=== PATIENT | female | born 1990 | race Caucasian/White ===

== ENCOUNTER 2019-11-15 19:44 | Emergency (ER) | payer MEDICAID, SELFPAY ==
[2019-11-15 19:45] VITALS: BP 137/92; PULSE 111; RESP 16; TEMP 36.7; O2SAT 99; BMI 30.9
--- NOTE | 2019-11-15 20:29 | ED.VISSUMM ---
- ER Visit Summary Date of Service: 11/15/19 Chief Complaint: Rectal pain History of Present Illness: The patient is a 29 F presents with rectal pain that is been getting progressively worse over the past 4 days. Patient states she has history of hemorrhoids and states they have gotten worse over the past 4 days. Patient describes her pain as sharp. Patient states her pain is worse with sitting. Patient states the pain improves with some warm compresses. Patient admits to some mild bleeding. Patient denies any nausea or vomiting. Patient states the pain will occasionally radiate into her abdomen. Patient denies any fevers or chills. Patient admits to some mild lower back pain. Patient denies any flank pain. Physical Examination: Vital signs are stable except for mild tachycardia of 111. Patient is afebrile. Patient is in no acute distress. Oral mucosa is pink and moist. Neck is supple. Trachea is midline. There is no JVD. Heart was regular and mildly tachycardic. Lungs are clear and equal bilaterally. Abdomen is soft. Bowel sounds are normal. There is no tenderness. Cranial nerves II through XII are intact. There are no focal motor or sensory deficits noted. Rectal exam showed a tender hemorrhoid on the left lateral aspect of the anus. There is no evidence of thrombosis. There is no discoloration noted. There is no active bleeding. There are other small nontender hemorrhoids on the right. Emergency Department Course and Treatment: Patient was advised that this does not need to be opened and drained at this time. Patient was given a prescription for Anusol HC. Patient was instructed to follow-up with her primary care physician in 5 to 7 days. Patient was instructed to continue using warm sitz baths. Patient understood and was agreeable with the plan. All questions were answered. Disposition: Discharge home Impression: Hemorrhoids This note was generated with [employer] dictation software. It may contain incorrect words, spelling, and punctuation that were not noted in review of the chart prior to signing ED Disposition - Plan for ED Patient: Disposition: Home or Assisted Living Diagnosis: Hemorrhoids Instructions: Hemorrhoids Prescriptions: Hydrocortisone Acetate Cream [Anusol Hc] 1 applic RECTAL BID PRN PRN #1 tube PRN Reason: Hemorrhoids Prescription Printed Referrals: Dewayne Delgado III, MD [Primary Care Provider] - 3-5 Days
[2019-11-15 21:01] VITALS: PULSE 80; RESP 18; O2SAT 100
--- NOTE | 2019-11-15 21:01 | ED.RN ---
Educated pt, answered all questions, no further concerns.
== END 2019-11-15 21:01 | disposition home or self-care (01) ==
PROVIDERS: Emergency Provider Emergency Medicine; Family Provider Family Medicine; PCP Family Medicine
DX: K64.9 Unspecified hemorrhoids (principal); I10 Essential (primary) hypertension
CPT/HCPCS: 99282

== ENCOUNTER 2019-12-19 00:46 | Outpatient (CLI) | payer MEDICAID, SELFPAY ==
[2019-12-19 00:48] VITALS: BP 137/108; PULSE 96; RESP 15; TEMP 36.4; O2SAT 99; BMI 29.5
--- NOTE | 2019-12-19 01:28 | ED.VISSUMM ---
- ER Visit Summary Date of Service: 12/19/19 Chief Complaint: Right flank pain History of Present Illness: The patient is a 29 F who presents with right flank pain that has gradually been getting worse over the past week. Patient states the pain is a constant ache but gets sharp at times. Patient states the pain is over the right upper right lower abdomen. Patient states the pain improves with certain positions. Patient denies any nausea or vomiting. Patient denies any hematemesis or coffee-ground emesis. Patient denies any diarrhea, melena, or hematochezia. Patient denies any dysuria or hematuria. Physical Examination: Vital signs are stable. Patient is afebrile. Patient is in no acute distress. Oral mucosa is pink and moist. Neck is supple. Trachea is midline. There is no JVD. Heart was regular rate and rhythm. Lungs are clear and equal bilaterally. Abdomen is soft. There is some mild right CVA tenderness. There is no rebound or guarding noted. There is no right lower quadrant or left-sided abdominal tenderness. Cranial nerves II through XII are intact. There are no focal motor or sensory deficits noted. Test Results: CBC shows a thrombocytopenia of 34. Comprehensive metabolic profile shows a total bilirubin of 2.0, alk phos of 241, ALT of 115, and AST of 195. Quantitative hCG was 26,298. Emergency Department Course and Treatment: Patient was given IV fluids, Zofran, and morphine here. Patient was feeling better on reevaluation. Case was discussed with Dr. Trujillo from [facility]. She recommended obtaining an ultrasound of the pelvis as well as the abdomen to assess for , kidney, and liver. This was obtained. ultrasound shows a single intrauterine at approximately 33 weeks gestation. Case was discussed with Dr. Trujillo again. Patient will be admitted to the labor and delivery unit and she will be in to evaluate the patient there. Patient understands and is agreeable with the plan. All questions were answered. Disposition: Admit for observation Impression: HELLP syndrome This note was generated with [employer] dictation software. It may contain incorrect words, spelling, and punctuation that were not noted in review of the chart prior to signing ED Disposition - Plan for ED Patient: Disposition: Acute Care [facility] Diagnosis: HELLP syndrome Referrals: Dewayne Delgado III, MD [Primary Care Provider] -
[2019-12-19] MEDS: 0.9% Normal Saline 1,000 ML 1000 ML IV (01:33)
[2019-12-19] MEDS: Ondansetron 4 MG/2 ML Vial IV (01:33)
[2019-12-19] MEDS: Morphine 2 MG/ML Syringe IV (01:33)
[2019-12-19 01:34] LABS: Internal QC Validated? YES +Cl - CLEAR BKGD; Pregnancy, Serum, hCG Quali. POSITIVE Negative
[2019-12-19 01:41] LABS: Absolute Lymphocyte Count 2.59 X10^3/uL (0.83-4.51); Absolute Neutrophil Count 8.3 X10^3/uL (2.0-7.7); Basophil# 0.03 X10^3/uL; Basophil% 0.3 % (0-1); Eosinophil# 0.08 X10^3/uL; Eosinophils% 0.7 % (0-5); Hematocrit 38.2 % (37-47); Hemoglobin 13.6 g/dL (12.0-15.0); Lymphocyte # 2.59 X10^3/ul (4.0); Lymphocyte % 21.7 % (19-41); Mean Corp Hgb Conc 35.6 g/dL (32-36); Mean Platelet Vol. 10.2 fl (6.2-12.0); Monocyte# 0.77 X10^3/uL; Monocyte% 6.5 % (0-10); NRBC Flagged by Analyzer 0 % (0-5); Neutrophil # 8.34 X10^3/uL (2.7-7.7); POSITIVE COUNT YES; RBC Distribution Width CV 14.1 % (11.6-14.6); Red Blood Count 4.39 M/mm3 (4.2-5.4); White Blood Count 11.9 K/mm3 (4.4-11.0)
[2019-12-19 01:54] LABS: ALB/GLOB Ratio 0.5 RATIO (0.9-2.4); AST(SGOT) 195 U/L (15-37); Alanine Aminotransfer ALT/SGPT 115 U/L (13-56); Albumin, Serum 2.4 g/dL (3.2-5.0); Alkaline Phosphatase 241 U/L (45-117); Anion Gap 9 (5-15); BUN 7 mg/dL (7-18); BUN/Creat Ratio 9.6 RATIO (10-20); Calcium,Total 8.6 mg/dL (8.5-10.1); Chloride 100 mmol/L (98-107); Creatinine, Serum 0.73 mg/dL (0.55-1.02); EST Glomerular Filtration Rate 99 mL/min (>60); Est Glom Filt Rate - Afr Amer 120 mL/min (>60); Estimated Creatinine Clearance 97.31 ml/min; Globulin 4.4 g/dL (2.2-4.2); Glucose 79 mg/dL (74-106); Lipase 32 U/L (73-393); Potassium 3.6 mmol/L (3.5-5.1); Protein, Total 6.8 g/dL (6.4-8.2); Sodium Level 132 mmol/L (136-145)
[2019-12-19 02:04] LABS: Differential Comment SCANNED; Differential Indicated SCAN CRITERIA MET; Platelet Count 34 K/mm3 (150-450); Platelet Estimate MKD DEC (ADEQ)
[2019-12-19 02:51] VITALS: BP 131/95; PULSE 79; RESP 18; O2SAT 98
[2019-12-19 02:55] LABS: Bacteria 0 SEEN /hpf (None Seen); Mucous, Urine 0 SEEN /hpf (<or=2+); Red Blood Cells-Urine 0 SEEN /hpf (0-5); White Blood Cells 0 SEEN /hpf (0-5)
[2019-12-19 02:56] LABS: Color, Urine Yellow (Yellow); Glucose, Dipstick Normal (Normal); Ketone-Dipstick 50 mg/dl (Negative); Leukocyte Esterase-Dipstick 25 /ul (Negative); Nitrite-Dipstick Negative (Negative); Occult Blood-Urine Negative /ul (Negative); Protein-Dipstick Negative (Negative); Urine Bilirubin Dipstick Negative (Negative); Urine Clarity Sl. Cloudy (Clear); Urine Urobilinogen 1 mg/dl (Normal)
[2019-12-19 03:02] LABS: Squamous Epithelial Cells - UA > 100 SEEN /hpf (5-10)
[2019-12-19 03:10] LABS: hCG Titer Quant., Serum 26298 mIU/mL (1-3)
--- NOTE | 2019-12-19 03:36 | US_ITS ---
STUDY: SECOND AND THIRD TRIMESTER OBSTETRICAL ULTRASOUND REASON FOR EXAM: Female, 29 years old with abdominal pain. Patient . LMP: 11/16/2019. TECHNIQUE: Transabdominal. TECHNICAL QUALITY: Adequate. PRIOR ULTRASOUND: None. FINDINGS: There is a single intrauterine fetus. The fetus is in a cephalic presentation. There is demonstrated cardiac activity with a heart rate of 136 bpm. There is a normal amniotic fluid volume. The largest amniotic fluid pocket measures 3.3 cm. The amniotic fluid index (EDU) is 10.9 cm. The placenta is anterior and not low-lying. There are Grade 3 placental changes. Cervix not visualized. Adnexa not visualized. BIOMETRY: BPD: 9.1 cm: 37 weeks, 1 days HC: 32.6 cm: 37 weeks, 1 days AC: 29.9 cm: 33 weeks, 6 days FL: 7.0 cm: 35 weeks, 5 days FL/BPD: 76% FL/AC: 23% HC/AC: 1.1 age by current US: 36 weeks, 0 days. GUILHERME by current US: 01/16/2020. Estimated weight: 2567 grams, +/- 375 grams, Age by LMP: 4 weeks, 5 days. GUILHERME by LMP: 08/22/2020. Limited anatomic survey due to advanced gestational age. US/OB Limited With Biometrics IMPRESSION: Single living intrauterine gestation with an estimated gestational age by ultrasound of 36 weeks 0 days. Estimated date of delivery January 16, 2020. Discordant estimated gestational age by LMP. Electronically Signed: Jerson Hollingsworth MD at 5:45 EST , Service support ,
--- NOTE | 2019-12-19 03:37 | US_ITS ---
STUDY: ABDOMINAL ULTRASOUND - RIGHT UPPER QUADRANT REASON FOR VISIT: Female, 29 years old with right flank pain. Patient . TECHNIQUE: Ultrasound evaluation of the right upper quadrant was performed with real-time and static burger-scale imaging. TECHNICAL QUALITY: Adequate. COMPARISON: None. FINDINGS: Liver: The liver measures 15.3 cm. There is normal echogenicity of the liver from the images provided. The bile ducts are within normal limits. There is hepatic color flow. The direction of portal flow is hepatopetal. There is no demonstrated mass lesion. Gallbladder: Normal distended gallbladder. The gallbladder wall measures 4 mm. There is a negative sonographic Hayes''s sign. There is no pericholecystic fluid. There are multiple echogenic structures within the gallbladder, consistent with 2 mobile gallstones. Common Bile Duct (C.B.D.): The common bile duct measures 4 mm. Pancreas not visualized due to overlying bowel gas. Right Kidney: Normal size of the right kidney. The right kidney measures 10.5 cm. Normal renal cortex. The right cortex measures 2.1 cm. There is no demonstrated renal mass or cyst. There is no right hydronephrosis. US/Abdomen Limited IMPRESSION: Cholelithiasis with mild gallbladder wall thickening. These findings alone do not suggest cholecystitis. Pancreas not visualized. Electronically Signed: Jerson Hollingsworth MD at 5:37 EST , Service support ,
[2019-12-19] MEDS: 0.9% Normal Saline 1,000 ML 999 ML IV (03:57)
--- NOTE | 2019-12-19 05:40 | ED.RN ---
DR. EARLY WAS CONSULTED BY DR. CID FOR THE PATIENT IN APPARENT HELP'' SYNDROME AND 36 WEEKS GESTATION. THE PATIENT WAS UNAWARE THAT SHE WAS THIS FAR ALONG. SHE WAS VERY SCARED AND NERVOUS. HER MOM IS AT THE BEDSIDE FOR SUPPORT, BUT DID NOT BELIEVE THEY WOULD HAVE GOOD PARENTAL SUPPORT. DR. EARLY WANTED HER TO BE TRANSPORTED TO OB IMMEDIATELY. HER VITALS ARE STABLE AT BP 129/83, PULSE 70, RESPS 20 AND PULSE OX 98%. SHE WENT OVER TO OB ON THE [facility] OPERATOR HELPER AT NORMAL SINUS RHYTHM. BEDSIDE REPORT WAS GIVEN TO THE OB NURSE TEAM. PATIENT WAS ATTACHED TO TO MONITOR AND THEIR WAS A GOOD STRONG HARD BEAT.
[2019-12-19 05:42] VITALS: BP 129/83; PULSE 70; RESP 20; O2SAT 98
[2019-12-19] MEDS: Betamethasone/Betamethasone 30 MG/5 ML Vial 12 MG IM (05:54)
[2019-12-19] MEDS: Magnesium Sulfate 4gm/100mL 4 GM/100 ML IV.SOLN. IV (05:59)
[2019-12-19 06:20] VITALS: BP 135/90; PULSE 90; RESP 18; O2SAT 97
[2019-12-19] MEDS: Magnesium Sulfate 20 GM/500 ML BAG IV (06:20)
--- NOTE | 2019-12-19 06:20 | PCM.HP.OB ---
History Date of Admission: 12/19/19 Final GUILHERME: 01/16/20 Gestational age: 36 Weeks and 0 Days History of this : Patient presented with ED with RUQ and right flank pain. Pain had been going on for 1 week. Denies other symptoms. Surgical History: Surgical History (Last Updated 12/19/19 @ 06:22 by David Trujillo) H/O adenoidectomy Z90.89 Allergies aspirin Allergy (Verified 12/19/19 00:47) Swelling sulfamethoxazole [From Bactrim] Allergy (Verified 12/19/19 00:47) Swelling trimethoprim [From Bactrim] Allergy (Verified 12/19/19 00:47) Swelling Home Medications: Home Medications Atenolol 50 mg PO DAILY 11/15/19 Hydrochlorothiazide 12.5 mg PO DAILY 11/15/19 Levocetirizine Dihydrochloride [24Hr Allergy Relief] 5 mg PO DAILY 11/15/19 Smoking Status: Never smoker Number of Fetus(es): 1 NST - FHR Rate Baby A Baseline: 135 Variability:: Moderate Accelerations:: 15 x 15 Decelerations:: None NST Reactive:: Yes Uterine Activity:: Irregular History Past Pregnancies: Past Pregnancies Delivery Date Name GA/ Weeks Outcome Route Wt Infant Sex Labor Length Anesthesia Delivery Location Provider FOB Labs: No care Physical Exam Vitals: Vital Signs Temp Pulse Resp BP Pulse Ox 97.6 F L 79 18 131/95 H 98 12/19/19 00:48 12/19/19 02:51 12/19/19 02:51 12/19/19 02:51 12/19/19 02:51 General: Alert, Oriented x3 Abdomen: Soft, Non-Distended, Tender - mildy in RUQ Neurological: Cranial nerves II-XII grossly intact LUBRICATING MACHINE TENDER: Normal external genitalia Presentation: Cephalic Assessment/Plan All Active Problems HELLP syndrome (Acute) This is a 29 year-old, G 1, P 0, at 36 weeks with HELLP. HELLP - ED evaluation shows elevated LFT's and low platelets. No LDH done but findings c/w with HELLP syndrome. Patient started on magnesium sulfate. These findings and plan of care discussed with patient. FWB - BMZ given and reassuring EFM. No PNC - US in ED provided EDC. Will need PNB upon arrival to [place]. Will transfer patient to [facility]. Discussed patient with Dr. Son.
--- NOTE | 2019-12-19 06:36 | NURSING ---
wp obs rosie hellp syndrome
--- NOTE | 2019-12-19 06:45 | PCM.HP.OB ---
History Date of Admission: 12/19/19 Final GUILHERME: 01/16/20 Gestational age: 36 Weeks and 0 Days History of this : This is a 29 year-old, G [], P [], at weeks gestational age. Medical History: Medical History (Last Updated 12/19/19 @ 06:22 by David Trujillo) Chronic hypertension I10 Surgical History: Surgical History (Last Updated 12/19/19 @ 06:22 by David Trujillo) H/O adenoidectomy Z90.89 Allergies aspirin Allergy (Verified 12/19/19 00:47) Swelling sulfamethoxazole [From Bactrim] Allergy (Verified 12/19/19 00:47) Swelling trimethoprim [From Bactrim] Allergy (Verified 12/19/19 00:47) Swelling Home Medications: Home Medications Atenolol 50 mg PO DAILY 11/15/19 Hydrochlorothiazide 12.5 mg PO DAILY 11/15/19 Levocetirizine Dihydrochloride [24Hr Allergy Relief] 5 mg PO DAILY 11/15/19 Smoking Status: Never smoker History Past Pregnancies: Past Pregnancies Delivery Date Name GA/ Weeks Outcome Route Wt Infant Sex Labor Length Anesthesia Delivery Location Provider FOB Physical Exam Vitals: Vital Signs Temp Pulse Resp BP Pulse Ox 97.6 F L 70 20 H 129/83 H 98 12/19/19 00:48 12/19/19 05:42 12/19/19 05:42 12/19/19 05:42 12/19/19 05:42 Assessment/Plan All Active Problems (Last Updated 12/19/19 @ 06:22 by David Trujillo) HELLP syndrome (Acute)
[2019-12-19 07:00] VITALS: BP 117/76; PULSE 68; RESP 18; O2SAT 97
[2019-12-19 14:38] LABS: Pathologist Review Reviewed
== END 2019-12-19 07:15 | disposition short-term general hospital (02) ==
LOC: ED 02:22 → WPOUT 05:45 → WP 05:45
PROVIDERS: Emergency Provider Emergency Medicine; PCP Family Medicine; Visit Provider Obstetrics & Gynecology
DX: O14.23 HELLP syndrome (HELLP), third trimester (principal); O10.913 Unspecified pre-existing hypertension complicating pregnancy, third trimester; O99.113 Other diseases of the blood and blood-forming organs and certain disorders involving the immune mechanism complicating pregnancy, third trimester; D69.6 Thrombocytopenia, unspecified; Z88.2 Allergy status to sulfonamides; Z88.1 Allergy status to other antibiotic agents; Z88.6 Allergy status to analgesic agent; Z3A.36 36 weeks gestation of pregnancy
CPT/HCPCS: 96361 ×3; 96365; 96375 ×2; 59025; 59050; 76705; 76816; 80053; 81001; 83690; 84702; 84703; 85025; 96372; 99218; 99283; J7030; A4216; G0378; J2405

== ENCOUNTER → 2019-12-30 12:59 | Outpatient (CLI) | payer MEDICAID, SELFPAY ==
[2019-12-19 00:48] VITALS: BMI 29.5
--- NOTE | 2019-12-30 13:18 | VDUE_ITS ---
Reason For Study: Right arm pain Right Proximal Right jugular vein is spontaneous, widely patent, phasic, with no intraluminal echogenicity noted. Right subclavian vein is spontaneous, widely patent, phasic, with no intraluminal echogenicity noted. Right Lower Arm Right radial vein is compressible. Right ulnar vein is compressible. Right Arm Right axillary vein is spontaneous, patent, phasic, competent, compressible and demonstrates augmentation. Right brachial vein is compressible. Acute superficial vein thrombosis is noted in the right cephalic vein from the wrist to above antecube, and the median cubital vein not extending in the basilic vein. Right basilic vein is compressible. Patient Safety Prelim to [facility]. Interpretation Summary Deep veins of the right upper extremity are patent and compressible segmentally. There is no evidence of deep vein thrombosis. Acute superficial thrombophlebitis is noted in the right median cubital vein, and in the right cephalic vein from the wrist to the bicep, but not extending into the deep venous system. The right basilic vein appears patent and compressible. Ordering Physician: Norma Gates Referring Physician: ARIS Delgado M.D. Performed By: Marie Saldana RVT ?
== END ==
PROVIDERS: PCP Family Medicine; Referring Provider Advanced Practice Midwife; Visit Provider Advanced Practice Midwife
DX: M79.601 Pain in right arm (principal); M79.89 Other specified soft tissue disorders
CPT/HCPCS: 93971

== ENCOUNTER 2021-12-03 19:51 | Emergency (ER) | payer MEDICAID, SELFPAY ==
[2021-12-03 19:52] VITALS: BP 167/112; PULSE 106; RESP 18; TEMP 36.2; O2SAT 100; BMI 29.8
== END 2021-12-03 23:59 | disposition left against medical advice (07) ==
LOC: ED 20:26
DX: R10.9 Unspecified abdominal pain (principal)

== ENCOUNTER 2021-12-04 15:06 | Inpatient (IN) | payer MEDICAID, SELFPAY ==
[2021-12-04] VITALS (14 sets, daily range): BP systolic 96–128; BP diastolic 46–81; PULSE 87–114; RESP 16–18; TEMP 36.6–39.3; O2SAT 94–100; BMI 25.7; BMI 28.5
--- NOTE | 2021-12-04 15:25 | EDS_ITS ---
HPI HPI - Female History of Present Illness Chief Complaint: Flank Pain Narrative Narrative: Patient presents with her mother because of left flank pain that she has had since yesterday. It is associated with nausea and subjective fever and chills. She was seen and evaluated at an outside facility, at [facility], and diagnosed with a UTI and a 4 mm stone at the left UVJ. She was supposed to go to same-day surgery at [facility] to see Dr. Saenz with urology for probable stenting, but her mother states that they prefer to be seen at [facility] if she needs surgery. Hence, they brought her here to the emergency department. [facility] Medical History (Updated 12/04/21 @ 16:38 by Gary Olea MD) Chronic hypertension Home Medications atenolol 50 mg PO DAILY 11/15/19 [History Last Taken Unknown] hydrochlorothiazide 12.5 mg PO DAILY 11/15/19 [History Last Taken Unknown] levocetirizine 5 mg PO DAILY 11/15/19 [History Last Taken Unknown] Allergy/AdvReac Type Severity Reaction Status Date / Time aspirin Allergy Swelling Verified 12/04/21 15:07 sulfamethoxazole Allergy Swelling Verified 12/04/21 15:07 [From Bactrim] trimethoprim [From Bactrim] Allergy Swelling Verified 12/04/21 15:07 Surgical History (Updated 12/19/19 @ 06:[address] David Trujillo MD) H/O adenoidectomy Social History Smoking Status: Never smoker ROS ROS ED ROS Narrative Constitutional: No fever, positive chills. HEENT: No sore throat. No neck pain. No loss of vision. No rhinorrhea. Cardiovascular: No chest pain. No palpitations. No pedal edema. Respiratory: No cough, no shortness of breath. Abdominal: No abdominal pain. No nausea. No vomiting. Genitourinary: No dysuria. No hematuria. Left flank pain. Musculoskeletal: No myalgias. No arthralgias. Neurologic: No headaches. No dizziness. No lightheadedness. Skin: No rash. No change in color. Psychiatric: No depression. No anxiety. EXAM Physical Exam Narrative Exam Narrative: Afebrile. Vital signs noted. HEENT: Normocephalic. Atraumatic. PERRL, EOMI. Neck soft and supple. No point tenderness or step off. Cardiovascular: Positive tachycardia. No murmurs, rubs, or gallops appreciated. Respiratory: No tachypnea. Lungs clear to auscultation bilaterally. Gastrointestinal: Abdomen soft, nontender, with normoactive bowel sounds. No rebound or guarding. Mild CVA tenderness to percussion left. Neurological: Awake. Alert. Nonfocal, nonlateralizing. Skin: No rash. Normal color. No pallor. Musculoskeletal: No pedal edema. Full range of motion extremities. Const Vital Signs: 12/04/21 15:07 Temperature 98.0 F Temperature Source Temporal Pulse Rate 114 H Respiratory Rate 16 Blood Pressure 128/81 H Blood Pressure Mean 96 Pulse Ox 100 Oxygen Delivery Method Room Air MDM MDM MDM Narrative Medical decision making narrative: Patient did receive antibiotics intravenously. She states she has an allergy to aspirin but tolerates oral ibuprofen. IV was placed and she was administered morphine and oral ibuprofen. I reviewed her records from the outside facility. She did have signs of a UTI. She has a white count of 10.7. Here she is afebrile. However, she is mildly tachycardic. She will also be bolused normal saline. I discussed patient with Dr. Rocha. Given her tachycardia, and chills, and ureteral stone with UTI, she will be observed. She will be started on Rocephin intravenously. I will also have a Covid test with her planned for surgery tomorrow. Serum hCG was also added. She will be placed on observation. She is in stable condition. Discharge Plan Dx/Rx/DC Orders Clinical Impression: UTI (urinary tract infection), Left ureteral calculus Disposition Disposition: Acute Care Hospital [facility]
[2021-12-04] MEDS: Morphine 4 MG/ML Syringe IV (15:39)
[2021-12-04] MEDS: 0.9% Normal Saline 1,000 ML 999 ML IV (15:45)
[2021-12-04] MEDS: Ibuprofen 600 MG Tablet PO (15:45)
[2021-12-04] MEDS: Ceftriaxone 1 GM/50 ML BAG IV (16:36)
[2021-12-04 17:09] LABS: Internal QC Validated? YES +Cl - CLEAR BKGD; Pregnancy, Serum, hCG Quali. NEGATIVE Negative
[2021-12-04 17:55] LABS: Absolute Lymphocyte Count 1.54 X10^3/uL (0.83-4.51); Absolute Neutrophil Count 11.5 X10^3/uL (2.0-7.7); Basophil# 0.03 X10^3/uL; Basophil% 0.2 % (0-1); Eosinophil# 0.02 X10^3/uL; Eosinophils% 0.1 % (0-5); Hemoglobin 11.4 g/dL (12.0-15.0); Lymphocyte # 1.54 X10^3/ul (0.83-4.51); Lymphocyte % 10.9 % (19-41); Mean Corp Hgb Conc 34.5 g/dL (32-36); Mean Corpuscular Hgb 30.4 pg (27.0-32.0); Mean Platelet Vol. 8.5 fl (6.2-12.0); Monocyte# 0.91 X10^3/uL; Monocyte% 6.5 % (0-10); NRBC Flagged by Analyzer 0 % (0-5); Neutrophil # 11.51 X10^3/uL (2.7-7.7); Neutrophil % 81.9 % (47-70); Platelet Count 206 K/mm3 (150-450); RBC Distribution Width CV 12.3 % (11.6-14.6); RBC Distribution Width SD 39.7 fl (35.1-43.9); Red Blood Count 3.75 M/mm3 (4.2-5.4); White Blood Count 14.1 K/mm3 (4.4-11.0)
[2021-12-04 18:10] LABS: Anion Gap 9 (5-15); BUN 6 mg/dL (7-18); BUN/Creat Ratio 7.7 RATIO (10-20); Calcium,Total 7.7 mg/dL (8.5-10.1); Chloride 100 mmol/L (98-107); Creatinine, Serum 0.78 mg/dL (0.55-1.02); EST Glomerular Filtration Rate 90 mL/min (>60); Est Glom Filt Rate - Afr Amer 109 mL/min (>60); Estimated Creatinine Clearance 89.41 ml/min; Glucose 102 mg/dL (74-106); Potassium 3.2 mmol/L (3.5-5.1); Sodium Level 132 mmol/L (136-145)
[2021-12-04] MEDS: Cefazolin 1 GM/50 ML BAG IV (18:32)
[2021-12-04] MEDS: Acetaminophen 325 MG Tablet 650 MG PO (18:37)
--- NOTE | 2021-12-04 19:34 | HP.PCM_ITS ---
HPI - General General Date of Admission: 12/04/21 HPI Narrative SERGIO CUMMINS, is a 31 F who presents with known left 4mm ureteral stone diagnosed at another facility. Her pain is uncontrolled and she desired treatment here. At the time I examined her, it was 4:25pm. She was eating crackers and asking for a regular tray of food. I went to surgery, and by 5:15 she was mildly tachycardic and temp to 100.6 Labs were ordered. I called again at 6:15, she had just arrived on MS-3 with temperature of 102.8. The decision was made to take her for cystoscopy and ureteral stent insertion. Informed consent was obtained. [facility] Medical History (Updated 12/04/21 @ 19:[address] Jovita Rocha MD) Anxiety Asthma Chronic hypertension Kidney stones Pyelonephritis Home Medications NK 12/04/21 [History Last Taken Unknown] Allergy/AdvReac Type Severity Reaction Status Date / Time aspirin Allergy Swelling Verified 12/04/21 15:07 sulfamethoxazole Allergy Swelling Verified 12/04/21 15:07 [From Bactrim] trimethoprim [From Bactrim] Allergy Swelling Verified 12/04/21 15:07 Surgical History H/O adenoidectomy Social History Smoking Status: Never smoker ROS Constitutional Constitutional: Reports fatigue; Denies fever(s) or poor appetite Eyes Eyes: Reports systems reviewed and no addt'l complaints, except as documented ENT HEENT: Reports systems reviewed and no addt'l complaints, except as documented Cardiovascular Cardiovascular: Denies chest pain, dyspnea or vomiting Respiratory/Chest Respiratory/Chest: Denies change in mental status, chest congestion, cough, dyspnea or inability to speak Gastrointestinal Gastrointestinal: Reports abdominal pain; Denies nausea or vomiting Genitourinary Genitourinary: Reports flank pain Musculoskeletal Musculoskeletal: Reports back pain Integumentary Integumentary: Reports systems reviewed and no addt'l complaints, except as documented Neurologic Neurologic: Reports systems reviewed and no addt'l complaints, except as documented Psychiatric Psychiatric: Reports systems reviewed and no addt'l complaints, except as documented Endocrine Endocrinology: Reports systems reviewed and no addt'l complaints, except as documented Hematologic/Lymphatic Hematologic/Lymphatic: Reports systems reviewed and no addt'l complaints, except as documented Allergic/Immunologic Allergic/Immunologic: Reports systems reviewed and no addt'l complaints, except as documented Vital Signs Vital Signs Vital Signs: 12/04/21 15:07 12/04/21 16:57 12/04/21 18:24 Temperature 98.0 F 100.6 F H 102.8 F H Temperature Source Temporal Oral Oral Pulse Rate 114 H 103 H 104 H Respiratory Rate 16 16 18 Blood Pressure 128/81 H 123/78 H 110/70 Blood Pressure Mean 96 93 83 Blood Pressure Source Monitor Blood Pressure Position Semi-Fowlers Blood Pressure Location Left Arm Pulse Ox 100 99 Oxygen Delivery Method Room Air Room Air Room Air 12/04/21 19:15 Temperature 101.8 F H Temperature Source Oral Pulse Rate 114 H Respiratory Rate 18 Blood Pressure 104/59 L Blood Pressure Mean 74 Blood Pressure Source Monitor Blood Pressure Position Semi-Fowlers Blood Pressure Location Right Arm Pulse Ox 99 Oxygen Delivery Method Room Air Weight Weight: 75.296 kg Body Mass Index (BMI) 28.5 Physical Exam Const alert, oriented x3 and no apparent distress General Appearance: cooperative, comfortable and well kempt HEENT normocephalic, head/scalp atraumatic, hearing grossly normal bilaterally and external ears normal Face and Sinus: normal facial exam Nose: external nose normal External Ear: external ears normal Mouth: lips normal and tongue normal Eyes no scleral icterus General Eye: normal appearance of both eyes Neck supple General: trachea midline Chest Chest: symmetrical chest wall rise Resp normal respiratory effort, normal air movement, no retractions and no use of accessory muscles Cardio regular rhythm Rate: tachycardic GI soft to palpation Bladder / Kidney Exam: CVA tenderness left Back/Spine General Back: CVA tenderness left Extremity normal to inspection Skin no rashes or lesions noted, no jaundice and no petechiae Neuro oriented x3, CN's II-XII intact bilaterally and moves all extremities Psych mental status grossly normal and thought process normal Results Lab / Micro Data Result Diagrams: 12/04/21 17:45 12/04/21 17:45 Labs: Laboratory Results - last 24 hr 12/04/21 16:50: Serum , Qual NEGATIVE 12/04/21 17:45: WBC 14.1 H, RBC 3.75 L, Hgb 11.4 L, Hct 33.0 L, MCV 88.0, MCH 30.4, MCHC 34.5, RDW Std Deviation 39.7, RDW Coeff of Emir 12.3, Plt Count 206, MPV 8.5, Immature Gran % (Auto) 0.400, Neut % (Auto) 81.9 H, Lymph % (Auto) 10.9 L, [place] % (Auto) 6.5, Eos % (Auto) 0.1, Baso % (Auto) 0.2, Absolute Neuts (auto) 11.5 H, Absolute Lymphs (auto) 1.54, Nucleated RBC % 0 12/04/21 17:45: Sodium 132 L, Potassium 3.2 L, Chloride 100, Carbon Dioxide 23.0, Anion Gap 9, BUN 6 L, Creatinine 0.78, Estim Creat Clear Calc 89.41, Est GFR (MDRD) Af Amer 109, Est GFR (MDRD) Non-Af 90, BUN/Creatinine Ratio 7.7 L, Glucose 102, Calcium 7.7 L Micro: Microbiology 12/04/21 16:45 Nasal Secretion SARS-CoV-2 Antigen (Rapid) - Final Assessment & Plan Assessment/Plan (1) Left ureteral calculus: (2) UTI (urinary tract infection): (3) Pyelonephritis: PLAN: cystoscopy with left ureteral stent insertion antibiotics, supportive care
--- NOTE | 2021-12-04 19:43 | PCM.OPRPT ---
Problems Associated Problem List Diagnoses (1) Left ureteral calculus: (2) Pyelonephritis: (3) UTI (urinary tract infection): Report of Operation Date of Procedure: 12/04/21 Pre-Operative Diagnosis: left ureteral calculus with pyelonephritis, urinary tract infection Post-Operative Diagnosis: same Surgery/Procedure Performed:: cystoscopy with left ureteral stent insertion Surgeon: Jovita Rocha Type of Anesthesia: MAC Description of Procedure: The patient is a 31-year-old female with a left ureteral calculus who developed a fever on the floor. She now presents for cystoscopy and insertion of left ureteral stent. The patient was taken to the operating room and placed on the operating room table. Anesthesia monitored the head, neck, airway, IV access and vital signs throughout the case. Once anesthesia was apparently administered the patient was placed in dorsal lithotomy position was prepped and draped in usual sterile fashion. The cystoscope was inserted through the urethra under direct visualization into the urinary bladder. The bladder was emptied. The left ureteral orifice was identified and intubated with a 0.035 Glidewire at which point purulent fluid drained from the left ureteral orifice. A 6 Spanish 24 cm JJ stent was inserted over the wire with good curling in the renal pelvis as well as the urinary bladder. The patient's bladder was left full and a Santiago catheter was inserted following removal of the cystoscope. 10 cc of saline was used to inflate the balloon. The patient was awakened and taken to the recovery room in good condition. There were no complications during the procedure. Grafts/Implants Used: 6x24 JJ stent Complications None Admit VTE Documentation VTE Present on Admission: Yes VTE Mechan Device Prophylaxis: SCD's VTE Pharm Prophylaxis ordered?: Yes
[2021-12-04] MEDS: Lidocaine Jelly 2% 20 ML Syringe (URO-JET) 1 APPLIC (19:53)
--- NOTE | 2021-12-04 20:53 | SUR.PHASEI ---
UA and C+S sent to lab
[2021-12-04] MEDS: Dextrose 5%-Lactated Ringers 1,000 ML 150 ML IV (21:53)
[2021-12-04] MEDS: Docusate Sodium 100 MG Capsule PO (23:42)
[2021-12-05] VITALS (10 sets, daily range): BP systolic 90–131; BP diastolic 47–83; PULSE 73–110; RESP 16–18; TEMP 36.7–39.2; O2SAT 94–100
[2021-12-05 01:49] LABS: Mucous, Urine 0 SEEN /hpf (<or=2+); Squamous Epithelial Cells - UA 0 SEEN /hpf (5-10)
[2021-12-05 01:51] LABS: Color, Urine Yellow (Yellow); Glucose, Dipstick Normal (Normal); Ketone-Dipstick Negative (Negative); Leukocyte Esterase-Dipstick 500 /ul (Negative); Nitrite-Dipstick Negative (Negative); Occult Blood-Urine 250 /ul (Negative); Protein-Dipstick 15 mg/dl (Negative); Urine Bilirubin Dipstick Negative (Negative); Urine Clarity Clear (Clear); Urine Urobilinogen Normal (Normal)
[2021-12-05 02:10] LABS: Red Blood Cells-Urine 0-5 SEEN /hpf (0-5); White Blood Cells 25-50 SEEN /hpf (0-5)
[2021-12-05 02:11] LABS: Bacteria 1+ /hpf (None Seen)
[2021-12-05] MEDS: 0.9% Normal Saline 1,000 ML 999 ML IV (02:21)
--- NOTE | 2021-12-05 04:32 | PCM.PN.HOSP ---
Subjective Subjective Patient is a 32-year-old female who has been admitted for infected ureteral stone She was a diagnosed with infected stone at the left UVJ at [facility]. She was supposed to go to outside hospital for possible ureteral stent placement but chose to come to [facility] for convenience. Patient had Ureteral stents placed on 12/04/[address] Rocha. Internal medicine service has been consulted to help manage chronic medical conditions of hypertension and also to help manage her pyelonephritis. Post surgery nurse reported that patient had low blood pressure. At the time of examination patient reported uncomfortable feeling with her Santiago catheter. Objective Data Objective Data Vital Signs: Vital Signs Temp Pulse Resp BP Pulse Ox 98.1 F 91 16 98/69 98 12/05/21 03:29 12/05/21 03:29 12/05/21 03:29 12/05/21 03:29 12/05/21 03:29 Oxygen Delivery Method Room Air Weight: 75.296 kg Body Mass Index (BMI) 28.5 Intake & Output: Intake and Output for Last 24 Hours 12/03/21 12/04/21 12/05/21 23:59 23:59 23:59 Intake Total 1100 / 1100 1680 / 1680 Output Total 30 / 430 400 / 400 Balance 1070 / 670 1280 / 1280 Lab / Micro Data Result Diagrams: 12/04/21 17:45 12/04/21 17:45 Labs: Laboratory Results - last 24 hr 12/04/21 16:50: Serum , Qual NEGATIVE 12/04/21 17:45: WBC 14.1 H, RBC 3.75 L, Hgb 11.4 L, Hct 33.0 L, MCV 88.0, MCH 30.4, MCHC 34.5, RDW Std Deviation 39.7, RDW Coeff of Emir 12.3, Plt Count 206, MPV 8.5, Immature Gran % (Auto) 0.400, Neut % (Auto) 81.9 H, Lymph % (Auto) 10.9 L, [place] % (Auto) 6.5, Eos % (Auto) 0.1, Baso % (Auto) 0.2, Absolute Neuts (auto) 11.5 H, Absolute Lymphs (auto) 1.54, Nucleated RBC % 0 12/04/21 17:45: Sodium 132 L, Potassium 3.2 L, Chloride 100, Carbon Dioxide 23.0, Anion Gap 9, BUN 6 L, Creatinine 0.78, Estim Creat Clear Calc 89.41, Est GFR (MDRD) Af Amer 109, Est GFR (MDRD) Non-Af 90, BUN/Creatinine Ratio 7.7 L, Glucose 102, Calcium 7.7 L 12/05/21 01:25: Urine Color Yellow, Urine Clarity Clear, Urine pH 6.0, Ur Specific [place] 1.010, Urine Protein 15 H, Urine Glucose (UA) Normal, Urine Ketones Negative, Urine Occult Blood 250 H, Urine Nitrite Negative, Urine Bilirubin Negative, Urine Urobilinogen Normal, Ur Leukocyte Esterase 500 H, Urine RBC 0-5 SEEN, Urine WBC 25-50 SEEN, Ur Squamous Epith Cells 0 SEEN, Urine Bacteria 1+, Urine Mucus 0 SEEN Micro: Microbiology 12/04/21 16:45 Nasal Secretion SARS-CoV-2 Antigen (Rapid) - Final Physical Exam Narrative Physical exam: General: Well-nourished, well-developed. Head: Normocephalic, atraumatic, no tenderness Eyes: PERRLA, EOMI ENT, no trauma, moist mucous membranes, no rhinorrhea Neck: Nontender, full range of motion, no spinal tenderness, deformities, step-off CVS: Regular rate and rhythm. S1-S2 present. No murmur, gallop or rub. Respiratory : clear to auscultation bilaterally, chest wall nontender, no wheezing Abdomen: Soft, nontender, nondistended, normal bowel sounds, no masses : Santiago catheter in place. Back: Nontender, no CVA tenderness, no midline spinal tenderness, deformities, step-offs Extremities: Nontender full range of motion, no trauma Skin: Normal color, no trauma, abrasions Neuro: Alert, oriented, cranial nerves II through XII grossly intact. Psychiatry: Normal mood. Normal affect. Not depressed. Not anxious. Assessment & Plan Assessment/Plan (1) Pyelonephritis: (2) UTI (urinary tract infection): QUALIFIERS: Urinary tract infection type: acute pyelonephritis Qualified Code(s): N10 - Acute pyelonephritis (3) Left ureteral calculus: PLAN: Acute pyelonephritis with infected left UVJ stone. Review of record showed white count of 14.1; trend. Status post stent by the urologist. On cefazolin, I agree. Will patient complaining of uncomfortable feeling from Santiago catheter, order given to remove Santiago catheter. Normal saline bolus 1 L at wide open ordered for marginal blood pressures. Continue maintenance infusion. Hypokalemia Review of record showed potassium of 3.2. Replace. Chronic hypertension Reportedly with history of HELLP syndrome. Not on home blood pressure medication. At this time blood pressure is actually low to low normal. Trend blood pressures. IV hydration as above. Thank you for your consult. Internal medicine service will continue to follow. Charges/Coding Visit Charges Inpatient E&M: 81506 Subs Hosp L2
[2021-12-05] MEDS: Cefazolin 1 GM/50 ML BAG IV ×3 (05:14→22:18)
[2021-12-05] MEDS: Potassium Chloride Oral Tablet 20 MEQ 40 MEQ PO (05:14)
[2021-12-05] MEDS: Dextrose 5%-Lactated Ringers 1,000 ML 150 ML IV ×3 (06:06→20:12)
[2021-12-05 06:44] LABS: Absolute Lymphocyte Count 0.54 X10^3/uL (0.83-4.51); Absolute Neutrophil Count 10.6 X10^3/uL (2.0-7.7); Basophil# 0.02 X10^3/uL; Basophil% 0.2 % (0-1); Eosinophil# 0.03 X10^3/uL; Eosinophils% 0.2 % (0-5); Hematocrit 30.9 % (37-47); Hemoglobin 10.9 g/dL (12.0-15.0); Lymphocyte # 0.54 X10^3/ul (0.83-4.51); Lymphocyte % 4.4 % (19-41); Mean Corp Hgb Conc 35.3 g/dL (32-36); Mean Corpuscular Hgb 30.7 pg (27.0-32.0); Mean Platelet Vol. 8.6 fl (6.2-12.0); Monocyte# 0.91 X10^3/uL; Monocyte% 7.4 % (0-10); NRBC Flagged by Analyzer 0 % (0-5); Neutrophil # 10.59 X10^3/uL (2.7-7.7); Neutrophil % 86.7 % (47-70); POSITIVE DIFFERENTIAL YES; Platelet Count 174 K/mm3 (150-450); RBC Distribution Width CV 12.5 % (11.6-14.6); RBC Distribution Width SD 40.1 fl (35.1-43.9); Red Blood Count 3.55 M/mm3 (4.2-5.4); White Blood Count 12.2 K/mm3 (4.4-11.0)
[2021-12-05 06:52] LABS: Differential Indicated SCAN CRITERIA MET
[2021-12-05] MEDS: HYDROcodone Bitartrate/Apap 5/325 Tablet PO (08:22)
[2021-12-05] MEDS: Docusate Sodium 100 MG Capsule PO ×2 (08:23→22:18)
--- NOTE | 2021-12-05 11:14 | PCM.PN.HOSP ---
Documented by User: Derrick GARCÍA 12/05/21 11:27 Subjective Subjective Patient is a 31-year-old female comfortably resting in bed, alert and orient x3. Patient reports that her pain is currently controlled denies development of any new symptoms overnight. Does not appear in acute distress. Objective Data Objective Data Vital Signs: Vital Signs Temp Pulse Resp BP Pulse Ox 98.8 F 90 18 109/75 100 12/05/21 08:16 12/05/21 08:16 12/05/21 08:16 12/05/21 08:16 12/05/21 08:16 Oxygen Delivery Method Room Air Weight: 166 lb Body Mass Index (BMI) 28.5 Intake & Output: Intake and Output for Last 24 Hours 12/03/21 12/04/21 12/05/21 23:59 23:59 23:59 Intake Total 1100 / 1100 1994 Output Total 30 / 430 420 / 420 Balance 1070 / 670 1575 / 1575 Lab / Micro Data Result Diagrams: 12/05/21 06:25 12/04/21 17:45 Labs: Laboratory Results - last 24 hr 12/04/21 16:50: Serum , Qual NEGATIVE 12/04/21 17:45: WBC 14.1 H, RBC 3.75 L, Hgb 11.4 L, Hct 33.0 L, MCV 88.0, MCH 30.4, MCHC 34.5, RDW Std Deviation 39.7, RDW Coeff of Emir 12.3, Plt Count 206, MPV 8.5, Immature Gran % (Auto) 0.400, Neut % (Auto) 81.9 H, Lymph % (Auto) 10.9 L, [place] % (Auto) 6.5, Eos % (Auto) 0.1, Baso % (Auto) 0.2, Absolute Neuts (auto) 11.5 H, Absolute Lymphs (auto) 1.54, Nucleated RBC % 0 12/04/21 17:45: Sodium 132 L, Potassium 3.2 L, Chloride 100, Carbon Dioxide 23.0, Anion Gap 9, BUN 6 L, Creatinine 0.78, Estim Creat Clear Calc 89.41, Est GFR (MDRD) Af Amer 109, Est GFR (MDRD) Non-Af 90, BUN/Creatinine Ratio 7.7 L, Glucose 102, Calcium 7.7 L 12/05/21 01:25: Urine Color Yellow, Urine Clarity Clear, Urine pH 6.0, Ur Specific [place] 1.010, Urine Protein 15 H, Urine Glucose (UA) Normal, Urine Ketones Negative, Urine Occult Blood 250 H, Urine Nitrite Negative, Urine Bilirubin Negative, Urine Urobilinogen Normal, Ur Leukocyte Esterase 500 H, Urine RBC 0-5 SEEN, Urine WBC 25-50 SEEN, Ur Squamous Epith Cells 0 SEEN, Urine Bacteria 1+, Urine Mucus 0 SEEN 12/05/21 06:25: WBC 12.2 H, RBC 3.55 L, Hgb 10.9 L, Hct 30.9 L, MCV 87.0, MCH 30.7, MCHC 35.3, RDW Std Deviation 40.1, RDW Coeff of Emir 12.5, Plt Count 174, MPV 8.6, Immature Gran % (Auto) 1.100 H, Neut % (Auto) 86.7 H, Lymph % (Auto) 4.4 L, [place] % (Auto) 7.4, Eos % (Auto) 0.2, Baso % (Auto) 0.2, Absolute Neuts (auto) 10.6 H, Absolute Lymphs (auto) 0.54 L, Nucleated RBC % 0 Micro: Microbiology 12/04/21 16:45 Nasal Secretion SARS-CoV-2 Antigen (Rapid) - Final Physical Exam Const alert, oriented x3 and no apparent distress HEENT head/scalp atraumatic and moist oral mucous membranes Head and Scalp: normocephalic Eyes PERRL, EOMs intact bilaterally and conjunctivae normal Neck no lymphadenopathy, supple and no JVD Resp normal respiratory effort, no retractions, no use of accessory muscles and clear to auscultation bilaterally Cardio regular rate, regular rhythm, no murmurs and no JVD GI normal to inspection, nondistended, normoactive bowel sounds, soft to palpation and non-tender Extremity normal to inspection, full ROM and no clubbing, cyanosis or edema Skin no rashes or lesions noted, no wounds and skin turgor normal Neuro CN's II-XII intact bilaterally Psych affect normal Assessment & Plan Assessment/Plan (1) Pyelonephritis: (2) UTI (urinary tract infection): QUALIFIERS: Urinary tract infection type: acute pyelonephritis Qualified Code(s): N10 - Acute pyelonephritis (3) Left ureteral calculus: PLAN: Patient is a 31-year-old female who presents the hospital medicine service on consult from urology who is seeing patient for acute pyelonephritis secondary to infected left UVJ stone. Patient is medically stable and requires no further medical management, ongoing care per primary service. 1) hypokalemia Potassium on 12/04 was 3.2, replaced. 2)history of chronic hypertension Noted in medical history, although blood pressures have been on the lower end of normal throughout admission. Patient was given IV fluids and blood pressure appears stable. 3) acute pyelonephritis with infective left UVJ stone. POD 1, s/p cystoscopy with left ureteral stent insertion. Currently on cefazolin, management per primary service Patient seen by Derrick Castrejon PA-C, under the supervision of Dr. Saha. Time spent on patient care: 7 minutes. Documented by User: Dr. Alec Saha, 12/05/21 11:52 Subjective Subjective Feels much better today still with some flank pain but overall improved. Denies any dysuria. Objective Data Lab / Micro Data Result Diagrams: 12/05/21 06:25 12/04/21 17:45 Physical Exam Const alert and no apparent distress Cardio regular rate, regular rhythm, S1 normal heart sound and S2 normal heart sound GI normal to inspection, nondistended, normoactive bowel sounds, soft to palpation, non-tender and non-distended Extremity normal to inspection Neuro Sensorium / Orientation: awake and alert Assessment & Plan Assessment/Plan (1) Pyelonephritis: (2) Left ureteral calculus: PLAN: Patient seen and examined independently. Data and vitals reviewed. I agree with the above note by the physician certified medical technician assistant. 1. Acute pyelonephritis secondary to infected left UVJ stone Status post cystoscopy with left ureteral stent On cefazolin Can change to levofloxacin 750 mg total of 7 days of antibiotics. 2. Hypokalemia Replaced 3. Hypertension Controlled Medically stable for discharge. Hospital service will continue to follow along during the course of this patient's hospitalization. Charges/Coding Visit Charges Inpatient E&M: 44629 Subs Hosp L2
[2021-12-05] MEDS: Acetaminophen 325 MG Tablet 650 MG PO (15:39)
--- NOTE | 2021-12-05 18:44 | PCM.PROGNOTE ---
Subjective Subjective Feeling better today except when the fever comes. Is able to tolerate oral intake. No nausea or vomiting. Is ambulatory. Pain is much better controlled today. There is only minimal stent pain. She is tearful as she has a 2-year-old child at home that she wants to get to a soon as possible. Objective Data Objective Data Vital Signs: Vital Signs Temp Pulse Resp BP Pulse Ox 99.7 F H 110 H 16 131/83 H 95 12/05/21 16:51 12/05/21 14:40 12/05/21 14:40 12/05/21 14:40 12/05/21 14:40 Oxygen Delivery Method Room Air Weight: 75.3 kg Body Mass Index (BMI) 28.5 Intake & Output: Intake and Output for Last 24 Hours 12/03/21 12/04/21 12/05/21 23:59 23:59 23:59 Intake Total 1100 / 1100 3540.0 / 3540.0 Output Total 30 / 430 1420 / 1420 Balance 1070 / 670 2120.0 / 2120.0 Lab / Micro Data Result Diagrams: 12/05/21 06:25 12/04/21 17:45 Labs: Laboratory Results - last 24 hr 12/05/21 01:25: Urine Color Yellow, Urine Clarity Clear, Urine pH 6.0, Ur Specific [place] 1.010, Urine Protein 15 H, Urine Glucose (UA) Normal, Urine Ketones Negative, Urine Occult Blood 250 H, Urine Nitrite Negative, Urine Bilirubin Negative, Urine Urobilinogen Normal, Ur Leukocyte Esterase 500 H, Urine RBC 0-5 SEEN, Urine WBC 25-50 SEEN, Ur Squamous Epith Cells 0 SEEN, Urine Bacteria 1+, Urine Mucus 0 SEEN 12/05/21 06:25: WBC 12.2 H, RBC 3.55 L, Hgb 10.9 L, Hct 30.9 L, MCV 87.0, MCH 30.7, MCHC 35.3, RDW Std Deviation 40.1, RDW Coeff of Emir 12.5, Plt Count 174, MPV 8.6, Immature Gran % (Auto) 1.100 H, Neut % (Auto) 86.7 H, Lymph % (Auto) 4.4 L, [place] % (Auto) 7.4, Eos % (Auto) 0.2, Baso % (Auto) 0.2, Absolute Neuts (auto) 10.6 H, Absolute Lymphs (auto) 0.54 L, Nucleated RBC % 0 Micro: Microbiology 12/04/21 16:45 Nasal Secretion SARS-CoV-2 Antigen (Rapid) - Final Physical Exam Const alert, oriented x3 and no apparent distress Constitutional Narrative: Appears flushed, sweat in her hair and face. General Appearance: cooperative and well developed Orientation / Consciousness: awake, oriented to person, oriented to place and oriented to time HEENT normocephalic, head/scalp atraumatic, hearing grossly normal bilaterally and external ears normal Nose: external nose normal Eyes General Eye: normal appearance of both eyes Neck supple General: trachea midline Lymph Lymphatic: no lymphedema noted Chest inspection of chest normal Chest: symmetrical chest wall rise Cardio regular rhythm Rate: tachycardic GI soft to palpation and non-tender Narrative: Santiago catheter is out and she is voiding on her own Bladder / Kidney Exam: CVA tenderness left Back/Spine General Back: CVA tenderness left Extremity normal to inspection and no calf tenderness Skin no wounds, skin turgor normal, no jaundice, no petechiae and no mottling Skin Narrative: Flushed Neuro oriented x3, CN's II-XII intact bilaterally and moves all extremities Psych mental status grossly normal, thought process normal and cooperative Assessment & Plan Assessment/Plan (1) Left ureteral calculus: (2) Pyelonephritis: PLAN: Continue supportive care and antibiotics Continue ambulation and incentive spirometry Await final culture results Plan for discharge tomorrow pending status with fever etc.
--- NOTE | 2021-12-05 23:22 | NURSING ---
LATE ENTRY - 2030 - PT VOIDED 225ML, POST VOID BLADDER SCAN 62ML.
[2021-12-06] VITALS: BP 121/78; PULSE 102; RESP 18; TEMP 38.6; O2SAT 94
[2021-12-06] MEDS: Acetaminophen 325 MG Tablet 650 MG PO (00:10)
[2021-12-06 01:20] VITALS: TEMP 37.1
[2021-12-06 03:39] VITALS: BP 103/66; PULSE 75; RESP 16; TEMP 36.7; O2SAT 96
[2021-12-06] MEDS: Dextrose 5%-Lactated Ringers 1,000 ML 150 ML IV (03:39)
[2021-12-06 05:06] LABS: Absolute Lymphocyte Count 1.32 X10^3/uL (0.83-4.51); Absolute Neutrophil Count 7.7 X10^3/uL (2.0-7.7); Basophil# 0.02 X10^3/uL; Basophil% 0.2 % (0-1); Hematocrit 30.1 % (37-47); Hemoglobin 10.4 g/dL (12.0-15.0); Lymphocyte # 1.32 X10^3/ul (0.83-4.51); Lymphocyte % 13.1 % (19-41); Mean Corp Hgb Conc 34.6 g/dL (32-36); Mean Corpuscular Hgb 30.5 pg (27.0-32.0); Mean Corpuscular Volume 88.3 fL (81-99); Mean Platelet Vol. 8.7 fl (6.2-12.0); Monocyte# 0.85 X10^3/uL; Monocyte% 8.5 % (0-10); NRBC Flagged by Analyzer 0 % (0-5); Neutrophil # 7.69 X10^3/uL (2.7-7.7); Neutrophil % 76.5 % (47-70); Platelet Count 173 K/mm3 (150-450); RBC Distribution Width CV 12.6 % (11.6-14.6); RBC Distribution Width SD 40.4 fl (35.1-43.9); Red Blood Count 3.41 M/mm3 (4.2-5.4); White Blood Count 10.1 K/mm3 (4.4-11.0)
--- NOTE | 2021-12-06 05:16 | NURSING ---
DR OLIVAS MADE AWARE OF PT'S BUE EDEMA - NEW ORDER TO DC IVFS
[2021-12-06 05:39] LABS: Anion Gap 6 (5-15); BUN 4 mg/dL (7-18); BUN/Creat Ratio 6.2 RATIO (10-20); Calcium,Total 7.9 mg/dL (8.5-10.1); Chloride 108 mmol/L (98-107); Creatinine, Serum 0.64 mg/dL (0.55-1.02); EST Glomerular Filtration Rate 113 mL/min (>60); Est Glom Filt Rate - Afr Amer 137 mL/min (>60); Estimated Creatinine Clearance 108.97 ml/min; Glucose 129 mg/dL (74-106); Sodium Level 137 mmol/L (136-145)
[2021-12-06] MEDS: Cefazolin 1 GM/50 ML BAG IV (06:46)
[2021-12-06 08:00] VITALS: BP 117/73; PULSE 88; RESP 18; TEMP 36.7; O2SAT 100
[2021-12-06] MEDS: Potassium Chloride 10mEq/100mL 10 MEQ/100 ML IV.SOLN. 100 MEQ IV BOLUS (10:52)
[2021-12-06] MEDS: Docusate Sodium 100 MG Capsule PO (10:53)
--- NOTE | 2021-12-06 12:15 | CASEMGMT ---
BROOKE RAZO Assessment: Face to Face with pt for initial transition planning/care coordination assessment. BROOKE RAZO introduced self and role at [facility], pt voices understanding and consents to assessment. Pt is A/O x4 and answers all questions appropriately at this time. Pt sitting up in bed in no distress. Care providers, pharmacy, and demographics verified/updated. Admitting Dx: ureterolithiasis with UTI PCP:Pt states her PCP was Juan Manuel, she plans to stay with [facility] but has not been assigned a new PCP yet. Specialists:Pt denies prior to this hospitalization. Preferred Pharmacy: [facility] Insurance: [employer] Prescription Benefit: yes LW/HPOA: Pt denies having a LW/DPOA and denies need for info regarding AD. LNOK: Marylin Tsai, mother; Faith Barnhart, grandmother Living Arrangements: Pt lives with 2 year old in a mobile home with 3 steps to enter. Pt reports she is I in ADL's and denies concerns at home. Pt mother is taking care of her dtr while she is hospitalized. Transportation: Pt drives self and denies concerns with transportation. DME/HHC/SNF: Pt denies having any DME, previous HHC or SNF stays. Pt states no concerns with going home at time of dc. Pt states no further concerns/needs. CM to follow. Advised pt to ask CM if any further question/concerns/needs arise, voices understanding. Pt Goal: Home Plan: Home
[2021-12-06] MEDS: Potassium Chloride 10mEq/100mL 10 MEQ/100 ML IV.SOLN. 50 MEQ IV BOLUS (12:46)
--- NOTE | 2021-12-06 13:01 | PN.HOSP_ITS ---
Documented by User: Derrick GARCÍA 12/06/21 13:06 Subjective Subjective Patient is a 31-year-old female comfortably resting in bed, alert and orient x3. Patient denies development of any new symptoms overnight. Does not appear in acute distress. Objective Data Objective Data Vital Signs: Vital Signs Temp Pulse Resp BP Pulse Ox 98.0 F 88 18 117/73 100 12/06/21 08:00 12/06/21 08:00 12/06/21 08:00 12/06/21 08:00 12/06/21 08:00 Oxygen Delivery Method Room Air Weight: 166 lb 0.129 oz Body Mass Index (BMI) 28.5 Intake & Output: Intake and Output for Last 24 Hours 12/04/21 12/05/21 12/06/21 23:59 23:59 23:59 Intake Total 1100 / 1100 4514.25 / 4514.25 2377.5 / 2377.5 Output Total 30 / 430 2545 / 2770 1625 / 1625 Balance 1070 / 670 1969.25 / 1744.25 752.5 / 752.5 Lab / Micro Data Result Diagrams: 12/06/21 04:54 12/06/21 04:54 Labs: Laboratory Results - last 24 hr 12/06/21 04:54: WBC 10.1, RBC 3.41 L, Hgb 10.4 L, Hct 30.1 L, MCV 88.3, MCH 3 0.5, MCHC 34.6, RDW Std Deviation 40.4, RDW Coeff of Emir 12.6, Plt Count 173, MPV 8.7, Immature Gran % (Auto) 0.700, Neut % (Auto) 76.5 H, Lymph % (Auto) 13.1 L, [place] % (Auto) 8.5, Eos % (Auto) 1.0, Baso % (Auto) 0.2, Absolute Neuts (auto) 7.7, Absolute Lymphs (auto) 1.32, Nucleated RBC % 0 12/06/21 04:54: Sodium 137, Potassium 3.0 L, Chloride 108 H, Carbon Dioxide 23.0, Anion Gap 6, BUN 4 L, Creatinine 0.64, Estim Creat Clear Calc 108.97, Est GFR (MDRD) Af Amer 137, Est GFR (MDRD) Non-Af 113, BUN/Creatinine Ratio 6.2 L, Glucose 129 H, Calcium 7.9 L Micro: Microbiology 12/05/21 01:25 Urine Catheter - Santiago Urine Culture - Preliminary Culture exhibits no growth. 12/04/21 16:45 Nasal Secretion SARS-CoV-2 Antigen (Rapid) - Final Physical Exam Const alert, oriented x3 and no apparent distress HEENT head/scalp atraumatic and moist oral mucous membranes Head and Scalp: normocephalic Eyes PERRL, EOMs intact bilaterally and conjunctivae normal Neck no lymphadenopathy, supple and no JVD Resp normal respiratory effort, no retractions, no use of accessory muscles and clear to auscultation bilaterally Cardio regular rate, regular rhythm, no murmurs and no JVD GI normal to inspection, nondistended, normoactive bowel sounds and soft to palpation GI Narrative: Improved flank pain. Extremity normal to inspection, full ROM and no clubbing, cyanosis or edema Skin no rashes or lesions noted, no wounds and skin turgor normal Neuro CN's II-XII intact bilaterally Psych affect normal Assessment & Plan Assessment/Plan (1) Pyelonephritis: (2) UTI (urinary tract infection): QUALIFIERS: Urinary tract infection type: acute pyelonephritis Qualified Code(s): N10 - Acute pyelonephritis (3) Left ureteral calculus: PLAN: Patient is a 31-year-old female who presents the hospital medicine service on consult from urology who is seeing patient for acute pyelonephritis secondary to infected left UVJ stone. Patient is medically stable, ongoing care per primary service. 1) hypokalemia Potassium on 12/06 was 3.0, replaced will continue to monitor. 2)history of chronic hypertension Noted in medical history, although blood pressures have been on the lower end of normal throughout admission. Patient was given IV fluids and blood pressure appears stable. 3) acute pyelonephritis with infective left UVJ stone. POD 2, s/p cystoscopy with left ureteral stent insertion. Currently on cefazolin, management per primary service Patient seen by Derrick Castrejon PA-C, under the supervision of Dr. Saha. Time spent on patient care: 7 minutes. Documented by User: Dr. Alec Saha DO 12/06/21 13:18 Subjective Subjective Complains of swelling in upper extremities more pronounced on the right. Objective Data Lab / Micro Data Result Diagrams: 12/06/21 04:54 12/06/21 04:54 Physical Exam Const alert and oriented x3 Extremity Extremity Narrative: Increased swelling in his right upper extremity compared to her left. Slight tenderness in the proximal right antecubital fossa. Skin no rashes or lesions noted Neuro Sensorium / Orientation: awake Assessment & Plan Assessment/Plan (1) Pyelonephritis: (2) Left ureteral calculus: PLAN: Patient seen and examined independently. Data and vitals reviewed. I agree with the above note by the physician assistant auto center manager. 1. Acute pyelonephritis secondary to infected left UVJ stone Status post cystoscopy with left ureteral stent On cefazolin Can change to levofloxacin 750 mg total of 7 days of antibiotics. 2. Hypokalemia Replaced 3. Hypertension Controlled 4. Right hand swelling Concern for superficial venous thrombosis as patient does have an IV in that arm. Check duplex. Patient really not that tender but does have more prominent edema in that arm. Patient does have an SVT, the just can be conservative measures. 20 minutes spent reviewing data, discussing with patient. Charges/Coding Visit Charges Inpatient E&M: 80647 Subs Hosp L2
--- NOTE | 2021-12-06 13:09 | VDUE_ITS ---
Reason For Study: Swelling Right Proximal Right jugular vein is spontaneous, widely patent, phasic, with no intraluminal echogenicity noted. Right subclavian vein is spontaneous, widely patent, phasic, with no intraluminal echogenicity noted. Right Lower Arm Right radial vein is compressible. Right ulnar vein is compressible. Right Arm Right axillary vein is spontaneous, patent, phasic, competent, compressible and demonstrates augmentation. Right brachial vein is compressible. Right cephalic vein is compressible. Right basilic vein is compressible. Patient Safety Preliminary to [facility]. VL/Venous Duplex US, Unilateral Interpretation Summary No evidence for acute deep venous thrombosis[right] upper extremity with patent and compressible cephalic and basilic veins. Ordering Physician: Alec Saha Performed By: Marie Saldana RVT ?
--- NOTE | 2021-12-06 13:44 | PCM.DC ---
Discharge Instructions Diet Discharge Diet: No restrictions Activity Discharge Activity: Return to Normal Activity, May Drive (when not taking narcotics) and May Shower May resume sexual activity in: No Restrictions Dressing / Incision Call your doctor if you observe: Inability to urinate, Inability to have a bowel movement and Uncontrolled pain Follow Up Care Please Follow Up With: Jovita Rocha MD When: the office will call you to set up the procedure Test Results: Test results from this visit will be discussed in further detail at your follow-up appointment, if applicable. Discharge Plan Admission Admit Date/Time: 12/05/21 14:40 Attending Provider: Alec Saha Primary Care Provider: Zaina Physician,No Primary Consulting Providers: Garth Kendrick Discharge Orders/Prescriptions Prescriptions: New hydrocodone-acetaminophen 5-325 mg Tablet 2 tab PO Q8H PRN (Reason: Pain Score 1-5) 3 Days Qty: 18 RF: 0 ciprofloxacin HCl [ciprofloxacin HCl] 500 MG tablet 500 mg PO BID 10 Days Qty: 20 RF: 0 ondansetron HCl [ondansetron HCl] 8 MG tablet 8 mg PO Q8H PRN PRN (Reason: Nausea) 7 Days Qty: 20 RF: 0 phenazopyridine [Pyridium] 200 MG tablet 200 mg PO TID PRN PRN (Reason: Bladder Spasms) 7 Days Qty: 30 RF: 0 oxycodone-acetaminophen [oxycodone-acetaminophen] 1 TABLET tablet 2 tab PO Q8H PRN PRN (Reason: Pain) 7 Days Qty: 20 RF: 0 Referrals / Follow Up: Care Physician,No Primary [Primary Care Provider] - Disposition Disposition (needs filled in before D/C Order can be placed): Home, Self Care
--- NOTE | 2021-12-06 13:52 | PCM.PROGNOTE ---
Subjective Subjective The patient is frustrated. She wants to go home, she has a 2-year-old at home and a father with dementia and a mother who is trying to take care of everybody. We discussed that she will be sent home today with a very short leash and returning if she cannot tolerate oral intake of food and fluids, uncontrolled pain, dizzy, issues with her blood pressure, mental status or foggy behavior. If she has any concerns or issues she will return to the hospital [facility]. We discussed her taking Cipro for the next 10 days despite the risks as it will have better coverage for her renal tissue. Her culture from [facility] grew E. coli pansensitive. Objective Data Objective Data Vital Signs: Vital Signs Temp Pulse Resp BP Pulse Ox 98.0 F 88 18 117/73 100 12/06/21 08:00 12/06/21 08:00 12/06/21 08:00 12/06/21 08:00 12/06/21 08:00 Oxygen Delivery Method Room Air Weight: 75.3 kg Body Mass Index (BMI) 28.5 Intake & Output: Intake and Output for Last 24 Hours 12/04/21 12/05/21 12/06/21 23:59 23:59 23:59 Intake Total 1100 / 1100 4514.25 / 4514.25 2377.5 / 2377.5 Output Total 30 / 430 2545 / 2770 1625 / 1625 Balance 1070 / 670 1969.25 / 1744.25 752.5 / 752.5 Lab / Micro Data Result Diagrams: 12/06/21 04:54 12/06/21 04:54 Labs: Laboratory Results - last 24 hr 12/06/21 04:54: WBC 10.1, RBC 3.41 L, Hgb 10.4 L, Hct 30.1 L, MCV 88.3, MCH 30.5, MCHC 34.6, RDW Std Deviation 40.4, RDW Coeff of Emir 12.6, Plt Count 173, MPV 8.7, Immature Gran % (Auto) 0.700, Neut % (Auto) 76.5 H, Lymph % (Auto) 13.1 L, [place] % (Auto) 8.5, Eos % (Auto) 1.0, Baso % (Auto) 0.2, Absolute Neuts (auto) 7.7, Absolute Lymphs (auto) 1.32, Nucleated RBC % 0 12/06/21 04:54: Sodium 137, Potassium 3.0 L, Chloride 108 H, Carbon Dioxide 23.0, Anion Gap 6, BUN 4 L, Creatinine 0.64, Estim Creat Clear Calc 108.97, Est GFR (MDRD) Af Amer 137, Est GFR (MDRD) Non-Af 113, BUN/Creatinine Ratio 6.2 L, Glucose 129 H, Calcium 7.9 L Micro: Microbiology 12/05/21 01:25 Urine Catheter - [place] Urine Culture - Preliminary Culture exhibits no growth. 12/04/21 16:45 Nasal Secretion SARS-CoV-2 Antigen (Rapid) - Final Physical Exam Const alert and oriented x3 General Appearance: comfortable and well developed Resp normal respiratory effort, normal air movement, no retractions and no use of accessory muscles Cardio regular rate and regular rhythm GI soft to palpation, non-tender and non-distended Bladder / Kidney Exam: CVA tenderness left Back/Spine General Back: CVA tenderness left Extremity General Extremity: normal exam except as noted Skin no rashes or lesions noted, no wounds, skin turgor normal, no jaundice, no petechiae and no mottling Neuro oriented x3, CN's II-XII intact bilaterally and moves all extremities Psych mental status grossly normal and thought process normal Assessment & Plan Assessment/Plan (1) Left ureteral calculus: (2) Pyelonephritis: PLAN: discharge with medications, short leash for returning, patient reports she will leave AMA if needed. she will follow up with me for surgical intervention in about 3 weeks
== END 2021-12-06 14:15 | disposition home or self-care (01) | DRG 465 ==
LOC: ED 16:38 → MS3 19:02
PROVIDERS: Hospitalist; Admitting Provider Urology; Emergency Provider Emergency Medicine
PROC: 0T778DZ Dilation of Left Ureter with Intraluminal Device, Via Natural or Artificial Opening Endoscopic (ICD-10-PCS; principal; 2021-12-04 18:15)
DX: N20.1 Calculus of ureter (principal); I47.1 Supraventricular tachycardia; I10 Essential (primary) hypertension; E87.6 Hypokalemia; N10 Acute pyelonephritis; J45.909 Unspecified asthma, uncomplicated; Z87.442 Personal history of urinary calculi
CPT/HCPCS: 36415; 76000; 80048; 81001; 84703; 85025; 87086; 87426; 93971; 97802; 99251; 99283; J7030; J7040; A4216; C2617; G0463; J2405

== ENCOUNTER 2022-01-14 17:27 | Emergency (ER) | payer MEDICAID, SELFPAY ==
[2022-01-14 17:28] VITALS: BP 182/124; PULSE 107; RESP 22; TEMP 36.5; O2SAT 100; BMI 27.8
--- NOTE | 2022-01-14 17:35 | RAD_ITS ---
EXAM: XR ABDOMEN, 1 VIEW CLINICAL INDICATION: Assess location of ureteral stent TECHNIQUE: Frontal supine view of the abdomen/pelvis. This report was created using Tasspass report generation technology. COMPARISON: None. FINDINGS: LOWER THORAX: No acute pathology. GASTROINTESTINAL TRACT: Unremarkable. Non-obstructive. No bowel or stomach distention. ORGANS: Unremarkable as visualized. No organomegaly. No abnormal calcifications. BONES/JOINTS: No acute pathology. SOFT TISSUES: No acute pathology. TUBES, LINES AND DEVICES: Double-J left ureteral stent in place. RAD/Abdomen Single View (Portable) IMPRESSION: Double-J left ureteral stent in place. Electronically Signed: Leonel Thompson MD at 19:30 EDT ,
--- NOTE | 2022-01-14 17:38 | EDS_ITS ---
HPI History of Present Illness Chief Complaint: Flank Pain Detail of Chief Complaint: Left lower quadrant/left low back pain Informant: patient Onset/Context/Timing Onset: Days (2 to 3 days ago) Context: Sudden Onset Timing: Continuous and Waxes and wanes Quality: Pain Location: Left lower quadrant radiating to the back/flank area Current Severity: Moderate Maximum Severity: Severe Worsened by: Nothing Relieved by: Nothing Associated Symptoms Associated Symptoms: Nausea Narrative Narrative: Patient is a 31-year-old woman with history of urinary tract infection, left ureteral calculus, pyelonephritis who had a stent placed by Dr. Rocha beginning of December. She presents today because of persistent pain started 2 to 3 days ago has been waxing waning. She does have nausea. He also reports urgency she denies dysuria or hematuria. She denies vaginal bleeding or vaginal discharge. There was no history of trauma Prior similar symptoms: Yes Recent Illness/Hospitalization: Yes (December) [facility] Medical History Anxiety Asthma Chronic hypertension Depression Kidney stones Pyelonephritis Wears contact lenses Wears glasses Home Medications ciprofloxacin HCl 500 mg PO BID #14 tablet 01/14/22 [Rx Last Taken Unknown] Allergy/AdvReac Type Severity Reaction Status Date / Time aspirin Allergy Swelling Verified 01/14/22 17:28 sulfamethoxazole Allergy Swelling Verified 01/14/22 17:28 [From Bactrim] trimethoprim [From Bactrim] Allergy Swelling Verified 01/14/22 17:28 Surgical History H/O adenoidectomy History of tonsillectomy and adenoidectomy Hx of cystoscopy Social History (Updated 01/14/22 @ 17:[address] Baldo Devine MD) household members: significant other Smoking Status: Never smoker substance use type: does not use ROS ROS ED Constitutional Constitutional ED: Denies chills, fever(s), subjective, sweats or weight loss Eyes Eyes: Denies blurry vision, change in vision or diplopia ENT ENT ED: Denies ear pain, rhinorrhea or sore throat Cardiovascular Cardiovascular: Denies chest pain, orthopnea, palpitations or racing heartbeat Respiratory/Chest Respiratory/Chest: Denies dyspnea, dyspnea on exertion, orthopnea or sputum Gastrointestinal Gastrointestinal: Reports abdominal pain and nausea; Denies constipation, diarrhea or vomiting Genitourinary Genitourinary ED: Reports other Details: Urgency ; Denies dysuria, hematuria or urinary frequency Musculoskeletal Musculoskeletal: Reports back pain; Denies arthralgias, myalgias or neck pain Integumentary Denies Abrasions or rash Neurologic Neurologic: Denies headache(s) or weakness Endocrine Endocrinology: Denies cold intolerance, heat intolerance, polydipsia, polyphagia or polyuria EXAM Physical Exam Const Vital Signs: 01/14/22 17:28 Temperature 97.7 F L Temperature Source Temporal Pulse Rate 107 H Respiratory Rate 22 H Blood Pressure 182/124 H Blood Pressure Mean 143 Pulse Ox 100 Oxygen Delivery Method Room Air Positive well nourished and well developed General Appearance ED: well developed; Negative for cyanotic, diaphoretic, NAD or pallor HEENT Reports dry mucous membranes Negative for trauma or tenderness Mouth ED: Yes dry mucous membranes Mouth: dry mucous membranes Eyes PERRL and EOMs intact bilaterally General Eye ED: Negative for pale conjunctiva or scleral icterus Neck no lymphadenopathy, supple and no JVD Chest Wall inspection of chest normal and palpation of chest normal Resp normal respiratory effort and clear to auscultation bilaterally Cardio regular rhythm, S1 normal heart sound, S2 normal heart sound and no murmurs Rate: tachycardic GI normal to inspection, nondistended, normoactive bowel sounds, non-tender and non-distended Palpation: soft Back/Spine no CVA tenderness Thoracic Spine / Upper Back: Negative for thoracic spinal tenderness or paraspinal muscle tenderness Lumbar Spine / Lower Back: Negative for lumbar spinal tenderness Extremity normal to inspection General Extremety ED: Negative for edema or tenderness General Extremity: Negative for edema Neuro oriented x3, CN's II-XII intact bilaterally and no sensory deficits noted Sensorium / Orientation: alert Motor Exam: strength 5/5 throughout Psych mental status grossly normal Skin no rashes or lesions noted and no wounds General Skin Exam: Negative for jaundice or pallor MDM MDM MDM Narrative Medical decision making narrative: Differential diagnosis includes displaced stent, urinary tract infection, obstruction due to malfunctioning stent. Since patient has had ibuprofen and NSAIDs in the past with no reaction she was treated with Toradol, morphine and Zofran. UA was obtained and CBC. KUB was obtained to assess location of left ureteral stent. Lab Data Attestation: I reviewed the patient's lab results. Lab results narrative: Urine reveals leukoesterase, occult blood with 10-25 RBCs and greater than 100 WBCs with bacteria. We will treat with antibiotics. Based on allergies she received ciprofloxacin. Urine culture has been sent. She is to follow-up with her urologist Dr. Rocha. Labs: Laboratory Results - last 24 hr 01/14/22 01/14/22 17:53 19:13 WBC 8.4 RBC 4.59 Hgb 13.8 Hct 40.1 MCV 87.4 MCH 30.1 MCHC 34.4 RDW Std Deviation 41.1 RDW Coeff of Emir 13.0 Plt Count 196 MPV 10.1 Immature Gran % (Auto) 0.400 Neut % (Auto) 57.6 Lymph % (Auto) 32.1 [place] % (Auto) 5.5 Eos % (Auto) 3.8 Baso % (Auto) 0.6 Absolute Neuts (auto) 4.9 Absolute Lymphs (auto) 2.70 Nucleated RBC % 0 Urine Color Yellow Urine Clarity Cloudy Urine pH 7.0 Ur Specific [place] 1.010 Urine Protein 100 H Urine Glucose (UA) Normal Urine Ketones Negative Urine Occult Blood 150 H Urine Nitrite Negative Urine Bilirubin Negative Urine Urobilinogen Normal Ur Leukocyte Esterase 500 H Urine RBC 10-25 SEEN Urine WBC >100 SEEN Ur Squamous Epith Cells 0-5 SEEN Urine Bacteria 1+ Urine Mucus 0 SEEN Radiography Diagnostic Testing: Clinical Impression(s) from Imaging Studies KUB X-Ray 01/14/22 17:35 IMPRESSION: Double-J left ureteral stent in place. Electronically Signed: Leonel Thompson MD at 19:30 EDT Reading Location ID and State: [facility] / [place] , Service support , Discharge Plan Triage Chief Complaint: Flank Pain ED Provider: Baldo Devine Dx/Rx/DC Orders Clinical Impression: Complicated urinary tract infection Instructions: Urinary Tract Infections in Women Prescriptions: New ciprofloxacin HCl [ciprofloxacin HCl] 500 MG tablet 500 mg PO BID Qty: 14 RF: 0 Primary Care Provider: Care Physician,No Primary Referrals: Jovita Rocha MD [STAFF PHYSICIAN] - 3-5 Days Care Physician,No Primary [Primary Care Provider] - Disposition Disposition: Home, Self Care
[2022-01-14] MEDS: Ondansetron 4 MG/2 ML Vial IV (17:55)
[2022-01-14] MEDS: 0.9% Normal Saline 1,000 ML 250 ML IV (17:55)
[2022-01-14] MEDS: Morphine 4 MG/ML Syringe IV (17:56)
[2022-01-14] MEDS: Ketorolac 15 MG/ML Vial IV (17:56)
[2022-01-14 18:07] LABS: Absolute Neutrophil Count 4.9 X10^3/uL (2.0-7.7); Basophil# 0.05 X10^3/uL; Basophil% 0.6 % (0-1); Eosinophil# 0.32 X10^3/uL; Eosinophils% 3.8 % (0-5); Hematocrit 40.1 % (37-47); Hemoglobin 13.8 g/dL (12.0-15.0); Lymphocyte % 32.1 % (19-41); Mean Corp Hgb Conc 34.4 g/dL (32-36); Mean Corpuscular Hgb 30.1 pg (27.0-32.0); Mean Corpuscular Volume 87.4 fL (81-99); Mean Platelet Vol. 10.1 fl (6.2-12.0); Monocyte# 0.46 X10^3/uL; Monocyte% 5.5 % (0-10); NRBC Flagged by Analyzer 0 % (0-5); Neutrophil # 4.85 X10^3/uL (2.7-7.7); Neutrophil % 57.6 % (47-70); Platelet Count 196 K/mm3 (150-450); RBC Distribution Width SD 41.1 fl (35.1-43.9); Red Blood Count 4.59 M/mm3 (4.2-5.4); White Blood Count 8.4 K/mm3 (4.4-11.0)
[2022-01-14 19:20] LABS: Mucous, Urine 0 SEEN /hpf (<or=2+)
[2022-01-14 19:27] LABS: Color, Urine Yellow (Yellow); Glucose, Dipstick Normal (Normal); Ketone-Dipstick Negative (Negative); Leukocyte Esterase-Dipstick 500 /ul (Negative); Nitrite-Dipstick Negative (Negative); Occult Blood-Urine 150 /ul (Negative); Protein-Dipstick 100 mg/dl (Negative); Urine Bilirubin Dipstick Negative (Negative); Urine Clarity Cloudy (Clear); Urine Urobilinogen Normal (Normal)
[2022-01-14 19:36] LABS: Bacteria 1+ /hpf (None Seen); Red Blood Cells-Urine 10-25 SEEN /hpf (0-5); Squamous Epithelial Cells - UA 0-5 SEEN /hpf (5-10); White Blood Cells >100 SEEN /hpf (0-5)
[2022-01-14] MEDS: Ciprofloxacin 500 MG Tablet PO (20:42)
[2022-01-14 20:44] VITALS: BP 148/79; PULSE 88; RESP 20; O2SAT 97
== END 2022-01-14 20:47 | disposition home or self-care (01) ==
PROVIDERS: Emergency Provider Emergency Medicine; Visit Provider Emergency Medicine
DX: N39.0 Urinary tract infection, site not specified (principal); I10 Essential (primary) hypertension; Z87.442 Personal history of urinary calculi; Z87.440 Personal history of urinary (tract) infections
CPT/HCPCS: 74018; 81001; 85025; 87077; 87086; 87088; 87186; 99284; J7030; A4216; J2405

== ENCOUNTER 2022-01-28 10:30 | Day surgery (SDC) | payer MEDICAID, SELFPAY ==
--- NOTE | 2022-01-28 10:58 | HP.PCM_ITS ---
HPI - General HPI Narrative SERGIO CUMMINS, is a 31 F who presents for a left ureteroscopy laser lithotripsy and stent change for a left ureteral calculus. Informed consent has been obtained. She has a negative preoperative culture. [facility] Medical History Anxiety Asthma Chronic hypertension Depression HELLP syndrome Kidney stones Pyelonephritis Wears contact lenses Wears glasses Home Medications NK 01/27/22 [History Last Taken Unknown] Allergy/AdvReac Type Severity Reaction Status Date / Time aspirin Allergy Swelling Verified 01/27/22 08:34 sulfamethoxazole Allergy Swelling Verified 01/27/22 08:34 [From Bactrim] trimethoprim [From Bactrim] Allergy Swelling Verified 01/27/22 08:34 Surgical History H/O adenoidectomy History of tonsillectomy and adenoidectomy Hx of cystoscopy Social History household members: significant other Smoking Status: Never smoker substance use type: does not use ROS Constitutional Constitutional: Denies body ache(s), chills, fever(s) or lethargy Eyes Eyes: Denies change in vision or eye pain ENT HEENT: Denies abnormal hearing, loss taste/smell or rhinorrhea Cardiovascular Cardiovascular: Denies abdominal pain, chest pain, nausea or vomiting Respiratory/Chest Respiratory/Chest: Denies cough or shortness of breath at rest Gastrointestinal Gastrointestinal: Denies abdominal pain, nausea or vomiting Genitourinary Genitourinary: Reports hematuria, urinary frequency and urinary urgency; Denies burning urination Musculoskeletal Musculoskeletal: Reports back pain Integumentary Integumentary: Reports systems reviewed and no addt'l complaints, except as documented Neurologic Neurologic: Reports systems reviewed and no addt'l complaints, except as documented Psychiatric Psychiatric: Reports anxiety Endocrine Endocrinology: Reports systems reviewed and no addt'l complaints, except as documented Hematologic/Lymphatic Hematologic/Lymphatic: Reports systems reviewed and no addt'l complaints, except as documented Allergic/Immunologic Allergic/Immunologic: Reports systems reviewed and no addt'l complaints, except as documented Physical Exam Const alert, oriented x3 and no apparent distress General Appearance: cooperative, comfortable, well kempt and well developed HEENT normocephalic, head/scalp atraumatic, hearing grossly normal bilaterally, external ears normal and external nose normal Mouth: lips normal and tongue normal Eyes no scleral icterus General Eye: normal appearance of both eyes Neck supple General: trachea midline Lymph Lymphatic: no lymphedema noted Chest inspection of chest normal Chest: symmetrical chest wall rise Resp normal respiratory effort, normal air movement, no retractions and no use of accessory muscles Effort and Inspection: able to speak in complete sentences and symmetric chest movement Cardio regular rate and regular rhythm GI soft to palpation, non-tender and non-distended Bladder / Kidney Exam: CVA tenderness left Extremity normal to inspection Skin no rashes or lesions noted, no wounds, skin turgor normal, no jaundice, no petechiae and no mottling Neuro oriented x3, CN's II-XII intact bilaterally and moves all extremities Assessment & Plan Assessment/Plan (1) Left ureteral calculus: PLAN: Proceed with cystoscopy, left ureteroscopy holmium laser lithotripsy and left ureteral stent change under anesthesia
[2022-01-28 11:01] VITALS: BP 131/92; PULSE 88; RESP 16; TEMP 37; O2SAT 100; BMI 25.7
--- NOTE | 2022-01-28 11:03 | PCM.OPRPT ---
Problems Associated Problem List Diagnoses (1) Left ureteral calculus: Report of Operation Date of Procedure: 01/28/22 Pre-Operative Diagnosis: Left ureteral calculus Post-Operative Diagnosis: Same, passed Surgery/Procedure Performed:: Cystoscopy, left ureteroscopy, Left retrograde pyelogram, left ureteral stent removal Surgeon: Jovita Rocha Type of Anesthesia: General Specimen's removed: None Description of Procedure: The patient is a 31-year-old female who underwent a cystoscopy with left ureteral stent insertion for an obstructing left distal ureteral calculus. She now presents for definitive surgical intervention. Informed consent was obtained. The patient was taken to the operating room and placed on the operating room table. Anesthesia monitored the head, neck, airway, IV access and vital signs throughout the case. Once anesthesia was appropriate ministered the patient was placed into dorsal lithotomy position and was prepped and draped in usual sterile fashion. At this time the cystoscope was inserted through the urethra under direct visualization into the urinary bladder. The left ureteral stent was observed and grasped with forceps and brought out to the urethral meatus. It was then intubated with a 0.035 Glidewire which was visualized using fluoroscopy in the renal pelvis. At this time a semirigid ureteroscope was utilized for evaluation of the left ureter. The distal two thirds of the ureter was easily seen without any stone identified. Contrast was then injected in retrograde fashion under fluoroscopic visualization and there was a question of a UPJ calculus with delayed draining of the contrast. A second wire was inserted. The first flexible ureteroscope was unable to be used secondary to damage to visualization. We had to wait approximately 45 minutes for sterilization of another ureteroscope. The family was informed and the patient remained safe during this time. Once the scope was available, it was passed easily over the Glidewire and into the renal pelvis. There were no stones identified within the renal pelvis or the entire length of the ureter. At this time the decision was made to leave the patient without a ureteral stent. The wires were removed and the patient was awakened and taken to the recovery room in good condition. There were no complications during this procedure. Complications None Admit VTE Documentation VTE Present on Admission: Yes VTE Mechan Device Prophylaxis: SCD's VTE Pharm Prophylaxis ordered?: No Reason prophylaxis not ordered:: Treatment Not Indicated
--- NOTE | 2022-01-28 11:04 | PCM.DC ---
Discharge Instructions Diet Discharge Diet: No restrictions Activity Discharge Activity: Return to Normal Activity, May Drive (When not taking pain medication) and May Shower Dressing / Incision Call your doctor if you observe: Fever of 101 or Higher, Inability to urinate and Inability to have a bowel movement Follow Up Care Please Follow Up With: Jovita Rocha MD When: Call office for appointment Test Results: Test results from this visit will be discussed in further detail at your follow-up appointment, if applicable. Discharge Plan Admission Attending Provider: Jovita Rocha Primary Care Provider: Care PhysicianJenni Primary Discharge Orders/Prescriptions Prescriptions: New oxycodone-acetaminophen [oxycodone-acetaminophen] 1 TABLET tablet 2 tab PO Q8H PRN PRN (Reason: Pain) 7 Days Qty: 20 RF: 0 cephalexin [cephalexin] 500 MG capsule 500 mg PO Q12 3 Days Qty: 6 RF: 0 phenazopyridine [Pyridium] 200 MG tablet 200 mg PO TID PRN PRN (Reason: Bladder Spasms) 7 Days Qty: 30 RF: 0 Referrals / Follow Up: Care Physician,Jenni Primary [Primary Care Provider] - Disposition Disposition (needs filled in before D/C Order can be placed): Home, Self Care
[2022-01-28 11:06] LABS: Internal QC Validated? YES +Cl - CLEAR BKGD; Pregnancy, Urine Negative Negative
[2022-01-28] MEDS: Lactated Ringers 1,000 ML 15 ML IV (11:10)
[2022-01-28] MEDS: Cefazolin 2 GM in 0.9% Normal Saline 100 ML IV (11:33)
[2022-01-28 12:58] VITALS: BP 131/92; BP 132/90; PULSE 100; RESP 16; TEMP 36.8; O2SAT 100
[2022-01-28 13:00] VITALS: BP 124/84; BP 131/92; PULSE 80; RESP 16; O2SAT 100
[2022-01-28 13:15] VITALS: BP 131/92; BP 148/94; PULSE 69; RESP 16; O2SAT 100
[2022-01-28 13:29] VITALS: BP 131/92; BP 132/90; PULSE 76; RESP 16; TEMP 37.2; O2SAT 100
[2022-01-28 14:00] VITALS: BP 131/92
== END 2022-01-28 23:59 | disposition home or self-care (01) ==
LOC: SDC 10:32 → AC 10:34
PROVIDERS: Referring Provider Urology; Visit Provider Urology
PROC: 0TJ98ZZ Inspection of Ureter, Via Natural or Artificial Opening Endoscopic (ICD-10-PCS; CPT 52352; principal; 2022-01-28 11:50)
DX: N20.1 Calculus of ureter (principal); I10 Essential (primary) hypertension; Z87.442 Personal history of urinary calculi
CPT/HCPCS: 52310; 00910; 76000; 81025; 87426; J7120; C1769; J2405

== ENCOUNTER 2022-02-10 08:30 | Outpatient (CLI) | payer MEDICAID, SELFPAY | END 2022-02-10 23:59 | disposition home or self-care (01) | LOC: SDC 08:30 | PROVIDERS: Visit Provider Urology | DX: Z01.812 Encounter for preprocedural laboratory examination (principal); Z01.811 Encounter for preprocedural respiratory examination ==

== ENCOUNTER 2022-09-12 20:53 | Emergency (ER) | payer MEDICAID, SELFPAY ==
[2022-09-12 20:54] VITALS: BP 138/100; PULSE 85; RESP 18; TEMP 36.2; O2SAT 100; BMI 28.5
[2022-09-12 20:57] VITALS: BP 138/100; PULSE 85; RESP 18; TEMP 36.2; O2SAT 100
--- NOTE | 2022-09-12 21:17 | EDS_ITS ---
HPI History of Present Illness Chief Complaint: Abd Pain Informant: patient and spouse/S.O. Narrative Narrative: 32-year-old female presenting to the emergency room with lower abdominal pain. Patient states that she developed pain during the night and has persisted throughout the day. She notes a dull ache in the suprapubic right lower quadrant that is occasionally sharp and stabbing. She notes a history of a miscarriage but notes she is not having any bleeding. She is taken 5 or 6 test that have been negative. She denies any urinary or bowel symptoms. No vomiting. No fevers. She notes that she has had prior kidney stones but this does not feel like that. She notes no radiation of the pain. She had had prior ureteral stent placement but otherwise no intra-abdominal surgeries. PFSH PFSH Medical History Anxiety Asthma Chronic hypertension Depression HELLP syndrome Kidney stones Pyelonephritis Wears contact lenses Wears glasses Home Medications hydrocodone-acetaminophen 5-325mg 5mg-325mg 1 tab PO Q6H PRN PRN Pain 3 days #12 TABLETS 09/12/22 [Rx Last Taken Unknown] nitrofurantoin monohydrate/macrocrystals 100 mg capsule 100 mg PO Q12 5 days #10 CAPSULES 09/12/22 [Rx Last Taken Unknown] Allergy/AdvReac Type Severity Reaction Status Date / Time aspirin Allergy Swelling Verified 01/27/22 08:34 sulfamethoxazole Allergy Swelling Verified 01/27/22 08:34 [From Bactrim] trimethoprim [From Bactrim] Allergy Swelling Verified 01/27/22 08:34 Surgical History H/O adenoidectomy History of tonsillectomy and adenoidectomy Hx of cystoscopy Social History household members: significant other Smoking Status: Never smoker substance use type: does not use ROS ROS ED Constitutional Constitutional ED: Denies chills, fever(s) or weight loss Eyes Eyes: Denies change in vision or diplopia ENT ENT ED: Denies ear pain, rhinorrhea or sore throat Cardiovascular Cardiovascular: Denies chest pain, orthopnea, palpitations or racing heartbeat Respiratory/Chest Respiratory/Chest: Denies cough, dyspnea or orthopnea Gastrointestinal Gastrointestinal: Reports abdominal pain; Denies constipation, diarrhea, nausea or vomiting Genitourinary Genitourinary ED: Denies dysuria, hematuria or urinary frequency Musculoskeletal Musculoskeletal: Denies arthralgias or myalgias Integumentary Denies abscess or rash Neurologic Neurologic: Denies headache(s) or weakness Psychiatric Psychiatric: Denies anxiety, depression, suicidal ideation or suicidal thoughts Endocrine Endocrinology: Denies polydipsia, polyphagia or polyuria Allergic/Immunologic Allergic/Immunologic ED: Denies mouth swelling, tongue swelling or urticaria EXAM Physical Exam Const Vital Signs: 09/12/22 20:54 09/12/22 20:57 09/12/22 22:20 Temperature 97.2 F L 97.2 F L Temperature Source Temporal Temporal Pulse Rate 85 85 80 Respiratory Rate 18 18 15 Blood Pressure 138/100 H 138/100 H 117/88 H Blood Pressure Mean 112 112 97 Pulse Ox 100 100 97 Oxygen Delivery Method Room Air Room Air Room Air Positive well nourished and well developed General Appearance ED: well developed HEENT Reports normocephalic, head/scalp atraumatic and moist mucous membranes Eyes PERRL and EOMs intact bilaterally Neck no lymphadenopathy, supple and no JVD Resp normal respiratory effort and clear to auscultation bilaterally Cardio regular rate, regular rhythm and no murmurs GI Inspection: Negative for abdominal distention Auscultation: normoactive bowel sounds Palpation: soft and tender RLQ and suprapubic; Negative for guarding or rebound tenderness present Back/Spine no CVA tenderness and normal ROM Extremity normal to inspection General Extremety ED: Negative for edema General Extremity: Negative for edema Neuro oriented x3 and CN's II-XII intact bilaterally Sensorium / Orientation: alert Motor Exam: strength 5/5 throughout Psych mental status grossly normal Mood & Affect: Negative for depressed or tearful Skin no rashes or lesions noted and no wounds MDM MDM MDM Narrative Medical decision making narrative: Urinalysis is contaminated with 25-50 squamous cells. Nitrate positive 2+ calcium oxalate crystals. The patient is refusing an IV and she is refusing a CT at this time. I can offer her some hydrocodone for pain. Because of the positive nitrates I can write for some Macrobid but I am not convinced that she has definitely UTI. Patient notes that she is at risk for appendicitis ovarian torsion ovarian cyst and a wide differential based on the location of her pain but she is not wanting that testing at this time. Lab Data Attestation: I reviewed the patient's lab results. Labs: Laboratory Results - last 24 hr 09/12/22 21:35 Urine Color Yellow Urine Clarity Clear Urine pH 7.0 Ur Specific [place] 1.015 Urine Protein 30 H Urine Glucose (UA) Normal Urine Ketones 5 H Urine Occult Blood Negative Urine Nitrite Positive H Urine Bilirubin Negative Urine Urobilinogen 1 H Ur Leukocyte Esterase 500 H Urine RBC 0 SEEN Urine WBC 0 SEEN Ur Squamous Epith Cells 25-50 SEEN Calcium Oxalate Crystal 2+ Urine Bacteria 0 SEEN Urine Mucus 2+ Discharge Plan Triage Chief Complaint: Abd Pain ED Provider: Harish Rider Dx/Rx/DC Orders Clinical Impression: Abdominal pain, acute Instructions: Abdominal Pain Prescriptions: New hydrocodone-acetaminophen [hydrocodone-acetaminophen] 5-325 mg tablet 1 tab PO Q6H PRN PRN (Reason: Pain) 3 Days Qty: 12 0RF nitrofurantoin monohyd/m-cryst [nitrofurantoin monohyd/m-cryst] 100 mg capsule 100 mg PO Q12 5 Days Qty: 10 0RF Primary Care Provider: Care Physician,No Primary Referrals: Care Physician,No Primary [Primary Care Provider] - Disposition Disposition: Home, Self Care
--- NOTE | 2022-09-12 21:40 | ED.RN ---
PT REFUSING IV AND LABS. OBTAINED URINE SAMPLE AT THIS TIME. PT AWARE THAT UNABLE TO GIVE PAIN MEDS AND DO CT SCAN. DR. MCDUFFIE MADE AWARE.
[2022-09-12 21:45] LABS: Bacteria 0 SEEN /hpf (None Seen); Red Blood Cells-Urine 0 SEEN /hpf (0-5); White Blood Cells 0 SEEN /hpf (0-5)
[2022-09-12 22:00] LABS: Color, Urine Yellow (Yellow); Glucose, Dipstick Normal (Normal); Ketone-Dipstick 5 mg/dl (Negative); Leukocyte Esterase-Dipstick 500 /ul (Negative); Nitrite-Dipstick Positive (Negative); Occult Blood-Urine Negative /ul (Negative); Protein-Dipstick 30 mg/dl (Negative); Specific Gravity, Urine 1.015 (1.002-1.030); Urine Bilirubin Dipstick Negative (Negative); Urine Clarity Clear (Clear); Urine Urobilinogen 1 mg/dl (Normal)
[2022-09-12 22:06] LABS: Mucous, Urine 2+ /hpf (<or=2+); Squamous Epithelial Cells - UA 25-50 SEEN /hpf (5-10)
[2022-09-12 22:07] LABS: Calcium Oxalate Crystals Ur 2+ /hpf (<or=2+)
[2022-09-12 22:20] VITALS: BP 117/88; PULSE 80; RESP 15; O2SAT 97
[2022-09-12] MEDS: HYDROcodone Bitartrate/Apap 5/325 Tablet PO (22:39)
[2022-09-12] MEDS: Nitrofurantoin Macrocrystals 100 MG Capsule PO (22:39)
[2022-09-12 22:47] VITALS: BP 117/88; PULSE 80; RESP 15; O2SAT 97
== END 2022-09-12 22:54 | disposition home or self-care (01) ==
PROVIDERS: Emergency Provider Emergency Medicine; Visit Provider Emergency Medicine
DX: R10.9 Unspecified abdominal pain (principal); I10 Essential (primary) hypertension; Z87.442 Personal history of urinary calculi
CPT/HCPCS: J2405; 81001; 87086; 87088; 96374; 96375; 99284

== ENCOUNTER 2023-01-16 16:22 | Emergency (ER) | payer MEDICAID, SELFPAY ==
[2023-01-16 16:23] VITALS: BP 155/103; PULSE 89; RESP 16; TEMP 36.6; O2SAT 97; BMI 28.5
--- NOTE | 2023-01-16 17:58 | ED.RN ---
PT LWBS 2095
== END 2023-01-16 17:00 | disposition left against medical advice (07) ==
LOC: ED 17:58
DX: M79.661 Pain in right lower leg (principal)

== ENCOUNTER 2023-01-17 22:17 | Emergency (ER) | payer MEDICAID, SELFPAY ==
[2023-01-17 22:19] VITALS: BP 150/105; PULSE 106; RESP 16; TEMP 36.4; O2SAT 100; BMI 29.0
--- NOTE | 2023-01-17 22:37 | EDS_ITS ---
HPI History of Present Illness Chief Complaint: Lower Extremity Injury Narrative Narrative: 32-year-old female presenting with right calf pain. Its in the lateral aspect of the proximal calf. She states she came yesterday to [place] emergency room to be evaluated but due to the wait she decided to leave. She is concerned for DVT. She has no history of DVT or any risk factors. She has not had any recent trauma or injury. He is not on any control. She does report that her mother has a history of blood clots. Patient states that the area was more swollen and hard yesterday and today it is less swollen and hard. Is actually less painful as well. Does deny any chest pain or shortness of breath. PFSH PFS Medical History Anxiety Asthma Chronic hypertension Depression HELLP syndrome Kidney stones Pyelonephritis Wears contact lenses Wears glasses Allergy/AdvReac Type Severity Reaction Status Date / Time aspirin Allergy Swelling Verified 01/16/23 16:25 sulfamethoxazole Allergy Swelling Verified 01/16/23 16:25 [From Bactrim] trimethoprim [From Bactrim] Allergy Swelling Verified 01/16/23 16:25 Surgical History H/O adenoidectomy History of tonsillectomy and adenoidectomy Hx of cystoscopy Social History household members: significant other Smoking Status: Never smoker substance use type: does not use ROS ROS ED Constitutional Constitutional ED: Denies chills, fever(s) or sweats Eyes Eyes: Denies blurry vision or change in vision ENT ENT ED: Denies ear pain or sore throat Cardiovascular Cardiovascular: Denies chest pain, palpitations or racing heartbeat Respiratory/Chest Respiratory/Chest: Denies cough, dyspnea or sputum Gastrointestinal Gastrointestinal: Denies abdominal pain, constipation, diarrhea, nausea or vomiting Genitourinary Genitourinary ED: Denies dysuria, hematuria or urinary frequency Musculoskeletal Musculoskeletal: Reports other Details: Bruising and swelling in the right lateral calf. ; Denies arthralgias, myalgias or neck pain Integumentary Denies abscess or rash Neurologic Neurologic: Denies headache(s), paresthesias or weakness Psychiatric Psychiatric: Denies anxiety, depression, suicidal ideation or suicidal thoughts Endocrine Endocrinology: Denies polydipsia or polyuria EXAM Physical Exam Const Vital Signs: 01/17/23 22:19 Temperature 97.5 F L Temperature Source Temporal Pulse Rate 106 H Respiratory Rate 16 Blood Pressure 150/105 H Blood Pressure Mean 120 Pulse Ox 100 Oxygen Delivery Method Room Air Positive well nourished General Appearance ED: NAD HEENT Reports moist mucous membranes normocephalic and atraumatic Resp normal respiratory effort Cardio regular rate and regular rhythm Extremity Extremity Narrative: There is a small area of bruising in the proximal calf just below the fibular head. No real tenderness here. No deformity. No fluctuance. No cords palpated throughout the calf. Compartments are soft. Neuro oriented x3 Sensorium / Orientation: alert Psych mental status grossly normal MDM MDM MDM Narrative Medical decision making narrative: Patient presenting with leg pain which is actually improving. She states it was more hard and discolored yesterday. This is in the right proximal calf. This does just simply look like a bruise. I do not feel any cords. Calf is soft. Compartments soft. Wells criteria for DVT -2. I cannot get an ultrasound performed tonight due to the time but I will have her scheduled one for tomorrow and she will come back as an outpatient. I do not believe she needs any anticoagulation overnight. Patient comfortable with this plan. Return precautions discussed. Impression: 1. Right calf bruising Discharge Plan Triage Chief Complaint: Lower Extremity Injury ED Provider: Domingo Canales Dx/Rx/DC Orders Instructions: ED Contusion, Lower Extremity Other Ambulatory Orders: Venous Duplex US, Unilateral (Stat) Facility: [facility] - Location: [facility] Ordered By: Dr. Domingo Canales Primary Care Provider: Care Physician,No Primary Referrals: Keenan Addison MD [Med Staff - Active Staff] - 3-5 Days Care Physician,No Primary [Primary Care Provider] - Disposition Disposition: Home, Self Care
== END 2023-01-17 22:59 | disposition home or self-care (01) ==
PROVIDERS: Emergency Provider Student in an Organized Health Care Education/Training Program; Visit Provider Student in an Organized Health Care Education/Training Program
DX: R23.3 Spontaneous ecchymoses (principal); M79.661 Pain in right lower leg; I10 Essential (primary) hypertension
CPT/HCPCS: 99282

== ENCOUNTER → 2023-01-18 | Outpatient (CLI) | payer MEDICAID, SELFPAY ==
--- NOTE | 2023-01-18 12:01 | VDLE_ITS ---
Reason For Study: pain RIGHT GSV is normal. CFV is compressible, spontaneous, phasic, competent and demonstrates normal augmentation. FV is compressible, spontaneous, phasic, competent and demonstrates normal augmentation. POP V is compressible, spontaneous, phasic, competent and demonstrates normal augmentation. T/P Trunk is compressible. PTV is compressible. RT PerV is compressible. Procedure This is a venous duplex using B-mode, color flow and spectral Doppler. Exam performed in department. The exam was abbreviated due to the COVID 19 protocol. The exam was diagnostic. VL/Venous Duplex US, Unilateral Interpretation Summary There is no evidence of right lower extremity deep vein thrombosis. Right great saphenous vein appears patent and compressible segmentally. Abbreviated COVID-19 protocol util ized Ordering Physician: Domingo Canales Performed By: Victorino Grier RVT
== END | disposition home or self-care (01) ==
LOC: US 12:01
PROVIDERS: Visit Provider Student in an Organized Health Care Education/Training Program
DX: M79.604 Pain in right leg (principal)
CPT/HCPCS: 93971

== ENCOUNTER 2023-01-24 14:47 | Emergency (ER) | payer MEDICAID, SELFPAY ==
[2023-01-24 14:47] VITALS: BP 155/107; PULSE 114; RESP 18; TEMP 36.4; O2SAT 99; BMI 27.9
--- NOTE | 2023-01-24 15:14 | CT_ITS ---
INDICATION: right flank pain. K-stone hx EXAMINATION: CT ABDOMEN AND PELVIS WITHOUT CONTRAST - CT Abdomen And Pelvis W/O Contrast Injection TECHNIQUE: Helically acquired images were obtained of the abdomen and pelvis without oral or IV contrast. A radiation dose optimization technique was used for this scan. IV Contrast dosage and agent: None. Oral contrast: None. COMPARISON: None. FINDINGS: LOWER CHEST: Lung bases are clear. No cardiomegaly or pericardial effusion. LIVER: Homogeneous. No focal mass. GALLBLADDER AND BILIARY TREE: No calcified gallstones. No gallbladder distension or wall edema. No intra- or extrahepatic biliary ductal dilation. PANCREAS: No focal cystic or solid mass. SPLEEN: Normal size without focal cystic or solid mass. ADRENAL GLANDS: No nodules. KIDNEYS AND URETERS: Normal renal size and position. No hydronephrosis. PERITONEUM: No ascites or free air. No other fluid collection. BOWEL: No evidence of acute appendicitis. No stomach or bowel distension. No focal inflammatory change. LYMPH NODES: No enlarged mesenteric or retroperitoneal lymph nodes. VESSELS: Aorta is non-dilated. URINARY BLADDER: Unremarkable. REPRODUCTIVE ORGANS: There is normal. Anterior to the uterus there is a 3.1 x 3.36 cm right ovary simple cyst. The left adnexa is normal in appearance. ABDOMINAL WALL: No discrete abdominal or pelvic wall hernia. BONES: Inferior L5 vertebral body on the right demonstrates a lytic lesion. This could represent hemangioma. Other etiology cannot be excluded. This measures 2.8 cm transverse by 2.[address]/Abdomen/Pelvis without Cont IMPRESSION: Interval cyst of the right ovary anterior and to the right of the uterus measuring 3.1 x 3.36 cm. Probable hemangioma L5. Correlation advised to exclude metabolically active lesion. Electronically Signed: Anton Last MD, GALINA at 16:03 EDT ,
--- NOTE | 2023-01-24 15:17 | EDS_ITS ---
HPI History of Present Illness Chief Complaint: General Illness Detail of Chief Complaint: Right flank pain. Informant: patient Onset/Context/Timing Onset: Today and Yesterday Context: Gradual Onset Timing: Continuous Current Severity: Mild Maximum Severity: Mild Narrative Narrative: 32-year-old female history of prior kidney stones with a prior stent about a year ago. States today she had some right flank pain. Also intermittent left flank. She has had some chills but no dysuria or hematuria. No fever. Also states she has some poor dentition with a lot of cavities and since she is having some pain in her right upper dentition. Currently she has no dentist. Denies any vomiting or diarrhea. Prior similar symptoms: Yes Recent Illness/Hospitalization: No PFSH PFSH Medical History Anxiety Asthma Chronic hypertension Depression HELLP syndrome Kidney stones Pyelonephritis Wears contact lenses Wears glasses no medical history Home Medications penicillin V potassium 500 mg tablet 500 mg PO 4X/DAY #40 tabs 01/24/23 [Rx Last Taken Unknown] Allergy/AdvReac Type Severity Reaction Status Date / Time aspirin Allergy Swelling Verified 01/16/23 16:25 sulfamethoxazole Allergy Swelling Verified 01/16/23 16:25 [From Bactrim] trimethoprim [From Bactrim] Allergy Swelling Verified 01/16/23 16:25 Surgical History H/O adenoidectomy History of tonsillectomy and adenoidectomy Hx of cystoscopy Social History household members: significant other Smoking Status: Never smoker substance use type: does not use ROS ROS ED ROS Narrative Flank pain. Chills. Review of Systems ROS Unobtainable: Denies due to encephalopathy Constitutional Constitutional ED: Reports chills; Denies fever(s) ENT ENT ED: Denies ear pain Cardiovascular Cardiovascular: Denies chest pain Respiratory/Chest Respiratory/Chest: Denies cough or dyspnea Gastrointestinal Gastrointestinal: Denies constipation, diarrhea, melena, nausea or vomiting Genitourinary Genitourinary ED: Denies dysuria or hematuria Musculoskeletal Musculoskeletal: Reports back pain; Denies arthralgias Integumentary Denies abscess or Abrasions Neurologic Neurologic: Denies headache(s) Psychiatric Psychiatric: Denies anxiety or depression Endocrine Endocrinology: Denies cold intolerance or heat intolerance Hematologic/Lymphatic Hematologic/Lymphatic: Reports none Allergic/Immunologic Allergic/Immunologic ED: Denies mouth swelling or tongue swelling EXAM Physical Exam Narrative Exam Narrative: Well-appearing 32-year-old female. Vital signs are stable afebrile. Pulse ox 99% on room air no signs hypoxia. Patient does not look septic or toxic. H EENT exam unremarkable except poor dentition with gingival swelling right upper gum. Multiple cavities. No drainable abscess. No trismus. Posterior pharynx unremarkable. Neck nontender no lymphadenopathy. No meningismus. Lungs clear to auscultation bilaterally. Heart regular rhythm no murmur. Abdomen soft nontender. Normal bowel sounds no peritoneal signs. Back mild right CVA tenderness. Moving all 4 extremities. Nontender no edema. No rashes. Neurologically she is awake and alert with no focal motor deficits. Const Vital Signs: 01/24/23 14:47 01/24/23 14:56 Temperature 97.6 F L Temperature Source Temporal Pulse Rate 114 H Respiratory Rate 18 Respiratory Effort Normal Respiratory Pattern Normal Blood Pressure 155/107 H Blood Pressure Mean 123 Pulse Ox 99 Oxygen Delivery Method Room Air Positive well nourished and well developed; Negative for obese, cachectic, contractures or unkempt General Appearance ED: well developed and NAD; Negative for unkempt, cachectic, contractures, cyanotic or diaphoretic Nutritional Appearance: Negative for cachectic or obese HEENT Reports moist mucous membranes; Denies dry mucous membranes Negative for trauma or tenderness Mouth ED: No dry mucous membranes Mouth: No dry mucous membranes Eyes PERRL and EOMs intact bilaterally General Eye ED: Negative for pale conjunctiva, scleral icterus or other Neck no lymphadenopathy, supple and no JVD General: Negative for tenderness Lymph Lymphatic: Negative for other Chest Wall inspection of chest normal and palpation of chest normal Chest: Negative for other Resp normal respiratory effort and clear to auscultation bilaterally Effort and Inspection: Negative for retractions Auscultation: Negative for rales, rhonchi or wheezes Cardio regular rate, regular rhythm, S1 normal heart sound, S2 normal heart sound and no murmurs Palpation: Negative for palpable S3 Rate: Negative for bradycardia Rhythm: Negative for abnormal rhythm GI normal to inspection, nondistended, normoactive bowel sounds, non-tender, non- distended and no masses Inspection: Negative for abdominal distention Auscultation: normoactive bowel sounds Palpation: soft; Negative for tender or guarding Back/Spine Negative for no CVA tenderness Back/Spine Narrative: Right CVA tenderness. General Back: Negative for CVA tenderness Cervical Spine: Negative for cervical spine tenderness Thoracic Spine / Upper Back: Negative for thoracic spinal tenderness Lumbar Spine / Lower Back: Negative for lumbar spinal tenderness Extremity normal to inspection General Extremety ED: Negative for edema or tenderness General Extremity: Negative for edema Neuro oriented x3 and CN's II-XII intact bilaterally Sensorium / Orientation: alert; Negative for orientation impaired, lethargic or stuporous Motor Exam: strength 5/5 throughout Psych mental status grossly normal Appearance: Negative for unkempt Attitude: No agitated Mood & Affect: Negative for depressed or anxious Skin no rashes or lesions noted, no wounds and skin turgor normal General Skin Exam: Negative for elasticity normal Lesions: No lesion noted Rashes: No rashes noted Trauma: Negative for abrasion Wounds: Negative for wounds noted MDM MDM MDM Narrative Medical decision making narrative: 32-year-old female has dental caries gingiva is noted to Ladarius Turcios for that. She is having right flank pain we will check a urinalysis and a CT flank. She states she is a hard stick and did not want an IV which I think is reasonable at this time. I do not think lab work would make any significant difference on her particular case. I did review her prior records and her most recent lab work was unremarkable. Repeat exam patient is doing well at 4:15 PM. We went over her CAT scan and urinalysis results. There is some slight she is comfortable being discharged home. I instructed her she has a right ovarian cyst. Follow-up with not improving. Return if worse. Old Lab Data Attestation: I reviewed the patient's lab results. Lab results narrative: Urinalysis is negative. Occult blood but no signs of infection. No white or red cells. No bacteria or nitrites. CAT scan abdomen pelvis shows a 3 cm ovarian cyst. No kidney stone. Labs: Laboratory Results - last 24 hr 01/24/23 15:50 Urine Color Yellow Urine Clarity Clear Urine pH 6.5 Ur Specific [place] 1.005 Urine Protein Negative Urine Glucose (UA) Normal Urine Ketones Negative Urine Occult Blood 10 H Urine Nitrite Negative Urine Bilirubin Negative Urine Urobilinogen Normal Ur Leukocyte Esterase Negative Urine RBC 0 SEEN Urine WBC 0 SEEN Ur Squamous Epith Cells 0-5 SEEN Urine Bacteria 0 SEEN Urine Mucus 0 SEEN Radiography Diagnostic Testing: Clinical Impression(s) from Imaging Studies Abdomen/Pelvis CT 01/24/23 15:14 IMPRESSION: Interval cyst of the right ovary anterior and to the right of the uterus measuring 3.1 x 3.36 cm. Probable hemangioma L5. Correlation advised to exclude metabolically active lesion. Electronically Signed: Anton Last MD, GALINA at 16:03 EDT , Discharge Plan Triage Chief Complaint: General Illness ED Provider: Anastacio Farias Dx/Rx/DC Orders Clinical Impression: Pain, dental, Dental cavities, Acute flank pain, Ovarian cyst Instructions: Ovarian Cysts, ED Dental Cavity Prescriptions: New penicillin V potassium 500 mg tablet 500 mg PO 4X/DAY Qty: 40 0RF Primary Care Provider: Care Physician,No Primary Referrals: Destinee Cespedes [Non-Staff] - As soon as possible Care Physician,No Primary [Primary Care Provider] - Activity Restrictions/Additional Instructions: Plenty of fluids and rest. Motrin and Tylenol for pain. Pen-Vee K 500 mg 4 times a day for your dental cavities and gum infection. Follow-up with a dentist as soon as possible. CAT scan shows no kidney stone. There is no prior infection. You do have a 3 cm right ovarian cyst Disposition Disposition: Home, Self Care
[2023-01-24 15:54] LABS: Bacteria 0 SEEN /hpf (None Seen); Mucous, Urine 0 SEEN /hpf (<or=2+); Red Blood Cells-Urine 0 SEEN /hpf (0-5); White Blood Cells 0 SEEN /hpf (0-5)
[2023-01-24 15:56] LABS: Color, Urine Yellow (Yellow); Glucose, Dipstick Normal (Normal); Ketone-Dipstick Negative (Negative); Leukocyte Esterase-Dipstick Negative /ul (Negative); Nitrite-Dipstick Negative (Negative); Occult Blood-Urine 10 /ul (Negative); Protein-Dipstick Negative (Negative); Specific Gravity, Urine 1.005 (1.002-1.030); Urine Bilirubin Dipstick Negative (Negative); Urine Clarity Clear (Clear); Urine Urobilinogen Normal (Normal); Urine pH 6.5 (5.0 - 8.0)
[2023-01-24 16:01] LABS: Squamous Epithelial Cells - UA 0-5 SEEN /hpf (5-10)
== END 2023-01-24 16:35 | disposition home or self-care (01) ==
LOC: ED 15:35
PROVIDERS: Emergency Provider Emergency Medicine; Visit Provider Emergency Medicine
DX: K02.9 Dental caries, unspecified (principal); K08.89 Other specified disorders of teeth and supporting structures; I10 Essential (primary) hypertension; N83.201 Unspecified ovarian cyst, right side; R10.9 Unspecified abdominal pain; Z87.442 Personal history of urinary calculi
CPT/HCPCS: 74176; 81001; 99282

== ENCOUNTER 2023-03-14 14:48 | Emergency (ER) | payer MEDICAID, SELFPAY ==
[2023-03-14 14:49] VITALS: BP 144/115; PULSE 96; RESP 16; TEMP 36.1; O2SAT 100; BMI 27.8
[2023-03-14] MEDS: AMOXICILLIN 500 MG CAPSULE PO (15:16)
[2023-03-14] MEDS: Acetaminophen 500 MG Tablet 1000 MG PO (15:16)
--- NOTE | 2023-03-14 15:34 | EDS_ITS ---
HPI <RICKY Pratt - Last Filed: 03/14/23 15:42> History of Present Illness Chief Complaint: Dental Narrative Narrative: Patient presenting today with right sided dental pain that she has had since this morning. She admits to poor dentition and was supposed to follow-up with a dentist last week but had to miss her appointment because her child was sick. She denies any fever or chills. PFSH <RICKY Pratt - Last Filed: 03/14/23 15:42> PFSH Medical History Anxiety Asthma Chronic hypertension Depression HELLP syndrome Kidney stones Pyelonephritis Wears contact lenses Wears glasses Home Medications penicillin V potassium 500 mg tablet 500 mg PO 4X/DAY #40 tabs 01/24/23 [Rx Last Taken Unknown] penicillin V potassium 500 mg tablet 500 mg PO 4X/DAY #40 tabs 01/24/23 [Rx Last Taken Unknown] acetaminophen 325 mg tablet 650 mg PO Q6H 5 days #20 tabs 03/14/23 [Rx Last Taken Unknown] amoxicillin 500 mg capsule 500 mg PO TID 7 days #21 caps 03/14/23 [Rx Last Taken Unknown] Allergy/AdvReac Type Severity Reaction Status Date / Time aspirin Allergy Swelling Verified 03/14/23 14:49 sulfamethoxazole Allergy Swelling Verified 03/14/23 14:49 [From Bactrim] trimethoprim [From Bactrim] Allergy Swelling Verified 03/14/23 14:49 Surgical History H/O adenoidectomy History of tonsillectomy and adenoidectomy Hx of cystoscopy Social History household members: significant other Smoking Status: Never smoker substance use type: does not use ROS <RICKY Pratt - Last Filed: 03/14/23 15:42> ROS ED Constitutional Constitutional ED: Denies chills or fever(s) Eyes Eyes: Denies blurry vision or diplopia Cardiovascular Cardiovascular: Denies chest pain Respiratory/Chest Respiratory/Chest: Denies cough or dyspnea Gastrointestinal Gastrointestinal: Denies abdominal pain, nausea or vomiting Musculoskeletal Musculoskeletal: Denies arthralgias or myalgias Integumentary Denies abscess, Abrasions or rash Neurologic Neurologic: Denies weakness Psychiatric Psychiatric: Denies anxiety or depression EXAM <RICKY Pratt - Last Filed: 03/14/23 15:42> Physical Exam Const Vital Signs: 03/14/23 14:49 Temperature 97.0 F L Temperature Source Temporal Pulse Rate 96 Respiratory Rate 16 Blood Pressure 144/115 H Blood Pressure Mean 124 Pulse Ox 100 Oxygen Delivery Method Room Air Positive well nourished, well developed and no apparent distress General Appearance ED: well developed HEENT Reports normocephalic and head/scalp atraumatic HEENT Narrative: Multiple dental caries throughout patient's mouth, no dental abscess, no area of fluctuance. No bleeding or edema to the gums. Mouth ED: Yes moist mucous membranes normal Eyes PERRL and EOMs intact bilaterally Neck full ROM and supple Chest Wall inspection of chest normal Resp normal respiratory effort and clear to auscultation bilaterally Cardio regular rate and regular rhythm GI soft to palpation, non-tender, non-distended and no masses Back/Spine normal ROM and normal to inspection Extremity normal to inspection and full ROM Neuro oriented x3, CN's II-XII intact bilaterally, moves all extremities, no focal motor deficits and no sensory deficits noted Sensorium / Orientation: awake and alert Psych mental status grossly normal and thought process normal Skin no rashes or lesions noted and no wounds <Dr. Izaiah Meyer MD - Last Filed: 03/14/23 16:12> Physical Exam Const Vital Signs: 03/14/23 14:49 Temperature 97.0 F L Temperature Source Temporal Pulse Rate 96 Respiratory Rate 16 Blood Pressure 144/115 H Blood Pressure Mean 124 Pulse Ox 100 Oxygen Delivery Method Room Air MDM <RICKY Pratt - Last Filed: 03/14/23 15:42> [facility] Narrative Medical decision making narrative: Patient presenting today with dental pain on the right side is located mainly along the right maxillary first, second, and third molars. She does have multiple dental caries throughout her mouth. She does not have any dental abscess. She is well-appearing and in no acute distress, she is afebrile. She has not followed up with a dentist in several years. I have given her a dental referral sheet. She will be started on amoxicillin with first dose here and has been given Tylenol for pain. She will be discharged home in stable condition and is comfortable with plan. <Dr. Izaiah Meyer MD - Last Filed: 03/14/23 16:12> MDM Treatment and Re-Evaluation Narrative: Seen and evaluated independently and in conjunction with physician office services assistant. Agree with notes above unless documented otherwise. Gradually worsening dental pain right maxillary and mandibular molars, she states it feels swollen but agrees it does not appear swollen. No foul taste, bleeding, fevers or chills. On exam, she has poor dentition but no dental abscess or trismus. No cervical lymphadenopathy. No dysphonia or stridor. Agree with prescribing antibiotics and have her follow-up with dentistry. She is comfortable with that plan. Discharge Plan Triage Chief Complaint: Dental ED Midlevel Provider: Amy Roland ED Provider: Izaiah Meyer Dx/Rx/DC Orders Clinical Impression: Pain, dental, Dental caries Instructions: ED Dental Pain Prescriptions: New amoxicillin 500 mg capsule 500 mg PO TID 7 Days Qty: 21 0RF acetaminophen 325 mg tablet 650 mg PO Q6H 5 Days Qty: 20 0RF No Action penicillin V potassium 500 mg tablet 500 mg PO 4X/DAY Qty: 40 0RF penicillin V potassium 500 mg tablet 500 mg PO 4X/DAY Qty: 40 0RF Primary Care Provider: Care Physician,No Primary Referrals: Care Physician,No Primary [Primary Care Provider] - Activity Restrictions/Additional Instructions: Please follow-up with the dentist and return for any worsening of symptoms. Disposition Disposition: Home, Self Care Discharge Date/Time: 03/14/23 15:32
== END 2023-03-14 15:32 | disposition home or self-care (01) ==
PROVIDERS: Emergency Provider Emergency Medicine; Visit Provider Emergency Medicine
DX: K08.89 Other specified disorders of teeth and supporting structures (principal); K02.9 Dental caries, unspecified; I10 Essential (primary) hypertension
CPT/HCPCS: 99283

== ENCOUNTER 2023-04-04 18:54 | Emergency (ER) | payer MEDICAID, SELFPAY ==
[2023-04-04 18:54] VITALS: BP 134/103; PULSE 99; RESP 20; TEMP 37.1; O2SAT 98; BMI 28.3
--- NOTE | 2023-04-04 19:10 | EDS_ITS ---
HPI <RICKY Villalobos - Last Filed: 04/04/23 20:43> History of Present Illness Chief Complaint: Flank Pain Narrative Narrative: 32-year-old female with PMH of kidney stones, ovarian cyst presents with 2 days of left flank pain radiating around to the left lower abdomen. Pain is worsening today with nausea but no vomiting. No fever or chills. She having normal urination with no burning, frequency, or hematuria. Normal daily bowel movements. She is required a ureteral stent in the past. No other abdominal surgeries. PFSH <RICKY Villalobos - Last Filed: 04/04/23 20:43> PFSH Medical History Anxiety Asthma Chronic hypertension Depression HELLP syndrome Kidney stones Pyelonephritis Wears contact lenses Wears glasses Allergy/AdvReac Type Severity Reaction Status Date / Time aspirin Allergy Swelling Verified 04/04/23 20:53 sulfamethoxazole Allergy Swelling Verified 04/04/23 20:53 [From Bactrim] trimethoprim [From Bactrim] Allergy Swelling Verified 04/04/23 20:53 Surgical History H/O adenoidectomy History of tonsillectomy and adenoidectomy Hx of cystoscopy Social History household members: significant other Smoking Status: Never smoker substance use type: does not use ROS <RICKY Villalobos - Last Filed: 04/04/23 20:43> ROS ED ROS Narrative Constitutional: Negative for fever, chills, malaise. CVS: Negative for chest pain. Respiratory: Negative for shortness of breath. GI: Positive for abdominal pain, nausea. Negative for vomiting, diarrhea, constipation, melena, hematochezia. : Negative for dysuria, hematuria or frequency. EXAM <RICKY Villalobos Last Filed: 04/04/23 20:43> Physical Exam Narrative Exam Narrative: CONST: Patient sitting in no acute distress. EYES: Normal inspection. NECK: Normal inspection. RESP: No respiratory distress, CTAB. CVS: Regular rate and rhythm, no murmur, no gallop. ABD: Soft and nontender, no guarding or rebound, nondistended. Back: Normal inspection, no CVA tenderness. SKIN: Color normal, no rash, warm, dry, intact. EXTREMITIES: Normal appearance, no pedal edema. NEURO: Oriented x4. PSYCH: Normal affect. Const Vital Signs: 04/04/23 18:54 Temperature 98.7 F Temperature Source Temporal Pulse Rate 99 Respiratory Rate 20 H Blood Pressure 134/103 H Blood Pressure Mean 113 Pulse Ox 98 Oxygen Delivery Method Room Air <Dr. Anastacio Farias MD - Last Filed: 04/04/23 20:59> Physical Exam Const Vital Signs: 04/04/23 18:54 Temperature 98.7 F Temperature Source Temporal Pulse Rate 99 Respiratory Rate 20 H Blood Pressure 134/103 H Blood Pressure Mean 113 Pulse Ox 98 Oxygen Delivery Method Room Air MDM <RICKY Villalobos - Last Filed: 04/04/23 20:43> MDM MDM Narrative Medical decision making narrative: Patient here for left flank pain. She appears well nontoxic. Afebrile with unremarkable vital signs. She is in no distress and has no reproducible abdominal or flank tenderness. She does have a significant history of kidney stone so labs and a CT were ordered. I was called in the patient's room at 8:40 PM. She is tearful she states she went to leave. She states she does not have transportation and her parents and young child are sitting in a hot car. Blood work and urine have not resulted yet. She has not yet had her CAT scan. She understands this and the risks of bleeding including possible kidney stone, intra-abdominal process, possibility of endorgan damage sepsis or . She left in stable condition. I have personally performed a face to face assessment of the patient and have reviewed the SAMMY Note. I performed a substantive portion of the visit including all aspects of the following. 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 Left flank pain since last evening. History of prior kidney stone with stent. Last menstrual period about 3 weeks ago. No vaginal bleeding. No dysuria. No fever. Exam is [well-appearing 32-year-old female. Vital signs stable afebrile. H EENT exam unremarkable. Lungs clear. Heart regular rhythm. No murmur. Abdomen soft, nontender, nondistended, normal bowel sounds without peritoneal signs. No hernia or mass. No distention. Back nontender. Moving all 4 extremities. Neurologically awake and alert.] Medical Decision Making [32-year-old left flank pain with history of kidney stone. Treated with Toradol for pain. CAT scan to evaluate left flank pain. Labs and urinalysis. Serum .] Other additions or changes: [None] Lab Data Labs: Laboratory Results - last 24 hr 04/04/23 04/04/23 04/04/23 20:00 20:00 20:00 WBC 9.1 RBC 4.90 Hgb 15.0 Hct 44.4 MCV 90.6 MCH 30.6 MCHC 33.8 RDW Std Deviation 41.0 RDW Coeff of Emir 12.2 Plt Count TNP Immature Gran % (Auto) 0.100 Neut % (Auto) 56.6 Lymph % (Auto) 32.1 [place] % (Auto) 6.7 Eos % (Auto) 3.8 Baso % (Auto) 0.7 Absolute Neuts (auto) 5.2 Absolute Lymphs (auto) 2.93 Nucleated RBC % 0 Differential Comment SCANNED Platelet Estimate ADEQUATE Sodium 138 Potassium 3.5 Chloride 103 Carbon Dioxide 27.0 Anion Gap 8 BUN 10 Creatinine 0.82 Estim Creat Clear Calc 84.26 Est GFR (MDRD) Af Amer 102 Est GFR (MDRD) Non-Af 84 BUN/Creatinine Ratio 12.1 Glucose 90 Calcium 9.2 Serum , Qual NEGATIVE Urine Color Urine Clarity Urine pH Ur Specific [place] Urine Protein Urine Glucose (UA) Urine Ketones Urine Occult Blood Urine Nitrite Urine Bilirubin Urine Urobilinogen Ur Leukocyte Esterase Urine RBC Urine WBC Ur Squamous Epith Cells Urine Bacteria Urine Mucus 04/04/23 20:00 WBC RBC Hgb Hct MCV MCH MCHC RDW Std Deviation RDW Coeff of Emir Plt Count Immature Gran % (Auto) Neut % (Auto) Lymph % (Auto) [place] % (Auto) Eos % (Auto) Baso % (Auto) Absolute Neuts (auto) Absolute Lymphs (auto) Nucleated RBC % Differential Comment Platelet Estimate Sodium Potassium Chloride Carbon Dioxide Anion Gap BUN Creatinine Estim Creat Clear Calc Est GFR (MDRD) Af Amer Est GFR (MDRD) Non-Af BUN/Creatinine Ratio Glucose Calcium Serum , Qual Urine Color Yellow Urine Clarity Clear Urine pH 7.0 Ur Specific [place] 1.010 Urine Protein 15 H Urine Glucose (UA) Normal Urine Ketones Negative Urine Occult Blood Negative Urine Nitrite Negative Urine Bilirubin Negative Urine Urobilinogen Normal Ur Leukocyte Esterase 25 H Urine RBC 0 SEEN Urine WBC 0 SEEN Ur Squamous Epith Cells 0-5 SEEN Urine Bacteria 0 SEEN Urine Mucus 0 SEEN <Dr. Anastacio Farias MD - Last Filed: 04/04/23 20:59> [facility] Narrative Medical decision making narrative: Patient here for left flank pain. She appears well nontoxic. Afebrile with unremarkable vital signs. She is in no distress and has no reproducible abdominal or flank tenderness. She does have a significant history of kidney stone so labs and a CT were ordered. I was called in the patient's room at 8:40 PM. She is tearful she states she went to leave. She states she does not have transportation and her parents and young child are sitting in a hot car. Blood work and urine have not resulted yet. She has not yet had her CAT scan. She understands this and the risks of bleeding including possible kidney stone, intra-abdominal process, possibility of endorgan damage sepsis or . She left in stable condition. I have personally performed a face to face assessment of the patient and have reviewed the SAMMY Note. I performed a substantive portion of the visit including all aspects of the following. 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 Left flank pain since last evening. History of prior kidney stone with stent. Last menstrual period about 3 weeks ago. No vaginal bleeding. No dysuria. No fever. Exam is [well-appearing 32-year-old female. Vital signs stable afebrile. H EENT exam unremarkable. Lungs clear. Heart regular rhythm. No murmur. Abdomen soft, nontender, nondistended, normal bowel sounds without peritoneal signs. No hernia or mass. No distention. Back nontender. Moving all 4 extremities. Neurologically awake and alert.] Medical Decision Making [32-year-old left flank pain with history of kidney stone. Treated with Toradol for pain. CAT scan to evaluate left flank pain. Labs and urinalysis. Serum .] Other additions or changes: [None] Prior to the patient's evaluation being completed she had to leave due to concerns of not having a ride and the family that was here had to go. We did follow-up on the patient's labs that came back after she had left. Her CBC was unremarkable with a white count 9.1. H&H of 15 and 44. Her electrolytes are unremarkable. Normal gap of 8. Normal BUN and creatinine. Serum test was negative. UA was negative. And patient did not stay long enough to receive her CAT scan. History & Record Review Discussion w/independent historian: Patient and Significant other Additional record(s) reviewed:: Prior inpatient record, Prior outpatient record, Prior ED visit and Prior labs Lab Data Attestation: I reviewed the patient's lab results. Lab results narrative: CBC normal. BMP normal. Serum test negative. UA negative. Labs: Laboratory Results - last 24 hr 04/04/23 04/04/23 04/04/23 20:00 20:00 20:00 WBC 9.1 RBC 4.90 Hgb 15.0 Hct 44.4 MCV 90.6 MCH 30.6 MCHC 33.8 RDW Std Deviation 41.0 RDW Coeff of Emir 12.2 Plt Count TNP Immature Gran % (Auto) 0.100 Neut % (Auto) 56.6 Lymph % (Auto) 32.1 [place] % (Auto) 6.7 Eos % (Auto) 3.8 Baso % (Auto) 0.7 Absolute Neuts (auto) 5.2 Absolute Lymphs (auto) 2.93 Nucleated RBC % 0 Differential Comment SCANNED Platelet Estimate ADEQUATE Sodium 138 Potassium 3.5 Chloride 103 Carbon Dioxide 27.0 Anion Gap 8 BUN 10 Creatinine 0.82 Estim Creat Clear Calc 84.26 Est GFR (MDRD) Af Amer 102 Est GFR (MDRD) Non-Af 84 BUN/Creatinine Ratio 12.1 Glucose 90 Calcium 9.2 Serum , Qual NEGATIVE Urine Color Urine Clarity Urine pH Ur Specific [place] Urine Protein Urine Glucose (UA) Urine Ketones Urine Occult Blood Urine Nitrite Urine Bilirubin Urine Urobilinogen Ur Leukocyte Esterase Urine RBC Urine WBC Ur Squamous Epith Cells Urine Bacteria Urine Mucus 04/04/23 20:00 WBC RBC Hgb Hct MCV MCH MCHC RDW Std Deviation RDW Coeff of Emir Plt Count Immature Gran % (Auto) Neut % (Auto) Lymph % (Auto) [place] % (Auto) Eos % (Auto) Baso % (Auto) Absolute Neuts (auto) Absolute Lymphs (auto) Nucleated RBC % Differential Comment Platelet Estimate Sodium Potassium Chloride Carbon Dioxide Anion Gap BUN Creatinine Estim Creat Clear Calc Est GFR (MDRD) Af Amer Est GFR (MDRD) Non-Af BUN/Creatinine Ratio Glucose Calcium Serum , Qual Urine Color Yellow Urine Clarity Clear Urine pH 7.0 Ur Specific [place] 1.010 Urine Protein 15 H Urine Glucose (UA) Normal Urine Ketones Negative Urine Occult Blood Negative Urine Nitrite Negative Urine Bilirubin Negative Urine Urobilinogen Normal Ur Leukocyte Esterase 25 H Urine RBC 0 SEEN Urine WBC 0 SEEN Ur Squamous Epith Cells 0-5 SEEN Urine Bacteria 0 SEEN Urine Mucus 0 SEEN Discharge Plan Triage Chief Complaint: Flank Pain ED Midlevel Provider: Juliane Carter ED Provider: Anastacio Farias Dx/Rx/DC Orders Clinical Impression: Acute left flank pain Primary Care Provider: Care Physician,No Primary Referrals: Care Physician,No Primary [Primary Care Provider] -
[2023-04-04] MEDS: Ketorolac 15 MG/ML Vial IV (19:26)
[2023-04-04] MEDS: Ondansetron 4 MG/2 ML Vial IV (19:27)
[2023-04-04 20:17] LABS: Bacteria 0 SEEN /hpf (None Seen); Mucous, Urine 0 SEEN /hpf (<or=2+); Red Blood Cells-Urine 0 SEEN /hpf (0-5); White Blood Cells 0 SEEN /hpf (0-5)
[2023-04-04 20:25] LABS: Absolute Lymphocyte Count 2.93 X10^3/uL (0.83-4.51); Absolute Neutrophil Count 5.2 X10^3/uL (2.0-7.7); Basophil# 0.06 X10^3/uL; Basophil% 0.7 % (0-1); Color, Urine Yellow (Yellow); Eosinophil# 0.35 X10^3/uL; Eosinophils% 3.8 % (0-5); Glucose, Dipstick Normal (Normal); Hematocrit 44.4 % (37-47); Ketone-Dipstick Negative (Negative); Leukocyte Esterase-Dipstick 25 /ul (Negative); Lymphocyte # 2.93 X10^3/ul (0.83-4.51); Lymphocyte % 32.1 % (19-41); Mean Corp Hgb Conc 33.8 g/dL (32-36); Mean Corpuscular Hgb 30.6 pg (27.0-32.0); Mean Corpuscular Volume 90.6 fL (81-99); Monocyte# 0.61 X10^3/uL; Monocyte% 6.7 % (0-10); NRBC Flagged by Analyzer 0 % (0-5); Neutrophil # 5.16 X10^3/uL (2.7-7.7); Neutrophil % 56.6 % (47-70); Nitrite-Dipstick Negative (Negative); Occult Blood-Urine Negative /ul (Negative); POSITIVE COUNT YES; Protein-Dipstick 15 mg/dl (Negative); RBC Distribution Width CV 12.2 % (11.6-14.6); Urine Bilirubin Dipstick Negative (Negative); Urine Clarity Clear (Clear); Urine Urobilinogen Normal (Normal); White Blood Count 9.1 K/mm3 (4.4-11.0)
[2023-04-04 20:42] LABS: Internal QC Validated? YES +Cl - CLEAR BKGD; Pregnancy, Serum, hCG Quali. NEGATIVE Negative
[2023-04-04 20:44] LABS: Anion Gap 8 (5-15); BUN 10 mg/dL (7-18); BUN/Creat Ratio 12.1 RATIO (10-20); Calcium,Total 9.2 mg/dL (8.5-10.1); Chloride 103 mmol/L (98-107); Creatinine, Serum 0.82 mg/dL (0.55-1.02); EST Glomerular Filtration Rate 84 mL/min (>60); Est Glom Filt Rate - Afr Amer 102 mL/min (>60); Estimated Creatinine Clearance 84.26 ml/min; Glucose 90 mg/dL (74-106); Potassium 3.5 mmol/L (3.5-5.1); Sodium Level 138 mmol/L (136-145)
[2023-04-04 20:46] LABS: Squamous Epithelial Cells - UA 0-5 SEEN /hpf (5-10)
[2023-04-04 20:54] LABS: Differential Indicated SCAN CRITERIA MET
[2023-04-04 20:55] LABS: Differential Comment SCANNED; Platelet Estimate ADEQUATE (ADEQ)
== END 2023-04-04 20:40 | disposition left against medical advice (07) ==
LOC: ED 19:48
PROVIDERS: Physician Assistant; Emergency Provider Emergency Medicine; Visit Provider Emergency Medicine
DX: R10.9 Unspecified abdominal pain (principal); I10 Essential (primary) hypertension
CPT/HCPCS: 80048; 81001; 84703; 85025; 96374; 96375; 99283; A4216; J2405

== ENCOUNTER 2023-04-06 22:03 | Emergency (ER) | payer MEDICAID, SELFPAY | END 2023-04-06 22:10 | disposition left against medical advice (07) | LOC: ED 22:20 | DX: Z00.00 Encounter for general adult medical examination without abnormal findings (principal) ==

== ENCOUNTER 2023-04-07 03:04 | Emergency (ER) | payer MEDICAID, SELFPAY ==
[2023-04-07 03:05] VITALS: BP 127/84; PULSE 96; RESP 18; TEMP 36.6; O2SAT 100; BMI 28.8
[2023-04-07] MEDS: DiphenhydrAMINE 50 MG/ML Syringe IV (03:22)
[2023-04-07] MEDS: MethylPREDNISolone 125 MG/2 ML Vial IV (03:23)
[2023-04-07] MEDS: Famotidine 200 MG/20 ML MDV 20 MG in 0.9% Normal Saline (Pres. free 8 ML 300 MG IV (03:37)
[2023-04-07] MEDS: 0.9% Normal Saline 1,000 ML 999 ML IV (03:37)
--- NOTE | 2023-04-07 04:28 | CT_ITS ---
EXAM: CT abdomen and pelvis without contrast HISTORY: flank pain TECHNIQUE: No intravenous contrast. A radiation dose optimization technique was used for this scan. COMPARISON: CT abdomen and pelvis January 24, 2023. LIMITATIONS: Motion artifact.. LOWER CHEST: Normal. LIVER: Normal. GALLBLADDER: Normal. BILE DUCTS: Normal. PANCREAS: Normal. SPLEEN: Normal. ADRENAL GLANDS: Normal. KIDNEYS/URETERS/BLADDER: Normal. AORTA: Normal caliber. BOWEL/MESENTERY: Normal. APPENDIX: Normal. PERITONEUM: Normal. REPRODUCTIVE ORGANS: Right ovarian cyst present on the prior exam has resolved. Few small foci of gas in the lower uterine segment/cervix BONES/SOFT TISSUES: No acute fracture. Probable hemangioma at L5. OTHER: None. CONCLUSION: No urinary stones or hydronephrosis. Electronically Signed: Cezar Reynoso MD at 5:36 EDT , CT/Abdomen/Pelvis without Cont IMPRESSION: undefined
[2023-04-07 04:45] LABS: Absolute Lymphocyte Count 1.61 X10^3/uL (0.83-4.51); Absolute Neutrophil Count 8.4 X10^3/uL (2.0-7.7); Basophil# 0.03 X10^3/uL; Basophil% 0.3 % (0-1); Eosinophil# 0.19 X10^3/uL; Eosinophils% 1.8 % (0-5); Hematocrit 38.3 % (37-47); Hemoglobin 12.7 g/dL (12.0-15.0); Lymphocyte # 1.61 X10^3/ul (0.83-4.51); Lymphocyte % 14.9 % (19-41); Mean Corp Hgb Conc 33.2 g/dL (32-36); Mean Corpuscular Hgb 30.5 pg (27.0-32.0); Mean Corpuscular Volume 91.8 fL (81-99); Mean Platelet Vol. 8.4 fl (6.2-12.0); Monocyte# 0.51 X10^3/uL; Monocyte% 4.7 % (0-10); NRBC Flagged by Analyzer 0 % (0-5); Neutrophil # 8.39 X10^3/uL (2.7-7.7); Neutrophil % 77.9 % (47-70); Platelet Count 251 K/mm3 (150-450); RBC Distribution Width CV 12.2 % (11.6-14.6); RBC Distribution Width SD 40.8 fl (35.1-43.9); Red Blood Count 4.17 M/mm3 (4.2-5.4); White Blood Count 10.8 K/mm3 (4.4-11.0)
--- NOTE | 2023-04-07 04:59 | EDS_ITS ---
HPI History of Present Illness Chief Complaint: Allergic Reaction Informant: patient Narrative Narrative: Patient is a 32-year-old female presenting for concerns of allergic reaction as well as worsening dysuria and lower abdominal pain. Patient also she is having some associated low back pain. She was seen in our emergency room 3 days ago for left flank pain rating to the left lower abdomen. Patient left the ER before her results were back. She states she did not have any imaging. She states her pain worsened and she took an old prescription of Macrobid and Pyridium around 1230 this morning. She has been having increased pain with urination. She has suprapubic discomfort. She then developed an itchy rash after taking his medicines. She states she is tolerated both medicines in the past. She came to the emergency room for further evaluation an d treatment of this. She denies any nausea or vomiting. Denies any chest pain, difficulty breathing, swelling of her mouth or tightness in her throat. No she did have some upset stomach after taking the medicines but has had that with Protium in the past. PFSH PFSH Medical History Anxiety Asthma Chronic hypertension Depression HELLP syndrome Kidney stones Pyelonephritis Wears contact lenses Wears glasses Home Medications cephalexin 500 mg capsule 500 mg PO BID #10 caps 04/07/23 [Rx Last Taken Unknown] famotidine 20 mg tablet (Pepcid) 20 mg PO DAILY #7 tabs 04/07/23 [Rx Last Taken Unknown] nitrofurantoin monohydrate/macrocrystals 100 mg capsule 1 cap PO BID 04/07/23 [History Last Taken Unknown] phenazopyridine 200 mg tablet (Pyridium) 200 mg PO TID PRN Bladder Spasms 04/07/23 [History Last Taken Unknown] prednisone 20 mg tablet 40 mg PO DAILY #10 tabs 04/07/23 [Rx Last Taken Unknown] Allergy/AdvReac Type Severity Reaction Status Date / Time aspirin Allergy Swelling Verified 04/07/23 03:07 sulfamethoxazole Allergy Swelling Verified 04/07/23 03:07 [From Bactrim] trimethoprim [From Bactrim] Allergy Swelling Verified 04/07/23 03:07 Surgical History H/O adenoidectomy History of tonsillectomy and adenoidectomy Hx of cystoscopy Social History household members: significant other Smoking Status: Never smoker substance use type: does not use ROS ROS ED Constitutional Constitutional ED: Denies chills or fever(s) ENT ENT ED: Reports rhinorrhea; Denies sore throat Cardiovascular Cardiovascular: Denies chest pain or palpitations Respiratory/Chest Respiratory/Chest: Denies cough or dyspnea Gastrointestinal Gastrointestinal: Reports abdominal pain; Denies diarrhea or vomiting Genitourinary Genitourinary ED: Reports dysuria; Denies hematuria Musculoskeletal Musculoskeletal: Reports back pain; Denies arthralgias or myalgias Integumentary Reports rash Neurologic Neurologic: Denies headache(s) Psychiatric Psychiatric: Denies anxiety EXAM Physical Exam Const Vital Signs: 04/07/23 03:05 Temperature 97.9 F Temperature Source Temporal Pulse Rate 96 Respiratory Rate 18 Blood Pressure 127/84 H Blood Pressure Mean 98 Pulse Ox 100 Oxygen Delivery Method Room Air Positive well nourished and well developed General Appearance ED: well developed and NAD HEENT Reports TM's clear and moist mucous membranes HEENT Narrative: Normal oropharynx Tympanic Membrane ED: Yes TM's clear Eyes PERRL and EOMs intact bilaterally Neck supple and no JVD Neck Narrative: No stridor Chest Wall inspection of chest normal and palpation of chest normal Resp normal respiratory effort and clear to auscultation bilaterally Auscultation: Negative for wheezes Cardio regular rate, regular rhythm and no murmurs GI normal to inspection, nondistended, normoactive bowel sounds Palpation: soft and tender suprapubic Back/Spine no CVA tenderness Extremity normal to inspection Neuro oriented x3 and no sensory deficits noted Motor Exam: Negative for general weakness Psych mental status grossly normal Mood & Affect: anxious Skin Skin Narrative: urticaria noted on lower abdomen, flanks and chest by nursing staff. By the time I evaluated the patient (patient already received Benadryl and Solu- Medrol) these had resolved MDM MDM MDM Narrative Medical decision making narrative: Patient is evaluated for increased dysuria, lower abdominal pain as well as hives. I suspect patient is having allergic reaction to either Macrobid or Pyridium. In addition patient has had persistent and worsening abdominal pain. She is a history of kidney stones worried it could be a kidney stone. Patient does not have findings consistent with anaphylaxis and does not require epinephrine. Protocol IV Benadryl, Pepcid and Solu-Medrol ordered for her reported allergic reaction symptoms. She improved with these. Differential includes pyelonephritis, cystitis and obstructive kidney stone/ureterolithiasis. Patient CBC and BMP are normal and stable compared to 3 days ago. Her urinalysis does now have positive nitrites with 25 leuk esterase and 1+ bacteria. Given her symptoms she will be treated. She started on Keflex given first dose in the emergency room. She also be placed on a short course of Pepcid and Benadryl for allergic reaction symptoms. Counseled to add Macrobid to her allergy list. Patient verbalizes agreement understands plan. Discharged home in stable and improved condition. Lab Data Attestation: I reviewed the patient's lab results. Labs: Laboratory Results - last 24 hr 04/07/23 04/07/23 04/07/23 04:40 04:40 05:47 WBC 10.8 RBC 4.17 L Hgb 12.7 Hct 38.3 MCV 91.8 MCH 30.5 MCHC 33.2 RDW Std Deviation 40.8 RDW Coeff of Emir 12.2 Plt Count 251 MPV 8.4 Immature Gran % (Auto) 0.400 Neut % (Auto) 77.9 H Lymph % (Auto) 14.9 L Oliver % (Auto) 4.7 Eos % (Auto) 1.8 Baso % (Auto) 0.3 Absolute Neuts (auto) 8.4 H Absolute Lymphs (auto) 1.61 Nucleated RBC % 0 Sodium 137 Potassium 3.2 L Chloride 106 Carbon Dioxide 24.0 Anion Gap 7 BUN 17 Creatinine 0.75 Estim Creat Clear Calc 92.13 Est GFR (MDRD) Af Amer 114 Est GFR (MDRD) Non-Af 95 BUN/Creatinine Ratio 22.8 H Glucose 96 Calcium 8.1 L Urine Color Yellow Urine Clarity Clear Urine pH 7.0 Ur Specific [place] 1.010 Urine Protein Negative Urine Glucose (UA) Normal Urine Ketones 15 H Urine Occult Blood Negative Urine Nitrite Positive H Urine Bilirubin 3 H Urine Urobilinogen 8 H Ur Leukocyte Esterase 25 H Urine RBC 0 SEEN Urine WBC 0 SEEN Ur Squamous Epith Cells 0-5 SEEN Urine Bacteria 1+ Urine Mucus 0 SEEN Radiography Diagnostic Testing: Clinical Impression(s) from Imaging Studies Abdomen/Pelvis CT 04/07/23 04:28 IMPRESSION: undefined Discharge Plan Triage Chief Complaint: Allergic Reaction ED Provider: Rose Ash Dx/Rx/DC Orders Clinical Impression: UTI (urinary tract infection), Allergic reaction due to antibacterial drug Instructions: ED ADVERSE DRUG REACTION Allergic, ED Cystitis Female Adult Prescriptions: New cephalexin 500 mg capsule 500 mg PO BID Qty: 10 0RF prednisone 20 mg tablet 40 mg PO DAILY Qty: 10 0RF famotidine [Pepcid] 20 mg tablet 20 mg PO DAILY Qty: 7 0RF No Action phenazopyridine [Pyridium] 200 mg Tablet 200 mg PO TID PRN (Reason: Bladder Spasms) nitrofurantoin monohyd/m-cryst 100 mg capsule 1 cap PO BID Primary Care Provider: Care Physician,No Primary Referrals: Destinee Cespedes [Non-Staff] - 3-5 Days if not improving Care Physician,No Primary [Primary Care Provider] - Activity Restrictions/Additional Instructions: Occasion as prescribed. You can use [id number] Benadryl to help with further itching or allergic symptoms. In addition you can use [id number] Afrin nasal spray to help with your runny nose. Do not use it for more than 3 days in a row as it can cause rebound runny nose. Do not take Macrobid as suspect he had an allergic reaction with this. Is possibly the reaction was from Pyridium so I would avoid that as well. Disposition Disposition: Home, Self Care
[2023-04-07 05:01] LABS: Anion Gap 7 (5-15); BUN 17 mg/dL (7-18); BUN/Creat Ratio 22.8 RATIO (10-20); Calcium,Total 8.1 mg/dL (8.5-10.1); Chloride 106 mmol/L (98-107); Creatinine, Serum 0.75 mg/dL (0.55-1.02); EST Glomerular Filtration Rate 95 mL/min (>60); Est Glom Filt Rate - Afr Amer 114 mL/min (>60); Estimated Creatinine Clearance 92.13 ml/min; Glucose 96 mg/dL (74-106); Potassium 3.2 mmol/L (3.5-5.1); Sodium Level 137 mmol/L (136-145)
[2023-04-07 06:00] LABS: Mucous, Urine 0 SEEN /hpf (<or=2+); Red Blood Cells-Urine 0 SEEN /hpf (0-5); White Blood Cells 0 SEEN /hpf (0-5)
[2023-04-07 06:01] LABS: Color, Urine Yellow (Yellow); Glucose, Dipstick Normal (Normal); Ketone-Dipstick 15 mg/dl (Negative); Leukocyte Esterase-Dipstick 25 /ul (Negative); Nitrite-Dipstick Positive (Negative); Occult Blood-Urine Negative /ul (Negative); Protein-Dipstick Negative (Negative); Urine Clarity Clear (Clear); Urine Urobilinogen 8 mg/dl (Normal)
[2023-04-07 06:05] LABS: Urine Bilirubin Dipstick 3 mg/dL (Negative)
[2023-04-07 06:19] LABS: Bacteria 1+ /hpf (None Seen); Squamous Epithelial Cells - UA 0-5 SEEN /hpf (5-10)
[2023-04-07] MEDS: Cephalexin 250 MG Capsule 500 MG PO (07:09)
[2023-04-07 07:13] VITALS: BP 126/86; PULSE 86; RESP 16; O2SAT 98
== END 2023-04-07 07:19 | disposition home or self-care (01) ==
PROVIDERS: Emergency Provider Emergency Medicine; Visit Provider Emergency Medicine
DX: N39.0 Urinary tract infection, site not specified (principal); I10 Essential (primary) hypertension; T37.8X5A Adverse effect of other specified systemic anti-infectives and antiparasitics, initial encounter; T39.8X5A Adverse effect of other nonopioid analgesics and antipyretics, not elsewhere classified, initial encounter
CPT/HCPCS: 74176; 80048; 81001; 85025; 96361; 96374; 96375; 99283; J7030; A4216; J3490

== ENCOUNTER 2023-07-15 06:08 | Emergency (ER) | payer MEDICAID, SELFPAY ==
[2023-07-15 06:10] VITALS: BP 148/89; PULSE 107; RESP 15; TEMP 37.3; O2SAT 100; BMI 28.1
--- NOTE | 2023-07-15 06:18 | RAD_ITS ---
INDICATION: cough, fever EXAMINATION/TECHNIQUE: X-RAY - XR Chest 1 View COMPARISON: None. FINDINGS: LINES/DEVICES: None. LUNGS: No pulmonary edema or focal airspace consolidation. No sizable pleural effusion. No pneumothorax detected. MEDIASTINUM AND CARDIOVASCULAR STRUCTURES: Heart size within normal limits. Mediastinal contours unremarkable. BONES AND SOFT TISSUES: No acute findings. RAD/Chest 1 View (Portable) IMPRESSION: No radiographic evidence of acute cardiopulmonary disease. Electronically Signed: Anton Alves MD at 7:09 EDT ,
--- NOTE | 2023-07-15 06:19 | EX.ED.DYSGE1 ---
HPI History of Present Illness Chief Complaint: General Illness Informant: patient Onset/Context/Timing Onset: Yesterday Narrative Narrative: Patient presents secondary to viral syndrome. Patient states yesterday she developed congestion and sore throat. She had low-grade fever and has cough. She complains of body aches. She did vomit 1 time prior to arrival. She has not yet taken anything for symptoms at home. She has no known exposures to COVID. [facility] Medical History Anxiety Asthma Chronic hypertension Depression HELLP syndrome Kidney stones Pyelonephritis Wears contact lenses Wears glasses Home Medications cephalexin 500 mg capsule 500 mg PO BID #10 caps 04/07/23 [Rx Last Taken Unknown] famotidine 20 mg tablet (Pepcid) 20 mg PO DAILY #7 tabs 04/07/23 [Rx Last Taken Unknown] nitrofurantoin monohydrate/macrocrystals 100 mg capsule 1 cap PO BID 04/07/23 [History Last Taken Unknown] phenazopyridine 200 mg tablet (Pyridium) 200 mg PO TID PRN Bladder Spasms 04/07/23 [History Last Taken Unknown] prednisone 20 mg tablet 40 mg (2 x 20 mg) PO DAILY #10 tabs 04/07/23 [Rx Last Taken Unknown] ibuprofen 600 mg tablet 600 mg PO Q8H PRN pain #14 tabs 07/15/23 [Rx Last Taken Unknown] ondansetron 4 mg disintegrating tablet 4 mg PO Q8H PRN PRN Nausea #10 tabs 07/15/23 [Rx Last Taken Unknown] Allergy/AdvReac Type Severity Reaction Status Date / Time aspirin Allergy Swelling Verified 07/15/23 06:15 sulfamethoxazole Allergy Swelling Verified 07/15/23 06:15 [From Bactrim] trimethoprim [From Bactrim] Allergy Swelling Verified 07/15/23 06:15 Surgical History H/O adenoidectomy History of tonsillectomy and adenoidectomy Hx of cystoscopy Social History household members: significant other Smoking Status: Never smoker substance use type: does not use ROS ROS ED Constitutional Constitutional ED: Reports fever(s); Denies chills Eyes Eyes: Denies change in vision or discharge from eye(s) ENT ENT ED: Reports sore throat and other Details: Congestion ; Denies discharge from eye(s) or rhinorrhea Cardiovascular Cardiovascular: Denies chest pain or palpitations Respiratory/Chest Respiratory/Chest: Reports cough and dyspnea Gastrointestinal Gastrointestinal: Reports nausea and vomiting; Denies abdominal pain or diarrhea Genitourinary Genitourinary ED: Denies dysuria Musculoskeletal Musculoskeletal: Reports myalgias; Denies back pain or extremity pain Integumentary Denies Abrasions or rash Neurologic Neurologic: Reports headache(s); Denies weakness Psychiatric Psychiatric: Denies anxiety or depression Allergic/Immunologic Allergic/Immunologic ED: Denies lip swelling or urticaria EXAM Physical Exam Const Vital Signs: 07/15/23 06:10 07/15/23 06:13 Temperature 99.2 F H Temperature Source Temporal Pulse Rate 107 H Respiratory Rate 15 Respiratory Effort Non-Labored Respiratory Pattern Normal Blood Pressure 148/89 H Blood Pressure Mean 108 Pulse Ox 100 Oxygen Delivery Method Room Air Positive well nourished and well developed General Appearance ED: well developed HEENT Reports moist mucous membranes HEENT Narrative: Uvula midline. Mild posterior pharyngeal drainage. Eyes EOMs intact bilaterally Chest Wall inspection of chest normal and palpation of chest normal Resp normal respiratory effort and clear to auscultation bilaterally Cardio regular rate and regular rhythm GI non-tender Palpation: soft Extremity normal to inspection Neuro oriented x3 and no sensory deficits noted Motor Exam: strength 5/5 throughout Psych mental status grossly normal Skin no rashes or lesions noted MDM MDM MDM Narrative Medical decision making narrative: Patient is given Naprosyn and Zofran for pain and nausea. Swabs for COVID, influenza, and strep obtained. Portable chest x-ray obtained to evaluate for pneumonia. History & Record Review Discussion w/independent historian: Patient and Significant other Lab Data Attestation: I reviewed the patient's lab results. Radiography Diagnostic Testing: Clinical Impression(s) from Imaging Studies Chest X-Ray 07/15/23 06:18 IMPRESSION: No radiographic evidence of acute cardiopulmonary disease. Electronically Signed: Anton Alves MD at 7:09 EDT , Treatment and Re-Evaluation :: Portable chest x-ray per my interpretation reveals no focal infiltrate. Radiology interpretation is reviewed and agrees. Swab for strep is negative. Swab for COVID and influenza are both negative. Test results are discussed with the patient. I advised her that she either has another virus that acts very similar to COVID, or her viral counts are too low at this time to test positive. I encouraged her to retest in 2 days if she still has symptoms. She begin a prescription for Zofran and ibuprofen at home. Discharge Plan Triage Chief Complaint: General Illness ED Provider: Chante Ferraro Dx/Rx/DC Orders Clinical Impression: Viral syndrome Instructions: ED Viral Syndrome (Adult) Prescriptions: New ibuprofen 600 mg tablet 600 mg PO Q8H PRN (Reason: pain) Qty: 14 0RF ondansetron 4 mg tablet,disintegrating 4 mg PO Q8H PRN PRN (Reason: Nausea) Qty: 10 0RF No Action phenazopyridine [Pyridium] 200 mg Tablet 200 mg PO TID PRN (Reason: Bladder Spasms) nitrofurantoin monohyd/m-cryst 100 mg capsule 1 cap PO BID cephalexin 500 mg capsule 500 mg PO BID Qty: 10 0RF prednisone 20 mg tablet 40 mg PO DAILY Qty: 10 0RF famotidine [Pepcid] 20 mg tablet 20 mg PO DAILY Qty: 7 0RF Primary Care Provider: Care Physician,No Primary Referrals: Fast,Venita, DO [Med Staff - Line Maintainer] - As Needed Care Physician,No Primary [Primary Care Provider] - Disposition Disposition: Home, Self Care
[2023-07-15] MEDS: Ondansetron ODT 4 MG Tablet PO (06:27)
[2023-07-15] MEDS: Naproxen 500 MG Tablet PO (06:28)
== END 2023-07-15 07:24 | disposition home or self-care (01) ==
PROVIDERS: Emergency Provider Emergency Medicine; Visit Provider Emergency Medicine
DX: B34.9 Viral infection, unspecified (principal); I10 Essential (primary) hypertension; R11.0 Nausea
CPT/HCPCS: 71045; 87428; 87880; 99283

== ENCOUNTER 2023-10-29 10:40 | Emergency (ER) | payer MEDICAID, SELFPAY ==
[2023-10-29 10:41] VITALS: BP 150/111; PULSE 111; RESP 20; TEMP 37.2; O2SAT 100; BMI 28.9
--- NOTE | 2023-10-29 10:57 | ED.RN ---
PT REFUSES IV, STATES .NO
--- NOTE | 2023-10-29 11:08 | EDS_ITS ---
HPI History of Present Illness Chief Complaint: Flank Pain Informant: patient Narrative Narrative: Patient presents with some left flank pain going on for about 2 days. She states she has had kidney stones before and had a stent placed by Dr. Rocha a year or so ago. She states she has some discomfort inside when she urinates but it does not burn and there is no odor or color change. No vaginal discharge. She just started her menstrual cycle which is normal timing. This is not menstrual cramps. Most of her pain is really the left flank. When she points to it is actually a little lower in the back than typical kidney pain. Motion makes it a little bit worse but not much. There is been no known injury. There is no numbness tingling or weakness. She has never had fevers with this. She is not really nauseated. [facility] Medical History Anxiety Asthma Chronic hypertension Depression HELLP syndrome Kidney stones Pyelonephritis Wears contact lenses Wears glasses Home Medications cephalexin 500 mg capsule 500 mg PO BID #10 caps 04/07/23 [Rx Last Taken Unkno wn] famotidine 20 mg tablet (Pepcid) 20 mg PO DAILY #7 tabs 04/07/23 [Rx Last Taken Unknown] nitrofurantoin monohydrate/macrocrystals 100 mg capsule 1 cap PO BID 04/07/23 [History Last Taken Unknown] phenazopyridine 200 mg tablet (Pyridium) 200 mg PO TID PRN Bladder Spasms 04/07/23 [History Last Taken Unknown] prednisone 20 mg tablet 40 mg (2 x 20 mg) PO DAILY #10 tabs 04/07/23 [Rx Last Taken Unknown] ibuprofen 600 mg tablet 600 mg PO Q8H PRN pain #14 tabs 07/15/23 [Rx Last Taken Unknown] ondansetron 4 mg disintegrating tablet 4 mg PO Q8H PRN PRN Nausea #10 tabs 07/15/23 [Rx Last Taken Unknown] hydrocodone-acetaminophen 5-325mg 5mg-325mg 1 tab PO Q6H PRN PRN Pain 3 days #10 TABLETS 10/29/23 [Rx Last Taken Unknown] Allergy/AdvReac Type Severity Reaction Status Date / Time aspirin Allergy Swelling Verified 10/29/23 10:41 sulfamethoxazole Allergy Swelling Verified 10/29/23 10:41 [From Bactrim] trimethoprim [From Bactrim] Allergy Swelling Verified 10/29/23 10:41 Surgical History H/O adenoidectomy History of tonsillectomy and adenoidectomy Hx of cystoscopy Social History household members: significant other Smoking Status: Never smoker substance use type: does not use ROS ROS ED ROS Narrative A complete review of systems was performed and is negative except as documented in the history of present illness. Some specific details below. Constitutional: No recent fevers or chills. EYE: No visual complaints or pain. ENT: No difficulty swallowing. No swelling. No pain. No GERD. CV: No chest pain or palpitations. Respiratory: No dyspnea. No hemoptysis. No difficulty taking breaths. GI: Pain really does not come around to the front except when she urinates. She is eating and drinking okay. No significant nausea. No vomiting at all. : See history of present illness. Musculoskeletal: No recent trauma. She has pain in her back as in history of present illness. Skin: No rash. Nondiaphoretic. Neuro: No weakness or numbness. Endocrine: No polyuria or polydipsia. EXAM Physical Exam Narrative Exam Narrative: CONSTITUTIONAL: Patient is nontoxic in appearance. The patient looks comfortable. HEENT: No notable trauma. Mucous membranes do still look moist. EYES: No conjunctival injection. No pallor. CARDIOVASCULAR: Regular rate. Regular rhythm. No notable murmur. No JVD. RESPIRATORY: No respiratory distress. Breathing is unlabored. No wheezes. No rhonchi. No rales. No pain with a deep breath. GASTROINTESTINAL: Not distended. Bowel sounds are normal. No tenderness. No guarding. No rebound. No palpable mass. No bruit. No suprapubic or lower pelvic area tenderness. GENITOURINARY: No tenderness over the bladder. No CVA tenderness. MUSCULOSKELETAL: There is a left paraspinal tenderness. This seems to be at the lower range of where the kidney normally would be. It seems to extend down from this. Exam this appears almost to be more musculoskeletal but she states it is the same area of pain when she had her kidney stone in the past. NEUROLOGICAL: Patient is alert and appropriate. No focal deficit noted. SKIN: No noted rashes. No diaphoresis. PSYCHIATRIC: Patient is calm. Mood is appropriate. Const Vital Signs: 10/29/23 10:41 Temperature 99 F Temperature Source Temporal Pulse Rate 111 H Respiratory Rate 20 H Blood Pressure 150/111 H Blood Pressure Mean 124 Pulse Ox 100 Oxygen Delivery Method Room Air MDM MDM MDM Narrative Medical decision making narrative: My independent interpretation of the patient's CT of the abdomen does show some mild hydro. No obstructing stone is noted. This is similar to final read. They also note ovarian cyst which patient is known about for a long time. Patient's urinalysis shows no white cells or red cells. It was not a clean- catch. Blood work was not done and no IV was placed because patient refused these. We rechecked the patient. She is feeling markedly better. I think she likely did have a recently passed stone. I will still give a few meds for pain. Although she has allergies to aspirin she can tolerate ibuprofen or Aleve without problems. I do not think she needs Flomax as there is no sign of a stone causing obstruction. We discussed reasons to return. Lab Data Attestation: I reviewed the patient's lab results. Labs: Laboratory Results - last 24 hr 10/29/23 11:50 Urine Color Yellow Urine Clarity Sl. Cloudy Urine pH 6.0 Ur Specific [place] 1.015 Urine Protein 15 H Urine Glucose (UA) Normal Urine Ketones Negative Urine Occult Blood 50 H Urine Nitrite Negative Urine Bilirubin Negative Urine Urobilinogen Normal Ur Leukocyte Esterase Negative Urine RBC 0-5 SEEN Urine WBC 0 SEEN Ur Squamous Epith Cells 5-10 SEEN Urine Bacteria 1+ Urine Mucus 0 SEEN Urine Test Negative Radiography Diagnostic Testing: Clinical Impression(s) from Imaging Studies Abdomen/Pelvis CT 10/29/23 12:08 IMPRESSION: 1. Minimal prominence of the left collecting system without evidence of ureteral stones. Recently passed stone is possible. 2. Tiny nonobstructing stone in the left kidney. 3. Left adnexal/ovarian cyst. 4. Otherwise no focal acute inflammatory process. Electronically Signed: Javier Kidd MD at 12:48 EST , Discharge Plan Triage Chief Complaint: Flank Pain ED Provider: Bereket Arnett Dx/Rx/DC Orders Clinical Impression: Left flank pain, History of renal calculi Instructions: ED Kidney Stone No Sx Prescriptions: New hydrocodone-acetaminophen [hydrocodone-acetaminophen] 5-325 mg tablet 1 tab PO Q6H PRN PRN (Reason: Pain) 3 Days Qty: 10 0RF No Action phenazopyridine [Pyridium] 200 mg Tablet 200 mg PO TID PRN (Reason: Bladder Spasms) nitrofurantoin monohyd/m-cryst 100 mg capsule 1 cap PO BID cephalexin 500 mg capsule 500 mg PO BID Qty: 10 0RF prednisone 20 mg tablet 40 mg PO DAILY Qty: 10 0RF famotidine [Pepcid] 20 mg tablet 20 mg PO DAILY Qty: 7 0RF ibuprofen 600 mg tablet 600 mg PO Q8H PRN (Reason: pain) Qty: 14 0RF ondansetron 4 mg tablet,disintegrating 4 mg PO Q8H PRN PRN (Reason: Nausea) Qty: 10 0RF Primary Care Provider: Care Physician,No Primary Referrals: Jovita Rocha MD [Med Staff - Active Staff] - 3-5 Days Care Physician,No Primary [Primary Care Provider] - Disposition Disposition: Home, Self Care
[2023-10-29] MEDS: Ondansetron ODT 4 MG Tablet PO (11:15)
[2023-10-29] MEDS: Morphine 4 MG/ML Syringe IM (11:15)
[2023-10-29] MEDS: Ketorolac 60 MG/2 ML Vial IM (11:16)
--- OUTSIDE RECORDS SUMMARY | 2023-10-29 11:49 | XMS RPT_ITS | CCD ---
Author Name Unknown Address [address] [place] [address] Organization [facility] Care Team Providers Care Infrastructure Security Architect Name Role Phone ANG, DR IRAIDA Castillo Admitting Unavaila ble ANG, DR IRAIDA Castillo Attending Unavaila ble ANG, DR IRAIDA Castillo Primary Care Unavaila ble CEBUL, LIMA III Consulting Unavailable CEBUL LIMA III Referring Unavailable PROVIDER, UNKNOWN Consulting Unavailable Unavailable Primary Care Provider Unavailabl e Unavailable Primary Care Provider Unavailabl e Allergies Allergy Classification Reported Allergen(s) Allergy Type Date of Onset Reaction(s) Facility (8 sources) Aspirin; Translations: [ASPIRIN] Drug Allergy 08-29-20 08 Hives [facility] Work Phone: (8 sources) Citalopram; Translations: [CITALOPRAM HYDROBROMIDE] Drug Allergy 01-02-20 15 Other: See Comments [facility] (8 sources) Grass pollen; Translations: [GRASS POLLEN] Propensity to adverse reactions 08-07-20 05 [facility] Work Phone: (8 sources) Pollen; Translations: [POLLEN] Propensity to adverse reactions 08-07-20 05 [facility] Work Phone: (8 sources) rizatriptan; Translations: [RIZATRIPTAN BENZOATE] Drug Allergy 02-16-20 14 Other: See Comments [facility] (8 sources) Sulfamethoxazole / Trimethoprim; Translations: [SULFAMETHOXAZOLE-TR IMETHOPRIM] Drug Allergy 08-05-20 07 [facility] Work Phone: (8 sources) Tree; Translations: [TREES] Propensity to adverse reactions 08-07-20 05 [facility] Work Phone: (3 sources) Sulfamethoxazole; Translations: [SULFAMETHOXAZOLE] Drug Allergy 11-15-19 Swelling [facility] (3 sources) Trimethoprim; Translations: [TRIMETHOPRIM] Drug Allergy 11-15-19 Swelling [facility] (1 source) Phenazopyridine Drug Allergy 08-02-20 Hives [facility] Work Phone: Medications Current Medications Medication Drug Class(es) Dates Sig (Normalized) Sig (Original) cephalexin 500 mg oral capsule (2 sources) Cephalosporin Antibacterial Start: 04-20-2022 End: 04-27-2022 take 1 capsule by mouth twice daily cephALEXin (KEFLEX) 500 mg capsule Take 1 capsule by mouth twice daily for 7 days. 14 capsule 0 04/20/2022 04/27/2022 Active Completed/Discontinued Medications Medication Drug Class(es) Dates Sig (Normalized) Sig (Original) labetalol hydrochloride 200 mg oral tablet (7 sources) beta-Adrenergic Lorenzo Start: 12-22-2019 take 1 tablet by mouth every twelve hours labetalol (TRANDATE) 200 mg tablet TAKE 1 TABLET BY MOUTH EVERY 12 HOURS. 60 tablet 0 12/22/2019 Active Problems Active Problems Problem Classification Problem Date Documented Da te Episodic/Chronic Anxiety disorders (7 sources) Mixed anxiety and depressive disorder; Translations: [Anxiety disorder, unspecified] Onset: 04-01-2016 04-01-2016 Chronic Asthma (7 sources) Asthma; Translations: [Unspecified asthma, uncomplicated] Onset: 06-23-2013 06-23-2013 Chronic Essential hypertension (7 sources) Hypertensive disorder; Translations: [Essential (primary) hypertension] Onset: 12-04-2014 12-22-2019 Chronic Genitourinary symptoms and ill-defined conditions (3 sources) Dysuria; Translations: [Dysuria] Episodic Headache; including migraine (7 sources) Cluster headache; Translations: [Cluster headache syndrome, unspecified, not intractable] Onset: 02-15-2014 02-15-2014 Chronic Other lower respiratory disease (1 source) Cough; Translations: [Acute cough] 07-22-2023 Episodic Other nutritional; endocrine; and metabolic disorders (7 sources) Body mass index 30+ - obesity; Translations: [Body mass index (BMI) 39.0-39.9, adult] Onset: 02-24-2017 02-24-2017 Chronic Other upper respiratory disease (7 sources) Allergic rhinitis; Translations: [Allergic rhinitis, unspecified] 02-18-2006 Chronic Urinary tract infections (2 sources) Acute cystitis; Translations: [Acute cystitis with hematuria] Episodic Past or Other Problems Problem Classification Problem Date Documented Date Episodic/Chronic Contraceptive and procreative management (7 sources) Patient encounter status; Translations: [Encounter for initial prescription of injectable contraceptive] Onset: 12-22-2019 12-22-2019 Episodic Early or threatened labor (7 sources) Premature delivery; Translations: [ labor with delivery, unspecified trimester, not applicable or unspecified] Onset: 12-22-2019 12-22-2019 Episodic Hypertension complicating ; childbirth and the puerperium (7 sources) HELLP syndrome; Translations: [HELLP syndrome (HELLP), unspecified trimester] Onset: 12-19-2019 12-22-2019 Episodic Liveborn (7 sources) Single live ; Translations: [Single liveborn , delivered vaginally] Onset: 12-22-2019 12-22-2019 Episodic Other aftercare (7 sources) Drug therapy finding; Translations: [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] Onset: 06-28-2018 06-28-2018 Episodic Other complications of (7 sources) No care; Translations: [Supervision of with insufficient care, unspecified trimester] Onset: 12-22-2019 12-22-2019 Episodic Other and delivery including normal (7 sources) Vaginal delivery; Translations: [Encounter for full-term uncomplicated delivery] Onset: 12-22-2019 12-22-2019 Episodic Results Test Name Value Interpretation Reference Range Facil ity Vital Signs Date Time Vital Sign Value Performing Clinician Harleen donnelly 08-02-2023 11:52-0400 Body temperature 98.6 [degF] Lyudmila Monsivais APRN.CNP Work Phone: [facility] 08-02-2023 11:52-0400 Body weight 73.66 kg Lyudmila Monsivais APRN.CNP Work Phone: [facility] 08-02-2023 11:52-0400 Diastolic blood pressure 84 mm[Hg] Lyudmila Monsivais APRN.CNP Work Phone: [facility] 08-02-2023 11:52-0400 Heart rate 101 /min Lyudmila Praisler-Wood PHYSICIAN INTERVENTIONAL CARDIOLOGIST.BED CONTROL SPECIALIST Work Phone: [facility] 08-02-2023 11:52-0400 Respiratory rate 16 /min Lyudmila Praisler-Wood PHYSICIAN INTERVENTIONAL CARDIOLOGIST.BED CONTROL SPECIALIST Work Phone: [facility] 08-02-2023 11:52-0400 SaO2% (BldA) [Mass fraction] 100 % Lyudmila Praisler-Wood PHYSICIAN INTERVENTIONAL CARDIOLOGIST.BED CONTROL SPECIALIST Work Phone: [facility] 08-02-2023 11:52-0400 Systolic blood pressure 144 mm[Hg] Lyudmila Praisler-Wood PHYSICIAN INTERVENTIONAL CARDIOLOGIST.BED CONTROL SPECIALIST Work Phone: [facility] 07-22-2023 18:05-0400 Body temperature 98.4 [degF] Briseida Trujillo PHYSICIAN INTERVENTIONAL CARDIOLOGIST.BED CONTROL SPECIALIST Work Phone: [facility] 07-22-2023 18:05-0400 Body weight 72.67 kg Briseida Trujillo APRN.BED CONTROL SPECIALIST Work Phone: [facility] 07-22-2023 18:05-0400 Diastolic blood pressure 84 mm[Hg] Briseida Trujillo PHYSICIAN INTERVENTIONAL CARDIOLOGIST.BED CONTROL SPECIALIST Work Phone: [facility] 07-22-2023 18:05-0400 Heart rate 110 /min Briseida Trujillo PHYSICIAN INTERVENTIONAL CARDIOLOGIST.BED CONTROL SPECIALIST Work Phone: [facility] 07-22-2023 18:05-0400 Respiratory rate 18 /min Briseida Trujillo PHYSICIAN INTERVENTIONAL CARDIOLOGIST.BED CONTROL SPECIALIST Work Phone: [facility] 07-22-2023 18:05-0400 SaO2% (BldA) [Mass fraction] 98 % Briseida Trujillo PHYSICIAN INTERVENTIONAL CARDIOLOGIST.BED CONTROL SPECIALIST Work Phone: [facility] 07-22-2023 18:05-0400 Systolic blood pressure 132 mm[Hg] Briseida Trujillo PHYSICIAN INTERVENTIONAL CARDIOLOGIST.BED CONTROL SPECIALIST Work Phone: [facility] 07-11-2022 15:53-0400 Body temperature 97.7 [degF] Raina Joseph PHYSICIAN INTERVENTIONAL CARDIOLOGIST.BED CONTROL SPECIALIST Work Phone: [facility] 07-11-2022 15:53-0400 Body weight 72.48 kg Raina Opal PHYSICIAN INTERVENTIONAL CARDIOLOGIST.BED CONTROL SPECIALIST Work Phone: [facility] 07-11-2022 15:53-0400 Diastolic blood pressure 100 mm[Hg] Raina Opal PHYSICIAN INTERVENTIONAL CARDIOLOGIST.BED CONTROL SPECIALIST Work Phone: [facility] 07-11-2022 15:53-0400 Heart rate 97 /min Raina Opal PHYSICIAN INTERVENTIONAL CARDIOLOGIST.BED CONTROL SPECIALIST Work Phone: [facility] 07-11-2022 15:53-0400 Respiratory rate 21 /min Raina Opal PHYSICIAN INTERVENTIONAL CARDIOLOGIST.BED CONTROL SPECIALIST Work Phone: [facility] 07-11-2022 15:53-0400 SaO2% (BldA) [Mass fraction] 100 % Raina Opal PHYSICIAN INTERVENTIONAL CARDIOLOGIST.BED CONTROL SPECIALIST Work Phone: [facility] 07-11-2022 15:53-0400 Systolic blood pressure 140 mm[Hg] Raina Opal PHYSICIAN INTERVENTIONAL CARDIOLOGIST.BED CONTROL SPECIALIST Work Phone: [facility] 04-20-2022 13:41-0400 Body temperature 98.01 [degF] Norma Morales PHYSICIAN INTERVENTIONAL CARDIOLOGIST.BED CONTROL SPECIALIST Work Phone: [facility] 04-20-2022 13:41-0400 Diastolic blood pressure 88 mm[Hg] Norma Morales PHYSICIAN INTERVENTIONAL CARDIOLOGIST.BED CONTROL SPECIALIST Work Phone: [facility] 04-20-2022 13:41-0400 Heart rate 92 /min Norma Morales PHYSICIAN INTERVENTIONAL CARDIOLOGIST.BED CONTROL SPECIALIST Work Phone: [facility] 04-20-2022 13:41-0400 Respiratory rate 16 /min Norma Morales PHYSICIAN INTERVENTIONAL CARDIOLOGIST.BED CONTROL SPECIALIST Work Phone: [facility] 04-20-2022 13:41-0400 SaO2% (BldA) [Mass fraction] 98 % Norma Morales PHYSICIAN INTERVENTIONAL CARDIOLOGIST.BED CONTROL SPECIALIST Work Phone: [facility] 04-20-2022 13:41-0400 Systolic blood pressure 128 mm[Hg] Norma Morales PHYSICIAN INTERVENTIONAL CARDIOLOGIST.BED CONTROL SPECIALIST Work Phone: [facility] Encounters Encounter Date Encounter Type Care Provider Facility Start: 08-02-2023 End: 08-02-2023 ambulatory Facility:[facility] Start: 08-02-2023 End: 08-02-2023 Patient encounter procedure Lyudmila Monsivais PHYSICIAN INTERVENTIONAL CARDIOLOGIST.BED CONTROL SPECIALIST Work Phone: [facility] Procedures Date Procedure Procedure Detail Performing Clinician Start: 08-02-2023 Urnls dip stick/tabl et rgnt auto w/o microscopy Lyudmila Monsivais PHYSICIAN INTERVENTIONAL CARDIOLOGIST.BED CONTROL SPECIALIST Work Phone: Start: 07-11-2022 Urnls dip stick/tabl et rgnt auto w/o microscopy Esteban Merritt PHYSICIAN INTERVENTIONAL CARDIOLOGIST.BED CONTROL SPECIALIST Work Phone: Start: 04-20-2022 Urnls dip stick/tabl et rgnt auto w/o microscopy Norma Morales PHYSICIAN INTERVENTIONAL CARDIOLOGIST.BED CONTROL SPECIALIST Work Phone: Start: 12-04-[address] IRAIDA FRY Plan of Treatment Date Care Activity Detail Author Start: 09-08-2029 Urine microalbumin profile [facility] Start: 07-03-2023 Influenza vaccination Influenza Vaccine (#1) [facility] Start: 07-03-2022 Influenza vaccination [facility] Start: 12-15-2021 COVID-19 VACCINE (3 - Booster for Pfizer series) COVID-19 VACCINE (3 - Booster for Pfizer series) [facility] Start: 09-09-2021 Covid-19 Vaccine (3 - Pfizer series) Covid-19 Vaccine (3 - Pfizer series) [facility] Start: 11-13-2019 PAP TESTING PAP TESTING [facility] Start: 08-17-2019 ANNUAL PCP TEAM CHRONIC DISEASE VISIT ANNUAL PCP TEAM CHRONIC DISEASE VISIT [facility] Start: 2019 HPV TESTING HPV TESTING [facility] Start: 2007 BP CONTROLLED (<130/80) BP CONTROLLED (<130/80) [facility] Start: 2007 SPIROMETRY SPIROMETRY [facility] Start: 04-23-2005 PNEUMOCOCCAL (2 - PCV) PNEUMOCOCCAL (2 - PCV) [facility] Start: 06-22-2005 Pneumococcal vaccination Pneumococcal Vaccine (2 - PCV) [facility] Start: 1994 COVID-19 VACCINE (#1) COVID-19 VACCINE (#1) [facility] Bacteria identified in Urine by Culture URINE CULTURE Microbiology Routine Dysuria Ordered: 04/20/2022 [facility] Work Phone: Immunizations Immunization Date Immunization Notes Care Provider Lila ceja 07-15-2021 influenza virus vacc ine, unspecified formulation Briseida Trujillo APRN.[facility] Work Phone: [facility] 09-08-2019 tetanus toxoid, redu jessica diphtheria toxoid, and acellular pertussis vaccine, adsorbed No [facility] 08-17-2018 influenza, injectabl e, quadrivalent, contains preservative No [facility] 11-24-2016 influenza, injectabl e, quadrivalent, contains preservative No [facility] 08-02-2015 influenza, injectabl e, quadrivalent, contains preservative No [facility] 08-02-2015 influenza, seasonal, injectable No [facility] 09-21-2014 influenza, seasonal, injectable No [facility] Work Phone: 08-27-2013 influenza virus vacc ine, unspecified formulation No [facility] 07-31-2012 influenza virus vacc ine, unspecified formulation No [facility] 08-23-2011 influenza virus vacc ine, unspecified formulation No [facility] Work Phone: 10-08-2010 influenza virus vacc ine, unspecified formulation No [facility] Work Phone: 09-11-2009 novel influenza-H1N1 -09, preservative-free, injectable No [facility] 08-02-2009 influenza virus vacc ine, unspecified formulation No [facility] Work Phone: 09-10-2007 human papilloma viru s vaccine, quadrivalent No [facility] Work Phone: 09-06-2007 influenza virus vacc ine, unspecified formulation No [facility] Work Phone: 05-06-2007 human papilloma viru s vaccine, quadrivalent No [facility] Work Phone: 03-24-2007 meningococcal polysaccharide vaccine (MPSV4) No [facility] 02-25-2007 human papilloma viru s vaccine, quadrivalent No [facility] Work Phone: 09-10-2006 influenza virus vacc ine, unspecified formulation No [facility] Work Phone: 09-02-2005 influenza virus vacc ine, unspecified formulation No [facility] Work Phone: 04-23-2004 pneumococcal polysaccharide vaccine, 23 valent No [facility] Work Phone: 09-29-2003 hepatitis B vaccine, pediatric or pediatric/adolescent dosage No [facility] Work Phone: 05-01-2003 hepatitis B vaccine, pediatric or pediatric/adolescent dosage No [facility] Work Phone: 03-29-2003 hepatitis B vaccine, pediatric or pediatric/adolescent dosage No [facility] Work Phone: 12-24-2000 measles, mumps and rubella virus vaccine No [facility] Work Phone: 05-27-2000 diphtheria and tetan us toxoids, adsorbed for pediatric use No [facility] Work Phone: 06-26-1994 DTP-Haemophilus influenzae type b conjugate vaccine No [facility] Work Phone: 06-26-1994 poliovirus vaccine, inactivated No [facility] Work Phone: 11-02-1993 Chicken Pox (disease) No [facility] Work Phone: 11-23-1990 DTP-Haemophilus influenzae type b conjugate vaccine No [facility] Work Phone: 11-23-1990 poliovirus vaccine, inactivated No [facility] Work Phone: 08-19-1990 measles, mumps and rubella virus vaccine No [facility] Work Phone: 1989 DTP-Haemophilus influenzae type b conjugate vaccine No [facility] Work Phone: 1989 DTP-Haemophilus influenzae type b conjugate vaccine No Pcp [facility] Work Phone: 1989 poliovirus vaccine, inactivated No Pcp [facility] Work Phone: 1989 DTP-Haemophilus influenzae type b conjugate vaccine No Pcp [facility] Work Phone: 1989 poliovirus vaccine, inactivated No Pcp [facility] Work Phone: Payers Date Payer Category Payer Medicaid [id number] 2021 Medicaid 2021 Medicaid [employer] [id number] 2021-Present [phone] [address] [place] [address] Medicaid [id number] 1989 Unknown [id number] Unknown [id number] Social History Date Type Detail Facility Start: 07-31-2011 End: 07-11-2022 Tobacco smoking status NHIS Never smoked tobacco [facility] Start: 12-30-2019 End: 08-02-2023 Alcohol intake Current non-drinker of alcohol (finding) [facility] Start: 12-20-2019 History SDOH Financial 2 [facility] Start: 1990 Sex Assigned At Not on file [facility] Start: 04-10-2022 End: 07-11-2022 Exposure to SARS-CoV-2 (event) Not sure [facility] Start: 07-31-2011 End: 07-11-2022 Tobacco use and exposure Smokeless tobacco non-user [facility] Work Phone: Start: 04-14-2023 End: 07-22-2023 History of Social function [facility] Start: 04-14-2023 End: 07-22-2023 Tobacco use panel [facility] How hard is it for y ou to pay for the very basics like food, housing, medical care, and heating Hard [facility] Adult Depression Screening Assessment 2 [facility] (I/We) worried wheth er (my/our) food would run out before (I/we) got money to buy more. Sometimes true [facility] Clinical Notes 01-22-2016 to 08-02-2023 Lyudmila Monsivais APRN.BED CONTROL SPECIALIST - 08/02/2023 12:05 PM EDTPatient Briseida Hendrickson APRN.BED CONTROL SPECIALIST - 07/22/2023 6:15 PM EDTPatient Nolan Joseph APRN.BED CONTROL SPECIALIST - 07/11/2022 4:02 PM EDT Note Date & Type Note Facility 08-02-2023 Note HNO ID: [id number] Author: Lyudmila Monsivais APRN.BED CONTROL SPECIALIST Service: ? Author Type: Nurse Practitioner Type: Progress Notes Filed: 08/02/2023 12:23 PM Note Text: Subjective HPI Jayashree Tsai is a 33 year old female who presents with dysuria since yesterday. She took AZO and later developed hives which are gone now. She denies fever, chills, back pain or abdominal pain. Review of Systems Constitutional: Negative for chills and fever. Respiratory: Negative. Cardiovascular: Negative. Gastrointestinal: Positive for nausea. Negative for abdominal pain. Genitourinary: Positive for dysuria. Negative for flank pain, frequency, hematuria and urgency. Musculoskeletal: Negative for back pain. BP 144/84 Pulse 101 Temp 37 ?C (98.6 ?F) (Tympanic) Resp 16 Wt 73.7 kg (162 lb 6.4 oz) LMP 04/04/2022 SpO2 100% BMI 27.88 kg/m? PAST MEDICAL HISTORY Diagnosis Date Allergic rhinitis, cause unspecified Anxiety 10/31/2014 Asthma 06/23/2013 Cluster headache 02/15/2014 HELLP syndrome Hypertension Unspecified asthma(493.90) PAST SURGICAL HISTORY Procedure Laterality Date ADENOIDECTOMY PRIMARY Adenoidectomy TONSILLECTOMY PRIMARY/SECONDARY Tonsillectomy ALLERGIES Aspirin, Azo [Phenazopyridine], Bactrim [Sulfamethoxazole-Trimethoprim], Celexa [Citalopram Hydrobromide], Grass Pollen, Maxalt [Rizatriptan Benzoate], Pollen, Sulfamethoxazole, Trees, and Trimethoprim MEDICATIONS ondansetron orally disintegrating (ZOFRAN ODT) 4 mg disintegrating tablet Take by mouth. TAKE 1 TABLET BY MOUTH EVERY 8 HOURS NEEDED FOR NAUSEA nitrofurantoin monohydrate and macrocrystal (MACROBID) 100 mg capsule Take 1 capsule by mouth two times a day for 5 days. labetalol (TRANDATE) 200 mg tablet TAKE 1 TABLET BY MOUTH EVERY 12 HOURS. Miscellaneous Medical Supply (BLOOD PRESSURE CUFF) misc 1 Kit twice daily. (Patient not taking: Reported on 04/20/2022 ) vit-iron fumarate-fa 28 mg iron- 800 mcg tab TAKE 1 TABLET BY MOUTH ONCE DAILY. [DISCONTINUED] multivitamin (CLASSIC ) 28 mg iron- 800 mcg tab(s) Take 1 tablet by mouth once daily. FAMILY HISTORY Problem Relation Age of Onset Coronary Artery Disease Father Stroke Father Heart Father Triple by-pass Hypertension Father Stroke Maternal Grandfather Cancer Paternal Grandmother Brain Cancer Paternal Grandfather Social History Tobacco Use Smoking status: Never Smokeless tobacco: Never Substance Use Topics Alcohol use: No Drug use: No Objective Physical Exam Vitals and nursing note reviewed. Constitutional: Appearance: Normal appearance. Cardiovascular: Rate and Rhythm: Normal rate and regular rhythm. Pulmonary: Effort: Pulmonary effort is normal. Breath sounds: Normal breath sounds. Abdominal: General: There is no distension. Palpations: Abdomen is soft. There is no mass. Tenderness: There is no abdominal tenderness. There is no right CVA tenderness, left CVA tenderness or guarding. Skin: General: Skin is warm and dry. Neurological: Mental Status: She is alert. Office Visit on 08/02/2023 Component Date Value Ref Range Status GLUCOSE UA (POCT) 08/02/2023 100 (A) Negative mg/dL Final BILIRUBIN UA (POCT) 08/02/2023 Moderate (A) Negative Final KETONE UA (POCT) 08/02/2023 15 (A) Negative mg/dL Final SPECIFIC GRAVITY UA (POCT) 08/02/2023 1.025 1.005 - 1.030 Final HEMOGLOBIN/BLOOD UA (POCT) 08/02/2023 Trace-intact (A) Negative Final PH UA (POCT) 08/02/2023 5.0 4.5 - 8.0 Final PROTEIN UA (POCT) 08/02/2023 100 (A) Negative mg/dL Final UROBILINOGEN UA (POCT) 08/02/2023 2.0 (A) Normal E.U./dL Final NITRITE UA (POCT) 08/02/2023 Positive (A) Negative Final LEUKOCYTES UA (POCT) 08/02/2023 Negative Negative Final COLOR UA (POCT) 08/02/2023 [place] Final CLARITY UA (POCT) 08/02/2023 Clear Final ASSESSMENT/PLAN: 1. Burning with urination - ICD9: 788.1, ICD10: R30.0 acute - UA positive for shari esterase, hematuria, proteinuria, nitrates- patient took AZO so result may be unreliable. - Send urine for culture - Begin treatment with Macrobid 100 mg BID for 5 days - Patient education for prevention given - UA DIP, URINE (POC) - URINE CULTURE - NITROFURANTOIN MONOHYDRATE AND MACROCRYSTAL 100 MG ORAL CAP - Follow-up with your PCP in 3-5 days if symptoms have not improved or sooner if symptoms worsen - Discussed red flags and need for immediate medical evaluation if any occur. - Discussed supportive care treatment with fluids, rest and analgesia. - Discussed expected course of illness Lyudmila Monsivais APRN.[facility] 08-02-2023 History of Presen t illness Narrative Subjective HPI Jayashree Tsai is a 33 year old female who presents with dysuria since yesterday. She took AZO and later developed hives which are gone now. She denies fever, chills, back pain or abdominal pain. Review of Systems Constitutional: Negative for chills and fever. Respiratory: Negative. Cardiovascular: Negative. Gastrointestinal: Positive for nausea. Negative for abdominal pain. Genitourinary: Positive for dysuria. Negative for flank pain, frequency, hematuria and urgency. Musculoskeletal: Negative for back pain. BP 144/84 Pulse 101 Temp 37 C (98.6 F) (Tympanic) Resp 16 Wt 73.7 kg (162 lb 6.4 oz) LMP 04/04/2022 SpO2 100% BMI 27.88 kg/m PAST MEDICAL HISTORY Diagnosis Date Allergic rhinitis, cause unspecified Anxiety 10/31/2014 Asthma 06/23/2013 Cluster headache 02/15/2014 HELLP syndrome Hypertension Unspecified asthma(493.90) PAST SURGICAL HISTORY Procedure Laterality Date ADENOIDECTOMY PRIMARY <AGE 12 Adenoidectomy TONSILLECTOMY PRIMARY/SECONDARY <AGE 11 Tonsillectomy ALLERGIES Aspirin, Azo [Phenazopyridine], Bactrim [Sulfamethoxazole-Trimethoprim], Celexa [Citalopram Hydrobromide], Grass Pollen, Maxalt [Rizatriptan Benzoate], Pollen, Sulfamethoxazole, Trees, and Trimethoprim MEDICATIONS ondansetron orally disintegrating (ZOFRAN ODT) 4 mg disintegrating tablet Take by mouth. TAKE 1 TABLET BY MOUTH EVERY 8 HOURS NEEDED FOR NAUSEA nitrofurantoin monohydrate and macrocrystal (MACROBID) 100 mg capsule Take 1 capsule by mouth two times a day for 5 days. labetalol (TRANDATE) 200 mg tablet TAKE 1 TABLET BY MOUTH EVERY 12 HOURS. Miscellaneous Medical Supply (BLOOD PRESSURE CUFF) misc 1 Kit twice daily. (Patient not taking: Reported on 04/20/2022 ) vit-iron fumarate-fa 28 mg iron- 800 mcg tab TAKE 1 TABLET BY MOUTH ONCE DAILY. [DISCONTINUED] multivitamin (CLASSIC ) 28 mg iron- 800 mcg tab(s) Take 1 tablet by mouth once daily. FAMILY HISTORY Problem Relation Age of Onset Coronary Artery Disease Father Stroke Father Heart Father Triple by-pass Hypertension Father Stroke Maternal Grandfather Cancer Paternal Grandmother Brain Cancer Paternal Grandfather Social History Tobacco Use Smoking status: Never Smokeless tobacco: Never Substance Use Topics Alcohol use: No Drug use: No Objective Physical Exam Vitals and nursing note reviewed. Constitutional: Appearance: Normal appearance. Cardiovascular: Rate and Rhythm: Normal rate and regular rhythm. Pulmonary: Effort: Pulmonary effort is normal. Breath sounds: Normal breath sounds. Abdominal: General: There is no distension. Palpations: Abdomen is soft. There is no mass. Tenderness: There is no abdominal tenderness. There is no right CVA tenderness, left CVA tenderness or guarding. Skin: General: Skin is warm and dry. Neurological: Mental Status: She is alert. Office Visit on 08/02/2023 Component Date Value Ref Range Status GLUCOSE UA (POCT) 08/02/2023 100 (A) Negative mg/dL Final BILIRUBIN UA (POCT) 08/02/2023 Moderate (A) Negative Final KETONE UA (POCT) 08/02/2023 15 (A) Negative mg/dL Final SPECIFIC GRAVITY UA (POCT) 08/02/2023 1.025 1.005 - 1.030 Final HEMOGLOBIN/BLOOD UA (POCT) 08/02/2023 Trace-intact (A) Negative Final PH UA (POCT) 08/02/2023 5.0 4.5 - 8.0 Final PROTEIN UA (POCT) 08/02/2023 100 (A) Negative mg/dL Final UROBILINOGEN UA (POCT) 08/02/2023 2.0 (A) Normal E.U./dL Final NITRITE UA (POCT) 08/02/2023 Positive (A) Negative Final LEUKOCYTES UA (POCT) 08/02/2023 Negative Negative Final COLOR UA (POCT) 08/02/2023 [place] Final CLARITY UA (POCT) 08/02/2023 Clear Final ASSESSMENT/PLAN: 1. Burning with urination - ICD9: 788.1, ICD10: R30.0 acute - UA positive for shari esterase, hematuria, proteinuria, nitrates- patient took AZO so result may be unreliable. - Send urine for culture - Begin treatment with Macrobid 100 mg BID for 5 days - Patient education for prevention given - UA DIP, URINE (POC) - URINE CULTURE - NITROFURANTOIN MONOHYDRATE & MACROCRYSTAL 100 MG ORAL CAP - Follow-up with your PCP in 3-5 days if symptoms have not improved or sooner if symptoms worsen - Discussed red flags and need for immediate medical evaluation if any occur. - Discussed supportive care treatment with fluids, rest and analgesia. - Discussed expected course of illness Lyudmila Monsivais APRN.BED CONTROL SPECIALIST documented in this encounter [facility] 08-02-2023 Instructions Lyudmila Monsivais APRN.DOMINIQUE - 08/02/2023 12:02 PM EDT ASSESSMENT/PLAN: 1. Burning with urination - ICD9: 788.1, ICD10: R30.0 acute - UA positive for shari esterase, hematuria, proteinuria, nitrates- patient took AZO so result may be unreliable. - Send urine for culture - Begin treatment with Macrobid 100 mg BID for 5 days - Patient education for prevention given - UA DIP, URINE (POC) - URINE CULTURE - NITROFURANTOIN MONOHYDRATE & MACROCRYSTAL 100 MG ORAL CAP - Follow-up with your PCP in 3-5 days if symptoms have not improved or sooner if symptoms worsen - Discussed red flags and need for immediate medical evaluation if any occur. - Discussed supportive care treatment with fluids, rest and analgesia. - Discussed expected course of illness Lyudmila Monsivais APRN.[facility] PATIENT INFO BLADDER INFECTION OVERVIEW Bladder infections are one of the most common infections, causing symptoms of burning with urination and needing to urinate frequently. A bladder infection is a type of urinary tract infection (UTI). Bladder infections are more common is women than men. Most women have an uncomplicated bladder infection that is easily treated with a short course of antibiotics. In men, bladder infections may also affect the prostate gland, and a longer course of treatment may be needed. BLADDER INFECTION CAUSES The urinary tract includes the kidneys (which filter urine), ureters (the tube that carries urine from the kidneys to the bladder), the bladder (which stores urine), and urethra (the tube that carries urine out of the bladder). Bacteria do not normally live in these areas. However, bacteria normally live close to the urethra in women and men who are not circumcised. Bladder infections occur when bacteria travel up the urethra into the bladder. Factors that increase the risk of developing a bladder infection include: Vaginal sex Use of spermicides History of past bladder infections Diabetes In men, not being circumcised or having anal sex increase the risk of bladder infections. BLADDER INFECTION SYMPTOMS The typical symptoms of a bladder infection include: Pain or burning when urinating Frequent need to urinate Urgent need to urinate Blood in the urine Fever, back pain, nausea, or vomiting are not common symptoms of a bladder infection, but can occur in people with a kidney infection (pyelonephritis). If you have these symptoms, you should call your doctor or nurse immediately. Is it a bladder infection or something else? -- Burning with urination can also occur in people with vaginitis (eg, yeast infection) or urethritis (inflammation of the urethra). For this reason, it is important to call your healthcare provider before assuming you have a bladder infection. BLADDER INFECTION DIAGNOSIS Simple bladder infections are usually diagnosed based upon your symptoms alone. However, most patients, especially those who have bladder infection symptoms for the first time, should see a healthcare provider for urine testing. Urine culture -- A urine culture is a test that uses a sample of urine to try and grow bacteria in a laboratory. It usually requires about 48 hours to get results. However, a urine culture is not always required to diagnose a bladder infection. Urine culture is often recommended if: You have never had a bladder infection before You have symptoms that are not typical for bladder infection You have had resistant bladder infections before You have frequent bladder infections You do not begin to feel better within 24 to 48 hours after starting antibiotics You are BLADDER INFECTION TREATMENT Bladder infection -- In young, healthy adolescents and adults with a bladder infection, the usual treatment includes a three to seven day course of antibiotics. The typical drugs chosen are: trimethoprim-sulfamethoxazole (Bactrim ), nitrofurantoin (Macrobid ), ciprofloxacin (Cipro ) or levofloxacin (Levaquin ). In men, the infection may involve your prostate gland and treatment is usually given for at least 7 days. Your symptoms should begin to resolve within one day after starting treatment. It is important to take the full course of antibiotics to completely eliminate the infection. If your symptoms persist for more than two or three days after starting treatment, call your healthcare provider. If needed, you can take a prescription medication that numbs the bladder and urethra (phenazopyridine [Pyridium ]) to reduce the burning pain of some UTIs. A similar medication is available without a prescription (eg, Uristat). Both medications change the color of the urine (usually blue or orange) and can interfere with laboratory testing. You should not take these medications for more than 48 hours due to the risk of side effects. These medications do not treat the infection and must be taken along with an antibiotic. Some providers recommend drinking more fluids while treating bladder infections to help flush bacteria from the bladder. Others believe that drinking more fluids may dilute the antibiotic in the bladder and make the medication less effective. No studies have been performed to address this issue. There are also no good studies on the effectiveness of cranberry juice for treating a bladder infection; we do not recommend using cranberry juice to treat bladder infections. Follow-up care -- Follow-up testing is not needed in healthy, young men or women with a bladder infection if symptoms resolve. women are usually asked to have a repeat urine culture one to two weeks after treatment has ended to make sure the bacteria are no longer in the urine. RECURRENT BLADDER INFECTIONS Bladder infections versus other causes -- Some adults, especially women, develop bladder infections frequently. In this case, it is important to confirm that your symptoms (eg, pain or burning, frequency, and urgency) are caused by a bladder infection. Symptoms are usually similar from one infection to another. The best way to confirm an infection is to have a urine culture. If your urine culture is negative for infection, other causes of pain, burning, and frequency should be investigated. There is no reason to take antibiotics if your urine culture is negative. Need for further testing -- If you continue to develop bladder infections, you may require further testing. If you continue to notice blood in your urine after your bladder infection has cleared, you should have further testing. Preventing recurrent UTIs -- Women with recurrent urinary tract infections may be advised to take steps to prevent bladder infections, including one or more of the following: Changes in control -- Women who develop frequent bladder infections and use spermicides, particularly those who also use a diaphragm, may be encouraged to use an alternate method of control. Cranberry products -- Taking cranberry juice or cranberry tablets has been promoted as one way to help prevent frequent bladder infections. However, this has not been proven. Drinking more fluid and urinating after intercourse -- Although studies have not proven that drinking more fluids or urinating soon after intercourse can prevent infection, some healthcare providers recommend these measures since they are not harmful. Drinking more fluid may help to wash out bacteria that enter the bladder. Postmenopausal women -- Postmenopausal women who develop recurrent bladder infections may benefit from using vaginal estrogen. Vaginal estrogen is available in a flexible ring that is worn in the vagina for three months (eg, Estring ), a small tablet (Vagifem ), or a cream (eg, Premarin or Estrace ). Vaginal estrogen is discussed in more detail in a separate topic review. Antibiotics -- A preventive antibiotic treatment may be recommended if you repeatedly develop bladder infections and have not responded to other preventive measures. Antibiotics are highly effective in preventing recurrent bladder infections and can be taken in several different ways. Preventive antibiotic -- You can take a low dose of an antibiotic once per day or three times per week for six months to several years. Antibiotics following intercourse -- In women who develop urinary tract infections after sex, taking a single low dose antibiotic after intercourse can help to prevent bladder infections. Self-treatment -- A plan to begin antibiotics at the first sign of a bladder infection may be recommended in some situations. Before starting this regimen, it is important that you have had testing (urine cultures) to confirm that your symptoms are caused by a bladder infection; some people have symptoms of a bladder infection but do not actually have an infection. documented in this encounter [facility] 07-22-2023 Note HNO ID: [id number] Author: Briseida Trujillo APRN.BED CONTROL SPECIALIST Service: ? Author Type: Nurse Practitioner Type: Progress Notes Filed: 07/22/2023 7:57 PM Note Text: CC: Patient presents with: Cough: Cough, congestion, SOB x 5 days HPI: Jayashree Tsai is a 33 year old female who presents to the office with complaint of head congestion and cough, nonproductive for a few days. Symptoms are staying the same. Associated symptoms includes dyspnea and pleuritic pain. Denies fever, nausea, vomiting , and diarrhea. Treatments tried include nothing so far. with no relief of symptoms. Sick contacts: unknown. History of asthma, frequent episodes of bronchitis, chronic bronchitis, bronchiectasis or COPD: No Smoker: No Seasonal/environmental allergies: No The ROS is otherwise negative. The patient's pmh, medications, allergies, and past visits are reviewed. PHYSICAL EXAM: BP 132/84 Pulse 110 Temp 36.9 ?C (98.4 ?F) (Tympanic) Resp 18 Wt 72.7 kg (160 lb 3.2 oz) LMP 04/04/2022 SpO2 98% BMI 27.50 kg/m? General appearance: alert, cooperative, pleasant, in no acute distress Head: Normocephalic Eyes: EOM's intact, conjunctiva pink and moist, no icterus, sclera white, non-injected Ears: Right ear: External ear/canal- Normal, TM - clear with good landmarks. Left ear: External ear/canal- Normal, TM - clear with good landmarks Oropharynx:moist without lesions, No erythema, exudates or tonsillar hypertrophy. Heart: Negative. RRR without obvious murmur, gallop, or rubs. No ectopy. Lungs: clear to auscultation, without rales or wheeze, good air exchange PAST MEDICAL HISTORY Diagnosis Date Allergic rhinitis, cause unspecified Anxiety 10/31/2014 Asthma 06/23/2013 Cluster headache 02/15/2014 HELLP syndrome Hypertension Unspecified asthma(493.90) PAST SURGICAL HISTORY Procedure Laterality Date ADENOIDECTOMY PRIMARY Adenoidectomy TONSILLECTOMY PRIMARY/SECONDARY Tonsillectomy ALLERGIES Aspirin, Bactrim [Sulfamethoxazole-Trimethoprim], Celexa [Citalopram Hydrobromide], Grass Pollen, Maxalt [Rizatriptan Benzoate], Pollen, Sulfamethoxazole, Trees, and Trimethoprim MEDICATIONS ondansetron orally disintegrating (ZOFRAN ODT) 4 mg disintegrating tablet Take by mouth. TAKE 1 TABLET BY MOUTH EVERY 8 HOURS NEEDED FOR NAUSEA phenazopyridine (PYRIDIUM) 200 mg tablet Take 1 tablet by mouth three times daily as needed. (Patient not taking: Reported on 07/11/2022) labetalol (TRANDATE) 200 mg tablet TAKE 1 TABLET BY MOUTH EVERY 12 HOURS. Miscellaneous Medical Supply (BLOOD PRESSURE CUFF) misc 1 Kit twice daily. (Patient not taking: Reported on 04/20/2022 ) vit-iron fumarate-fa 28 mg iron- 800 mcg tab TAKE 1 TABLET BY MOUTH ONCE DAILY. [DISCONTINUED] multivitamin (CLASSIC ) 28 mg iron- 800 mcg tab(s) Take 1 tablet by mouth once daily. FAMILY HISTORY Problem Relation Age of Onset Coronary Artery Disease Father Stroke Father Heart Father Triple by-pass Hypertension Father Stroke Maternal Grandfather Cancer Paternal Grandmother Brain Cancer Paternal Grandfather Social History Tobacco Use Smoking status: Never Smokeless tobacco: Never Substance Use Topics Alcohol use: No Drug use: No ASSESSMENT/PLAN: 1. Acute cough - ICD9: 786.2, ICD10: R05.1 - XR CHEST 2V FRONTAL/LAT was instructed to get an x-ray tomorrow. If patient's x-ray comes back positive please treat accordingly. Potential red flag symptoms discussed with the patient. Reviewed appropriate action plan to take if red flag symptoms occur. Patient agreeable to treatment plan. Briseida Trujillo APRN.[facility] 07-22-2023 History of Presen t illness Narrative CC: Patient presents with: Cough: Cough, congestion, SOB x 5 days HPI: Jayashree Tsai is a 33 year old female who presents to the office with complaint of head congestion and cough, nonproductive for a few days. Symptoms are staying the same. Associated symptoms includes dyspnea and pleuritic pain. Denies fever, nausea, vomiting , and diarrhea. Treatments tried include nothing so far. with no relief of symptoms. Sick contacts: unknown. History of asthma, frequent episodes of bronchitis, chronic bronchitis, bronchiectasis or COPD: No Smoker: No Seasonal/environmental allergies: No The ROS is otherwise negative. The patient's pmh, medications, allergies, and past visits are reviewed. PHYSICAL EXAM: BP 132/84 Pulse 110 Temp 36.9 C (98.4 F) (Tympanic) Resp 18 Wt 72.7 kg (160 lb 3.2 oz) LMP 04/04/2022 SpO2 98% BMI 27.50 kg/m General appearance: alert, cooperative, pleasant, in no acute distress Head: Normocephalic Eyes: EOM's intact, conjunctiva pink and moist, no icterus, sclera white, non-injected Ears: Right ear: External ear/canal- Normal, TM - clear with good landmarks. Left ear: External ear/canal- Normal, TM - clear with good landmarks Oropharynx:moist without lesions, No erythema, exudates or tonsillar hypertrophy. Heart: Negative. RRR without obvious murmur, gallop, or rubs. No ectopy. Lungs: clear to auscultation, without rales or wheeze, good air exchange PAST MEDICAL HISTORY Diagnosis Date Allergic rhinitis, cause unspecified Anxiety 10/31/2014 Asthma 06/23/2013 Cluster headache 02/15/2014 HELLP syndrome Hypertension Unspecified asthma(493.90) PAST SURGICAL HISTORY Procedure Laterality Date ADENOIDECTOMY PRIMARY <AGE 12 Adenoidectomy TONSILLECTOMY PRIMARY/SECONDARY <AGE 12 Tonsillectomy ALLERGIES Aspirin, Bactrim [Sulfamethoxazole-Trimethoprim], Celexa [Citalopram Hydrobromide], Grass Pollen, Maxalt [Rizatriptan Benzoate], Pollen, Sulfamethoxazole, Trees, and Trimethoprim MEDICATIONS ondansetron orally disintegrating (ZOFRAN ODT) 4 mg disintegrating tablet Take by mouth. TAKE 1 TABLET BY MOUTH EVERY 8 HOURS NEEDED FOR NAUSEA phenazopyridine (PYRIDIUM) 200 mg tablet Take 1 tablet by mouth three times daily as needed. (Patient not taking: Reported on 07/11/2022) labetalol (TRANDATE) 200 mg tablet TAKE 1 TABLET BY MOUTH EVERY 12 HOURS. Miscellaneous Medical Supply (BLOOD PRESSURE CUFF) misc 1 Kit twice daily. (Patient not taking: Reported on 04/20/2022 ) vit-iron fumarate-fa 28 mg iron- 800 mcg tab TAKE 1 TABLET BY MOUTH ONCE DAILY. [DISCONTINUED] multivitamin (CLASSIC ) 28 mg iron- 800 mcg tab(s) Take 1 tablet by mouth once daily. FAMILY HISTORY Problem Relation Age of Onset Coronary Artery Disease Father Stroke Father Heart Father Triple by-pass Hypertension Father Stroke Maternal Grandfather Cancer Paternal Grandmother Brain Cancer Paternal Grandfather Social History Tobacco Use Smoking status: Never Smokeless tobacco: Never Substance Use Topics Alcohol use: No Drug use: No ASSESSMENT/PLAN: 1. Acute cough - ICD9: 786.2, ICD10: R05.1 - XR CHEST 2V FRONTAL/LAT was instructed to get an x-ray tomorrow. If patient's x-ray comes back positive please treat accordingly. Potential red flag symptoms discussed with the patient. Reviewed appropriate action plan to take if red flag symptoms occur. Patient agreeable to treatment plan. Briseida Trujillo APRN.DOMINIQUE documented in this encounter [facility] 07-11-2022 Instructions Raina Joseph APRN.CNP - 07/11/2022 4:07 PM EDT macrobid for 5 days Tylenol/ibuprofen as needed for discomfort AZO otc Increase hydration -Follow up with PCP or return to clinic if symptoms not improving in 3 days or if you develop any new (or worsening) symptoms such as fever, chills or back pain go to ER. documented in this encounter [facility] 07-11-2022 History of Presen t illness Narrative Subjective The history is provided by the patient. No foreign language stenographer was used. HPI Jayashree Tsai is a 32 year old female who presents today for CC of burning with urination. This started in the past 24 hours. Positive for Dysuria and Increase in frequency of urination, Negative for Urgency, Sense of incomplete void, Fevers, Vomiting, Diarrhea, Abdominal pain , Back/Flank pain, Blood in urine, and Vaginal itch or discharge Chance of : No Last intercourse: past week Any self-treatment attempted: Yes Number of previous UTI's in last 6 months:1 Number of previous UTI's in last 12 months: 1 Aggravating Factors: voiding Alleviating Factors include AZO with minimal relief in symptoms. BP 140/100 Pulse 97 Temp 36.5 C (97.7 F) Resp 21 Wt 72.5 kg (159 lb 12.8 oz) LMP 04/04/2022 SpO2 100% BMI 27.43 kg/m Social History Tobacco Use Smoking status: Never Smokeless tobacco: Never Substance Use Topics Alcohol use: No Drug use: No PAST MEDICAL HISTORY Diagnosis Date Allergic rhinitis, cause unspecified Anxiety 10/31/2014 Asthma 06/23/2013 Cluster headache 02/15/2014 HELLP syndrome Hypertension Unspecified asthma(493.90) I have confirmed and edited as necessary, the [facility] Review of Systems Constitutional: Negative for chills and fever. Gastrointestinal: Negative for abdominal pain. Genitourinary: Positive for dysuria. Negative for flank pain, frequency, hematuria and urgency. Objective Physical Exam Vitals and nursing note reviewed. Constitutional: Appearance: Normal appearance. Abdominal: General: Bowel sounds are normal. There is no abdominal bruit. Palpations: Abdomen is not rigid. There is no mass or pulsatile mass. Tenderness: There is no abdominal tenderness. There is no guarding or rebound. Negative signs include Hayes's sign and McBurney's sign. Neurological: Mental Status: She is alert and oriented to person, place, and time. Psychiatric: Mood and Affect: Affect normal. Using AZO Component Latest Ref Rng & Units 07/11/2022 GLUCOSE UA (POCT) Negative mg/dL Negative BILIRUBIN UA (POCT) Negative Small (A) KETONE UA (POCT) Negative mg/dL Trace SPECIFIC GRAVITY UA (POCT) 1.005 - 1.030 1.025 HEMOGLOBIN/BLOOD UA (POCT) Negative Negative PH UA (POCT) 4.5 - 8.0 5.5 PROTEIN UA (POCT) Negative mg/dL Trace (A) UROBILINOGEN UA (POCT) Normal E.U./dL 1.0 NITRITE UA (POCT) Negative Positive (A) LEUKOCYTES UA (POCT) Negative Negative COLOR UA (POCT) [place] CLARITY UA (POCT) Clear ASSESSMENT/PLAN: 1. Burning with urination - ICD9: 788.1, ICD10: R30.0 (primary diagnosis) acute- UA DIP, URINE (POC) - URINE CULTURE 2. Acute lower UTI - ICD9: 599.0, ICD10: N39.0 acute - UA positive for nitrates - Send urine for culture - Begin treatment with Macrobid 100 mg BID for 5 days - Patient education for prevention given Diagnosis and treatment plan were discussed and questions were answered to the patient's satisfaction. Pt acknowledged understanding of concepts and follow up plan. Specific signs and symptoms that would indicate the need for higher level of care were discussed in detail warranting prompt ER evaluation. Raina Joseph APRN.DOMINIQUE documented in this encounter [facility] 06-20-2022 Miscellaneous Notes Spoke to patient and she was transferred to scheduling. Advised that hasn't been seen in over 3 years so is a new patient would need to establish care as a new patient. Unfortunately if the patient has not been seen in over three years they are considered new and the Dept is no longer accepting new patients, despite being a former Dr. Delgado pt. She has not been seen by office since 08/17/2018. Pt's been notified several times through out the years that she needed to Establish. is no longer accepting any new patients. Please advise pt she will need to Establish with [facility] or outside the Clinic with another Practice. Pt called, LM on to return call to office. No/Any DOC will not complete forms for a new pt and one that has not been seen. Kady Mendoza Ma Patient was a prior patient of Dr. Delgado. Patient needs forms filled out for community action. Patient asking if a physician in the office would be able to fill out paper work in order for patient to get a free air conditioner. documented in this encounter [facility] 04-23-2022 Miscellaneous Notes Left message for patient with results and recommendations.Sofy Cantrell LPN Phone call brief message to contact a nurse. Kya Tabares LPN Urine culture reveals growth and the Keflex should be working. Please inquire as to whether symptoms improving or not. Patient needs to follow up with PCP to ensure that blood has resolved. documented in this encounter [facility] 04-20-2022 Instructions Norma Morales APRN.DOMINIQUE - 04/20/2022 1:50 PM EDT Images from the original note were not included. Urinary Problem-When to Seek Help? Symptoms of a urinary problem may lead to a bladder infection. Women are at greater risk of a urinary tract infection than are men. Most urinary tract infections in women are caused by bacteria and involve the lower urinary tract including the bladder and urethra. Symptoms: Pain or burning when passing urine, urgency, frequency, blood in the urine, difficult emptying your bladder, and lower abdominal fullness or pressure. Common Causes: Sexual intercourse, menopause, constipation, uncontrolled diabetes, dehydration and feminine products such as tampons, and kidney stones. When to Get Help: Seek medical attention if you get frequent bladder infections, urinary concerns such as leakage, blood in the urine or frequent need to urinate. You may be recommended to get help from a specialist, such as a urologist. Diagnosis & Treatment: Lab testing may include: urinalysis, and urine culture that can be collected in the lab or walk-in clinic. Most bladder infections can easily be treated. A physician, nurse practitioner or physician assistant softball coach may treat with a short course of an antibiotic. Delaying treatment can lead to worsening symptoms, like a kidney infection. Self-Care: Avoid a full bladder, bubble baths, bath oils, food and beverages that may irritate the bladder such as caffeine. Avoid spermicide foam and diaphragms Void before and after sexual intercourse Wipe front to back after using the bathroom. Stay hydrated Stop Smoking Follow-up Care: Follow up testing is not needed in healthy young women if symptoms resolve. documented in this encounter [facility] 04-20-2022 History of Presen t illness Narrative This note was created using XOGriter. Subjective Jayashree Tsai is a 31 year old female. 31 year old female with PMH HELLP, HTN, cluster headaches, asthma presents for possible UTI. Acute onset of symptoms was last night +suprapubic pressure +lower back pain +burning She is sexually active. Denies frequency. Denies urgency Denies vaginal bleeding. Denies vaginal bleeding. Denies concerns for possible STI. LMP 04/04/22 The history is provided by the patient. No foreign language stenographer was used. UTI This is a new problem. The current episode started yesterday. The problem occurs every urination. The problem has not changed since onset.The quality of the pain is described as burning. The pain is at a severity of 5/10. The pain is moderate. There has been no fever. She is sexually active. There is no history of pyelonephritis. Associated symptoms include hematuria. Pertinent negatives include no chills, no sweats, no nausea, no vomiting, no discharge, no frequency, no hesitancy, no possible , no urgency and no flank pain. She has tried nothing for the symptoms. Her past medical history is significant for kidney stones and recurrent UTIs. Her past medical history does not include single kidney, urological procedure, urinary stasis or catheterization. PAST MEDICAL HISTORY Diagnosis Date Allergic rhinitis, cause unspecified Anxiety 10/31/2014 Asthma 06/23/2013 Cluster headache 02/15/2014 HELLP syndrome Hypertension Unspecified asthma(493.90) PAST SURGICAL HISTORY Procedure Laterality Date ADENOIDECTOMY PRIMARY <AGE 12 Adenoidectomy TONSILLECTOMY PRIMARY/SECONDARY <AGE 12 Tonsillectomy ALLERGIES Aspirin, Bactrim [Sulfamethoxazole-Trimethoprim], Celexa [Citalopram Hydrobromide], Grass Pollen, Maxalt [Rizatriptan Benzoate], Pollen, and Trees MEDICATIONS cephALEXin (KEFLEX) 500 mg capsule Take 1 capsule by mouth twice daily for 7 days. phenazopyridine (PYRIDIUM) 200 mg tablet Take 1 tablet by mouth three times daily as needed. vit-iron fumarate-fa 28 mg iron- 800 mcg tab TAKE 1 TABLET BY MOUTH ONCE DAILY. labetalol (TRANDATE) 200 mg tablet TAKE 1 TABLET BY MOUTH EVERY 12 HOURS. Miscellaneous Medical Supply (BLOOD PRESSURE CUFF) misc 1 Kit twice daily. [DISCONTINUED] multivitamin (CLASSIC ) 28 mg iron- 800 mcg tab(s) Take 1 tablet by mouth once daily. FAMILY HISTORY Problem Relation Age of Onset Coronary Artery Disease Father Stroke Father Heart Father Triple by-pass Hypertension Father Stroke Maternal Grandfather Cancer Paternal Grandmother Brain Cancer Paternal Grandfather Social History Tobacco Use Smoking status: Never Smoker Smokeless tobacco: Never Used Substance Use Topics Alcohol use: No Drug use: No Review of Systems Constitutional: Negative for chills, diaphoresis, fatigue and fever. Eyes: Negative for pain, discharge, redness and itching. Respiratory: Negative for apnea, cough, choking and chest tightness. Cardiovascular: Negative for chest pain, palpitations and leg swelling. Gastrointestinal: Negative for abdominal pain, diarrhea, nausea and vomiting. Genitourinary: Positive for dysuria and hematuria. Negative for flank pain, frequency, hesitancy and urgency. Musculoskeletal: Negative for arthralgias and back pain. Skin: Negative for color change, pallor, rash and wound. Allergic/Immunologic: Negative for environmental allergies, food allergies and immunocompromised state. Neurological: Negative for dizziness, facial asymmetry and headaches. Hematological: Negative for adenopathy. Does not bruise/bleed easily. Psychiatric/Behavioral: Negative for agitation and behavioral problems. Objective BP 128/88 Pulse 92 Temp 36.7 C (98 F) Resp 16 LMP 04/04/2022 SpO2 98% Physical Exam Vitals and nursing note reviewed. Constitutional: General: She is not in acute distress. Appearance: Normal appearance. She is normal weight. She is not ill-appearing, toxic-appearing or diaphoretic. HENT: Head: Normocephalic and atraumatic. Right Ear: Ear canal and external ear normal. Left Ear: Ear canal and external ear normal. Nose: Nose normal. No congestion or rhinorrhea. Mouth/Throat: Mouth: Mucous membranes are moist. Pharynx: No oropharyngeal exudate or posterior oropharyngeal erythema. Eyes: General: Right eye: No discharge. Left eye: No discharge. Extraocular Movements: Extraocular movements intact. Conjunctiva/sclera: Conjunctivae normal. Pupils: Pupils are equal, round, and reactive to light. Cardiovascular: Rate and Rhythm: Normal rate and regular rhythm. Pulses: Normal pulses. Heart sounds: Normal heart sounds. No murmur heard. No friction rub. Pulmonary: Effort: Pulmonary effort is normal. No respiratory distress. Breath sounds: Normal breath sounds. No stridor. No wheezing, rhonchi or rales. Chest: Chest wall: No tenderness. Abdominal: General: Abdomen is flat. There is no distension. Palpations: Abdomen is soft. There is no mass. Tenderness: There is no abdominal tenderness. There is no right CVA tenderness, left CVA tenderness, guarding or rebound. Hernia: No hernia is present. Musculoskeletal: General: No swelling, tenderness, deformity or signs of injury. Normal range of motion. Cervical back: Normal range of motion and neck supple. No rigidity. Right lower leg: No edema. Left lower leg: No edema. Lymphadenopathy: Cervical: No cervical adenopathy. Skin: General: Skin is warm and dry. Capillary Refill: Capillary refill takes less than 2 seconds. Coloration: Skin is not jaundiced or pale. Findings: No bruising, erythema, lesion or rash. Neurological: General: No focal deficit present. Mental Status: She is alert and oriented to person, place, and time. Cranial Nerves: No cranial nerve deficit. Sensory: No sensory deficit. Motor: No weakness. Coordination: Coordination normal. Gait: Gait normal. Psychiatric: Mood and Affect: Mood normal. Behavior: Behavior normal. Thought Content: Thought content normal. Judgment: Judgment normal. Assessment and Plan ASSESSMENT/PLAN: 1. Dysuria - ICD9: 788.1, ICD10: R30.0 (primary diagnosis) acute - UA positive for shari esterase, hematuria and proteinuria - Send urine for culture - Begin treatment with keflex RX Pyridium - Patient education for prevention given - UA DIP, URINE (POC) - URINE CULTURE 2. Acute cystitis with hematuria - ICD9: 595.0, ICD10: N30.01 acute - UA positive for shari esterase, hematuria and proteinuria - Send urine for culture - Begin treatment with keflex - Patient education for prevention given Norma Morales APRN.CNP documented in this encounter [facility] 01-30-2022 Miscellaneous Notes Office received Disability paperwork on pt without contact information other then phone number and email address. Pt no longer has a PCP in this office as hers has retired. Pt has not established with anyone within [facility] and has not been seen since 2018, which puts her past the 3 year aminah of being established within [facility] to anyone. Per records pt's been in the ER with UTI issues and needing surgery by Dr. Rocha. If this is what forms are needed for she will need to contact there office. Unfortunately paperwork can not be completed for pt and she will need to come and cone picker forms and become established with another Primary Care Provider. Pt called and was LM on VM to return call to office. 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 Forms have been routed back to Medical Records for pt to cone picker. Kady Mendoza Ma documented in this encounter [facility] documented as of this encounter (statuses as of 03/12/2022) [facility]03-[facility]2016 History of Past illness Narrative* Problem Noted Date Resolved Date BMI 31.0-31.9,adult 01/22/2016 02/24/2017 LACERATION -NOT COMPLICATED EAR, EXTERNAL 200508/02/2012 documented as of this encounter (statuses as of 04/20/2022) [facility] History of Past illness Narrative* Problem Noted Date Resolved Date BMI 31.0-31.9,adult 01/22/2016 02/24/2017 LACERATION -NOT COMPLICATED EAR, EXTERNAL 200508/02/2012 documented as of this encounter (statuses as of 04/23/2022) [address]22-2016 History of Past illness Narrative* Problem Noted Date Resolved Date BMI 31.0-31.9,adult 01/22/2016 02/24/2017 LACERATION -NOT COMPLICATED EAR, EXTERNAL 200508/02/2012 documented as of this encounter (statuses as of 06/20/2022) [address]22-2016 History of Past illness Narrative* Problem Noted Date Resolved Date BMI 31.0-31.9,adult 01/22/2016 02/24/2017 LACERATION -NOT COMPLICATED EAR, EXTERNAL 200508/02/2012 documented as of this encounter (statuses as of 07/11/2022) [address]22-2016 History of Past illness Narrative* Problem Noted Date Diagnosed Date Resolved Date BMI 31.0-31.9,adult 01/22/2016 02/25/20 17 LACERATION -NOT COMPLICATED EAR, EXTERNAL 06/24/2006 08/02/2012 documented as of this encounter (statuses as of 07/23/2023) [address]22-2016 History of Past illness Narrative* Problem Noted Date Diagnosed Date Resolved Date BMI 31.0-31.9,adult 01/22/2016 02/25/20 17 LACERATION -NOT COMPLICATED EAR, EXTERNAL 06/24/2006 08/02/2012 documented as of this encounter (statuses as of 08/02/2023) [facility] note* Diagnosis Dysuria- Primary Acute cystitis with hematuria Acute cystitis [facility] Diagnosis Burning with urination- Primary Dysuria Acute lower UTI Urinary tract infection, site not specified [facility]- [facility] Diagnosis Burning with urination- Primary Dysuria documented in this encounter [facility] Summary Purpose Family History No Family History Records FoundNo Family History Records FoundNo Family History Records Found Advance Directives No Advanced Directives Records FoundDocuments on File Type Date Recorded 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 Advance Directive(s) 12/19/2019 10:44 AM Hospital Course Note HNO ID: [id number] Author: Prema Haro Service: Obstetrics Author Type: Physician Type: Discharge Summary Filed: 12/22/2019 11:19 AM Note Text: DISCHARGE SUMMARY OBSTETRICS PATIENT NAME: Jayashree Tsai ADMISSION DATE: 12/19/2019 DISCHARGE DATE: 12/22/2019 Attending Physician: Dianna Hernandez Code Status: Not on file Reason for Hospitalization: Intrauterine , HELLP syndrome, no care Discharge Diagnosis: Patient Active Hospital Problem List: HELLP (hemolytic anemia/elev liver enzymes/low platelets in ) (12/19/2019) HTN (hypertension) (12/04/2014) Single liveborn delivered vaginally (12/22/2019) (spontaneous vaginal delivery) (12/22/2019) Initiation of Depo Provera (12/22/2019) No care in current , unspecified trimester (12/22/2019) delivery (12/22/2019) PROCEDURES/SURGERY DURING HOSPITALIZATION: Delivery Summary: Quin, Girl Jayashree Lloyd [[id number]] Delivery Information: Delivery Date: 12/20/19 Delivery type: Vagin (more content not included)... Additional Source Comments INFORMATION SOURCE (unrecogn ized section and content) DATE CREATED AUTHOR AUTHOR'S ORGANIZ ATION 12/14/2021 [facility] DATE CREATED AUTHOR AUTHOR'S ORGANIZ ATION 08/07/2023 [facility] Source Comments (unrecognize d section and content) In the event this informatio n is protected by the Federal Confidentiality of Alcohol and Drug Abuse Patient Records regulations: The Federal rules restrict any use of the information to criminally investigate or prosecute any alcohol or drug abuse patient.[facility] the event this information is protected by the Federal Confidentiality of Alcohol and Drug Abuse Patient Records regulations: The Federal rules restrict any use of the information to criminally investigate or prosecute any alcohol or drug abuse patient.[facility] the event this information is protected by the Federal Confidentiality of Alcohol and Drug Abuse Patient Records regulations: The Federal rules restrict any use of the information to criminally investigate or prosecute any alcohol or drug abuse patient.[facility] the event this information is protected by the Federal Confidentiality of Alcohol and Drug Abuse Patient Records regulations: The Federal rules restrict any use of the information to criminally investigate or prosecute any alcohol or drug abuse patient.[facility] the event this information is protected by the Federal Confidentiality of Alcohol and Drug Abuse Patient Records regulations: The Federal rules restrict any use of the information to criminally investigate or prosecute any alcohol or drug abuse patient.[facility] the event this information is protected by the Federal Confidentiality of Alcohol and Drug Abuse Patient Records regulations: The Federal rules restrict any use of the information to criminally investigate or prosecute any alcohol or drug abuse patient.[facility] the event this information is protected by the Federal Confidentiality of Alcohol and Drug Abuse Patient Records regulations: The Federal rules restrict any use of the information to criminally investigate or prosecute any alcohol or drug abuse patient.[facility] Reason for Visit (unrecogniz ed section and content) Reason Comments Difficulty Urinating burning with urinat ion, x1 day, lower back pain rated 5 Reason Comments Results Reason Comments Patient Question Reason Comments UTI Burning with urinati on x 1 day Reason Comments Cough Cough, congestion, S OB x 5 days Reason Comments burning with urination Burning x 1 day FOR RECORDS PERTAINING TO PATIENTS WHO ARE OR HAVE BEEN ENROLLED IN A CHEMICAL DEPENDENCY/SUBSTANCEABUSE PROGRAM, SOME INFORMATION MAY BE OMITTED. This clinical summary was aggregated from multiple sources. Caution should be exercised in using it in the provision of clinical care. This summary normalizes information from multiple sources, and as a consequence, information in this document may materially change the coding, format and clinical context of patient data. In addition, data may be omitted in some cases. CLINICAL DECISIONS SHOULD BE BASED ON THE PRIMARY CLINICAL RECORDS. [facility] [employer] [facility]. provides no warranty or guarantee of the accuracy or completeness of information in this document.
[2023-10-29 11:53] LABS: Mucous, Urine 0 SEEN /hpf (<or=2+); White Blood Cells 0 SEEN /hpf (0-5)
[2023-10-29 11:56] LABS: Color, Urine Yellow (Yellow); Glucose, Dipstick Normal (Normal); Ketone-Dipstick Negative (Negative); Leukocyte Esterase-Dipstick Negative /ul (Negative); Nitrite-Dipstick Negative (Negative); Occult Blood-Urine 50 /ul (Negative); Protein-Dipstick 15 mg/dl (Negative); Specific Gravity, Urine 1.015 (1.002-1.030); Urine Bilirubin Dipstick Negative (Negative); Urine Clarity Sl. Cloudy (Clear); Urine Urobilinogen Normal (Normal)
[2023-10-29 12:03] LABS: Bacteria 1+ /hpf (None Seen); Internal QC Validated? YES +Cl - CLEAR BKGD; Pregnancy, Urine Negative Negative; Red Blood Cells-Urine 0-5 SEEN /hpf (0-5); Squamous Epithelial Cells - UA 5-10 SEEN /hpf (5-10)
[2023-10-29 12:04] LABS: Record Kit Lot#,Urine Preg HCG0000667200
--- NOTE | 2023-10-29 12:08 | CT_ITS ---
INDICATION: Left flank pain EXAMINATION: CT ABDOMEN AND PELVIS WITHOUT CONTRAST - CT Abdomen And Pelvis W/O Contrast Injection TECHNIQUE: Helically acquired images were obtained of the abdomen and pelvis without oral or IV contrast. A radiation dose optimization technique was used for this scan. IV Contrast dosage and agent: None. Oral contrast: None. RADIATION DOSAGE (If Supplied By Facility): CTDIvol = ( 6.79 ) mGy, DLP = ( 364.73 ) mGycm COMPARISON: Prior study dated: 04/07/2023. FINDINGS: LOWER CHEST: Lung bases are clear. No cardiomegaly or pericardial effusion. LIVER: Homogeneous. No focal mass is seen without contrast. GALLBLADDER AND BILIARY TREE: No calcified gallstones. No gallbladder distension or wall edema. No intra- or extrahepatic biliary ductal dilation. PANCREAS: No focal cystic or solid mass. SPLEEN: Normal size without focal cystic or solid mass. ADRENAL GLANDS: No nodules. KIDNEYS AND URETERS: Tiny 1 to 2 mm nonobstructing stone in the left kidney. Minimal prominence of the left renal pelvis. No evidence of ureteral stones. PERITONEUM: No ascites or free air. No other fluid collection. BOWEL: No evidence of acute appendicitis. No stomach or bowel distension. No focal inflammatory change. LYMPH NODES: No enlarged mesenteric or retroperitoneal lymph nodes. VESSELS: Aorta is non-dilated. URINARY BLADDER: Unremarkable. REPRODUCTIVE ORGANS: 3.8 cm left adnexal/ovarian cyst. No free fluid. ABDOMINAL WALL: Small umbilical hernia containing fat. BONES: Probable hemangioma identified. Cystic changes L4 unchanged. CT/Abdomen/Pelvis without Cont IMPRESSION: 1. Minimal prominence of the left collecting system without evidence of ureteral stones. Recently passed stone is possible. 2. Tiny nonobstructing stone in the left kidney. 3. Left adnexal/ovarian cyst. 4. Otherwise no focal acute inflammatory process. Electronically Signed: Javier Kidd MD at 12:48 EST ,
== END 2023-10-29 13:37 | disposition home or self-care (01) ==
PROVIDERS: Emergency Provider Emergency Medicine; Visit Provider Emergency Medicine
DX: R10.9 Unspecified abdominal pain (principal); I10 Essential (primary) hypertension; Z87.442 Personal history of urinary calculi
CPT/HCPCS: 74176; 81001; 81025; 96372; 99282

== ENCOUNTER 2023-12-08 20:08 | Emergency (ER) | payer MEDICAID, SELFPAY ==
[2023-12-08 20:09] VITALS: BP 138/102; PULSE 75; RESP 16; TEMP 36; O2SAT 100; BMI 28.3
[2023-12-08 20:15] VITALS: BP 148/102; PULSE 78; RESP 16; TEMP 36; O2SAT 97
--- OUTSIDE RECORDS SUMMARY | 2023-12-08 21:04 | XMS RPT_ITS | CCD ---
Author Name Unknown Address [address] [place] [address] Organization [facility] Care Team Providers Care Director Oracle Name Role Phone ANG, DR IRAIDA Castillo [...] Translations: [ASPIRIN] Drug Allergy 08-29-20 08 Hives [facility] Work Phone: (8 sources) Citalopram; Translations: [CITALOPRAM HYDROBROMIDE] Drug Allergy 01-02-20 15 Other: See Comments [facility] (8 sources) Grass pollen; Translations: [GRASS POLLEN] Propensity to adverse reactions 08-07-20 05 [facility] Work Phone: (8 sources) Pollen; Translations: [POLLEN] Propensity to adverse reactions 08-07-20 05 [facility] Work Phone: (8 sources) rizatriptan; Translations: [RIZATRIPTAN BENZOATE] Drug Allergy 02-16-20 14 Other: See Comments [facility] (8 sources) Sulfamethoxazole / Trimethoprim; Translations: [SULFAMETHOXAZOLE-TR IMETHOPRIM] Drug Allergy 08-05-20 07 [facility] Work Phone: (8 sources) Tree; Translations: [TREES] Propensity to adverse reactions 08-07-20 05 [facility] Work Phone: (3 sources) Sulfamethoxazole; Translations: [SULFAMETHOXAZOLE] Drug Allergy 11-15-19 Swelling [facility] (3 sources) Trimethoprim; Translations: [TRIMETHOPRIM] Drug Allergy 11-15-19 Swelling [facility] (1 source) Phenazopyridine Drug Allergy 08-02-20 Hives [facility] Work Phone: Medications Current Medications Medication Drug [...] (7 sources) Drug therapy finding; Translations: [Other group home (current) drug therapy] Onset: 06-28-2018 06-28-2018 Episodic [...] 98.6 [degF] Lyudmila Monsivais APRN.CNP Work Phone: [facility] 08-02-2023 11:52-0400 Body weight 73.66 kg Lyudmila Monsivais APRN.CNP Work Phone: [facility] 08-02-2023 11:52-0400 Diastolic blood pressure 84 mm[Hg] Lyudmila Monsivais APRN.CNP Work Phone: [facility] 08-02-2023 11:52-0400 Heart rate 101 /min Lyudmila Praisler-Wood STRESS ANALYST.RECREATION FACILITY ATTENDANT Work Phone: [facility] 08-02-2023 11:52-0400 Respiratory rate 16 /min Lyudmila Praisler-Wood STRESS ANALYST.RECREATION FACILITY ATTENDANT Work Phone: [facility] 08-02-2023 11:52-0400 SaO2% (BldA) [Mass fraction] 100 % Lyudmila Praisler-Wood STRESS ANALYST.RECREATION FACILITY ATTENDANT Work Phone: [facility] 08-02-2023 11:52-0400 Systolic blood pressure 144 mm[Hg] Lyudmila Praisler-Wood STRESS ANALYST.RECREATION FACILITY ATTENDANT Work Phone: [facility] 07-22-2023 18:05-0400 Body temperature 98.4 [degF] Briseida Trujillo STRESS ANALYST.RECREATION FACILITY ATTENDANT Work Phone: [facility] 07-22-2023 18:05-0400 Body weight 72.67 kg Briseida Trujillo APRN.RECREATION FACILITY ATTENDANT Work Phone: [facility] 07-22-2023 18:05-0400 Diastolic blood pressure 84 mm[Hg] Briseida Trujillo STRESS ANALYST.RECREATION FACILITY ATTENDANT Work Phone: [facility] 07-22-2023 18:05-0400 Heart rate 110 /min Briseida Trujillo STRESS ANALYST.RECREATION FACILITY ATTENDANT Work Phone: [facility] 07-22-2023 18:05-0400 Respiratory rate 18 /min Briseida Trujillo STRESS ANALYST.RECREATION FACILITY ATTENDANT Work Phone: [facility] 07-22-2023 18:05-0400 SaO2% (BldA) [Mass fraction] 98 % Briseida Trujillo STRESS ANALYST.RECREATION FACILITY ATTENDANT Work Phone: [facility] 07-22-2023 18:05-0400 Systolic blood pressure 132 mm[Hg] Briseida Trujillo STRESS ANALYST.RECREATION FACILITY ATTENDANT Work Phone: [facility] 07-11-2022 15:53-0400 Body temperature 97.7 [degF] Raina Joseph STRESS ANALYST.RECREATION FACILITY ATTENDANT Work Phone: [facility] 07-11-2022 15:53-0400 Body weight 72.48 kg Raina Opal STRESS ANALYST.RECREATION FACILITY ATTENDANT Work Phone: [facility] 07-11-2022 15:53-0400 Diastolic blood pressure 100 mm[Hg] Raina Opal STRESS ANALYST.RECREATION FACILITY ATTENDANT Work Phone: [facility] 07-11-2022 15:53-0400 Heart rate 97 /min Raina Opal STRESS ANALYST.RECREATION FACILITY ATTENDANT Work Phone: [facility] 07-11-2022 15:53-0400 Respiratory rate 21 /min Raina Opal STRESS ANALYST.RECREATION FACILITY ATTENDANT Work Phone: [facility] 07-11-2022 15:53-0400 SaO2% (BldA) [Mass fraction] 100 % Raina Opal STRESS ANALYST.RECREATION FACILITY ATTENDANT Work Phone: [facility] 07-11-2022 15:53-0400 Systolic blood pressure 140 mm[Hg] Raina Opal STRESS ANALYST.RECREATION FACILITY ATTENDANT Work Phone: [facility] 04-20-2022 13:41-0400 Body temperature 98.01 [degF] Norma Morales STRESS ANALYST.RECREATION FACILITY ATTENDANT Work Phone: [facility] 04-20-2022 13:41-0400 Diastolic blood pressure 88 mm[Hg] Norma Morales STRESS ANALYST.RECREATION FACILITY ATTENDANT Work Phone: [facility] 04-20-2022 13:41-0400 Heart rate 92 /min Norma Morales STRESS ANALYST.RECREATION FACILITY ATTENDANT Work Phone: [facility] 04-20-2022 13:41-0400 Respiratory rate 16 /min Norma Morales STRESS ANALYST.RECREATION FACILITY ATTENDANT Work Phone: [facility] 04-20-2022 13:41-0400 SaO2% (BldA) [Mass fraction] 98 % Norma Morales STRESS ANALYST.RECREATION FACILITY ATTENDANT Work Phone: [facility] 04-20-2022 13:41-0400 Systolic blood pressure 128 mm[Hg] Norma Morales STRESS ANALYST.RECREATION FACILITY ATTENDANT Work Phone: [facility] Encounters Encounter Date Encounter Type Care Provider Facility Start: 08-02-2023 End: 08-02-2023 ambulatory Facility:[facility] Start: 08-02-2023 End: 08-02-2023 Patient encounter procedure Lyudmila Monsivais STRESS ANALYST.RECREATION FACILITY ATTENDANT Work Phone: [facility] Procedures Date Procedure Procedure Detail Performing Clinician Start: 08-02-2023 Urnls dip stick/tabl et rgnt auto w/o microscopy Lyudmila Monsivais STRESS ANALYST.RECREATION FACILITY ATTENDANT Work Phone: Start: 07-11-2022 Urnls dip stick/tabl et rgnt auto w/o microscopy Esteban Merritt STRESS ANALYST.RECREATION FACILITY ATTENDANT Work Phone: Start: 04-20-2022 Urnls dip stick/tabl et rgnt auto w/o microscopy Norma Morales STRESS ANALYST.RECREATION FACILITY ATTENDANT Work Phone: Start: 12-04-[address] IRAIDA FRY Plan of Treatment Date Care Activity Detail Author Start: 09-08-2029 Urine microalbumin profile [facility] Start: 07-03-2023 Influenza vaccination Influenza Vaccine (#1) [facility] Start: 07-03-2022 Influenza vaccination [facility] Start: 12-15-2021 COVID-19 VACCINE (3 - Booster for Pfizer series) COVID-19 VACCINE (3 - Booster for Pfizer series) [facility] Start: 09-09-2021 Covid-19 Vaccine (3 - Pfizer series) Covid-19 Vaccine (3 - Pfizer series) [facility] Start: 11-13-2019 PAP TESTING PAP TESTING [facility] Start: 08-17-2019 ANNUAL PCP TEAM CHRONIC DISEASE VISIT ANNUAL PCP TEAM CHRONIC DISEASE VISIT [facility] Start: 2019 HPV TESTING HPV TESTING [facility] Start: 2007 BP CONTROLLED (<130/80) BP CONTROLLED (<130/80) [facility] Start: 2007 SPIROMETRY SPIROMETRY [facility] Start: 04-23-2005 PNEUMOCOCCAL (2 - PCV) PNEUMOCOCCAL (2 - PCV) [facility] Start: 06-22-2005 Pneumococcal vaccination Pneumococcal Vaccine (2 - PCV) [facility] Start: 1994 COVID-19 VACCINE (#1) COVID-19 VACCINE (#1) [facility] Bacteria identified in Urine by Culture URINE CULTURE Microbiology Routine Dysuria Ordered: 04/20/2022 [facility] Work Phone: Immunizations Immunization Date Immunization Notes Care Provider Lila ceja 07-15-2021 influenza virus vacc ine, unspecified formulation Briseida Trujillo APRN.[facility] Work Phone: [facility] 09-08-2019 tetanus toxoid, redu jessica diphtheria toxoid, and acellular pertussis vaccine, adsorbed No [facility] 08-17-2018 influenza, injectabl e, quadrivalent, contains preservative No [facility] 11-24-2016 influenza, injectabl e, quadrivalent, contains preservative No [facility] 08-02-2015 influenza, injectabl e, quadrivalent, contains preservative No [facility] 08-02-2015 influenza, seasonal, injectable No [facility] 09-21-2014 influenza, seasonal, injectable No [facility] Work Phone: 08-27-2013 influenza virus vacc ine, unspecified formulation No [facility] 07-31-2012 influenza virus vacc ine, unspecified formulation No [facility] 08-23-2011 influenza virus vacc ine, unspecified formulation No [facility] Work Phone: 10-08-2010 influenza virus vacc ine, unspecified formulation No [facility] Work Phone: 09-11-2009 novel influenza-H1N1 -09, preservative-free, injectable No [facility] 08-02-2009 influenza virus vacc ine, unspecified formulation No [facility] Work Phone: 09-10-2007 human papilloma viru s vaccine, quadrivalent No [facility] Work Phone: 09-06-2007 influenza virus vacc ine, unspecified formulation No [facility] Work Phone: 05-06-2007 human papilloma viru s vaccine, quadrivalent No [facility] Work Phone: 03-24-2007 meningococcal polysaccharide vaccine (MPSV4) No [facility] 02-25-2007 human papilloma viru s vaccine, quadrivalent No [facility] Work Phone: 09-10-2006 influenza virus vacc ine, unspecified formulation No [facility] Work Phone: 09-02-2005 influenza virus vacc ine, unspecified formulation No [facility] Work Phone: 04-23-2004 pneumococcal polysaccharide vaccine, 23 valent No [facility] Work Phone: 09-29-2003 hepatitis B vaccine, pediatric or pediatric/adolescent dosage No [facility] Work Phone: 05-01-2003 hepatitis B vaccine, pediatric or pediatric/adolescent dosage No [facility] Work Phone: 03-29-2003 hepatitis B vaccine, pediatric or pediatric/adolescent dosage No [facility] Work Phone: 12-24-2000 measles, mumps and rubella virus vaccine No [facility] Work Phone: 05-27-2000 diphtheria and tetan us toxoids, adsorbed for pediatric use No [facility] Work Phone: 06-26-1994 DTP-Haemophilus influenzae type b conjugate vaccine No [facility] Work Phone: 06-26-1994 poliovirus vaccine, inactivated No [facility] Work Phone: 11-02-1993 Chicken Pox (disease) No [facility] Work Phone: 11-23-1990 DTP-Haemophilus influenzae type b conjugate vaccine No [facility] Work Phone: 11-23-1990 poliovirus vaccine, inactivated No [facility] Work Phone: 08-19-1990 measles, mumps and rubella virus vaccine No [facility] Work Phone: 1989 DTP-Haemophilus influenzae type b conjugate vaccine No [facility] Work Phone: 1989 DTP-Haemophilus influenzae type b conjugate vaccine No Pcp [facility] Work Phone: 1989 poliovirus vaccine, inactivated No Pcp [facility] Work Phone: 1989 DTP-Haemophilus influenzae type b conjugate vaccine No Pcp [facility] Work Phone: 1989 poliovirus vaccine, inactivated No Pcp [facility] Work Phone: Payers Date Payer Category Payer Medicaid [id number] 2021 Medicaid 2021 Medicaid [employer] [id number] 2021-Present [phone] [address] [place] [address] Medicaid [id number] 1989 Unknown [id number] Unknown [id number] Social History Date Type Detail Facility Start: 07-31-2011 End: 07-11-2022 Tobacco smoking status NHIS Never smoked tobacco [facility] Start: 12-30-2019 End: 08-02-2023 Alcohol intake Current non-drinker of alcohol (finding) [facility] Start: 12-20-2019 History SDOH Financial 2 [facility] Start: 1990 Sex Assigned At Not on file [facility] Start: 04-10-2022 End: 07-11-2022 Exposure to SARS-CoV-2 (event) Not sure [facility] Start: 07-31-2011 End: 07-11-2022 Tobacco use and exposure Smokeless tobacco non-user [facility] Work Phone: Start: 04-14-2023 End: 07-22-2023 History of Social function [facility] Start: 04-14-2023 End: 07-22-2023 Tobacco use panel [facility] How hard is it for y ou to pay for the very basics like food, housing, medical care, and heating Hard [facility] Adult Depression Screening Assessment 2 [facility] (I/We) worried wheth er (my/our) food would run out before (I/we) got money to buy more. Sometimes true [facility] Clinical Notes 01-22-2016 to 08-02-2023 Lyudmila Monsivais APRN.RECREATION FACILITY ATTENDANT - 08/02/2023 12:05 PM EDTPatient Briseida Hendrickson APRN.RECREATION FACILITY ATTENDANT - 07/22/2023 6:15 PM EDTPatient Nolan Joseph APRN.RECREATION FACILITY ATTENDANT - 07/11/2022 4:02 PM EDT Note Date & Type Note Facility 08-02-2023 Note HNO ID: [id number] Author: Lyudmila Monsivais APRN.RECREATION FACILITY ATTENDANT Service: ? Author Type: Nurse Practitioner Type: [...] Negative Negative Final COLOR UA (POCT) 08/02/2023 [place] Final CLARITY UA (POCT) 08/02/2023 Clear Final [...] Discussed expected course of illness Lyudmila Monsivais APRN.[facility] 08-02-2023 History of Presen t illness Narrative [...] Negative Negative Final COLOR UA (POCT) 08/02/2023 [place] Final CLARITY UA (POCT) 08/02/2023 Clear Final [...] Discussed expected course of illness Lyudmila Monsivais APRN.RECREATION FACILITY ATTENDANT documented in this encounter [facility] 08-02-2023 Instructions Lyudmila Monsivais APRN.DOMINIQUE - 08/02/2023 [...] Discussed expected course of illness Lyudmila Monsivais APRN.[facility] PATIENT INFO BLADDER INFECTION OVERVIEW Bladder [...] have an infection. documented in this encounter [facility] 07-22-2023 Note HNO ID: [id number] Author: Briseida Trujillo APRN.RECREATION FACILITY ATTENDANT Service: ? Author Type: Nurse Practitioner Type: [...] Patient agreeable to treatment plan. Briseida Trujillo APRN.[facility] 07-22-2023 History of Presen t illness Narrative [...] Briseida Trujillo APRN.DOMINIQUE documented in this encounter [facility] 07-11-2022 Instructions Raina Joseph APRN.CNP - 07/11/2022 4:07 PM EDT macrobid for 5 days Tylenol/ibuprofen as needed for discomfort AZO otc Increase hydration -Follow up with PCP or return to clinic if symptoms not improving in 3 days or if you develop any new (or worsening) symptoms such as fever, chills or back pain go to ER. documented in this encounter [facility] 07-11-2022 History of Presen t illness Narrative Subjective The history is provided by the patient. No speech and language specialist was used. HPI Jayashree Tsai is a [...] have confirmed and edited as necessary, the [facility] Review of Systems Constitutional: Negative for [...] UA (POCT) Negative Negative COLOR UA (POCT) [place] CLARITY UA (POCT) Clear ASSESSMENT/PLAN: 1. Burning [...] Raina Joseph APRN.DOMINIQUE documented in this encounter [facility] 06-20-2022 Miscellaneous Notes Spoke to patient and [...] free air conditioner. documented in this encounter [facility] 04-23-2022 Miscellaneous Notes Left message for patient with results and recommendations.Sofy Cantrell LPN Phone call brief message to contact a nurse. Kya Tabares LPN Urine culture reveals growth and the Keflex should be working. Please inquire as to whether symptoms improving or not. Patient needs to follow up with PCP to ensure that blood has resolved. documented in this encounter [facility] 04-20-2022 Instructions Norma Morales APRN.DOMINIQUE - 04/20/2022 [...] treated. A physician, nurse practitioner or physician children's nursery assistant may treat with a short course of [...] if symptoms resolve. documented in this encounter [facility] 04-20-2022 History of Presen t illness Narrative This note was created using LiveRSVPriter. Subjective Jayashree Tsai is a 31 year [...] history is provided by the patient. No speech and language specialist was used. UTI This is a new [...] Norma Morales APRN.CNP documented in this encounter [facility] 01-30-2022 Miscellaneous Notes Office received Disability paperwork [...] and she will need to come and pecan picker forms and become established with another Primary Care Provider. Pt called and was LM on VM to return call to office. 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 Forms have been routed back to Medical Records for pt to pecan picker. Kady Mendoza Ma documented in this encounter [facility] documented as of this encounter (statuses as of 03/12/2022) [facility]03-22-2016 History of Past illness Narrative* Problem Noted Date Resolved Date BMI 31.0-31.9,adult 01/22/2016 02/24/2017 LACERATION -NOT COMPLICATED EAR, EXTERNAL 200508/02/2012 documented as of this encounter (statuses as of 04/20/2022) [facility]-2016 History of Past illness Narrative* Problem Noted Date Resolved Date BMI 31.0-31.9,adult 01/22/2016 02/24/2017 LACERATION -NOT COMPLICATED EAR, EXTERNAL 200508/02/2012 documented as of this encounter (statuses as of 04/23/2022) [address]22-2016 History of Past illness Narrative* Problem Noted Date Resolved Date BMI 31.0-31.9,adult 01/22/2016 02/24/2017 LACERATION -NOT COMPLICATED EAR, EXTERNAL 200508/02/2012 documented as of this encounter (statuses as of 06/20/2022) [address]22-2016 History of Past illness Narrative* Problem Noted Date Resolved Date BMI 31.0-31.9,adult 01/22/2016 02/24/2017 LACERATION -NOT COMPLICATED EAR, EXTERNAL 200508/02/2012 documented as of this encounter (statuses as of 07/11/2022) [address]22-2016 History of Past illness Narrative* Problem Noted Date Diagnosed Date Resolved Date BMI 31.0-31.9,adult 01/22/2016 02/25/20 17 LACERATION -NOT COMPLICATED EAR, EXTERNAL 06/24/2006 08/02/2012 documented as of this encounter (statuses as of 07/23/2023) [address]-2016 History of Past illness Narrative* Problem Noted Date Diagnosed Date Resolved Date BMI 31.0-31.9,adult 01/22/2016 02/25/20 17 LACERATION -NOT COMPLICATED EAR, EXTERNAL 06/24/2006 08/02/2012 documented as of this encounter (statuses as of 08/02/2023) [facility] note* Diagnosis Dysuria- Primary Acute cystitis with hematuria Acute cystitis [facility] Diagnosis Burning with urination- Primary Dysuria Acute lower UTI Urinary tract infection, site not specified [facility] Acute cough- Primary [facility] Diagnosis Burning with urination- Primary Dysuria documented in this encounter [facility] Summary Purpose Family History No Family History Records FoundNo Family History Records FoundNo Family History Records Found Advance Directives No Advanced Directives Records FoundDocuments on File Type Date Recorded Patient Sanitation Technician Expl anation Advance Directive(s) 12/19/2019 10:44 AM Hospital Course Note HNO ID: [id number] Author: Prema Haro Service: Obstetrics Author Type: [...] ) (12/19/2019) HTN (hypertension) (12/04/2014) Single liveborn infant delivered vaginally (12/22/2019) (spontaneous vaginal delivery) (12/22/2019) Initiation of Depo Provera (12/22/2019) No care in current , unspecified trimester (12/22/2019) delivery (12/22/2019) PROCEDURES/SURGERY DURING HOSPITALIZATION: Delivery Summary: Quin, Girl Jayashree Lloyd [[id number]] Delivery Information: Delivery Date: 12/20/19 Delivery type: Vagin (more content not included)... Additional Source Comments INFORMATION SOURCE (unrecogn ized section and content) DATE CREATED AUTHOR AUTHOR'S ORGANIZ ATION 12/14/2021 [facility] DATE CREATED AUTHOR AUTHOR'S ORGANIZ ATION 08/07/2023 [facility] Source Comments (unrecognize d section and content) In the event this informatio n is protected by the Federal Confidentiality of Alcohol and Drug Abuse Patient Records regulations: The Federal rules restrict any use of the information to criminally investigate or prosecute any alcohol or drug abuse patient.[facility] the event this information is protected by the Federal Confidentiality of Alcohol and Drug Abuse Patient Records regulations: The Federal rules restrict any use of the information to criminally investigate or prosecute any alcohol or drug abuse patient.[facility] the event this information is protected by the Federal Confidentiality of Alcohol and Drug Abuse Patient Records regulations: The Federal rules restrict any use of the information to criminally investigate or prosecute any alcohol or drug abuse patient.[facility] the event this information is protected by the Federal Confidentiality of Alcohol and Drug Abuse Patient Records regulations: The Federal rules restrict any use of the information to criminally investigate or prosecute any alcohol or drug abuse patient.[facility] the event this information is protected by the Federal Confidentiality of Alcohol and Drug Abuse Patient Records regulations: The Federal rules restrict any use of the information to criminally investigate or prosecute any alcohol or drug abuse patient.[facility] the event this information is protected by the Federal Confidentiality of Alcohol and Drug Abuse Patient Records regulations: The Federal rules restrict any use of the information to criminally investigate or prosecute any alcohol or drug abuse patient.[facility] the event this information is protected by the Federal Confidentiality of Alcohol and Drug Abuse Patient Records regulations: The Federal rules restrict any use of the information to criminally investigate or prosecute any alcohol or drug abuse patient.[facility] Reason for Visit (unrecogniz ed section and [...] BE BASED ON THE PRIMARY CLINICAL RECORDS. [facility] [employer] [facility]. provides no warranty or guarantee of the accuracy or completeness of information in this document.
--- NOTE | 2023-12-08 22:37 | ED.RN ---
Pt has left department without being seen by Dr. Canales.
--- OUTSIDE RECORDS SUMMARY | 2023-12-08 22:58 | XMS RPT_ITS | CCD ---
Author Name Unknown Address [address] [place] [address] Organization [facility] Care Team Providers Care Tie Knitter Helper Name Role Phone ANG, DR IRAIDA Castillo [...] Translations: [ASPIRIN] Drug Allergy 08-29-20 08 Hives [facility] Work Phone: (8 sources) Citalopram; Translations: [CITALOPRAM HYDROBROMIDE] Drug Allergy 01-02-20 15 Other: See Comments [facility] (8 sources) Grass pollen; Translations: [GRASS POLLEN] Propensity to adverse reactions 08-07-20 05 [facility] Work Phone: (8 sources) Pollen; Translations: [POLLEN] Propensity to adverse reactions 08-07-20 05 [facility] Work Phone: (8 sources) rizatriptan; Translations: [RIZATRIPTAN BENZOATE] Drug Allergy 02-16-20 14 Other: See Comments [facility] (8 sources) Sulfamethoxazole / Trimethoprim; Translations: [SULFAMETHOXAZOLE-TR IMETHOPRIM] Drug Allergy 08-05-20 07 [facility] Work Phone: (8 sources) Tree; Translations: [TREES] Propensity to adverse reactions 08-07-20 05 [facility] Work Phone: (3 sources) Sulfamethoxazole; Translations: [SULFAMETHOXAZOLE] Drug Allergy 11-15-19 Swelling [facility] (3 sources) Trimethoprim; Translations: [TRIMETHOPRIM] Drug Allergy 11-15-19 Swelling [facility] (1 source) Phenazopyridine Drug Allergy 08-02-20 Hives [facility] Work Phone: Medications Current Medications Medication Drug [...] (7 sources) Drug therapy finding; Translations: [Other usp (current) drug therapy] Onset: 06-28-2018 06-28-2018 Episodic [...] 98.6 [degF] Lyudmila Monsivais APRN.CNP Work Phone: [facility] 08-02-2023 11:52-0400 Body weight 73.66 kg Lyudmila Monsivais APRN.CNP Work Phone: [facility] 08-02-2023 11:52-0400 Diastolic blood pressure 84 mm[Hg] Lyudmila Monsivais APRN.CNP Work Phone: [facility] 08-02-2023 11:52-0400 Heart rate 101 /min Lyudmila Praisler-Wood WRAPPER STITCHER.INDUSTRIAL SWEEPER CLEANER Work Phone: [facility] 08-02-2023 11:52-0400 Respiratory rate 16 /min Lyudmila Praisler-Wood WRAPPER STITCHER.INDUSTRIAL SWEEPER CLEANER Work Phone: [facility] 08-02-2023 11:52-0400 SaO2% (BldA) [Mass fraction] 100 % Lyudmila Praisler-Wood WRAPPER STITCHER.INDUSTRIAL SWEEPER CLEANER Work Phone: [facility] 08-02-2023 11:52-0400 Systolic blood pressure 144 mm[Hg] Lyudmila Praisler-Wood WRAPPER STITCHER.INDUSTRIAL SWEEPER CLEANER Work Phone: [facility] 07-22-2023 18:05-0400 Body temperature 98.4 [degF] Briseida Trujillo WRAPPER STITCHER.INDUSTRIAL SWEEPER CLEANER Work Phone: [facility] 07-22-2023 18:05-0400 Body weight 72.67 kg Briseida Trujillo APRN.INDUSTRIAL SWEEPER CLEANER Work Phone: [facility] 07-22-2023 18:05-0400 Diastolic blood pressure 84 mm[Hg] Briseida Trujillo WRAPPER STITCHER.INDUSTRIAL SWEEPER CLEANER Work Phone: [facility] 07-22-2023 18:05-0400 Heart rate 110 /min Briseida Trujillo WRAPPER STITCHER.INDUSTRIAL SWEEPER CLEANER Work Phone: [facility] 07-22-2023 18:05-0400 Respiratory rate 18 /min Briseida Trujillo WRAPPER STITCHER.INDUSTRIAL SWEEPER CLEANER Work Phone: [facility] 07-22-2023 18:05-0400 SaO2% (BldA) [Mass fraction] 98 % Briseida Trujillo WRAPPER STITCHER.INDUSTRIAL SWEEPER CLEANER Work Phone: [facility] 07-22-2023 18:05-0400 Systolic blood pressure 132 mm[Hg] Briseida Trujillo WRAPPER STITCHER.INDUSTRIAL SWEEPER CLEANER Work Phone: [facility] 07-11-2022 15:53-0400 Body temperature 97.7 [degF] Raina Joseph WRAPPER STITCHER.INDUSTRIAL SWEEPER CLEANER Work Phone: [facility] 07-11-2022 15:53-0400 Body weight 72.48 kg Raina Opal WRAPPER STITCHER.INDUSTRIAL SWEEPER CLEANER Work Phone: [facility] 07-11-2022 15:53-0400 Diastolic blood pressure 100 mm[Hg] Raina Opal WRAPPER STITCHER.INDUSTRIAL SWEEPER CLEANER Work Phone: [facility] 07-11-2022 15:53-0400 Heart rate 97 /min Raina Opal WRAPPER STITCHER.INDUSTRIAL SWEEPER CLEANER Work Phone: [facility] 07-11-2022 15:53-0400 Respiratory rate 21 /min Raina Opal WRAPPER STITCHER.INDUSTRIAL SWEEPER CLEANER Work Phone: [facility] 07-11-2022 15:53-0400 SaO2% (BldA) [Mass fraction] 100 % Raina Opal WRAPPER STITCHER.INDUSTRIAL SWEEPER CLEANER Work Phone: [facility] 07-11-2022 15:53-0400 Systolic blood pressure 140 mm[Hg] Raina Opal WRAPPER STITCHER.INDUSTRIAL SWEEPER CLEANER Work Phone: [facility] 04-20-2022 13:41-0400 Body temperature 98.01 [degF] Norma Morales WRAPPER STITCHER.INDUSTRIAL SWEEPER CLEANER Work Phone: [facility] 04-20-2022 13:41-0400 Diastolic blood pressure 88 mm[Hg] Norma Morales WRAPPER STITCHER.INDUSTRIAL SWEEPER CLEANER Work Phone: [facility] 04-20-2022 13:41-0400 Heart rate 92 /min Norma Morales WRAPPER STITCHER.INDUSTRIAL SWEEPER CLEANER Work Phone: [facility] 04-20-2022 13:41-0400 Respiratory rate 16 /min Norma Morales WRAPPER STITCHER.INDUSTRIAL SWEEPER CLEANER Work Phone: [facility] 04-20-2022 13:41-0400 SaO2% (BldA) [Mass fraction] 98 % Norma Morales WRAPPER STITCHER.INDUSTRIAL SWEEPER CLEANER Work Phone: [facility] 04-20-2022 13:41-0400 Systolic blood pressure 128 mm[Hg] Norma Morales WRAPPER STITCHER.INDUSTRIAL SWEEPER CLEANER Work Phone: [facility] Encounters Encounter Date Encounter Type Care Provider Facility Start: 08-02-2023 End: 08-02-2023 ambulatory Facility:[facility] Start: 08-02-2023 End: 08-02-2023 Patient encounter procedure Lyudmila Monsivais WRAPPER STITCHER.INDUSTRIAL SWEEPER CLEANER Work Phone: [facility] Procedures Date Procedure Procedure Detail Performing Clinician Start: 08-02-2023 Urnls dip stick/tabl et rgnt auto w/o microscopy Lyudmila Monsivais WRAPPER STITCHER.INDUSTRIAL SWEEPER CLEANER Work Phone: Start: 07-11-2022 Urnls dip stick/tabl et rgnt auto w/o microscopy Esteban Merritt WRAPPER STITCHER.INDUSTRIAL SWEEPER CLEANER Work Phone: Start: 04-20-2022 Urnls dip stick/tabl et rgnt auto w/o microscopy Norma Morales WRAPPER STITCHER.INDUSTRIAL SWEEPER CLEANER Work Phone: Start: 12-04-[address] IRAIDA FRY Plan of Treatment Date Care Activity Detail Author Start: 09-08-2029 Urine microalbumin profile [facility] Start: 07-03-2023 Influenza vaccination Influenza Vaccine (#1) [facility] Start: 07-03-2022 Influenza vaccination [facility] Start: 12-15-2021 COVID-19 VACCINE (3 - Booster for Pfizer series) COVID-19 VACCINE (3 - Booster for Pfizer series) [facility] Start: 09-09-2021 Covid-19 Vaccine (3 - Pfizer series) Covid-19 Vaccine (3 - Pfizer series) [facility] Start: 11-13-2019 PAP TESTING PAP TESTING [facility] Start: 08-17-2019 ANNUAL PCP TEAM CHRONIC DISEASE VISIT ANNUAL PCP TEAM CHRONIC DISEASE VISIT [facility] Start: 2019 HPV TESTING HPV TESTING [facility] Start: 2007 BP CONTROLLED (<130/80) BP CONTROLLED (<130/80) [facility] Start: 2007 SPIROMETRY SPIROMETRY [facility] Start: 04-23-2005 PNEUMOCOCCAL (2 - PCV) PNEUMOCOCCAL (2 - PCV) [facility] ic Start: 06-22-2005 Pneumococcal vaccination Pneumococcal Vaccine (2 - PCV) [facility] Start: 1994 COVID-19 VACCINE (#1) COVID-19 VACCINE (#1) [facility] Bacteria identified in Urine by Culture URINE CULTURE Microbiology Routine Dysuria Ordered: 04/20/2022 [facility] Work Phone: Immunizations Immunization Date Immunization Notes Care Provider Lila ceja 07-15-2021 influenza virus vacc ine, unspecified formulation Briseida Trujillo APRN.[facility] Work Phone: [facility] 09-08-2019 tetanus toxoid, redu jessica diphtheria toxoid, and acellular pertussis vaccine, adsorbed No [facility] 08-17-2018 influenza, injectabl e, quadrivalent, contains preservative No [facility] 11-24-2016 influenza, injectabl e, quadrivalent, contains preservative No [facility] 08-02-2015 influenza, injectabl e, quadrivalent, contains preservative No [facility] 08-02-2015 influenza, seasonal, injectable No [facility] 09-21-2014 influenza, seasonal, injectable No [facility] Work Phone: 08-27-2013 influenza virus vacc ine, unspecified formulation No [facility] 07-31-2012 influenza virus vacc ine, unspecified formulation No [facility] 08-23-2011 influenza virus vacc ine, unspecified formulation No [facility] Work Phone: 10-08-2010 influenza virus vacc ine, unspecified formulation No [facility] Work Phone: 09-11-2009 novel influenza-H1N1 -09, preservative-free, injectable No [facility] 08-02-2009 influenza virus vacc ine, unspecified formulation No [facility] Work Phone: 09-10-2007 human papilloma viru s vaccine, quadrivalent No [facility] Work Phone: 09-06-2007 influenza virus vacc ine, unspecified formulation No [facility] Work Phone: 05-06-2007 human papilloma viru s vaccine, quadrivalent No [facility] Work Phone: 03-24-2007 meningococcal polysaccharide vaccine (MPSV4) No [facility] 02-25-2007 human papilloma viru s vaccine, quadrivalent No [facility] Work Phone: 09-10-2006 influenza virus vacc ine, unspecified formulation No [facility] Work Phone: 09-02-2005 influenza virus vacc ine, unspecified formulation No [facility] Work Phone: 04-23-2004 pneumococcal polysaccharide vaccine, 23 valent No [facility] Work Phone: 09-29-2003 hepatitis B vaccine, pediatric or pediatric/adolescent dosage No [facility] Work Phone: 05-01-2003 hepatitis B vaccine, pediatric or pediatric/adolescent dosage No [facility] Work Phone: 03-29-2003 hepatitis B vaccine, pediatric or pediatric/adolescent dosage No [facility] Work Phone: 12-24-2000 measles, mumps and rubella virus vaccine No [facility] Work Phone: 05-27-2000 diphtheria and tetan us toxoids, adsorbed for pediatric use No [facility] Work Phone: 06-26-1994 DTP-Haemophilus influenzae type b conjugate vaccine No [facility] Work Phone: 06-26-1994 poliovirus vaccine, inactivated No [facility] Work Phone: 11-02-1993 Chicken Pox (disease) No [facility] Work Phone: 11-23-1990 DTP-Haemophilus influenzae type b conjugate vaccine No [facility] Work Phone: 11-23-1990 poliovirus vaccine, inactivated No [facility] Work Phone: 08-19-1990 measles, mumps and rubella virus vaccine No [facility] Work Phone: 1989 DTP-Haemophilus influenzae type b conjugate vaccine No [facility] Work Phone: 1989 DTP-Haemophilus influenzae type b conjugate vaccine No Pcp [facility] Work Phone: 1989 poliovirus vaccine, inactivated No Pcp [facility] Work Phone: 1989 DTP-Haemophilus influenzae type b conjugate vaccine No Pcp [facility] Work Phone: 1989 poliovirus vaccine, inactivated No Pcp [facility] Work Phone: Payers Date Payer Category Payer Medicaid [id number] 2021 Medicaid 2021 Medicaid [employer] [id number] 2021-Present [phone] [address] [place] [address] Medicaid [id number] 1989 Unknown [id number] Unknown [id number] Social History Date Type Detail Facility Start: 07-31-2011 End: 07-11-2022 Tobacco smoking status NHIS Never smoked tobacco [facility] Start: 12-30-2019 End: 08-02-2023 Alcohol intake Current non-drinker of alcohol (finding) [facility] Start: 12-20-2019 History SDOH Financial 2 [facility] Start: 1990 Sex Assigned At Not on file [facility] Start: 04-10-2022 End: 07-11-2022 Exposure to SARS-CoV-2 (event) Not sure [facility] Start: 07-31-2011 End: 07-11-2022 Tobacco use and exposure Smokeless tobacco non-user [facility] Work Phone: Start: 04-14-2023 End: 07-22-2023 History of Social function [facility] Start: 04-14-2023 End: 07-22-2023 Tobacco use panel [facility] How hard is it for y ou to pay for the very basics like food, housing, medical care, and heating Hard [facility] Adult Depression Screening Assessment 2 [facility] (I/We) worried wheth er (my/our) food would run out before (I/we) got money to buy more. Sometimes true [facility] Clinical Notes 01-22-2016 to 08-02-2023 Lyudmila Monsivais APRN.INDUSTRIAL SWEEPER CLEANER - 08/02/2023 12:05 PM EDTPatient Briseida Hendrickson APRN.INDUSTRIAL SWEEPER CLEANER - 07/22/2023 6:15 PM EDTPatient Nolan Joseph APRN.INDUSTRIAL SWEEPER CLEANER - 07/11/2022 4:02 PM EDT Note Date & Type Note Facility 08-02-2023 Note HNO ID: [id number] Author: Lyudmila Monsivais APRN.INDUSTRIAL SWEEPER CLEANER Service: ? Author Type: Nurse Practitioner Type: [...] Negative Negative Final COLOR UA (POCT) 08/02/2023 Alpha Final CLARITY UA (POCT) 08/02/2023 Clear Final [...] Discussed expected course of illness Lyudmila Monsivais APRN.[facility] 08-02-2023 History of Presen t illness [...] Negative Negative Final COLOR UA (POCT) 08/02/2023 Alpha Final CLARITY UA (POCT) 08/02/2023 Clear Final [...] Discussed expected course of illness Lyudmila Monsivais APRN.INDUSTRIAL SWEEPER CLEANER documented in this encounter [facility] 08-02-2023 Instructions Lyudmila Monsivais APRN.DOMINIQUE - 08/02/2023 [...] Discussed expected course of illness Lyudmila Monsivais APRN.[facility] PATIENT INFO BLADDER INFECTION OVERVIEW Bladder infections [...] have an infection. documented in this encounter [facility] 07-22-2023 Note HNO ID: [id number] Author: Briseida Trujillo APRN.INDUSTRIAL SWEEPER CLEANER Service: ? Author Type: Nurse Practitioner Type: [...] occur. Patient agreeable to treatment plan. Briseida rTujillo APRN.[facility] 07-22-2023 History of Presen t illness [...] Briseida Trujillo APRN.DOMINIQUE documented in this encounter [facility] 07-11-2022 Instructions Raina Joseph APRN.CNP - 07/11/2022 4:07 PM EDT macrobid for 5 days Tylenol/ibuprofen as needed for discomfort AZO otc Increase hydration -Follow up with PCP or return to clinic if symptoms not improving in 3 days or if you develop any new (or worsening) symptoms such as fever, chills or back pain go to ER. documented in this encounter [facility] 07-11-2022 History of Presen t illness Narrative Subjective The history is provided by the patient. No language and literature division chair was used. HPI Jayashree Tsai is a [...] have confirmed and edited as necessary, the [facility] Review of Systems Constitutional: Negative for [...] UA (POCT) Negative Negative COLOR UA (POCT) Alpha CLARITY UA (POCT) Clear ASSESSMENT/PLAN: 1. Burning [...] Raina Joseph APRN.DOMINIQUE documented in this encounter [facility] 06-20-2022 Miscellaneous Notes Spoke to patient and [...] free air conditioner. documented in this encounter [facility] 04-23-2022 Miscellaneous Notes Left message for patient with results and recommendations.Sofy Cantrell LPN Phone call brief message to contact a nurse. Kya Tabares LPN Urine culture reveals growth and the Keflex should be working. Please inquire as to whether symptoms improving or not. Patient needs to follow up with PCP to ensure that blood has resolved. documented in this encounter [facility] 04-20-2022 Instructions Norma Morales APRN.DOMINIQUE - 04/20/2022 [...] treated. A physician, nurse practitioner or physician reproductive healthcare assistant may treat with a short course [...] if symptoms resolve. documented in this encounter [facility] 04-20-2022 History of Presen t illness Narrative This note was created using [employer]. Subjective Jayashree Tsai is a 31 year [...] history is provided by the patient. No language and literature division chair was used. UTI This is a new [...] Norma Morales APRN.CNP documented in this encounter [facility] 01-30-2022 Miscellaneous Notes Office received Disability paperwork [...] and she will need to come and pickling grader forms and become established with another Primary Care Provider. Pt called and was LM on VM to return call to office. 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 Forms have been routed back to Medical Records for pt to pickling grader. Kady Mendoza Ma documented in this encounter [facility] documented as of this encounter (statuses as of 03/12/2022) [facility]03-22-2016 History of Past illness Narrative* Problem Noted Date Resolved Date BMI 31.0-31.9,adult 01/22/2016 02/24/2017 LACERATION -NOT COMPLICATED EAR, EXTERNAL 200508/02/2012 documented as of this encounter (statuses as of 04/20/2022) [facility]03-22-2016 History of Past illness Narrative* Problem Noted Date Resolved Date BMI 31.0-31.9,adult 01/22/2016 02/24/2017 LACERATION -NOT COMPLICATED EAR, EXTERNAL 200508/02/2012 documented as of this encounter (statuses as of 04/23/2022) [address]22-2016 History of Past illness Narrative* Problem Noted Date Resolved Date BMI 31.0-31.9,adult 01/22/2016 02/24/2017 LACERATION -NOT COMPLICATED EAR, EXTERNAL 200508/02/2012 documented as of this encounter (statuses as of 06/20/2022) [address]-2016 History of Past illness Narrative* Problem Noted Date Resolved Date BMI 31.0-31.9,adult 01/22/2016 02/24/2017 LACERATION -NOT COMPLICATED EAR, EXTERNAL 200508/02/2012 documented as of this encounter (statuses as of 07/11/2022) [address]-2016 History of Past illness Narrative* Problem Noted Date Diagnosed Date Resolved Date BMI 31.0-31.9,adult 01/22/2016 02/25/20 17 LACERATION -NOT COMPLICATED EAR, EXTERNAL 06/24/2006 08/02/2012 documented as of this encounter (statuses as of 07/23/2023) [address]2016 History of Past illness Narrative* Problem Noted Date Diagnosed Date Resolved Date BMI 31.0-31.9,adult 01/22/2016 02/25/20 17 LACERATION -NOT COMPLICATED EAR, EXTERNAL 06/24/2006 08/02/2012 documented as of this encounter (statuses as of 08/02/2023) [facility] note* Diagnosis Dysuria- Primary Acute cystitis with hematuria Acute cystitis [facility] Diagnosis Burning with urination- Primary Dysuria Acute lower UTI Urinary tract infection, site not specified documented [facility] Diagnosis Acute cough- Primary [facility] Diagnosis Burning with urination- Primary Dysuria documented in this encounter [facility] Summary Purpose Family History No Family History Records FoundNo Family History Records FoundNo Family History Records Found Advance Directives No Advanced Directives Records FoundDocuments on File Type Date Recorded Patient Inspector Filters Expl anation Advance Directive(s) 12/19/2019 10:44 AM Hospital Course Note HNO ID: [id number] Author: Prema Haro Service: Obstetrics Author Type: [...] HOSPITALIZATION: Delivery Summary: Quin, Girl Jayashree Lloyd [[id number]] Delivery Information: Delivery Date: 12/20/19 Delivery type: Vagin (more content not included)... Additional Source Comments INFORMATION SOURCE (unrecogn ized section and content) DATE CREATED AUTHOR AUTHOR'S ORGANIZ ATION 12/14/2021 [facility] DATE CREATED AUTHOR AUTHOR'S ORGANIZ ATION 08/07/2023 [facility] Source Comments (unrecognize d section and content) In the event this informatio n is protected by the Federal Confidentiality of Alcohol and Drug Abuse Patient Records regulations: The Federal rules restrict any use of the information to criminally investigate or prosecute any alcohol or drug abuse patient.[facility] the event this information is protected by the Federal Confidentiality of Alcohol and Drug Abuse Patient Records regulations: The Federal rules restrict any use of the information to criminally investigate or prosecute any alcohol or drug abuse patient.[facility] the event this information is protected by the Federal Confidentiality of Alcohol and Drug Abuse Patient Records regulations: The Federal rules restrict any use of the information to criminally investigate or prosecute any alcohol or drug abuse patient.[facility] the event this information is protected by the Federal Confidentiality of Alcohol and Drug Abuse Patient Records regulations: The Federal rules restrict any use of the information to criminally investigate or prosecute any alcohol or drug abuse patient.[facility] the event this information is protected by the Federal Confidentiality of Alcohol and Drug Abuse Patient Records regulations: The Federal rules restrict any use of the information to criminally investigate or prosecute any alcohol or drug abuse patient.[facility] the event this information is protected by the Federal Confidentiality of Alcohol and Drug Abuse Patient Records regulations: The Federal rules restrict any use of the information to criminally investigate or prosecute any alcohol or drug abuse patient.[facility] the event this information is protected by the Federal Confidentiality of Alcohol and Drug Abuse Patient Records regulations: The Federal rules restrict any use of the information to criminally investigate or prosecute any alcohol or drug abuse patient.[facility] Reason for Visit (unrecogniz ed section and [...] BE BASED ON THE PRIMARY CLINICAL RECORDS. [facility]. provides no warranty or guarantee of the accuracy or completeness of information in this document.
== END 2023-12-08 22:34 | disposition left against medical advice (07) ==
DX: L02.91 Cutaneous abscess, unspecified (principal)
CPT/HCPCS: 99282

== ENCOUNTER 2023-12-14 15:00 | Emergency (ER) | payer MEDICAID, SELFPAY ==
[2023-12-14 15:01] VITALS: BP 149/92; PULSE 90; RESP 20; TEMP 35.8; O2SAT 100; BMI 29.0
--- NOTE | 2023-12-14 15:18 | EX.ED.DYSGE1 ---
HPI History of Present Illness Chief Complaint: Flank Pain Detail of Chief Complaint: Flank pain Informant: patient Narrative Narrative: Patient presents to the emergency department with complaint of flank pain that started 2 days ago but was mild became more severe this morning. Patient states that she has a history of kidney stones. Patient denies urinary frequency or urgency. She denies hematuria. She denies fever. She has had some nausea with this. Currently rates her pain an 8-1/2 out of 10. She does not think she is as she has not missed it.. Denies any injury to her back or any lifting out of the ordinary. Patient denies any radiation of the pain down her legs. She also describes some pain in her right back and right lower abdomen as well. [facility] Medical History Anxiety Asthma Chronic hypertension Depression HELLP syndrome Kidney stones Pyelonephritis Wears contact lenses Wears glasses Home Medications cephalexin 500 mg capsule 500 mg PO BID #10 caps 04/07/23 [Rx Last Taken Unknown] famotidine 20 mg tablet (Pepcid) 20 mg PO DAILY #7 tabs 04/07/23 [Rx Last Taken Unknown] nitrofurantoin monohydrate/macrocrystals 100 mg capsule 1 cap PO BID 04/07/23 [History Last Taken Unknown] phenazopyridine 200 mg tablet (Pyridium) 200 mg PO TID PRN Bladder Spasms 04/07/23 [History Last Taken Unknown] prednisone 20 mg tablet 40 mg (2 x 20 mg) PO DAILY #10 tabs 04/07/23 [Rx Last Taken Unknown] ibuprofen 600 mg tablet 600 mg PO Q8H PRN pain #14 tabs 07/15/23 [Rx Last Taken Unknown] ondansetron 4 mg disintegrating tablet 4 mg PO Q8H PRN PRN Nausea #10 tabs 07/15/23 [Rx Last Taken Unknown] hydrocodone-acetaminophen 5-325mg 5mg-325mg 1 tab PO Q6H PRN PRN Pain 3 days #10 TABLETS 10/29/23 [Rx Last Taken Unknown] hydrocodone-acetaminophen 5-325mg 5mg-325mg 1 tab PO Q4H PRN PRN Pain 2 days #10 TABLETS 12/14/23 [Rx Last Taken Unknown] naproxen 500 mg tablet 500 mg PO BID #14 tabs 12/14/23 [Rx Last Taken Unknown] Allergy/AdvReac Type Severity Reaction Status Date / Time nitrofurantoin Allergy Severe Hives Verified 12/08/23 20:20 [From Macrobid] aspirin Allergy Swelling Verified 10/29/23 10:41 sulfamethoxazole Allergy Swelling Verified 10/29/23 10:41 [From Bactrim] trimethoprim [From Bactrim] Allergy Swelling Verified 10/29/23 10:41 Surgical History H/O adenoidectomy History of tonsillectomy and adenoidectomy Hx of cystoscopy Social History household members: significant other Smoking Status: Never smoker substance use type: does not use ROS ROS ED Review of Systems ROS Unobtainable: other Constitutional Constitutional ED: Reports lethargy; Denies chills, fever(s), sweats or weight loss Eyes Eyes: Denies blurry vision, change in vision or diplopia ENT ENT ED: Denies rhinorrhea or sore throat Cardiovascular Cardiovascular: Denies chest pain, orthopnea or racing heartbeat Respiratory/Chest Respiratory/Chest: Denies cough, dyspnea, dyspnea on exertion, orthopnea or sputum Gastrointestinal Gastrointestinal: Reports abdominal pain; Denies diarrhea, nausea or vomiting Genitourinary Genitourinary ED: Denies dysuria, hematuria or urinary frequency Musculoskeletal Musculoskeletal: Reports back pain; Denies arthralgias, myalgias or neck pain Integumentary Denies abscess, Abrasions or rash Neurologic Neurologic: Denies headache(s) or weakness Psychiatric Psychiatric: Denies anxiety, depression or suicidal thoughts Endocrine Endocrinology: Denies polydipsia, polyphagia or polyuria Hematologic/Lymphatic Hematologic/Lymphatic: Denies easy bleeding, easy bruising or lymphadenopathy Allergic/Immunologic Allergic/Immunologic ED: Denies mouth swelling, tongue swelling or urticaria EXAM Physical Exam Const Vital Signs: 12/14/23 15:01 Temperature 96.5 F L Temperature Source Temporal Pulse Rate 90 Respiratory Rate 20 H Blood Pressure 149/92 H Blood Pressure Mean 111 Pulse Ox 100 Oxygen Delivery Method Room Air Positive well nourished and well developed General Appearance ED: well developed and NAD HEENT Reports TM's clear and moist mucous membranes normocephalic and atraumatic; Negative for trauma or tenderness Tympanic Membrane ED: Yes TM's clear Eyes PERRL and EOMs intact bilaterally General Eye ED: Negative for pale conjunctiva or scleral icterus Neck no lymphadenopathy, supple and no JVD General: Negative for tenderness Chest Wall inspection of chest normal and palpation of chest normal Chest: Negative for tenderness Resp normal respiratory effort and clear to auscultation bilaterally Effort and Inspection: Negative for respiratory distress or pain with movement Auscultation: Negative for rhonchi, wheezes or diminished lung sounds Cardio regular rate, regular rhythm, S1 normal heart sound, S2 normal heart sound and no murmurs Peripheral Pulses: pulses 2+ throughout GI normal to inspection, nondistended, normoactive bowel sounds, soft to palpation, non-distended and no masses GI Narrative: Mild tenderness over the right lower quadrant and suprapubic region. There is no rebound, rigidity, or purulent signs. No mass palpated. Back/Spine no CVA tenderness and no thoracic nor lumbar tenderness Extremity normal to inspection General Extremety ED: Negative for edema General Extremity: Negative for edema Neuro oriented x3, CN's II-XII intact bilaterally, no sensory deficits noted and gait normal Sensorium / Orientation: awake, alert, oriented to person, oriented to place and oriented to time Motor Exam: strength 5/5 throughout and strength abnormal Psych mental status grossly normal Skin no rashes or lesions noted and no wounds MDM MDM MDM Narrative Medical decision making narrative: I recommended ordering an IV as well as lab work and urine and CT flank to evaluate. In the differential would be kidney stone versus UTI versus appendicitis versus /ectopic. Patient is refusing an IV started and lab work because she has had bad experiences and is a tough IV stick. She would like the CT scan and the urine as well as urine Prag to evaluate. Patient was ordered Toradol IM. She understands I cannot evaluate her blood counts as well as kidney function or electrolytes. Patient had a urinalysis that was unremarkable for infection. Urine was negative. CT flank obtained showed a right adnexal cyst measuring approximately 4.5 cm. She had a punctate stone left kidney otherwise no acute process. Toradol did improve her pain. I will write her prescription for some naproxen and a few [place] for severe pain. She is referred to [facility] for follow-up regarding the ovarian cyst. Discharged home in stable condition. Lab Data Attestation: I reviewed the patient's lab results. Labs: Laboratory Results - last 24 hr 12/14/23 15:30 Urine Color Yellow Urine Clarity Sl. Cloudy Urine pH 5.0 Ur Specific [place] 1.030 Urine Protein 30 H Urine Glucose (UA) Normal Urine Ketones 5 H Urine Occult Blood Negative Urine Nitrite Negative Urine Bilirubin 1 H Urine Urobilinogen 1 H Ur Leukocyte Esterase 100 H Urine RBC 0 SEEN Urine WBC 0-5 SEEN Ur Squamous Epith Cells 10-25 SEEN Calcium Oxalate Crystal 2+ Urine Bacteria 1+ Urine Mucus 0 SEEN Urine Test Negative Discharge Plan Triage Chief Complaint: Flank Pain ED Provider: Jodie Queen Dx/Rx/DC Orders Clinical Impression: Acute flank pain, Cyst of right ovary Instructions: ED Flank Pain, Uncertain Cause, ED Ovarian Cyst Prescriptions: New hydrocodone-acetaminophen [hydrocodone-acetaminophen] 5-325 mg tablet 1 tab PO Q4H PRN PRN (Reason: Pain) 2 Days Qty: 10 0RF naproxen 500 mg tablet 500 mg PO BID Qty: 14 0RF No Action phenazopyridine [Pyridium] 200 mg Tablet 200 mg PO TID PRN (Reason: Bladder Spasms) nitrofurantoin monohyd/m-cryst 100 mg capsule 1 cap PO BID cephalexin 500 mg capsule 500 mg PO BID Qty: 10 0RF prednisone 20 mg tablet 40 mg PO DAILY Qty: 10 0RF famotidine [Pepcid] 20 mg tablet 20 mg PO DAILY Qty: 7 0RF ibuprofen 600 mg tablet 600 mg PO Q8H PRN (Reason: pain) Qty: 14 0RF ondansetron 4 mg tablet,disintegrating 4 mg PO Q8H PRN PRN (Reason: Nausea) Qty: 10 0RF hydrocodone-acetaminophen [hydrocodone-acetaminophen] 5-325 mg tablet 1 tab PO Q6H PRN PRN (Reason: Pain) 3 Days Qty: 10 0RF Primary Care Provider: Care Physician,No Primary Referrals: Chante Viveros DO [Med Staff - Active Staff] - 3-5 Days Care Physician,No Primary [Primary Care Provider] - Disposition Disposition: Home, Self Care
[2023-12-14] MEDS: Ketorolac 60 MG/2 ML Vial IM (15:21)
[2023-12-14 15:35] LABS: Mucous, Urine 0 SEEN /hpf (<or=2+); Red Blood Cells-Urine 0 SEEN /hpf (0-5)
[2023-12-14 15:37] LABS: Color, Urine Yellow (Yellow); Glucose, Dipstick Normal (Normal); Ketone-Dipstick 5 mg/dl (Negative); Leukocyte Esterase-Dipstick 100 /ul (Negative); Nitrite-Dipstick Negative (Negative); Occult Blood-Urine Negative /ul (Negative); Protein-Dipstick 30 mg/dl (Negative); Urine Clarity Sl. Cloudy (Clear); Urine Urobilinogen 1 mg/dl (Normal)
[2023-12-14 15:45] LABS: Urine Bilirubin Dipstick 1 mg/dL (Negative)
[2023-12-14 15:53] LABS: Bacteria 1+ /hpf (None Seen)
[2023-12-14 15:54] LABS: Calcium Oxalate Crystals Ur 2+ /hpf (<or=2+); Internal QC Validated? YES +Cl - CLEAR BKGD; Pregnancy, Urine Negative Negative; Squamous Epithelial Cells - UA 10-25 SEEN /hpf (5-10); White Blood Cells 0-5 SEEN /hpf (0-5)
--- NOTE | 2023-12-14 16:04 | CT_ITS ---
EXAM: CT ABDOMEN AND PELVIS WITHOUT INTRAVENOUS CONTRAST CLINICAL INDICATION: left flank pain TECHNIQUE: Helically acquired images were obtained of the abdomen and pelvis without intravenous contrast. This CT exam was performed using one or more of the following dose reduction techniques: automated exposure control, adjustment of the mA and/or kV according to patient size, and/or use of iterative reconstruction technique. COMPARISON: 10/29/2023 FINDINGS: LOWER THORAX: No significant abnormality. Lung bases are clear. No cardiomegaly. No significant pericardial effusion. ABDOMEN: LIVER: No significant abnormality. Homogeneous. GALLBLADDER AND BILE DUCTS: No significant abnormality. No calcified gallstones. No gallbladder distention or wall edema. No intra- or extrahepatic biliary ductal dilation. PANCREAS: No significant abnormality. No focal cystic mass. SPLEEN: No significant abnormality. Normal size without focal cystic or solid mass. ADRENALS: No significant abnormality. No nodules. KIDNEYS AND URETERS: Punctate, 2 mm or less left upper pole renal calyceal stone. No ureteral stone or additional urolithiasis and no evidence of hydronephrosis. Normal renal size and position. STOMACH AND BOWEL: No significant abnormality. No stomach or bowel distention. No focal inflammatory change. PELVIS: APPENDIX: Normal appendix identified in the right lower quadrant. BLADDER: No significant abnormality. REPRODUCTIVE: 4.7 cm right adnexal cyst, likely ovarian cysts. ABDOMEN and PELVIS: INTRAPERITONEAL SPACE: No significant abnormality. No ascites or other fluid collection. No free air. BONES/JOINTS: Degenerative changes in the spine. No suspicious lytic or blastic abnormality. SOFT TISSUES: No significant abnormality. No discrete abdominal or pelvic wall hernia. VASCULATURE: No significant abnormality. Abdominal aorta is non-dilated. LYMPH NODES: No significant abnormality. No enlarged lymph nodes. CT/Abdomen/Pelvis without Cont IMPRESSION: 1. 4.7 cm right adnexal cyst, likely ovarian cyst. ACR White Paper guidelines (Mohamud, et. al. JACR 2020;17(2):248-254) suggest no follow-up is necessary. 2. Punctate, 2 mm or less left upper pole renal calyceal stone. No ureteral stone or additional urolithiasis and no evidence of hydronephrosis. Electronically Signed: Fernando Gomez DO at 16:28 EST ,
--- OUTSIDE RECORDS SUMMARY | 2023-12-14 19:56 | XMS RPT_ITS | CCD ---
Author Name Unknown Address [address] [place] [address] Organization [facility] Care Team Providers Care Account Specialist Name Role Phone ANG, DR IRAIDA Castillo [...] Translations: [ASPIRIN] Drug Allergy 08-29-20 08 Hives [facility] Work Phone: (8 sources) Citalopram; Translations: [CITALOPRAM HYDROBROMIDE] Drug Allergy 01-02-20 15 Other: See Comments [facility] (8 sources) Grass pollen; Translations: [GRASS POLLEN] Propensity to adverse reactions 08-07-20 05 [facility] Work Phone: (8 sources) Pollen; Translations: [POLLEN] Propensity to adverse reactions 08-07-20 05 [facility] Work Phone: (8 sources) rizatriptan; Translations: [RIZATRIPTAN BENZOATE] Drug Allergy 02-16-20 14 Other: See Comments [facility] (8 sources) Sulfamethoxazole / Trimethoprim; Translations: [SULFAMETHOXAZOLE-TR IMETHOPRIM] Drug Allergy 08-05-20 07 [facility] Work Phone: (8 sources) Tree; Translations: [TREES] Propensity to adverse reactions 08-07-20 05 [facility] Work Phone: (3 sources) Sulfamethoxazole; Translations: [SULFAMETHOXAZOLE] Drug Allergy 11-15-19 Swelling [facility] (3 sources) Trimethoprim; Translations: [TRIMETHOPRIM] Drug Allergy 11-15-19 Swelling [facility] (1 source) Phenazopyridine Drug Allergy 08-02-20 Hives [facility] Work Phone: Medications Current Medications [...] (7 sources) Drug therapy finding; Translations: [Other roasterman (current) drug therapy] Onset: 06-28-2018 06-28-2018 Episodic [...] 98.6 [degF] Lyudmila Monsivais APRN.CNP Work Phone: [facility] 08-02-2023 11:52-0400 Body weight 73.66 kg Lyudmila Monsivais APRN.CNP Work Phone: [facility] 08-02-2023 11:52-0400 Diastolic blood pressure 84 mm[Hg] Lyudmila Monsivais APRN.CNP Work Phone: [facility] 08-02-2023 11:52-0400 Heart rate 101 /min Lyudmila Praisler-Wood MANUFACTURING QUALITY TECHNICIAN.ACCOUNT RECEIVABLE ASSOCIATE Work Phone: [facility] 08-02-2023 11:52-0400 Respiratory rate 16 /min Lyudmila Praisler-Wood MANUFACTURING QUALITY TECHNICIAN.ACCOUNT RECEIVABLE ASSOCIATE Work Phone: [facility] 08-02-2023 11:52-0400 SaO2% (BldA) [Mass fraction] 100 % Lyudmila Praisler-Wood MANUFACTURING QUALITY TECHNICIAN.ACCOUNT RECEIVABLE ASSOCIATE Work Phone: [facility] 08-02-2023 11:52-0400 Systolic blood pressure 144 mm[Hg] Lyudmila Praisler-Wood MANUFACTURING QUALITY TECHNICIAN.ACCOUNT RECEIVABLE ASSOCIATE Work Phone: [facility] 07-22-2023 18:05-0400 Body temperature 98.4 [degF] Briseida Trujillo MANUFACTURING QUALITY TECHNICIAN.ACCOUNT RECEIVABLE ASSOCIATE Work Phone: [facility] 07-22-2023 18:05-0400 Body weight 72.67 kg Briseida Trujillo APRN.ACCOUNT RECEIVABLE ASSOCIATE Work Phone: [facility] 07-22-2023 18:05-0400 Diastolic blood pressure 84 mm[Hg] Briseida Trujillo MANUFACTURING QUALITY TECHNICIAN.ACCOUNT RECEIVABLE ASSOCIATE Work Phone: [facility] 07-22-2023 18:05-0400 Heart rate 110 /min Briseida Trujillo MANUFACTURING QUALITY TECHNICIAN.ACCOUNT RECEIVABLE ASSOCIATE Work Phone: [facility] 07-22-2023 18:05-0400 Respiratory rate 18 /min Briseida Trujillo MANUFACTURING QUALITY TECHNICIAN.ACCOUNT RECEIVABLE ASSOCIATE Work Phone: [facility] 07-22-2023 18:05-0400 SaO2% (BldA) [Mass fraction] 98 % Briseida Trujillo MANUFACTURING QUALITY TECHNICIAN.ACCOUNT RECEIVABLE ASSOCIATE Work Phone: [facility] 07-22-2023 18:05-0400 Systolic blood pressure 132 mm[Hg] Briseida Trujillo MANUFACTURING QUALITY TECHNICIAN.ACCOUNT RECEIVABLE ASSOCIATE Work Phone: [facility] 07-11-2022 15:53-0400 Body temperature 97.7 [degF] Raina Joseph MANUFACTURING QUALITY TECHNICIAN.ACCOUNT RECEIVABLE ASSOCIATE Work Phone: [facility] 07-11-2022 15:53-0400 Body weight 72.48 kg Raina Opal MANUFACTURING QUALITY TECHNICIAN.ACCOUNT RECEIVABLE ASSOCIATE Work Phone: [facility] 07-11-2022 15:53-0400 Diastolic blood pressure 100 mm[Hg] Raina Opal MANUFACTURING QUALITY TECHNICIAN.ACCOUNT RECEIVABLE ASSOCIATE Work Phone: [facility] 07-11-2022 15:53-0400 Heart rate 97 /min Raina Opal MANUFACTURING QUALITY TECHNICIAN.ACCOUNT RECEIVABLE ASSOCIATE Work Phone: [facility] 07-11-2022 15:53-0400 Respiratory rate 21 /min Raina Opal MANUFACTURING QUALITY TECHNICIAN.ACCOUNT RECEIVABLE ASSOCIATE Work Phone: [facility] 07-11-2022 15:53-0400 SaO2% (BldA) [Mass fraction] 100 % Raina Opal MANUFACTURING QUALITY TECHNICIAN.ACCOUNT RECEIVABLE ASSOCIATE Work Phone: [facility] 07-11-2022 15:53-0400 Systolic blood pressure 140 mm[Hg] Raina Opal MANUFACTURING QUALITY TECHNICIAN.ACCOUNT RECEIVABLE ASSOCIATE Work Phone: [facility] 04-20-2022 13:41-0400 Body temperature 98.01 [degF] Norma Morales MANUFACTURING QUALITY TECHNICIAN.ACCOUNT RECEIVABLE ASSOCIATE Work Phone: [facility] 04-20-2022 13:41-0400 Diastolic blood pressure 88 mm[Hg] Norma Morales MANUFACTURING QUALITY TECHNICIAN.ACCOUNT RECEIVABLE ASSOCIATE Work Phone: [facility] 04-20-2022 13:41-0400 Heart rate 92 /min Norma Morales MANUFACTURING QUALITY TECHNICIAN.ACCOUNT RECEIVABLE ASSOCIATE Work Phone: [facility] 04-20-2022 13:41-0400 Respiratory rate 16 /min Norma Morales MANUFACTURING QUALITY TECHNICIAN.ACCOUNT RECEIVABLE ASSOCIATE Work Phone: [facility] 04-20-2022 13:41-0400 SaO2% (BldA) [Mass fraction] 98 % Norma Morales MANUFACTURING QUALITY TECHNICIAN.ACCOUNT RECEIVABLE ASSOCIATE Work Phone: [facility] 04-20-2022 13:41-0400 Systolic blood pressure 128 mm[Hg] Norma Morales MANUFACTURING QUALITY TECHNICIAN.ACCOUNT RECEIVABLE ASSOCIATE Work Phone: [facility] Encounters Encounter Date Encounter Type Care Provider Facility Start: 08-02-2023 End: 08-02-2023 ambulatory Facility:[facility] Start: 08-02-2023 End: 08-02-2023 Patient encounter procedure Lyudmila Monsivais MANUFACTURING QUALITY TECHNICIAN.ACCOUNT RECEIVABLE ASSOCIATE Work Phone: [facility] Procedures Date Procedure Procedure Detail Performing Clinician Start: 08-02-2023 Urnls dip stick/tabl et rgnt auto w/o microscopy Lyudmila Monsivais MANUFACTURING QUALITY TECHNICIAN.ACCOUNT RECEIVABLE ASSOCIATE Work Phone: Start: 07-11-2022 Urnls dip stick/tabl et rgnt auto w/o microscopy Esteban Merritt MANUFACTURING QUALITY TECHNICIAN.ACCOUNT RECEIVABLE ASSOCIATE Work Phone: Start: 04-20-2022 Urnls dip stick/tabl et rgnt auto w/o microscopy Norma Morales MANUFACTURING QUALITY TECHNICIAN.ACCOUNT RECEIVABLE ASSOCIATE Work Phone: Start: 12-04-[address] IRAIDA FRY Plan of Treatment Date Care Activity Detail Author Start: 09-08-2029 Urine microalbumin profile [facility] Start: 07-03-2023 Influenza vaccination Influenza Vaccine (#1) [facility] Start: 07-03-2022 Influenza vaccination [facility] Start: 12-15-2021 COVID-19 VACCINE (3 - Booster for Pfizer series) COVID-19 VACCINE (3 - Booster for Pfizer series) [facility] Start: 09-09-2021 Covid-19 Vaccine (3 - Pfizer series) Covid-19 Vaccine (3 - Pfizer series) [facility] Start: 11-13-2019 PAP TESTING PAP TESTING [facility] Start: 08-17-2019 ANNUAL PCP TEAM CHRONIC DISEASE VISIT ANNUAL PCP TEAM CHRONIC DISEASE VISIT [facility] Start: 2019 HPV TESTING HPV TESTING [facility] Start: 2007 BP CONTROLLED (<130/80) BP CONTROLLED (<130/80) [facility] Start: 2007 SPIROMETRY SPIROMETRY [facility] Start: 04-23-2005 PNEUMOCOCCAL (2 - PCV) PNEUMOCOCCAL (2 - PCV) [facility] Start: 06-22-2005 Pneumococcal vaccination Pneumococcal Vaccine (2 - PCV) [facility] Start: 1994 COVID-19 VACCINE (#1) COVID-19 VACCINE (#1) [facility] Bacteria identified in Urine by Culture URINE CULTURE Microbiology Routine Dysuria Ordered: 04/20/2022 [facility] Work Phone: Immunizations Immunization Date Immunization Notes Care Provider Lila ceja 07-15-2021 influenza virus vacc ine, unspecified formulation Briseida Trujillo APRN.[facility] Work Phone: [facility] 09-08-2019 tetanus toxoid, redu jessica diphtheria toxoid, and acellular pertussis vaccine, adsorbed No [facility] 08-17-2018 influenza, injectabl e, quadrivalent, contains preservative No [facility] 11-24-2016 influenza, injectabl e, quadrivalent, contains preservative No [facility] 08-02-2015 influenza, injectabl e, quadrivalent, contains preservative No [facility] 08-02-2015 influenza, seasonal, injectable No [facility] 09-21-2014 influenza, seasonal, injectable No [facility] Work Phone: 08-27-2013 influenza virus vacc ine, unspecified formulation No [facility] 07-31-2012 influenza virus vacc ine, unspecified formulation No [facility] 08-23-2011 influenza virus vacc ine, unspecified formulation No [facility] Work Phone: 10-08-2010 influenza virus vacc ine, unspecified formulation No [facility] Work Phone: 09-11-2009 novel influenza-H1N1 -09, preservative-free, injectable No [facility] 08-02-2009 influenza virus vacc ine, unspecified formulation No [facility] Work Phone: 09-10-2007 human papilloma viru s vaccine, quadrivalent No [facility] Work Phone: 09-06-2007 influenza virus vacc ine, unspecified formulation No [facility] Work Phone: 05-06-2007 human papilloma viru s vaccine, quadrivalent No [facility] Work Phone: 03-24-2007 meningococcal polysaccharide vaccine (MPSV4) No [facility] 02-25-2007 human papilloma viru s vaccine, quadrivalent No [facility] Work Phone: 09-10-2006 influenza virus vacc ine, unspecified formulation No [facility] Work Phone: 09-02-2005 influenza virus vacc ine, unspecified formulation No [facility] Work Phone: 04-23-2004 pneumococcal polysaccharide vaccine, 23 valent No [facility] Work Phone: 09-29-2003 hepatitis B vaccine, pediatric or pediatric/adolescent dosage No [facility] Work Phone: 05-01-2003 hepatitis B vaccine, pediatric or pediatric/adolescent dosage No [facility] Work Phone: 03-29-2003 hepatitis B vaccine, pediatric or pediatric/adolescent dosage No [facility] Work Phone: 12-24-2000 measles, mumps and rubella virus vaccine No [facility] Work Phone: 05-27-2000 diphtheria and tetan us toxoids, adsorbed for pediatric use No [facility] Work Phone: 06-26-1994 DTP-Haemophilus influenzae type b conjugate vaccine No [facility] Work Phone: 06-26-1994 poliovirus vaccine, inactivated No [facility] Work Phone: 11-02-1993 Chicken Pox (disease) No [facility] Work Phone: 11-23-1990 DTP-Haemophilus influenzae type b conjugate vaccine No [facility] Work Phone: 11-23-1990 poliovirus vaccine, inactivated No [facility] Work Phone: 08-19-1990 measles, mumps and rubella virus vaccine No [facility] Work Phone: 1989 DTP-Haemophilus influenzae type b conjugate vaccine No [facility] Work Phone: 1989 DTP-Haemophilus influenzae type b conjugate vaccine No Pcp [facility] Work Phone: 1989 poliovirus vaccine, inactivated No Pcp [facility] Work Phone: 1989 DTP-Haemophilus influenzae type b conjugate vaccine No Pcp [facility] Work Phone: 1989 poliovirus vaccine, inactivated No Pcp [facility] Work Phone: Payers Date Payer Category Payer Medicaid [id number] 2021 Medicaid 2021 Medicaid [employer] [id number] 2021-Present [phone] [address] [place] [address] Medicaid [id number] 1989 Unknown [id number] Unknown [id number] Social History Date Type Detail Facility Start: 07-31-2011 End: 07-11-2022 Tobacco smoking status NHIS Never smoked tobacco [facility] Start: 12-30-2019 End: 08-02-2023 Alcohol intake Current non-drinker of alcohol (finding) [facility] Start: 12-20-2019 History SDOH Financial 2 [facility] Start: 1990 Sex Assigned At Not on file [facility] Start: 04-10-2022 End: 07-11-2022 Exposure to SARS-CoV-2 (event) Not sure [facility] Start: 07-31-2011 End: 07-11-2022 Tobacco use and exposure Smokeless tobacco non-user [facility] Work Phone: Start: 04-14-2023 End: 07-22-2023 History of Social function [facility] Start: 04-14-2023 End: 07-22-2023 Tobacco use panel [facility] How hard is it for y ou to pay for the very basics like food, housing, medical care, and heating Hard [facility] Adult Depression Screening Assessment 2 [facility] (I/We) worried wheth er (my/our) food would run out before (I/we) got money to buy more. Sometimes true [facility] Clinical Notes 01-22-2016 to 08-02-2023 Lyudmila Monsivais APRN.ACCOUNT RECEIVABLE ASSOCIATE - 08/02/2023 12:05 PM EDTPatient Briseida Hendrickson APRN.ACCOUNT RECEIVABLE ASSOCIATE - 07/22/2023 6:15 PM EDTPatient Nolan Joseph APRN.ACCOUNT RECEIVABLE ASSOCIATE - 07/11/2022 4:02 PM EDT Note Date & Type Note Facility 08-02-2023 Note HNO ID: [id number] Author: Lyudmila Monsivais APRN.ACCOUNT RECEIVABLE ASSOCIATE Service: ? Author Type: Nurse Practitioner Type: [...] Negative Negative Final COLOR UA (POCT) 08/02/2023 [place] Final CLARITY UA (POCT) 08/02/2023 Clear Final [...] Discussed expected course of illness Lyudmila Monsivais APRN.[facility] 08-02-2023 History of Presen t [...] Negative Negative Final COLOR UA (POCT) 08/02/2023 [place] Final CLARITY UA (POCT) 08/02/2023 Clear Final [...] Discussed expected course of illness Lyudmila Monsivais APRN.ACCOUNT RECEIVABLE ASSOCIATE documented in this encounter [facility] 08-02-2023 Instructions Lyudmila Monsivais APRN.DOMINIQUE [...] Discussed expected course of illness Lyudmila Monsivais APRN.[facility] PATIENT INFO BLADDER INFECTION OVERVIEW Bladder [...] have an infection. documented in this encounter [facility] 07-22-2023 Note HNO ID: [id number] Author: Briseida rTujillo APRN.ACCOUNT RECEIVABLE ASSOCIATE Service: ? Author Type: Nurse Practitioner Type: [...] Patient agreeable to treatment plan. Briseida Trujillo APRN.[facility] 07-22-2023 History of Presen t [...] Briseida Trujillo APRN.DOMINIQUE documented in this encounter [facility] 07-11-2022 Instructions Raina Joseph APRN.CNP - 07/11/2022 4:07 PM EDT macrobid for 5 days Tylenol/ibuprofen as needed for discomfort AZO otc Increase hydration -Follow up with PCP or return to clinic if symptoms not improving in 3 days or if you develop any new (or worsening) symptoms such as fever, chills or back pain go to ER. documented in this encounter [facility] 07-11-2022 History of Presen t illness Narrative Subjective The history is provided by the patient. No caramel candy maker was used. HPI Jayashree Tsai is a [...] have confirmed and edited as necessary, the [facility] Review of Systems Constitutional: Negative for chills [...] UA (POCT) Negative Negative COLOR UA (POCT) [place] CLARITY UA (POCT) Clear ASSESSMENT/PLAN: 1. Burning [...] Raina Joseph APRN.DOMINIQUE documented in this encounter [facility] 06-20-2022 Miscellaneous Notes Spoke to [...] free air conditioner. documented in this encounter [facility] 04-23-2022 Miscellaneous Notes Left message for patient with results and recommendations.Sofy Cantrell LPN Phone call brief message to contact a nurse. Kya Tabares LPN Urine culture reveals growth and the Keflex should be working. Please inquire as to whether symptoms improving or not. Patient needs to follow up with PCP to ensure that blood has resolved. documented in this encounter [facility] 04-20-2022 Instructions Norma Morales APRN.DOMINIQUE [...] treated. A physician, nurse practitioner or physician senior underwriting assistant may treat with a short course [...] if symptoms resolve. documented in this encounter [facility] 04-20-2022 History of Presen t illness Narrative This note was created using [employer]. Subjective Jayashree Tsai is a 31 year [...] history is provided by the patient. No caramel candy maker was used. 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 Pt called and was LM on VM to return call to office. 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 Forms have been routed back to Medical Records for pt to garbage pick up worker. Kady Mendoza Ma documented in this encounter [facility] documented as of this encounter (statuses as of 03/12/2022) [facility]03-22-2016 History of Past illness Narrative* Problem Noted Date Resolved Date BMI 31.0-31.9,adult 01/22/2016 02/24/2017 LACERATION -NOT COMPLICATED EAR, EXTERNAL 200508/02/2012 documented as of this encounter (statuses as of 04/20/2022) [facility]2016 History of Past illness Narrative* Problem Noted Date Resolved Date BMI 31.0-31.9,adult 01/22/2016 02/24/2017 LACERATION -NOT COMPLICATED EAR, EXTERNAL 200508/02/2012 documented as of this encounter (statuses as of 04/23/2022) [address]22-2016 History of Past illness Narrative* Problem Noted Date Resolved Date BMI 31.0-31.9,adult 01/22/2016 02/24/2017 LACERATION -NOT COMPLICATED EAR, EXTERNAL 200508/02/2012 documented as of this encounter (statuses as of 06/20/2022) [address]22-2016 History of Past illness Narrative* Problem Noted Date Resolved Date BMI 31.0-31.9,adult 01/22/2016 02/24/2017 LACERATION -NOT COMPLICATED EAR, EXTERNAL 200508/02/2012 documented as of this encounter (statuses as of 07/11/2022) [address]22-2016 History of Past illness Narrative* Problem Noted Date Diagnosed Date Resolved Date BMI 31.0-31.9,adult 01/22/2016 02/25/20 17 LACERATION -NOT COMPLICATED EAR, EXTERNAL 06/24/2006 08/02/2012 documented as of this encounter (statuses as of 07/23/2023) [address]22-2016 History of Past illness Narrative* Problem Noted Date Diagnosed Date Resolved Date BMI 31.0-31.9,adult 01/22/2016 02/25/20 17 LACERATION -NOT COMPLICATED EAR, EXTERNAL 06/24/2006 08/02/2012 documented as of this encounter (statuses as of 08/02/2023) [facility] note* Diagnosis Dysuria- Primary Acute cystitis with hematuria Acute cystitis [facility] Diagnosis Burning with urination- Primary Dysuria Acute lower UTI Urinary tract infection, site not specified [facility] Acute cough- Primary [facility] Diagnosis Burning with urination- Primary Dysuria documented in this encounter [facility] Summary Purpose Family History No Family History Records FoundNo Family History Records FoundNo Family History Records Found Advance Directives No Advanced Directives Records FoundDocuments on File Type Date Recorded 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 Additional Source Comments INFORMATION SOURCE (unrecogn ized section and content) DATE CREATED AUTHOR AUTHOR'S ORGANIZ ATION 12/14/2021 [facility] DATE CREATED AUTHOR AUTHOR'S ORGANIZ ATION 08/07/2023 [facility] Source Comments (unrecognize d section and content) In the event this informatio n is protected by the Federal Confidentiality of Alcohol and Drug Abuse Patient Records regulations: The Federal rules restrict any use of the information to criminally investigate or prosecute any alcohol or drug abuse patient.[facility] the event this information is protected by the Federal Confidentiality of Alcohol and Drug Abuse Patient Records regulations: The Federal rules restrict any use of the information to criminally investigate or prosecute any alcohol or drug abuse patient.[facility] the event this information is protected by the Federal Confidentiality of Alcohol and Drug Abuse Patient Records regulations: The Federal rules restrict any use of the information to criminally investigate or prosecute any alcohol or drug abuse patient.[facility] the event this information is protected by the Federal Confidentiality of Alcohol and Drug Abuse Patient Records regulations: The Federal rules restrict any use of the information to criminally investigate or prosecute any alcohol or drug abuse patient.[facility] the event this information is protected by the Federal Confidentiality of Alcohol and Drug Abuse Patient Records regulations: The Federal rules restrict any use of the information to criminally investigate or prosecute any alcohol or drug abuse patient.[facility] the event this information is protected by the Federal Confidentiality of Alcohol and Drug Abuse Patient Records regulations: The Federal rules restrict any use of the information to criminally investigate or prosecute any alcohol or drug abuse patient.[facility] the event this information is protected by the Federal Confidentiality of Alcohol and Drug Abuse Patient Records regulations: The Federal rules restrict any use of the information to criminally investigate or prosecute any alcohol or drug abuse patient.[facility] Reason for Visit (unrecogniz ed [...] BE BASED ON THE PRIMARY CLINICAL RECORDS. [facility]. provides no warranty or guarantee of the accuracy or completeness of information in this document.
== END 2023-12-14 17:27 | disposition home or self-care (01) ==
PROVIDERS: Emergency Provider Emergency Medicine; Visit Provider Emergency Medicine
DX: N83.201 Unspecified ovarian cyst, right side (principal); R10.9 Unspecified abdominal pain; I10 Essential (primary) hypertension
CPT/HCPCS: 74176; 81001; 81025; 99282

== ENCOUNTER 2023-12-19 21:18 | Emergency (ER) | payer MEDICAID, SELFPAY ==
[2023-12-19 21:19] VITALS: BP 163/106; PULSE 88; RESP 17; TEMP 36.4; O2SAT 99; BMI 29.5
--- NOTE | 2023-12-19 21:24 | EDS_ITS ---
HPI History of Present Illness Chief Complaint: Abscess PFSH PFS Medical History Anxiety Asthma Chronic hypertension Depression HELLP syndrome Kidney stones Pyelonephritis Wears contact lenses Wears glasses Home Medications clindamycin HCl 150 mg capsule 450 mg (3 x 150 mg) PO TID 7 days #63 caps 12/19/23 [Rx Last Taken Unknown] Allergy/AdvReac Type Severity Reaction Status Date / Time nitrofurantoin Allergy Severe Hives Verified 12/19/23 21:21 [From Macrobid] aspirin Allergy Swelling Verified 12/19/23 21:21 sulfamethoxazole Allergy Swelling Verified 12/19/23 21:21 [From Bactrim] trimethoprim [From Bactrim] Allergy Swelling Verified 12/19/23 21:21 Surgical History H/O adenoidectomy History of tonsillectomy and adenoidectomy Hx of cystoscopy Social History household members: significant other Smoking Status: Never smoker substance use type: does not use EXAM Physical Exam Const Vital Signs: 12/19/23 21:19 12/19/23 22:14 Temperature 97.5 F L 97.5 F L Temperature Source Temporal Pulse Rate 88 88 Respiratory Rate 17 17 Blood Pressure 163/106 H 163/106 H Blood Pressure Mean 125 125 Pulse Ox 99 99 Oxygen Delivery Method Room Air [facility] Narrative Medical decision making narrative: HISTORY OF PRESENT ILLNESS: 33-year-old female presents with concern for abscess in her armpit. Noticed skin 2 days ago. Notes she does shave her armpits. Denies history of diabetes. REVIEW OF SYSTEMS: Pertinent positives: Abscess Pertinent negatives: Fever, vomiting, PHYSICAL EXAM: Nursing triage notes reviewed, Vital signs reviewed Constitutional: please see mdm Extremities: No edema Skin: No rash or lesions noted MEDICAL DECISION MAKING: Chief Complaint: Abscess External records reviewed: Last ED visit in December 2023 for flank pain Factors affecting care: No history of diabetes MDM Narrative: Patient was initially hemodynamically stable, afebrile, nontoxic-appearing. I considered the following differential diagnosis: Abscess, cellulitis, lymphadenopathy Exam consistent with likely folliculitis. No obvious induration or fluctuance to suggest abscess. Bedside ultrasound showed an area approximately 2 x 2 cm in diameter of hypoechoic signal consistent with likely abscess. There is no Doppler signal to suggest it was a blood vessel. Incision and drainage was undertaken. Removal of approximately 4 cc of purulent drainage was achieved. Please see procedure note. Patient was given oral clindamycin here and for home-going. Strict return precautions were discussed. Procedure: Incision and Drainage simple The procedure was performed by myself. Location: Right armpit Risks and benefits: Risks, benefits, and alternatives were discussed. Questions were sought and answered, and verbal consent provided for the procedure. Anesthesia: 1% lidocaine with epinephrine Procedure Description: Cleansed area with topical chlorhexidine, inserted 11 blade at skin depth, deloculated with pickup, evacuated purulent drainage with the aid of suction. The patient tolerated the procedure well without complications. The patient and/or family, caregivers express understanding. The patient and/or family, caregivers agrees with the plan. Shared decision making: I will have a discussion with the patient and or visitors regarding risk/benefits of further testing or admission. They will be made aware of of the risk/benefits inherent in this decision they will be given the opportunity to voice understanding. Total critical care time today provided was at least 0 minutes. This excludes separately billable procedures. Critical care time (if documented) is secondary to the patient having high probability of clinically significant/life threatening deterioration in the patient's condition which required my urgent intervention. Impression: 1. Right armpit abscess Dispo: Discharge This note was generated with [employer] dictation software. It may contain incorrect words, spelling, and punctuation that were not noted in review of the chart prior to signing. Discharge Plan Triage Chief Complaint: Abscess ED Provider: Jd Canela Dx/Rx/DC Orders Clinical Impression: Folliculitis Instructions: ED Folliculitis Prescriptions: New clindamycin HCl 150 mg capsule 450 mg PO TID 7 Days Qty: 63 0RF Primary Care Provider: Care Physician,No Primary Referrals: Lucho Alonso MD [Med Staff - Surgical Services Coordinator] - Activity Restrictions/Additional Instructions: Thank you for trusting us with your care today! Please take Tylenol (2 pills, 650 mg), ibuprofen (2 pills, 400 mg) every 6 hours as needed for pain and fever control. Please take antibiotic as prescribed a course complete. Please return to the emergency department if your symptoms change or worsen. Please follow with your primary care physician for further outpatient evaluation and management. Disposition Disposition: Home, Self Care
--- OUTSIDE RECORDS SUMMARY | 2023-12-19 21:42 | XMS RPT_ITS | CCD ---
Author Name Unknown Address [address] [place] [address] Organization [facility] Care Team Providers Care School Resource Officer Name Role Phone ANG, DR IRAIDA Castillo [...] Translations: [ASPIRIN] Drug Allergy 08-29-20 08 Hives [facility] Work Phone: (8 sources) Citalopram; Translations: [CITALOPRAM HYDROBROMIDE] Drug Allergy 01-02-20 15 Other: See Comments [facility] (8 sources) Grass pollen; Translations: [GRASS POLLEN] Propensity to adverse reactions 08-07-20 05 [facility] Work Phone: (8 sources) Pollen; Translations: [POLLEN] Propensity to adverse reactions 08-07-20 05 [facility] Work Phone: (8 sources) rizatriptan; Translations: [RIZATRIPTAN BENZOATE] Drug Allergy 02-16-20 14 Other: See Comments [facility] (8 sources) Sulfamethoxazole / Trimethoprim; Translations: [SULFAMETHOXAZOLE-TR IMETHOPRIM] Drug Allergy 08-05-20 07 [facility] Work Phone: (8 sources) Tree; Translations: [TREES] Propensity to adverse reactions 08-07-20 05 [facility] Work Phone: (3 sources) Sulfamethoxazole; Translations: [SULFAMETHOXAZOLE] Drug Allergy 11-15-19 Swelling [facility] (3 sources) Trimethoprim; Translations: [TRIMETHOPRIM] Drug Allergy 11-15-19 Swelling [facility] (1 source) Phenazopyridine Drug Allergy 08-02-20 Hives [facility] Work Phone: Medications Current Medications Medication Drug [...] (7 sources) Drug therapy finding; Translations: [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] Onset: 06-28-2018 06-28-2018 Episodic [...] 98.6 [degF] Lyudmila Monsivais APRN.CNP Work Phone: [facility] 08-02-2023 11:52-0400 Body weight 73.66 kg Lyudmila Monsivais APRN.CNP Work Phone: [facility] 08-02-2023 11:52-0400 Diastolic blood pressure 84 mm[Hg] Lyudmila Monsivais APRN.CNP Work Phone: [facility] 08-02-2023 11:52-0400 Heart rate 101 /min Lyudmila Praisler-Wood BOILER INSPECTOR.PEDIATRICIAN/MEDICAL DOCTOR Work Phone: [facility] 08-02-2023 11:52-0400 Respiratory rate 16 /min Lyudmila Praisler-Wood BOILER INSPECTOR.PEDIATRICIAN/MEDICAL DOCTOR Work Phone: [facility] 08-02-2023 11:52-0400 SaO2% (BldA) [Mass fraction] 100 % Lyudmila Praisler-Wood BOILER INSPECTOR.PEDIATRICIAN/MEDICAL DOCTOR Work Phone: [facility] 08-02-2023 11:52-0400 Systolic blood pressure 144 mm[Hg] Lyudmila Praisler-Wood BOILER INSPECTOR.PEDIATRICIAN/MEDICAL DOCTOR Work Phone: [facility] 07-22-2023 18:05-0400 Body temperature 98.4 [degF] Briseida Trujillo BOILER INSPECTOR.PEDIATRICIAN/MEDICAL DOCTOR Work Phone: [facility] 07-22-2023 18:05-0400 Body weight 72.67 kg Briseida Trujillo APRN.PEDIATRICIAN/MEDICAL DOCTOR Work Phone: [facility] 07-22-2023 18:05-0400 Diastolic blood pressure 84 mm[Hg] Briseida Trujillo BOILER INSPECTOR.PEDIATRICIAN/MEDICAL DOCTOR Work Phone: [facility] 07-22-2023 18:05-0400 Heart rate 110 /min Briseida Trujillo BOILER INSPECTOR.PEDIATRICIAN/MEDICAL DOCTOR Work Phone: [facility] 07-22-2023 18:05-0400 Respiratory rate 18 /min Briseida Trujillo BOILER INSPECTOR.PEDIATRICIAN/MEDICAL DOCTOR Work Phone: [facility] 07-22-2023 18:05-0400 SaO2% (BldA) [Mass fraction] 98 % Briseida Trujillo BOILER INSPECTOR.PEDIATRICIAN/MEDICAL DOCTOR Work Phone: [facility] 07-22-2023 18:05-0400 Systolic blood pressure 132 mm[Hg] Briseida Trujillo BOILER INSPECTOR.PEDIATRICIAN/MEDICAL DOCTOR Work Phone: [facility] 07-11-2022 15:53-0400 Body temperature 97.7 [degF] Raina Joseph BOILER INSPECTOR.PEDIATRICIAN/MEDICAL DOCTOR Work Phone: [facility] 07-11-2022 15:53-0400 Body weight 72.48 kg Raina Opal BOILER INSPECTOR.PEDIATRICIAN/MEDICAL DOCTOR Work Phone: [facility] 07-11-2022 15:53-0400 Diastolic blood pressure 100 mm[Hg] Raina Opal BOILER INSPECTOR.PEDIATRICIAN/MEDICAL DOCTOR Work Phone: [facility] 07-11-2022 15:53-0400 Heart rate 97 /min Raina Opal BOILER INSPECTOR.PEDIATRICIAN/MEDICAL DOCTOR Work Phone: [facility] 07-11-2022 15:53-0400 Respiratory rate 21 /min Raina Opal BOILER INSPECTOR.PEDIATRICIAN/MEDICAL DOCTOR Work Phone: [facility] 07-11-2022 15:53-0400 SaO2% (BldA) [Mass fraction] 100 % Raina Opal BOILER INSPECTOR.PEDIATRICIAN/MEDICAL DOCTOR Work Phone: [facility] 07-11-2022 15:53-0400 Systolic blood pressure 140 mm[Hg] Raina Opal BOILER INSPECTOR.PEDIATRICIAN/MEDICAL DOCTOR Work Phone: [facility] 04-20-2022 13:41-0400 Body temperature 98.01 [degF] Norma Morales BOILER INSPECTOR.PEDIATRICIAN/MEDICAL DOCTOR Work Phone: [facility] 04-20-2022 13:41-0400 Diastolic blood pressure 88 mm[Hg] Norma Morales BOILER INSPECTOR.PEDIATRICIAN/MEDICAL DOCTOR Work Phone: [facility] 04-20-2022 13:41-0400 Heart rate 92 /min Norma Morales BOILER INSPECTOR.PEDIATRICIAN/MEDICAL DOCTOR Work Phone: [facility] 04-20-2022 13:41-0400 Respiratory rate 16 /min Norma Morales BOILER INSPECTOR.PEDIATRICIAN/MEDICAL DOCTOR Work Phone: [facility] 04-20-2022 13:41-0400 SaO2% (BldA) [Mass fraction] 98 % Norma Morales BOILER INSPECTOR.PEDIATRICIAN/MEDICAL DOCTOR Work Phone: [facility] 04-20-2022 13:41-0400 Systolic blood pressure 128 mm[Hg] Norma Morales BOILER INSPECTOR.PEDIATRICIAN/MEDICAL DOCTOR Work Phone: [facility] Encounters Encounter Date Encounter Type Care Provider Facility Start: 08-02-2023 End: 08-02-2023 ambulatory Facility:[facility] Start: 08-02-2023 End: 08-02-2023 Patient encounter procedure Lyudmila Monsivais BOILER INSPECTOR.PEDIATRICIAN/MEDICAL DOCTOR Work Phone: [facility] Procedures Date Procedure Procedure Detail Performing Clinician Start: 08-02-2023 Urnls dip stick/tabl et rgnt auto w/o microscopy Lyudmila Monsivais BOILER INSPECTOR.PEDIATRICIAN/MEDICAL DOCTOR Work Phone: Start: 07-11-2022 Urnls dip stick/tabl et rgnt auto w/o microscopy Esteban Merritt BOILER INSPECTOR.PEDIATRICIAN/MEDICAL DOCTOR Work Phone: Start: 04-20-2022 Urnls dip stick/tabl et rgnt auto w/o microscopy Norma Morales BOILER INSPECTOR.PEDIATRICIAN/MEDICAL DOCTOR Work Phone: Start: 12-04-[address] IRAIDA FRY Plan of Treatment Date Care Activity Detail Author Start: 09-08-2029 Urine microalbumin profile [facility] Start: 07-03-2023 Influenza vaccination Influenza Vaccine (#1) [facility] Start: 07-03-2022 Influenza vaccination [facility] Start: 12-15-2021 COVID-19 VACCINE (3 - Booster for Pfizer series) COVID-19 VACCINE (3 - Booster for Pfizer series) [facility] Start: 09-09-2021 Covid-19 Vaccine (3 - Pfizer series) Covid-19 Vaccine (3 - Pfizer series) [facility] Start: 11-13-2019 PAP TESTING PAP TESTING [facility] Start: 08-17-2019 ANNUAL PCP TEAM CHRONIC DISEASE VISIT ANNUAL PCP TEAM CHRONIC DISEASE VISIT [facility] Start: 2019 HPV TESTING HPV TESTING [facility] Start: 2007 BP CONTROLLED (<130/80) BP CONTROLLED (<130/80) [facility] Start: 2007 SPIROMETRY SPIROMETRY [facility] Start: 04-23-2005 PNEUMOCOCCAL (2 - PCV) PNEUMOCOCCAL (2 - PCV) [facility] Start: 06-22-2005 Pneumococcal vaccination Pneumococcal Vaccine (2 - PCV) [facility] Start: 1994 COVID-19 VACCINE (#1) COVID-19 VACCINE (#1) [facility] Bacteria identified in Urine by Culture URINE CULTURE Microbiology Routine Dysuria Ordered: 04/20/2022 [facility] Work Phone: Immunizations Immunization Date Immunization Notes Care Provider Lila ceja 07-15-2021 influenza virus vacc ine, unspecified formulation Briseida Trujillo APRN.[facility] Work Phone: [facility] 09-08-2019 tetanus toxoid, redu jessica diphtheria toxoid, and acellular pertussis vaccine, adsorbed No [facility] 08-17-2018 influenza, injectabl e, quadrivalent, contains preservative No [facility] 11-24-2016 influenza, injectabl e, quadrivalent, contains preservative No [facility] 08-02-2015 influenza, injectabl e, quadrivalent, contains preservative No [facility] 08-02-2015 influenza, seasonal, injectable No [facility] 09-21-2014 influenza, seasonal, injectable No [facility] Work Phone: 08-27-2013 influenza virus vacc ine, unspecified formulation No [facility] 07-31-2012 influenza virus vacc ine, unspecified formulation No [facility] 08-23-2011 influenza virus vacc ine, unspecified formulation No [facility] Work Phone: 10-08-2010 influenza virus vacc ine, unspecified formulation No [facility] Work Phone: 09-11-2009 novel influenza-H1N1 -09, preservative-free, injectable No [facility] 08-02-2009 influenza virus vacc ine, unspecified formulation No [facility] Work Phone: 09-10-2007 human papilloma viru s vaccine, quadrivalent No [facility] Work Phone: 09-06-2007 influenza virus vacc ine, unspecified formulation No [facility] Work Phone: 05-06-2007 human papilloma viru s vaccine, quadrivalent No [facility] Work Phone: 03-24-2007 meningococcal polysaccharide vaccine (MPSV4) No [facility] 02-25-2007 human papilloma viru s vaccine, quadrivalent No [facility] Work Phone: 09-10-2006 influenza virus vacc ine, unspecified formulation No [facility] Work Phone: 09-02-2005 influenza virus vacc ine, unspecified formulation No [facility] Work Phone: 04-23-2004 pneumococcal polysaccharide vaccine, 23 valent No [facility] Work Phone: 09-29-2003 hepatitis B vaccine, pediatric or pediatric/adolescent dosage No [facility] Work Phone: 05-01-2003 hepatitis B vaccine, pediatric or pediatric/adolescent dosage No [facility] Work Phone: 03-29-2003 hepatitis B vaccine, pediatric or pediatric/adolescent dosage No [facility] Work Phone: 12-24-2000 measles, mumps and rubella virus vaccine No [facility] Work Phone: 05-27-2000 diphtheria and tetan us toxoids, adsorbed for pediatric use No [facility] Work Phone: 06-26-1994 DTP-Haemophilus influenzae type b conjugate vaccine No [facility] Work Phone: 06-26-1994 poliovirus vaccine, inactivated No [facility] Work Phone: 11-02-1993 Chicken Pox (disease) No [facility] Work Phone: 11-23-1990 DTP-Haemophilus influenzae type b conjugate vaccine No [facility] Work Phone: 11-23-1990 poliovirus vaccine, inactivated No [facility] Work Phone: 08-19-1990 measles, mumps and rubella virus vaccine No [facility] Work Phone: 1989 DTP-Haemophilus influenzae type b conjugate vaccine No [facility] Work Phone: 1989 DTP-Haemophilus influenzae type b conjugate vaccine No Pcp [facility] Work Phone: 1989 poliovirus vaccine, inactivated No Pcp [facility] Work Phone: 1989 DTP-Haemophilus influenzae type b conjugate vaccine No Pcp [facility] Work Phone: 1989 poliovirus vaccine, inactivated No Pcp [facility] Work Phone: Payers Date Payer Category Payer Medicaid [id number] 2021 Medicaid 2021 Medicaid [employer] [id number] 2021-Present [phone] [address] [place] [address] Medicaid [id number] 1989 Unknown [id number] Unknown [id number] Social History Date Type Detail Facility Start: 07-31-2011 End: 07-11-2022 Tobacco smoking status NHIS Never smoked tobacco [facility] Start: 12-30-2019 End: 08-02-2023 Alcohol intake Current non-drinker of alcohol (finding) [facility] Start: 12-20-2019 History SDOH Financial 2 [facility] Start: 1990 Sex Assigned At Not on file [facility] Start: 04-10-2022 End: 07-11-2022 Exposure to SARS-CoV-2 (event) Not sure [facility] Start: 07-31-2011 End: 07-11-2022 Tobacco use and exposure Smokeless tobacco non-user [facility] Work Phone: Start: 04-14-2023 End: 07-22-2023 History of Social function [facility] Start: 04-14-2023 End: 07-22-2023 Tobacco use panel [facility] How hard is it for y ou to pay for the very basics like food, housing, medical care, and heating Hard [facility] Adult Depression Screening Assessment 2 [facility] (I/We) worried wheth er (my/our) food would run out before (I/we) got money to buy more. Sometimes true [facility] Clinical Notes 01-22-2016 to 08-02-2023 Lyudmila Monsivais APRN.PEDIATRICIAN/MEDICAL DOCTOR - 08/02/2023 12:05 PM EDTPatient Briseida Hendrickson APRN.PEDIATRICIAN/MEDICAL DOCTOR - 07/22/2023 6:15 PM EDTPatient Nolan Joseph APRN.PEDIATRICIAN/MEDICAL DOCTOR - 07/11/2022 4:02 PM EDT Note Date & Type Note Facility 08-02-2023 Note HNO ID: [id number] Author: Lyudmila Monsivais APRN.PEDIATRICIAN/MEDICAL DOCTOR Service: ? Author Type: Nurse Practitioner Type: [...] Negative Negative Final COLOR UA (POCT) 08/02/2023 [place] Final CLARITY UA (POCT) 08/02/2023 Clear Final [...] Discussed expected course of illness Lyudmila Monsivais APRN.[facility] 08-02-2023 History of Presen t illness Narrative [...] Negative Negative Final COLOR UA (POCT) 08/02/2023 [place] Final CLARITY UA (POCT) 08/02/2023 Clear Final [...] Discussed expected course of illness Lyudmila Monsivais APRN.PEDIATRICIAN/MEDICAL DOCTOR documented in this encounter [facility] 08-02-2023 Instructions Lyudmila Monsivais APRN.DOMINIQUE - 08/02/2023 [...] Discussed expected course of illness Lyudmila Monsivais APRN.[facility] PATIENT INFO BLADDER INFECTION OVERVIEW Bladder infections [...] have an infection. documented in this encounter [facility] 07-22-2023 Note HNO ID: [id number] Author: Briseida Trujillo APRN.PEDIATRICIAN/MEDICAL DOCTOR Service: ? Author Type: Nurse Practitioner Type: [...] Patient agreeable to treatment plan. Briseida Trujillo APRN.[facility] 07-22-2023 History of Presen t illness Narrative [...] Briseida Trujillo APRN.DOMINIQUE documented in this encounter [facility] 07-11-2022 Instructions Raina Joseph APRN.CNP - 07/11/2022 4:07 PM EDT macrobid for 5 days Tylenol/ibuprofen as needed for discomfort AZO otc Increase hydration -Follow up with PCP or return to clinic if symptoms not improving in 3 days or if you develop any new (or worsening) symptoms such as fever, chills or back pain go to ER. documented in this encounter [facility] 07-11-2022 History of Presen t illness Narrative Subjective The history is provided by the patient. No airframe and power plant mechanic was used. HPI Jayashree Tsai is a [...] have confirmed and edited as necessary, the [facility] Review of Systems Constitutional: Negative [...] UA (POCT) Negative Negative COLOR UA (POCT) [place] CLARITY UA (POCT) Clear ASSESSMENT/PLAN: 1. Burning [...] Raina Joseph APRN.DOMINIQUE documented in this encounter [facility] 06-20-2022 Miscellaneous Notes Spoke to patient and [...] free air conditioner. documented in this encounter [facility] 04-23-2022 Miscellaneous Notes Left message for patient with results and recommendations.Sofy Cantrell LPN Phone call brief message to contact a nurse. Kya Tabares LPN Urine culture reveals growth and the Keflex should be working. Please inquire as to whether symptoms improving or not. Patient needs to follow up with PCP to ensure that blood has resolved. documented in this encounter [facility] 04-20-2022 Instructions Norma Morales APRN.DOMINIQUE - 04/20/2022 [...] treated. A physician, nurse practitioner or physician college sports assistant may treat with a short course [...] if symptoms resolve. documented in this encounter [facility] 04-20-2022 History of Presen t illness Narrative This note was created using 10-20 Mediariter. Subjective Jayashree Tsai is a 31 year [...] history is provided by the patient. No airframe and power plant mechanic was used. UTI This is a new [...] Norma Morales APRN.CNP documented in this encounter [facility] 01-30-2022 Miscellaneous Notes Office received Disability paperwork [...] and she will need to come and last picker forms and become established with another Primary Care Provider. Pt called and was LM on VM to return call to office. Dr. Stephens received these due to being instructional technology facilitator, we ARE NOT patient's PCP. Forms have been routed back to Medical Records for pt to last picker. Kady Mendoza Ma documented in this encounter [facility] documented as of this encounter (statuses as of 03/12/2022) [facility]03-22-2016 History of Past illness Narrative* Problem Noted Date Resolved Date BMI 31.0-31.9,adult 01/22/2016 02/24/2017 LACERATION -NOT COMPLICATED EAR, EXTERNAL 200508/02/2012 documented as of this encounter (statuses as of 04/20/2022) [facility]-2016 History of Past illness Narrative* Problem Noted Date Resolved Date BMI 31.0-31.9,adult 01/22/2016 02/24/2017 LACERATION -NOT COMPLICATED EAR, EXTERNAL 200508/02/2012 documented as of this encounter (statuses as of 04/23/2022) [address]22-2016 History of Past illness Narrative* Problem Noted Date Resolved Date BMI 31.0-31.9,adult 01/22/2016 02/24/2017 LACERATION -NOT COMPLICATED EAR, EXTERNAL 200508/02/2012 documented as of this encounter (statuses as of 06/20/2022) [address]22-2016 History of Past illness Narrative* Problem Noted Date Resolved Date BMI 31.0-31.9,adult 01/22/2016 02/24/2017 LACERATION -NOT COMPLICATED EAR, EXTERNAL 200508/02/2012 documented as of this encounter (statuses as of 07/11/2022) [address]22-2016 History of Past illness Narrative* Problem Noted Date Diagnosed Date Resolved Date BMI 31.0-31.9,adult 01/22/2016 02/25/20 17 LACERATION -NOT COMPLICATED EAR, EXTERNAL 06/24/2006 08/02/2012 documented as of this encounter (statuses as of 07/23/2023) [address]-2016 History of Past illness Narrative* Problem Noted Date Diagnosed Date Resolved Date BMI 31.0-31.9,adult 01/22/2016 02/25/20 17 LACERATION -NOT COMPLICATED EAR, EXTERNAL 06/24/2006 08/02/2012 documented as of this encounter (statuses as of 08/02/2023) [facility] note* Diagnosis Dysuria- Primary Acute cystitis with hematuria Acute cystitis [facility] Diagnosis Burning with urination- Primary Dysuria Acute lower UTI Urinary tract infection, site not specified [facility] Acute cough- Primary [facility] Diagnosis Burning with urination- Primary Dysuria documented in this encounter [facility] Summary Purpose Family History No Family History Records FoundNo Family History Records FoundNo Family History Records Found Advance Directives No Advanced Directives Records FoundDocuments on File Type Date Recorded 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 Additional Source Comments INFORMATION SOURCE (unrecogn ized section and content) DATE CREATED AUTHOR AUTHOR'S ORGANIZ ATION 12/14/2021 [facility] DATE CREATED AUTHOR AUTHOR'S ORGANIZ ATION 08/07/2023 [facility] Source Comments (unrecognize d section and content) In the event this informatio n is protected by the Federal Confidentiality of Alcohol and Drug Abuse Patient Records regulations: The Federal rules restrict any use of the information to criminally investigate or prosecute any alcohol or drug abuse patient.[facility] event this information is protected by the Federal Confidentiality of Alcohol and Drug Abuse Patient Records regulations: The Federal rules restrict any use of the information to criminally investigate or prosecute any alcohol or drug abuse patient.[facility] event this information is protected by the Federal Confidentiality of Alcohol and Drug Abuse Patient Records regulations: The Federal rules restrict any use of the information to criminally investigate or prosecute any alcohol or drug abuse patient.[facility] the event this information is protected by the Federal Confidentiality of Alcohol and Drug Abuse Patient Records regulations: The Federal rules restrict any use of the information to criminally investigate or prosecute any alcohol or drug abuse patient.[facility] event this information is protected by the Federal Confidentiality of Alcohol and Drug Abuse Patient Records regulations: The Federal rules restrict any use of the information to criminally investigate or prosecute any alcohol or drug abuse patient.[facility] event this information is protected by the Federal Confidentiality of Alcohol and Drug Abuse Patient Records regulations: The Federal rules restrict any use of the information to criminally investigate or prosecute any alcohol or drug abuse patient.[facility] event this information is protected by the Federal Confidentiality of Alcohol and Drug Abuse Patient Records regulations: The Federal rules restrict any use of the information to criminally investigate or prosecute any alcohol or drug abuse patient.[facility] Reason for Visit (unrecogniz ed section and [...] BE BASED ON THE PRIMARY CLINICAL RECORDS. [facility] [employer] [facility]. provides no warranty or guarantee of the accuracy or completeness of information in this document.
[2023-12-19] MEDS: Clindamycin HCl 150 MG Capsule 450 MG PO (22:10)
[2023-12-19 22:14] VITALS: BP 163/106; PULSE 88; RESP 17; TEMP 36.4; O2SAT 99
== END 2023-12-19 22:39 | disposition home or self-care (01) ==
PROVIDERS: Emergency Provider Emergency Medicine; Visit Provider Emergency Medicine
DX: L02.411 Cutaneous abscess of right axilla (principal); L73.9 Follicular disorder, unspecified
CPT/HCPCS: 10060; 99282

== ENCOUNTER → 2024-01-13 | Outpatient (CLI) | payer MEDICAID, SELFPAY ==
[2024-01-16 08:10] LABS: Chlamydia By Nucleic Acid AMP Negative (Negative); Gonococcus By Nucleic Acid AMP Negative (Negative)
[2024-01-18 11:08] LABS: HPV APTIMA, High Risk Negative (Negative)
== END | disposition home or self-care (01) ==
PROVIDERS: Referring Provider Nurse Practitioner Women's Health; Visit Provider Nurse Practitioner Women's Health
DX: Z11.3 Encounter for screening for infections with a predominantly sexual mode of transmission (principal); Z12.4 Encounter for screening for malignant neoplasm of cervix
CPT/HCPCS: 87491; 87591; 87624; 88175; G0145

== ENCOUNTER 2024-02-01 10:27 | Emergency (ER) | payer MEDICAID, SELFPAY ==
[2024-02-01 10:28] VITALS: BP 143/102; PULSE 98; RESP 16; TEMP 36.4; O2SAT 100; BMI 28.1
[2024-02-01 10:31] VITALS: BP 143/102; PULSE 98; RESP 16; TEMP 36.4; O2SAT 100
--- NOTE | 2024-02-01 10:39 | US_ITS ---
INDICATION: right ovarian cyst -- right sided pelvic pain EXAMINATION: Ultrasound US Transvaginal Non-OB TECHNIQUE: Transvaginal (for optimal evaluation of the adnexa) pelvic ultrasound was performed. Grayscale, spectral waveform, and color flow Doppler evaluation of the adnexa. COMPARISON: CT scan of the abdomen and pelvis of 12/14/2023. FINDINGS: UTERUS: Anteverted. The uterus measures 8.7 x 4.6 x 4.4 cm. There is no uterine mass. The endometrial stripe measures 8 mm in AP diameter which is within normal limits. RIGHT OVARY: 3.5 x 2.7 x 2 cm. Small complex cyst/prominent follicle which could be hemorrhagic measuring about 1.7 cm. There is normal arterial inflow and venous outflow present in the right ovary. LEFT OVARY: 3.4 x 3.2 x 2.8 cm. Hyperechoic mass in the left ovary measuring about 2.2 x 1.5 x 1.8 cm could represent hemorrhagic cyst. Small solid mass cannot be excluded. There is normal arterial inflow and venous outflow present in the left ovary. FREE FLUID: None. US/Transvaginal Non- IMPRESSION: Small hyperechoic mass in the left ovary could represent hemorrhagic cyst. Solid mass cannot be excluded. Follow-up examination following 2 menstrual cycles is recommended. Electronically Signed: Javier Kidd MD at 11:50 EDT ,
--- NOTE | 2024-02-01 10:47 | ED.VIS.GI ---
HPI HPI - GI History of Present Illness Chief Complaint: Abd Pain Detail of Chief Complaint: Right-sided pelvic and abdominal pain. History of ovarian cyst. Informant: patient Abdominal Pain/Flank Pain Onset: Today and Hours Context: Gradual Onset Timing: Intermittent Quality: Cramping Location: RLQ and - (Right side of pelvis.) Current Severity: Gone Maximum Severity: Mild Worsened by: Nothing Relieved by: Nothing Nausea/Vomiting/Emesis GI Symptom: Negative for Nausea or Vomiting Diarrhea/Melena/Hematochezia GI Symptom: Negative for Diarrhea, Melena or Hematochezia Associated Symptoms Associated Symptoms: Negative for Dysuria, Frequency, Hematuria or Urgency Narrative Narrative: 33-year-old female complaining of right-sided abdominal pain around 9:30 AM this morning. Intermittent and cramping. History of ovarian cyst which she has a pending pelvic ultrasound. This was seen on the CAT scan months ago. She denies any vomiting or diarrhea. No fever. No dysuria. No back pain. No vaginal bleeding or discharge. Prior similar symptoms: Yes Recent Illness/Hospitalization: No PFSH PFSH Medical History Anxiety Asthma Chronic hypertension Depression HELLP syndrome Kidney stones Pyelonephritis Wears contact lenses Wears glasses Home Medications NK 01/13/24 [History Last Taken Unknown] Allergy/AdvReac Type Severity Reaction Status Date / Time nitrofurantoin Allergy Severe Hives Verified 02/01/24 10:31 [From Macrobid] aspirin Allergy Swelling Verified 02/01/24 10:31 sulfamethoxazole Allergy Swelling Verified 02/01/24 10:31 [From Bactrim] trimethoprim [From Bactrim] Allergy Swelling Verified 02/01/24 10:31 Family History Grandmother Breast cancer Paternal Cancer Brain Mother Breast cancer Surgical History H/O adenoidectomy History of tonsillectomy and adenoidectomy Hx of cystoscopy Social History household members: significant other current occupational status: unemployed Smoking Status: Never smoker alcohol intake: never substance use type: does not use seatbelt use: always do you feel safe at home: Yes additional social history: Significant other-Jovanna ROS ROS ED ROS Narrative Denies recent illness. Right-sided lower abdominal pelvic pain. No dysuria. No fever. No vomiting or diarrhea. No vaginal bleeding or discharge. Review of Systems ROS Unobtainable: Denies due to encephalopathy Constitutional Constitutional ED: Denies chills or fever(s) ENT ENT ED: Denies ear pain Cardiovascular Cardiovascular: Denies chest pain Respiratory/Chest Respiratory/Chest: Denies cough or dyspnea Gastrointestinal Gastrointestinal: Reports abdominal pain; Denies constipation, diarrhea, melena, nausea or vomiting Genitourinary Genitourinary ED: Denies dysuria or hematuria Musculoskeletal Musculoskeletal: Denies arthralgias, back pain, myalgias or neck pain Integumentary Denies abscess or Abrasions Neurologic Neurologic: Denies headache(s) Psychiatric Psychiatric: Denies anxiety Endocrine Endocrinology: Denies polydipsia, polyphagia or polyuria Hematologic/Lymphatic Hematologic/Lymphatic: Denies easy bleeding, easy bruising or lymphadenopathy Allergic/Immunologic Allergic/Immunologic ED: Denies mouth swelling, tongue swelling or urticaria EXAM Physical Exam Narrative Exam Narrative: Well-appearing 33-year-old female. Vital signs are stable afebrile. HEENT exam unremarkable. Lungs clear to auscultation bilaterally. Heart regular rhythm no murmur rate about 95. Abdomen soft, nontender, nondistended, normal bowel sounds without peritoneal signs. There is really no specific reproducible tenderness on her abdomen or pelvis at this time. There is no McBurney's point tenderness or Hayes sign. Back is nontender. Moving all 4 extremities. Neurologically she is awake and alert with no focal motor deficits. Const Vital Signs: 02/01/24 10:28 02/01/24 10:28 02/01/24 10:31 Temperature 97.6 F L 97.6 F L 97.6 F L Temperature Source Temporal Temporal Temporal Pulse Rate 98 98 98 Respiratory Rate 16 16 16 Blood Pressure 143/102 H 143/102 H 143/102 H Blood Pressure Mean 115 115 115 Pulse Ox 100 100 100 Oxygen Delivery Method Room Air Room Air Room Air Positive well nourished and well developed; Negative for obese, cachectic, contractures or unkempt General Appearance ED: well developed and NAD; Negative for unkempt, cachectic, contractures or pallor Nutritional Appearance: Negative for cachectic or obese HEENT Reports moist mucous membranes normocephalic and atraumatic; Negative for trauma or tenderness Eyes PERRL and EOMs intact bilaterally General Eye ED: Negative for pale conjunctiva, scleral icterus or other Neck no lymphadenopathy, supple and no JVD General: Negative for tenderness Carotids: Negative for other Lymph Lymphatic: Negative for other Resp normal respiratory effort and clear to auscultation bilaterally Effort and Inspection: Negative for respiratory distress Auscultation: Negative for rales, rhonchi, wheezes or diminished lung sounds Cardio regular rate, regular rhythm, S1 normal heart sound, S2 normal heart sound and no murmurs Rate: Negative for bradycardia or tachycardic Rhythm: Negative for abnormal rhythm or other GI non-tender, non-distended and no masses Inspection: Negative for abdominal distention Auscultation: normoactive bowel sounds; Negative for hyperactive bowel sounds or hypoactive bowel sounds Palpation: soft; Negative for tender, guarding or rebound tenderness present Back/Spine no CVA tenderness General Back: Negative for CVA tenderness Cervical Spine: Negative for cervical spine tenderness Thoracic Spine / Upper Back: Negative for thoracic spinal tenderness Lumbar Spine / Lower Back: Negative for lumbar spinal tenderness Coccyx: Negative for other Extremity full ROM General Extremety ED: Negative for edema, tenderness or other findings General Extremity: Negative for edema or other findings Neuro CN's II-XII intact bilaterally and moves all extremities Sensorium / Orientation: alert, oriented to person, oriented to place and oriented to time; Negative for orientation impaired, confused, lethargic or stuporous Motor Exam: strength 5/5 throughout; Negative for general weakness or strength abnormal Psych mental status grossly normal and thought process normal Appearance: Negative for unkempt Attitude: No agitated Mood & Affect: Negative for depressed, anxious or tearful Skin no wounds General Skin Exam: Negative for jaundice or pallor Lesions: no lesions Rashes: no rashes Trauma: Negative for abrasion or other Nails: Negative for discolored MDM MDM MDM Narrative Medical decision making narrative: 33-year-old with right-sided pelvic pain. Exam benign. UA and urine test being obtained along with a pelvic ultrasound. Clinically does not appear to be appendicitis or kidney stone. She does not need anything for pain at this time. Repeat exam patient doing well at 12:01 PM. Abdomen benign. We went over her urinalysis being normal and negative. Her ultrasound results and pending outpatient follow-up. Motrin and Tylenol for pain. History & Record Review Discussion w/independent historian: Patient Additional record(s) reviewed:: Prior inpatient record, Prior outpatient record, Prior ED visit, Prior labs and No prior records Lab Data Attestation: I reviewed the patient's lab results. Lab results narrative: Urinalysis is negative. No white or red cells. No nitrates or bacteria. Urine negative. Labs: Laboratory Results - last 24 hr 02/01/24 11:15 Urine Color Yellow Urine Clarity Sl. Cloudy Urine pH 5.0 Ur Specific [place] 1.020 Urine Protein Negative Urine Glucose (UA) Normal Urine Ketones Negative Urine Occult Blood Negative Urine Nitrite Negative Urine Bilirubin Negative Urine Urobilinogen Normal Ur Leukocyte Esterase Negative Urine RBC 0 SEEN Urine WBC 0 SEEN Ur Squamous Epith Cells 0-5 SEEN Urine Bacteria 0 SEEN Urine Mucus 0 SEEN Urine Test Negative Radiography Diagnostic Testing: Clinical Impression(s) from Imaging Studies Transvaginal US 02/01/24 10:39 IMPRESSION: Small hyperechoic mass in the left ovary could represent hemorrhagic cyst. Solid mass cannot be excluded. Follow-up examination following 2 menstrual cycles is recommended. Electronically Signed: Javier Kidd MD at 11:50 EDT , Discharge Plan Triage Chief Complaint: Abd Pain ED Provider: Anastacio Farias Dx/Rx/DC Orders Clinical Impression: Ovarian cyst Instructions: ED Ovarian Cyst Prescriptions: No Action NK Primary Care Provider: Care Physician,No Primary Referrals: Mikayla Portillo MD [Med Staff - Active Staff] - 1-2 Weeks Care Physician,No Primary [Primary Care Provider] - Activity Restrictions/Additional Instructions: Motrin and Tylenol for pain. Call and follow-up with your SALES PROMOTION MANAGER. Disposition Disposition: Home, Self Care
[2024-02-01 11:21] LABS: Bacteria 0 SEEN /hpf (None Seen); Mucous, Urine 0 SEEN /hpf (<or=2+); Red Blood Cells-Urine 0 SEEN /hpf (0-5); White Blood Cells 0 SEEN /hpf (0-5)
[2024-02-01 11:26] LABS: Color, Urine Yellow (Yellow); Glucose, Dipstick Normal (Normal); Ketone-Dipstick Negative (Negative); Leukocyte Esterase-Dipstick Negative /ul (Negative); Nitrite-Dipstick Negative (Negative); Occult Blood-Urine Negative /ul (Negative); Protein-Dipstick Negative (Negative); Urine Bilirubin Dipstick Negative (Negative); Urine Clarity Sl. Cloudy (Clear); Urine Urobilinogen Normal (Normal)
[2024-02-01 11:34] LABS: Squamous Epithelial Cells - UA 0-5 SEEN /hpf (5-10)
[2024-02-01 11:35] LABS: Internal QC Validated? YES +Cl - CLEAR BKGD; Pregnancy, Urine Negative Negative; Record Kit Lot#,Urine Preg HCG0000718086
--- NOTE | 2024-02-01 12:09 | ED.RN ---
Pt. refused discharge vitals at this time.
== END 2024-02-01 12:09 | disposition home or self-care (01) ==
PROVIDERS: Emergency Provider Emergency Medicine; Visit Provider Emergency Medicine
DX: N83.202 Unspecified ovarian cyst, left side (principal); I10 Essential (primary) hypertension
CPT/HCPCS: 76830; 81001; 81025; 99282

== ENCOUNTER 2024-06-20 11:52 | Emergency (ER) | payer MEDICAID, SELFPAY ==
[2024-06-20 11:52] VITALS: BP 151/111; PULSE 109; RESP 18; TEMP 36.4; O2SAT 100; BMI 27.8
--- NOTE | 2024-06-20 12:03 | RAD_ITS ---
STUDY: X-RAY CHEST REASON FOR EXAM: Female, 34 years old. Cough. TECHNIQUE: Single frontal view of the chest. COMPARISON: July 15, 2023 FINDINGS: The lungs are clear and expanded. Stable granulomatous calcifications. There is no demonstrated pleural abnormality. Normal size heart. Normal mediastinum and isaiah. Normal visualized pulmonary arteries. Normal visualized aortic arch and descending thoracic aorta. No abnormality of the visualized soft tissue structures of the upper abdomen. RAD/Chest 1 View (Portable) IMPRESSION: No interval change and no acute or active cardiopulmonary disease. Electronically Signed: Lauri Ponce MD at 12:16 EDT ,
[2024-06-20 12:29] VITALS: O2SAT 99
[2024-06-20 13:24] VITALS: BP 120/85; PULSE 95; RESP 18; TEMP 37.4; O2SAT 96
--- NOTE | 2024-06-20 13:58 | EDS_ITS ---
HPI History of Present Illness Chief Complaint: General Illness Informant: patient Narrative Narrative: 34-year-old female presenting to the emergency room with a chief complaint of cough. Patient states she has been ill for about 3 days. She notes no definitive fevers but notes that she feels hot. She notes cough and rattling in the chest. She notes that she has a rash of poison amber on her arm. Daughter was recently diagnosed with pneumonia on chest x-ray. [facility] Medical History HELLP syndrome Wears glasses Wears contact lenses Depression Pyelonephritis Anxiety Kidney stones Asthma Chronic hypertension Home Medications ?Medication ?Instructions ?Recorded ?Last Taken ?Type naproxen 500 mg tablet 500 mg PO Q12H #30 tabs 02/10/24 Unknown Rx albuterol sulfate 90 mcg/actuation 2 puff inhalation Q4H PRN PRN 06/20/24 Unknown Rx aerosol inhaler (Ventolin HFA) Wheezing ##1 doxycycline monohydrate 100 mg 100 mg PO BID #20 CAPSULES 06/20/24 Unknown Rx capsule prednisone 20 mg tablet See Rx Instructions .Route 06/20/24 Unknown Rx .COMPLEX #24 tabs Allergy/AdvReac Type Severity Reaction Status Date / Time nitrofurantoin (From Allergy Severe Hives Verified 06/20/24 11:54 Macrobid) aspirin Allergy Swelling Verified 06/20/24 11:54 sulfamethoxazole (From Allergy Swelling Verified 06/20/24 11:54 Bactrim) trimethoprim (From Bactrim) Allergy Swelling Verified 06/20/24 11:54 Family History Grandmother Breast cancer Paternal Cancer Brain Mother Breast cancer Surgical History History of tonsillectomy and adenoidectomy Hx of cystoscopy H/O adenoidectomy Social History household members: significant other current occupational status: unemployed Smoking Status: Never smoker alcohol intake: never substance use type: does not use seatbelt use: always do you feel safe at home: Yes additional social history: Significant other-Velton ROS ROS ED Constitutional Constitutional ED: Reports fever(s) and subjective; Denies chills or weight loss Eyes Eyes: Denies change in vision or diplopia ENT ENT ED: Denies ear pain, rhinorrhea or sore throat Cardiovascular Cardiovascular: Denies chest pain, orthopnea, palpitations or racing heartbeat Respiratory/Chest Respiratory/Chest: Reports cough and dyspnea; Denies orthopnea Gastrointestinal Gastrointestinal: Denies abdominal pain, diarrhea, nausea or vomiting Genitourinary Genitourinary ED: Denies dysuria, hematuria or urinary frequency Musculoskeletal Musculoskeletal: Denies arthralgias or myalgias Integumentary Reports rash; Denies abscess Neurologic Neurologic: Denies headache(s) or weakness Psychiatric Psychiatric: Denies anxiety, depression, suicidal ideation or suicidal thoughts Endocrine Endocrinology: Denies polydipsia, polyphagia or polyuria Allergic/Immunologic Allergic/Immunologic ED: Denies mouth swelling, tongue swelling or urticaria EXAM Physical Exam Const Vital Signs: 06/20/24 11:52 06/20/24 12:29 06/20/24 12:29 Temperature 97.6 F L Temperature Source Temporal Pulse Rate 109 H Respiratory Rate 18 Respiratory Effort Respiratory Pattern Blood Pressure 151/111 H Blood Pressure Mean 124 Pulse Ox 100 99 99 Oxygen Delivery Method Room Air Room Air Room Air 06/20/24 13:24 06/20/24 13:25 Temperature 99.3 F H Temperature Source Oral Pulse Rate 95 Respiratory Rate 18 Respiratory Effort Normal Non-Labored Respiratory Pattern Normal Blood Pressure 120/85 H Blood Pressure Mean 96 Pulse Ox 96 Oxygen Delivery Method Room Air Positive well nourished and well developed General Appearance ED: well developed HEENT Reports normocephalic, head/scalp atraumatic and moist mucous membranes Eyes PERRL and EOMs intact bilaterally Neck no lymphadenopathy, supple and no JVD Resp normal respiratory effort Auscultation: rhonchi lower bilaterally and wheezes expiratory wheezes (Faint expiratory) Cardio regular rate, regular rhythm and no murmurs GI normal to inspection, nondistended, normoactive bowel sounds and non-tender Palpation: soft Back/Spine no CVA tenderness and normal ROM Extremity normal to inspection General Extremety ED: Negative for edema General Extremity: Negative for edema Neuro oriented x3 and CN's II-XII intact bilaterally Sensorium / Orientation: alert Motor Exam: strength 5/5 throughout Psych mental status grossly normal Mood & Affect: Negative for depressed or tearful Skin no wounds Skin Narrative: There is a rash on the right arm consistent with Natalei dermatitis MDM MDM MDM Narrative Medical decision making narrative: Differential diagnosis includes viral syndromes like COVID influenza RSV, acute bronchitis pneumonia pleural effusion poison amber dermatitis bronchospasm My independent interpretation of the chest x-ray is no acute process. COVID influenza and RSV swabs were negative. Patiently started on prednisone as well as doxycycline and albuterol. History & Record Review Discussion w/independent historian: Patient and Family Radiography Diagnostic Testing: Clinical Impression(s) from Imaging Studies Chest X-Ray 06/20/24 12:03 IMPRESSION: No interval change and no acute or active cardiopulmonary disease. Electronically Signed: Lauri Ponce MD at 12:16 EDT , Discharge Plan Triage Chief Complaint: General Illness ED Provider: Harish Rider Dx/Rx/DC Orders Clinical Impression: Rhus dermatitis, Acute bronchitis Instructions: Acute Bronchitis, ED Poison Amber Rash Prescriptions: New prednisone 20 mg tablet See Rx Instructions .ROUTE .COMPLEX Qty: 24 0RF Rx Instructions: 3 tabs p.o. daily x 4 days then 2 tabs p.o. daily x 4 days then 1 tab p.o. daily x 4 days doxycycline monohydrate 100 mg capsule 100 mg PO BID Qty: 20 0RF albuterol sulfate [Ventolin HFA] 90 mcg/actuation HFA aerosol inhaler 2 puff inhalation Q4H PRN PRN (Reason: Wheezing) Qty: 1 0RF Rx Instructions: with spacer No Action naproxen 500 mg tablet 500 mg PO Q12H Qty: 30 1RF Rx Instructions: administer with food or milk Primary Care Provider: Care Physician,No Primary Referrals: Maksim Valadez MD [Med Staff - Panel Wirer] - 1 Week if not improving (for primary care follow up) Care Physician,No Primary [Primary Care Provider] - Print Language: Sri [place]an Disposition Disposition: Home, Self Care
[2024-06-20 14:06] VITALS: BP 132/68; PULSE 81; RESP 18; TEMP 37.2; O2SAT 97
== END 2024-06-20 14:08 | disposition home or self-care (01) ==
PROVIDERS: Emergency Provider Emergency Medicine; Visit Provider Emergency Medicine
DX: L30.8 Other specified dermatitis (principal); J20.9 Acute bronchitis, unspecified; I10 Essential (primary) hypertension; J45.909 Unspecified asthma, uncomplicated
CPT/HCPCS: 71045; 87631; 94760; 99282

== ENCOUNTER 2024-09-15 13:15 | Emergency (ER) | payer MEDICAID, SELFPAY ==
[2024-09-15 13:16] VITALS: BP 131/102; PULSE 94; RESP 16; TEMP 36.3; O2SAT 100; BMI 26.6
[2024-09-15 14:26] VITALS: BP 140/76; PULSE 80; RESP 16; TEMP 36.7; O2SAT 98
[2024-09-15 14:42] LABS: Mucous, Urine 0 SEEN /hpf (<or=2+); Red Blood Cells-Urine 0 SEEN /hpf (0-5); White Blood Cells 0 SEEN /hpf (0-5)
[2024-09-15 14:47] LABS: Color, Urine Yellow (Yellow); Glucose, Dipstick Normal (Normal); Ketone-Dipstick Negative (Negative); Leukocyte Esterase-Dipstick 25 /ul (Negative); Nitrite-Dipstick Positive (Negative); Occult Blood-Urine Negative /ul (Negative); Protein-Dipstick Negative (Negative); Urine Bilirubin Dipstick Negative (Negative); Urine Clarity Clear (Clear); Urine Urobilinogen Normal (Normal)
[2024-09-15 14:49] LABS: Absolute Lymphocyte Count 1.94 X10^3/uL (0.83-4.51); Absolute Neutrophil Count 5.7 X10^3/uL (2.0-7.7); Basophil# 0.04 X10^3/uL; Basophil% 0.5 % (0-1); Eosinophils% 1.2 % (0-5); Hematocrit 43.2 % (37-47); Hemoglobin 14.7 g/dL (12.0-15.0); Lymphocyte # 1.94 X10^3/ul (0.83-4.51); Lymphocyte % 23.6 % (19-41); Mean Corpuscular Hgb 30.4 pg (27.0-32.0); Mean Corpuscular Volume 89.4 fL (81-99); Mean Platelet Vol. 9.2 fl (6.2-12.0); Monocyte# 0.41 X10^3/uL; NRBC Flagged by Analyzer 0 % (0-5); Neutrophil % 69.3 % (47-70); POSITIVE COUNT YES; Platelet Count 132 K/mm3 (150-450); RBC Distribution Width CV 12.5 % (11.6-14.6); RBC Distribution Width SD 41.1 fl (35.1-43.9); Red Blood Count 4.83 M/mm3 (4.2-5.4); White Blood Count 8.2 K/mm3 (4.4-11.0)
[2024-09-15] MEDS: Morphine 4 MG/ML Syringe IV (14:54)
[2024-09-15] MEDS: Ondansetron 4 MG/2 ML Vial IV (14:54)
[2024-09-15 15:00] VITALS: BP 139/78; PULSE 82; RESP 16; TEMP 36.7; O2SAT 98
[2024-09-15 15:00] LABS: Bacteria 2+ /hpf (None Seen); Squamous Epithelial Cells - UA 5-10 SEEN /hpf (5-10)
[2024-09-15 15:03] LABS: Anion Gap 5 (5-15); BUN 9 mg/dL (7-18); BUN/Creat Ratio 11.7 RATIO (10-20); Calcium,Total 9.1 mg/dL (8.5-10.1); Chloride 108 mmol/L (98-107); Creatinine, Serum 0.77 mg/dL (0.55-1.02); EST Glomerular Filtration Rate 91 mL/min (>60); Est Glom Filt Rate - Afr Amer 110 mL/min (>60); Estimated Creatinine Clearance 98.23 ml/min; Glucose 80 mg/dL (74-106); Potassium 4.5 mmol/L (3.5-5.1); Sodium Level 139 mmol/L (136-145)
[2024-09-15 15:15] VITALS: BP 142/87; PULSE 86; RESP 16; O2SAT 98
[2024-09-15 15:30] LABS: Differential Indicated SCAN CRITERIA MET
[2024-09-15 15:31] LABS: Differential Comment SCANNED
[2024-09-15] MEDS: Cephalexin 500 MG Capsule PO (16:57)
[2024-09-15 17:01] VITALS: BP 128/67; PULSE 74; RESP 15; TEMP 36.3; O2SAT 100
== END 2024-09-15 17:02 | disposition home or self-care (01) ==
PROVIDERS: Emergency Provider Emergency Medicine; Visit Provider Emergency Medicine
DX: N20.0 Calculus of kidney (principal); N83.201 Unspecified ovarian cyst, right side; J45.909 Unspecified asthma, uncomplicated; R39.15 Urgency of urination
CPT/HCPCS: 74176; 80048; 81001; 85025; 96374; 96375; 99282; A4216; J2405

== ENCOUNTER 2024-12-27 08:00 | Outpatient (RCR) | payer MEDICAID, SELFPAY ==
--- NOTE | 2024-12-27 10:00 | BH.NA ---
Physical Data Vital Signs Pulse Rate: 89 Blood Pressure: 150/100 Height/Weight Height: 1.63 m Weight:: 68.039 kg Weight in Pounds: 150.0 lbs Current Medication Compliance Medication Compliance Do you take your medication as prescribed?: Yes Nutritional History Appetite Nutritional Instructions: Describe your appetite:: Good Additional nutritional information:: Client reports some weight gain since she stopped using meth 4 months ago. Functional Assessment Sleep Pattern Describe any problems with sleeping: Client states she sleeps 7-8 hours per night. Sensory/Communication Assess Vision Problems Do you have any vision problems?: Glasses Communication Problems Do you have difficulty understanding what people are saying?: No Medical Problems/History Cardiac Conditions Cardiovascular: Hypertension Respiratory Conditions Respiratory: Asthma Genitourinary Conditions Genitourinary: Other (See comments) (kidney stones) Pain Assessment Do you have acute or chronic pain?: No Family History Family History Grandmother Breast cancer Paternal Cancer Brain Mother Breast cancer Additional History Additional comments:: HELLP syndrome with Surgical History Surgical History Have you had any surgeries? If so, list type and date:: Yes (T&A, stent for kidney stone) Substance Abuse Substance Abuse Please describe substance abuse in the last 30 days:: Client states she rarely drinks alcohol. Client states she is almost 4 months sober from methamphetamines, stating she had been a regular user for 5 years. Client has been a cigarette smoker for 18 years, currently smoking 1/2 pack per day. Client states she drinks 3-4 cups of iced coffee per day. Mental Status Summary Mental Status Significant Findings/Observations on Appearance and Mood:: Client is alert and oriented x 4. Client is casually groomed. Client is cooperative with assessment. Client makes good eye contact. Client's voice has normal rate and volume. Client has an appropriate affect. Client makes logical associations in conversation. Client states her auditory hallucinations continue daily, stating 2 are voices of people she knows and one voice calls itself meth and states sometimes the voices mimic my voice as my internal thoughts. Client states she is no longer having visual or tactile hallucinations. Client denies SI. Suicide Assessment Suicidal Ideation Are you currently or have you been suicidal in the past?: Yes Suicidal Intentional Rating Scale (SIRS): Suicidal thoughts (past) Physician Notification Past Psychiatric History MH Treatment Hx Past Psychiatric Medications:: Zoloft (will be completely weaned off this tomorrow 12/28/24), in her early 20's she took Ativan and possibly Paxil Age of first mental health symptoms: Client states she first took medications for her mental health in her early 20's. Client states she was completely off medications while she was using meth for 5 years, and has only recently started taking medication again after being sober from meth. Describe (age, circumstance, etc) any past hospitalizations: None. Current providers for mental health treatment (counselor, psychiatrist, rifle case repairer, etc.): Mindi Mascorro at [facility] for counseling, Giana Macias TECHNICAL SUPPORT 1 SOFTWARE ENGINEER at [facility] Fall Risk Assessment Age Age: Less than 60 Mental Status Mental Status: Willing & able to ask for assistance when needed Physical Status Physical Status: No problems Impairments Impairments: None Elimination Elimination: Continent AND independent Gait or Balance Gait or Balance: Walks independently Hx of Falls History of falls in the past 6 months: No known history Medications/Substances Psychotropics:: Antidepressants and Antipsychotics Medications/substances used within the past 24 hours or ordered to administer: 1-2 of the medications/substances listed above Total Score Total Points:: 1 RN Summary of Impressions Impressions Recommendations Impressions: Psychiatric Issues: 1. Major depressive disorder, recurrent, moderate 2. Generalized anxiety disorder 3. 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 Primary support and financial issues Impression: General Medical Conditions: Client has a history of HTN and states she was on medication for this in her 20's. Client is not currently on medication for this. Client's BP 150/100 HR 89 today. Discussed with client that BP could be somewhat situationally elevated, but with her history of HTN and its elevation, seeing a PCP to discuss her BP would be warranted. Client voices understanding of same. Level of Care How do the client's current symptoms and functional deficits support need for this level of care?: Client was referred to IOP by her outpatient therapist due to having hallucinations. Client states she started having auditory, tactile and visual hallucinations toward the end of her 5 years of methamphetamine use. Client states she has been sober now for almost 4 months, and is no longer having tactile and visual hallucinations. Client states she had been hearing 8 different voices, mainly of people she used to use meth with, but now is only hearing 3 different voices. Client states the voices had been telling her to kill herself or her daughter, but states they have not been saying that currently. Client does state she hears the 3 voices daily. Client does also report isolating herself, being more irritable, and having ruminations. Client denies SI. IOP will promote gains and prevent further decompensation while providing social support and skills training.
--- NOTE | 2024-12-27 10:10 | BH.SGPN.GN ---
Behaviors/Verbalizations/Mental Status: [] Eye contact is good. Motor activity is appropriate. Appearance is casual. Speech is Appropriate. Mood is anxious. Affect is congruent. Thoughts are linear and logical. No evidence of psychosis Client Response/Progress/Benefit: [] Pt responded well to session AEB contributing to small group discussion, taking notes, and listening attentively to others. Group defined anger and discussed the benefits of managed anger and anger as a secondary emotion. Group shared perspective on benefits of anger as advocating for self and getting needs met, a means to internal change, as well as a catalyst for change. Pt engaged in group discussion on common triggers for anger. Identified feeling lied to or disrespected as an anger trigger. Appeared to benefit from increased knowledge of the anger cycle as well as personal triggers. Will continue IOP to increase healthy coping, prevent decompensation, and improve functioning. Narrative Note: []
--- NOTE | 2024-12-27 10:41 | BH.MTP_ITS ---
Master Treatment Plan Patient Information Program Physician:: Dr. Mikayla Payne Primary Therapist:: LEXII Holloway Psychiatric Diagnoses Psychiatric Diagnoses:: 1. Major depressive disorder, recurrent, moderate 2. Generalized anxiety disorder 3. Auditory hallucinations secondary to methamphetamine use disorder (sober x 4 months) Diagnosis Code(s):: F33.1 Estimated LOS Estimated LOS (in weeks):: 6 Problem/Goal #1 Problem/Goal #1 Stated Goal:: Pt will decrease depressive symptoms, inappropriate guilt, worthlessness, and negative self-talk. Description of Barriers: Self-confidence often leads to pt shutting down or not advocating for needs, social anxiety, hx of meth use resulting in ongoing issues with psychosis Functional Impact: Patient is a 34-year-old single female with a history of depression, anxiety, PTSD and methamphetamine use disorder (sober x 4 months) who was referred to the [facility] behavioral health IOP by her outpatient therapist due to worsening hallucinations for the past 3 months. The patient states that she began having tactile, visual and auditory hallucinations after the last time she used methamphetamine which was 3 months ago. The tactile and visual hallucinations have resolved but she still has auditory hallucinations remaining and they are now lessening since she was placed on medication about 3 weeks ago. These hallucinations have caused her to become depressed and isolate herself and ruminate negatively. She currently lives with her boyfriend of 5 years in an apartment. The patient's mother helps her with finances as she has not worked since 2019. For primary support she has her mom or her boyfriend. She has a 5-year-old daughter who lives with the patient's mother. The patient says she sees her daughter daily. She endorses sadness which has been lessening lately. She endorses worthlessness, hopelessness, low energy and decreased concentration. She denies guilt and her anhedonia is better now and she has been enjoying walking. She denies chip ever. She described herself as a worrier by nature and the last time she had a panic attack was 4 months ago. She has a history of cutting but has not done any since college. She also denies OCD, eating disorder, trauma, PTSD, seizure or head trauma. Goal Relevant Strengths/Supports: intelligent, resilient, motivated Objectives Objective #1: Stated Objective: Pt will learn and utilize 2-3 healthy coping strategies to better manage depressive symptoms as shown by a decrease of DMS-5 symptoms for depression. Interventions: Through group and individual sessions, therapist will help pt identify triggers and warning signs of depression and guilt including emotional, physical, and behavioral changes. Therapist will teach pt various coping skills to manage symptoms and give pt tangible resources to use to regulate emotions. Therapist will use cognitive restructuring techniques and help pt gain awareness of negative thoughts that reinforce guilt and depression. Therapist will provide psychoeducation on maintenance cycles and help pt learn ways to break unhealthy maintenance cycles. Therapist will help pt incorporate behavioral activation and assist pt in setting SMART goals. Discharge Criteria: Pt will have met this goal when can report learning and using at least 2 coping skills to manage depressive symptoms and reduce isolation. Additionally, pt will have met this goal when pt's DSM-5 scores for depression decrease. Target Date: 02/10/25 Review Date: 01/25/25 Objective #2: Stated Objective: Pt will identify at least 2-3 negative self-talk messages used to reinforce negative core beliefs, worthlessness, and isolation and replace thoughts with balanced, realistic messages. Interventions: Therapist will help pt identify distorted, negative beliefs about self and replace with more realistic, affirmative messages. Therapist will use CBT and DBT to help pt increase insight to the connection between thoughts, emotions, and behaviors. Therapist will encourage pt to practice thought challenging. Discharge Criteria: Pt will have achieved this goal when can verbalize at least 2 cognitive distortions and effectively replace those thoughts with affirmative messages. Target Date: 02/10/25 Review Date: 01/25/25 Problem/Goal #2 Problem/Goal #2 Stated Goal:: Will reduce anxiety symptoms through increasing emotional regulation and distress tolerance skills Description of Barriers: Self-confidence often leads to pt shutting down or not advocating for needs, social anxiety, hx of meth use resulting in ongoing issues with psychosis Functional Impact: Patient is a 34-year-old single female with a history of depression, anxiety, PTSD and methamphetamine use disorder (sober x 4 months) who was referred to the [facility] behavioral health IOP by her outpatient therapist due to worsening hallucinations for the past 3 months. The patient states that she began having tactile, visual and auditory hallucinations after the last time she used methamphetamine which was 3 months ago. The tactile and visual hallucinations have resolved but she still has auditory hallucinations remaining and they are now lessening since she was placed on medication about 3 weeks ago. These hallucinations have caused her to become depressed and isolate herself and ruminate negatively. She currently lives with her boyfriend of 5 years in an apartment. The patient's mother helps her with finances as she has not worked since 2019. For primary support she has her mom or her boyfriend. She has a 5-year-old daughter who lives with the patient's mother. The patient says she sees her daughter daily. She endorses sadness which has been lessening lately. She endorses worthlessness, hopelessness, low energy and decreased concentration. She denies guilt and her anhedonia is better now and she has been enjoying walking. She denies chip ever. She described herself as a worrier by nature and the last time she had a panic attack was 4 months ago. She has a history of cutting but has not done any since college. She also denies OCD, eating disorder, trauma, PTSD, seizure or head trauma. Goal Relevant Strengths/Supports: intelligent, resilient, motivated Objectives Objective #1: Stated Objective: Pt will increase ability to manage stressors and anxiety by gaining 2-3 distress tolerance skills. Interventions: Through group and individual therapy, pt will learn various coping skills to help manage stress and anxiety. Therapist will utilize DBT distress tolerance skills to increase awareness and give pt tools to more effectively manage anxiety. Therapist will provide psychoeducation on emotional regulation and help pt identify unhealthy coping skills he wants to change. Discharge Criteria: Pt will have accomplished this goal when can report improved ability to manage stressors and identify at least 2 distress tolerance skills. Target Date: 02/10/25 Review Date: 01/25/25 Objective #2: Stated Objective: Pt will identify 2-3 anxiety triggers and 2 coping skills to use when feeling anxious or overwhelmed to manage anxiety as shown by reducing DSM-5 scores for anxiety Interventions: Therapist will provide education on anxiety, avoidance behaviors, and maintenance cycles. Therapist will help pt explore personal symptoms and warning signs of anxiety and PTSD. Therapist will teach pt coping skills to improve emotional regulation, mindfulness, and distress tolerance to help pt cope with anxiety in the moment. Discharge Criteria: Pt will have accomplished this goal when she can identify at least 2 triggers and report using 2 coping skills to manage anxiety. Additionally, pt will have accomplished this goal AEB reduction of DSM-5 scores for anxiety. Target Date: 02/10/25 Review Date: 01/25/25
--- NOTE | 2024-12-27 11:10 | BH.SGPN.GN ---
Behaviors/Verbalizations/Mental Status: []Client alert and oriented, casually dressed and groomed. Eye contact fair. Motor activity appropriate. Speech within normal limits. Affect constricted, mood anxious. Thoughts linear, logical, no signs of hallucinations or delusions. Client Response/Progress/Benefit: []Pt was engaged throughout AEB contributing to group discussion and activity. Group processed how they each responded to the intentionally difficult task they were asked to completed and described the physical and emotional anger cues experienced throughout, as well as strategies used for managing these frustrations. Pt contributed as group brainstormed healthy coping skills for better managing anger which included: music, walking/exercise, taking a break, healthy venting, avoiding unnecessary stressors, reflection, and journaling. Pt cooperative with working in small groups to identify what strategy wants to work on to help interrupt personal anger cycle. Pt shared she learned today it's important to not internalize anger. Pt to continue IOP to challenge distortions, improve coping skills, and prevent decompensation.
[2024-12-27 11:36] VITALS: BP 150/100; PULSE 89
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
--- NOTE | 2024-12-27 12:22 | BH.DR.ITP ---
Initial Treatment Plan Patient Information Visit Information: ADMISSION DATE: EXPECTED LOS: 4-6 weeks Problems/Symptoms Problem #1:: Depression Symptom:: Sadness, hopelessness, worthlessness, resolving anhedonia, low energy, decreased concentration Problem #2:: Anxiety Symptom:: Worry, rumination
--- NOTE | 2024-12-28 09:05 | BH.SGPN.GN ---
Behaviors/Verbalizations/Mental Status: [] Eye contact is fair. Motor activity is appropriate. Appearance is casual. Speech is Appropriate. Mood is anxious and depressed. Affect is flat. Thoughts are linear and logical. No evidence of psychosis. Reviewed daily check in sheet and no reports of suicidal ideations or intent. Client Response/Progress/Benefit: [] Pt participated when prompted. Attentive. Tearful at times. Struggles to identify mental health wins stating I made it here today. Also reports going for a walk and consciously attempting opposite-action. I'm forcing myself out. Also shared that she is still sober. Very brief check-in as she is new to the group and appears very anxious to share. Progress noted as she has returned to IOP. Benefited from group support,encouragement, and feedback. Will continue in IOP to prevent decompensation, stabilize mood, increase healthy coping,and improve functioning. Narrative Note: []
--- NOTE | 2024-12-28 10:15 | BH.SGPN.GN ---
Behaviors/Verbalizations/Mental Status: []Client alert and oriented, casually dressed and groomed. Eye contact good. Motor activity appropriate. Speech within normal limits. Affect congruent, mood anxious. Thoughts linear, logical, no signs of hallucinations or delusions Client Response/Progress/Benefit: []pt responded well to session, contributing to discussion and engaged during the activity. Group identified the benefits of change which included: personal growth, increased confidence, improving mental health, progressing, and becoming resilient. Worked with the group to identify barriers to change and pt identified personal barriers as lack of transportation and isolation. pt participated along with group in activity where they discussed the emotions related to change. Benefited from increased awareness and understanding of emotions, benefits, and barriers related to change. Will continue IOP tx to prevent decompensation, improve daily functioning, and increase distress tolerance skills. Narrative Note: []
--- NOTE | 2024-12-28 11:15 | BH.SGPN.GN ---
Behaviors/Verbalizations/Mental Status: []Client alert and oriented, neatly dressed and groomed. Eye contact good. Motor activity appropriate. Speech within normal limits. Affect congruent, mood depressed and anxious. Thoughts linear, logical, no signs of hallucinations or delusions. Client Response/Progress/Benefit: [] Pt responded well to session, attentive throughout. Did well to actively listen and contributed when prompted as group worked to review change process. Pt worked with group to relate the strategies used to overcome barriers in the various stages of change and common emotions throughout. Pt identified a change they would like to make is ?Going to gym to exercise.? Pt identified currently being in the preperation stage for this change. Pt said finding transportation one thing she can do to help pt get to the next stage. Appeared to benefit from identifying a change they want and how to progress. Pt will continue IOP tx to prevent decompensation, combat distorted thought patterns, and improve self-compassion. Narrative Note: []
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
--- NOTE | 2025-01-24 10:01 | BH.MDN ---
Multi-Disciplinary Note Note 45-min Individual: Time Started:: 08:50 Date: 12/27/24 Purpose of session/treatment goals addressed:: Used the session to identify treatment plan goals and obtain psychosocial hx. Eye Contact:: Good Motor Activity:: Appropriate Appearance:: Casual Speech:: Appropriate Mood:: Anxious and Depressed Affect:: Congruent Thoughts:: Linear, Logical and No evidence of hallucinations/delusions noted Staff Interventions:: motivational interviewing, rapport building, strengths perspective and treatment planning Client Response:: Pt actively engaged, openly discussed current sx and stressors resulting in referral to [facility] level care. Pt reports that she was refered by her counselor, Mindi, at [facility] due to ongoing issues with auditory hallucinations as well as anxiety. Pt explained that she is four months sober after using meth for the past 5 years. Explained that when she stopped using, she began experiencing severe auditory and visual hallucinations. Describes this as traumatic and although she is no longer having visual hallucinations, the auditory remain. Noted they have decreased in intensity, and she is hoping to learn skills to better manage these while working with psychiatry to eliminate them completely. Went on to discuss learning to live a sober lifestyle and rediscovering what she enjoys, as she has had limited engagement in hobbies and interests during her use. Noted she has been in therapy since the end of October and has found this helpful, she would like to work on improving her ability manage sx of anxiety and depression, as well as feel more confident in herself. Risks/Concerns:: Daily symptom tracker notes no suicidal ideations, plan, or intent. Progress Toward Goals/Plan:: No progress noted as this was her first week in IOP. Presents today with several concerns related to managing daily psychosocial stressors, navigating sobriety, as well as managing her auditory hallucinations. Will continue to monitor daily symptom tracker and encourage improve self-talk. Will continue IOP level of care to maintain safety, prevent decompensation, and improve functioning. Time Stopped:: 09:30
== END 2024-12-30 23:59 ==
LOC: BHIOP 08:00
PROVIDERS: Referring Provider Psychiatry & Neurology Psychiatry; Visit Provider Psychiatry & Neurology Psychiatry
DX: F33.1 Major depressive disorder, recurrent, moderate (principal); F41.1 Generalized anxiety disorder; F11.951 Opioid use, unspecified with opioid-induced psychotic disorder with hallucinations; Z79.899 Other long term (current) drug therapy
CPT/HCPCS: H2012; H2020

== ENCOUNTER 2025-01-02 07:38 | Outpatient (RCR) | payer MEDICAID, SELFPAY ==
[2024-12-31 02:50] VITALS: BP 150/100; PULSE 89
--- NOTE | 2025-01-04 10:10 | BH.SGPN.GN ---
Behaviors/Verbalizations/Mental Status: [] Pt alert and oriented, casually dressed and groomed. Eye contact good. Motor activity appropriate. Speech within normal limits. Affect full, mood dysthymic and anxious. Thoughts linear, logical, no signs of hallucinations or delusions. Client Response/Progress/Benefit: [] Pt was an engaged participant AEB listening attentively to others, taking notes, and providing feedback in group discussions. Attentive during psychoeducation AEB by note taking. Pt worked along with peers in groups to define inappropriate guilt and appropriate guilt. Group worked together to provide examples of both inappropriate and appropriate guilt. Group identified a canceling plans and snapping at kids as appropriate guilt examples. Group identified setting a being in a down mood and taking responsibility for other?s emotions as having inappropriate guilt. Pt able to connect impact inappropriate guilt can have on MH and overall functioning. Identified struggling at times with not advocating for herself and fears of disappointing others resulting in inappropriate guilt. Benefited from increased awareness of guilt and the differences between appropriate and inappropriate guilt. Pt to continue IOP tx to prevent decompensation, gain healthy coping skills, and increase self-confidence. Narrative Note: []
--- NOTE | 2025-01-04 10:31 | BH.MDN_ITS ---
Multi-Disciplinary Note Note 30-min Individual: Time Started:: 09:27 Date: 01/04/25 Purpose of session/treatment goals addressed:: Purpose of session was to discuss adjustment to group therapy, as well as begin applying self- compassionate approaches to sober living and management of hallucinations Eye Contact:: Good Motor Activity:: Appropriate Appearance:: Casual Speech:: Appropriate Mood:: Anxious Affect:: Congruent Thoughts:: Linear, Logical and No evidence of hallucinations/delusions noted Staff Interventions:: motivational interviewing, psychoeducation on: (self-compassion), CBT techniques, mindfulness skills, strengths perspective and taught coping skills Client Response:: Pt responded well to session, openly discussing current sx and stressors, engaged throughout. Described feeling more hopeful and open to the group environment after attending for a week. Explained that she initially almost talked herself out of returning due to feeling overwhelmed by it the first day. Reports her outpatient therapist encouraged her to give it another try which was helpful. Shared that overall she is doing well and continues to maintain sobriety. Discussed spending much of her time either doiong things around the house or watching tv with her boyfriend until about 1pm when her mother picks her up to visit with her daughter. Explained that her mother has been the primary caregiver for her daughter due to pt?s struggles with addictio n, but now that she is sober, pt is trying to be a much more consistent part of her life. Believes this is going well. Did report ;daily struggles with her auditory hallucinations making comments that are mocking pt or causing her to doubt herself. Described guilt and shame surrounding her use and views the voices as a constant reminder of this. Receptive of discussion on mindfulness strategies to manage them, as well as challenging the comments they make with self-compassionate statements. Discussion on self-forgiveness as an important component of healing within sobriety. Plans to begin practicing thought challenging and focusing on her present rather than the past mistakes she made. Risks/Concerns:: Daily symptom tracker notes no suicidal ideations, plan, or intent. Progress Toward Goals/Plan:: Progress noted AEB pt self-report of increased comfort and engagement in group setting. Reports finding IOP tx to be beneficial and enjoys the shared experience component. Pt continues to struggle with anxiety and discomfort in adjusting to sober living but is doing well to practice sitting with the uncomfortable. Does struggle with knowing what to do with her time and noted willingness to try deena art. Pt noted that she is seeing some reduction in the severity of her sx; however continues to struggle with self-doubt and guilt associated with the nature of their comments. Pt recommended continued IOP tx to improve mood stability, increase confidence, and encourage self-compassion. Time Stopped:: 10:00
--- NOTE | 2025-01-04 11:10 | BH.SGPN.GN ---
Behaviors/Verbalizations/Mental Status: []Pt alert and oriented, casually dressed and groomed. Eye contact good. Motor activity appropriate. Speech within normal limits. Affect congruent, mood euthymic. Thoughts linear, logical, no signs of hallucinations or delusions. Client Response/Progress/Benefit: [] Pt was an engaged participant AEB listening attentively to others and providing input throughout group. Pt worked within their small group to identify strategies to manage inappropriate guilt. Identified a personal example of inappropriate guilt as ?feeling guilt for having to share time between my boyfriend and my daughter.? Pt wants to work on combatting inappropriate guilt by ?talking to my boyfriend about it and using positive self-talk.? Pt seemed to benefit from learning about strategies to manage appropriate and inappropriate guilt. Pt to continue IOP tx to prevent decompensation, gain healthy coping skills, and increase self-confidence. ? Narrative Note: []
--- NOTE | 2025-01-05 09:05 | BH.SGPN.GN ---
Behaviors/Verbalizations/Mental Status: [] Eye contact is good. Motor activity is appropriate. Appearance is casual. Speech is Appropriate. Mood is depressed. Affect is flat. Thoughts are linear and logical. No evidence of psychosis. Reviewed daily check in sheet and no reports of suicidal ideations or intent Client Response/Progress/Benefit: [] Pt participated when prompted. Attentive. Daily symptom tracker notes 2/5 for depression and anxiety. Remains sober. Feeling optimistic and content today. ? I don?t feel stressed right now?. Very brief check-in. Remain hesitant to be vulnerable in front of peers. Progress noted. Benefited from group support, encouragement, and feedback. Will continue in IOP to prevent decompensation, stabilize mood, and improve functioning. Narrative Note: []
--- NOTE | 2025-01-05 10:10 | BH.SGPN.GN ---
Behaviors/Verbalizations/Mental Status: [] Pt alert and oriented, casually dressed and groomed. Eye contact good. Motor activity appropriate. Speech within normal limits. Mood is depressed and anxious. Affect is congruent. Thoughts linear, logical, no signs of hallucinations or delusions. Client Response/Progress/Benefit: [] Pt was an active?participant in group discussions and experiential activity. Worked with peers to identify benefits of healthy relationships which included; support, shared experiences, laughter, understanding, and the ability to challenge us. Group identified factors that lead to unhealthy relationships which included; fear, loneliness, low self-esteem, need to be liked, and societal expectations. Benefited from increased insight and awareness of benefits of healthy relationships and factors that contribute to unhealthy relationships. Will continue IOP to prevent decompensation, increase healthy coping skills, and improve functioning. Narrative Note: []
--- NOTE | 2025-01-05 11:05 | BH.SGPN.GN ---
Behaviors/Verbalizations/Mental Status: []Pt alert and oriented, casually dressed and groomed. Eye contact good. Motor activity appropriate. Speech within normal limits. Affect constricted, mood anxious. Thoughts linear, logical, no signs of hallucinations or delusions. Client Response/Progress/Benefit: [] Pt responded well to session, engaged and taking notes throughout. Worked with group to connect components of the experiential activity with characteristics of healthy and unhealthy relationships. Attentive during psychoeducation about characteristics of healthy, unhealthy, and abusive relationships. Pt reported pt is better with enjoying personal time. However, pt reported pt can work on finding personal hobbies and building better communication. Appeared to benefit from identifying current healthy relationship attributes and an area Pt wants to work on to build healthier relationships. Pt to continue IOP tx to prevent decompensation, increase use of healthy coping skills, and improve daily functioning. ? Narrative Note: []
--- NOTE | 2025-01-09 09:00 | BH.SGPN.GN ---
Behaviors/Verbalizations/Mental Status: [] Eye contact is good. Motor activity is appropriate. Appearance is casual. Speech is Appropriate. Mood is anxious. Affect is congruent. Thoughts are linear and logical. No evidence of psychosis. Reviewed daily check in sheet and no reports of suicidal ideations or intent. Client Response/Progress/Benefit: [] Pt participated when prompted. Attentive. Daily symptom tracker notes 11/06 for depression and anxiety. Overall mood reported to be ?better?. She continues to maintain her sobriety. Spending quality time with her daughter. Elaborated on how this is helpful to her overall mental health. Very brief in her check-in. Appears guarded around peers. Benefited from group support, encouragement, and feedback. Will continue in IOP to prevent decompensation, stabilize mood, and improve functioning. Narrative Note: []
--- NOTE | 2025-01-09 10:15 | BH.SGPN.GN ---
Behaviors/Verbalizations/Mental Status: []Client alert and oriented, casually dressed and groomed. Eye contact good. Motor activity appropriate. Speech within normal limits. Affect congruent, mood anxious. Thoughts linear, logical, no signs of hallucinations or delusions. Client Response/Progress/Benefit: [] Pt was an active participant AEB taking notes and engaging in group activity. Connected with the topic of pitfalls and listened to group discussion on barriers that prevent from choosing a healthier path to mental wellness. Group worked together to identify examples of personal pitfalls. These examples included; shutting down, not asking for help, negative thinking patterns, substance use, and isolation. Pt benefited from group as Pt learned to better identify potential barriers to improving mental health symptoms. Pt will continue IOP tx to increase distress tolerance, increase self-compassion, and reduce negative thinking patterns. Narrative Note: []
--- NOTE | 2025-01-16 09:05 | BH.SGPN.GN ---
Behaviors/Verbalizations/Mental Status: [] Client alert and oriented, casual appearance. Eye contact fair. Motor activity appropriate. Speech within normal limits. Affect constricted, mood anxious. Thoughts linear, logical, no signs of hallucinations or delusions. Reviewed client's symptom tracker, no risk for suicidal ideation, plan, or intent. Client Response/Progress/Benefit: [] Client responded well to session AEB listening to others and sharing thoughts/feelings. Client reported mental positive as continuing to maintain sobriety. Client reported additional mental positive as spending time with her daughter to help with an art project. Client noted current stressor as feeling increased anxiety over the last week but unable to identify any specific trigger. Appeared to benefit from support from peers. Will continue IOP tx to promote utilization of healthy coping skills, improve mood stability, and prevent decompensation. Narrative Note: []
--- NOTE | 2025-01-16 10:10 | BH.SGPN.GN ---
Behaviors/Verbalizations/Mental Status: [] Client alert and oriented, casually dressed and groomed. Eye contact good. Motor activity appropriate. Speech within normal limits. Affect congruent, mood anxious. Thoughts linear, logical, no signs of hallucinations or delusions. Client Response/Progress/Benefit: [] Client participated during the group discussion, providing input and remaining attentive during psychoeducation. Participated in experiential activity. Client contributed during interactive discussion on the consequences of unhealthy expression of emotions. Worked with group to identify several consequences which included hurting relationships and not getting needs met. Contributing during interactive discussion on common potholes to effectively communicating. Client identified personal ones as self sabotage and over-sharing. Client was able to relate and make connections between the experiential activity and the overall topic, discussed feeling anxious and guilty during activity which almost caused her to give up, but was able to regulate emotions with self talk and continue activity successfully. Benefited from increased awareness of how stress and emotions can impact one's ability to communicate. Will continue in IOP to manage sx of anxiety, continue to improve overall functioning, and prevent decompensation. Narrative Note: []
--- NOTE | 2025-01-16 11:15 | BH.SGPN.GN ---
Behaviors/Verbalizations/Mental Status: [] Client alert and oriented, casually dressed and groomed. Eye contact good. Motor activity appropriate. Speech within normal limits. Affect congruent, mood anxious. Thoughts linear, logical, no signs of hallucinations or delusions. Client Response/Progress/Benefit: [] Client engaged in session AEB client listening attentively to peers and providing input. Attentive during psychoeducation on 4 zones of regulation. Pt able to identify feelings and behaviors for each zone. Pt identified coping skills one can use to support self in each zone. Pt stated belief that pt is in the green and yellow zones today. Pt reports plan to work on being okay with emotions. Benefited from increased education on zones of regulation or stages of alertness for emotions and healthy coping skills to use for each zone. Pt will continue IOP tx to increase self-awareness, improve emotional regulation skills, and improve overall functioning. Narrative Note: []
--- NOTE | 2025-01-17 09:05 | BH.SGPN.GN ---
Behaviors/Verbalizations/Mental Status: []Pt alert and oriented, neatly dressed and groomed. Eye contact good. Motor activity appropriate. Speech within normal limits. Affect congruent, mood calm. Thoughts linear, logical, no signs of hallucinations or delusions. Client Response/Progress/Benefit: []Pt was an active participant in group discussions. Attentive. Able to identify mental health wins including being 5-months sober from methamphetamines and going to the library with her daughter. Pt's stressor today is ?I don?t have one.? Pt is feeling calm? this morning. Pt receptive to feedback from peers which pt reported was helpful. Progress noted. Benefited from group support, encouragement, and feedback. Will continue in IOP to prevent decompensation, improve distress tolerance skills, and improve daily functioning. Narrative Note: []
--- NOTE | 2025-01-17 10:15 | BH.SGPN.GN ---
Behaviors/Verbalizations/Mental Status: [] Eye contact is good. Motor activity is appropriate. Appearance is casual. Speech is Appropriate. Mood is content, anxious. Affect is congruent. Thoughts are linear and logical. No evidence of psychosis. Client Response/Progress/Benefit: [] Pt was a passive but attentive participant in group discussions. Attentive during psychoeducation on the 4 communication styles (Passive, Passive-Aggressive, Aggressive, and Assertive) and the obstacles to effective communication. Actively listening and taking notes during interactive discussion on the benefits of communicating effectively. Worked well with peers to identify the benefits and disadvantages to the different communication styles. Benefited from increased understanding of communication styles and how these can impact effective communication. Will continue in IOP to prevent decompensation, improve confidence, and improve daily functioning. Narrative Note: []
--- NOTE | 2025-01-17 11:06 | BH.MDN_ITS ---
Multi-Disciplinary Note Note 30-min Individual: Time Started:: 11:29 Date: 01/17/25 Purpose of session/treatment goals addressed:: Purpose of session was to challenge use of inappropriate guilt, as well as begin practicing acceptance surrounding her ongoing auditory hallucinations. Eye Contact:: Good Motor Activity:: Appropriate Appearance:: Casual Speech:: Appropriate Mood:: Anxious and Dysthymic Affect:: Congruent Thoughts:: Linear, Logical and No evidence of hallucinations/delusions noted Staff Interventions:: psychoeducation on: (appropriate vs. inappropriate guilt, acceptance), CBT techniques and strengths perspective Client Response:: Pt responded well to session, actively engaged throughout. Reports she is doing better to adjust to having down time and slowing down without as much restlessness. Noted that she has been trying to go for walks and remind herself that down time is okay. Shared trying deena art but felt it was too monotonous for her. Plans to explore other ways to be creative and noted scrapbooking in the past and would like to try getting back into this. Went on to share current stressor as continued auditory hallucinations. Shared that she had hope they would have subsided by now and is struggling with guilt, frustration, disappointment, and fear as a result. Described the voices as consuming 25-30% of her day and that she has made progress in challenging them. Explained that she had imagined continued sobriety to mean she would no longer we hallucinations and blames herself for having them. Did well to work with therapist on reviewing appropriate vs inappropriate guilt. Pt identified that the inappropriate guilt prevents her from self- forgiveness. Began discussion on what acceptance would look like should the voices persist despite medication treatment. Noted not liking the possibility that the hallucinations may be an ongoing part of her life but willing to begin working on learning to live with them. Risks/Concerns:: Daily symptom tracker notes no suicidal ideations, plan, or intent. Progress Toward Goals/Plan:: Progress noted AEB pt self-report of improved ability to sit with the uncomfortable and manage down time without becoming restless or panic. Continuing to work on improving interpersonal relationships and is spending time with supports daily. Pt reports she is somewhat better managing auditory hallucinations, however continues to struggle in this area and reports negative self-talk as a result. Recommended continued IOP tx to promote mood stability, encourage continued sobriety, and prevent decompensation. Time Stopped:: 12:02
--- NOTE | 2025-01-19 09:00 | BH.SGPN.GN ---
Behaviors/Verbalizations/Mental Status: [] Client alert and oriented, casual appearance. Eye contact good. Motor activity appropriate. Speech within normal limits. Affect congruent, mood anxious. Thoughts linear, logical, no signs of hallucinations or delusions. Reviewed client's symptom tracker, no risk for suicidal ideation, plan, or intent. Client Response/Progress/Benefit: [] Client responded well to session AEB listening to others and sharing thoughts/feelings. Client reported mental positive as maintaining sobriety and continuing to show up consistently to IOP. Client noted instrumental positive as taking her child to [facility] to go walking. Mom noted current stressor as working on acceptance of her mental health. Appeared to benefit from support from peers. Will continue IOP tx to increase consistent utilization of healthy coping skills, challenge distortions, and prevent decompensation. Narrative Note: []
--- NOTE | 2025-01-19 10:15 | BH.SGPN.GN ---
Behaviors/Verbalizations/Mental Status: [] Pt alert and oriented, casually dressed and groomed. Eye contact good. Motor activity appropriate. Speech within normal limits. Affect congruent, mood dysthymic. Thoughts linear, logical, no signs of hallucinations or delusions. Client Response/Progress/Benefit: [] Pt was an active participant in group discussions. Attentive during psychoeducation on the CBT [place] (Thoughts, Behaviors, Emotions). Engaged in group discussion on how thoughts and behaviors can contribute to maintaining adverse feelings, such as depression, anxiety, and irritability. Completed worksheet in which pt identified obstacles and/or thoughts that are keeping them stuck. Shared thoughts that included; I'm not ever good enough, I'm not smart enough, no one will ever understand me. Pt benefited from increased awareness of the basis of CBT therapy as well as specific thoughts that are impacting pt's progress. Will continue in IOP to prevent decompensation, increase healthy coping, and improve functioning. Narrative Note: []
--- NOTE | 2025-01-19 11:15 | BH.SGPN.GN ---
Behaviors/Verbalizations/Mental Status: []Pt alert and oriented, casually dressed and groomed. Eye contact good. Motor activity appropriate. Speech within normal limits. Affect congruent, mood dysthymic and anxious. Thoughts linear, logical, no signs of hallucinations or delusions. Client Response/Progress/Benefit: [] Pt responded well to session, contributing to discussion and attentive throughout. Pt identified a negative thought that has kept them stuck. Pt's thought was I'm never good enough.? Pt reported when they think this way, pt isolates, speaks negatively to herself, and seeks reassurance. Pt worked to reframe the thought by finding more rational, realistic ways to look at the thoughts and then processed them within group setting. Pt reframed the thought to ?I am human and allowed to make mistakes.? Pt appeared to benefit from practicing challenging negative thinking with peers and gaining coping skills. Pt will continue IOP tx to promote mood stability, increase self-care, and further increase self-compassion. Narrative Note: []
--- NOTE | 2025-01-19 11:36 | PCM.BH.PN ---
Progress Note Progress Note: History of Present Illness/Interim History: The patient is a 34-year-old single female with a history of depression, anxiety, PTSD and methamphetamine use disorder (sober x 5 months) who is seen in follow-up at the [facility] behavioral health IOP. I last saw the patient 3-1/2 weeks ago. The patient states that she is doing okay overall but is still having auditory hallucinations which may be a little decreased but are still persistent and bother her at night when she is trying to go to sleep. Her tactile and visual hallucinations had resolved completely prior to starting the IOP in the all the hallucinations were triggered by methamphetamine use several months ago. The auditory hallucinations consist of several voices of people that she knew in the past and they say negative things but are not commanding her to do anything. She still has sadness but has less worthlessness and less hopelessness now. Her energy level has improved and is now normal. Her sleep is 8 hours a night still and appetite is okay. She denies passive thoughts of , plan for suicide, homicidal ideation, suicidal ideation or any other delusions or hallucinations. She is a worrier by nature. Current Psychiatric Medications: [] Risperdal 2 mg p.o. nightly (dose increased 6 weeks ago); Lexapro 10 mg p.o. daily; hydroxyzine up to 3 times daily 25 mg. Mental Status Examination: [] The patient is a 34-year-old female who has nasal and lip piercings and is otherwise normal for stated age and casually dressed and groomed with good hygiene. She has no psychomotor agitation or retardation and is cooperative during the interview. Speech is normal rate and rhythm and fluent with no pressure. Eye contact is good. Mood is anxious. Affect is constricted mildly constricted. Thought process is goal-directed and organized. Thought content: There is evidence that auditory hallucinations remain although they are lessening and somewhat easier to ignore. At times they mock her or tell her she needs to use methamphetamine. There is no evidence of any other hallucinations or any delusions. There is no evidence of passive thoughts of , plan for suicide, suicidal ideation, homicidal ideation. Reality testing is intact. Intelligence is above average. Judgment is intact. Insight Limited but some present. Impulsivity is high. Diagnoses: [] 1. Major depressive disorder, recurrent, moderate 2. Generalized anxiety disorder 3. 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 Methamphetamine use disorder (sober x 5 months) 5. Primary support and financial issues Plan: [] The patient will continue the IOP in behavioral health at [facility] as the structure, support, education and group therapy will hopefully prevent worsening of the patient's symptoms. The patient felt safe during the interview and she has agreed that if it anytime she does not feel safe she will let us know or go to the emergency room. Patient agrees to increase her Risperdal to 3 mg p.o. nightly to help with hallucinations. She agrees to stay sober from all drug use. She will continue to follow-up with her outpatient providers and I will see the patient in follow-up in 2 weeks and if the hallucinations are not gone at that time we will increase the Risperdal to 4 mg p.o. daily. The patient understands that if at high doses the Risperdal could cause irregular menses or galactorrhea and if that occurs she should tell her provider. She understands of being on Risperdal long-term might increase her risk also of osteoporosis if her prolactin increases. But since this has already been on it and it has been helping we will not change the med at this time as were trying to get the hallucinations under control.
--- NOTE | 2025-01-19 12:50 | BH.MTP_ITS ---
Treatment Plan Review Demographics Date of Admission:: 12/27/24 Date of Treatment Plan Review:: 01/19/25 Admitting Diagnoses:: 1. Major depressive disorder, recurrent, moderate 2. Generalized anxiety disorder 3. 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 Primary support and financial issues Current Diagnoses:: 1. Major depressive disorder, recurrent, moderate 2. Generalized anxiety disorder 3. 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 Primary support and financial issues Patient Status Patient's Response to Treatment:: Pt is responding well to IOP tx AEB pt's consistent attendance, report of benefitting from group support and education, and self-report of learning healthy coping skills. Pt is engaged in group sessions, and is doing well to verbally contribute despite reports of anxiety in social settings. Pt reports medication compliance and pt does well with completing homework. Pt does however struggle with consistent application of thought challenging, self-advocacy and communication, and positive self-talk. As a result Pt's overall DSM-5 scores have decreased by 24% since admission. Status of Current Problems and Symptoms: Pt's symptoms of anxiety and depression have decreased since admission and pt reports a reduction in isolation as well, pt would benefit from improving in consistent application of skills outside of the treatment environment. Pt continues to struggle with depression related to accepting her mental health struggles, anxiety related to adjusting to sobriety and uncertainty of how to spend her time, not feeling connected to herself, and negative thinking patterns. Pt's depression is decreasing, but pt reports ongoing feelings of being a burden, purposelessness, and worthlessness. Progress Problem #1: Problem Name:: Depression, isolation Status of Goals:: Objective 1- in progress. Pt?s DSM-5 scores for depression have decreased 60% since admission. Pt has gained awareness of coping mechanisms that reinforce depression like isolation and self-criticism, and pt has been working on reducing this. Pt has made progress in getting back into activities she enjoys, such as coloring, reading, and spending time with sup ports. Pt continues to endorse depressive symptoms such as feeling hopeless, like a burden, and low motivation. Objective 2- in progress. Pt is learning about mistaken beliefs and how her self-talk reinforces depression and feelings of worthlessness. Pt continues to struggle with self-compassion and replacing negative self-talk with more affirmative statements. Team Recommendations:: Treatment team recommends pt continue to work on these tx goals. Therapist also encourages pt to increase communication with supports, increased engagement in activities outside the home to improve mood and increase support net, and use of healthy coping skills to manage depression and reduce isolation. Pt was encouraged to continue setting daily goals to reduce isolation and increase motivation as well. Problem #2: Problem Name:: Anxiety, avoidance, paranoia Status of Goals:: Objective 1- in progress. Per pt?s DSM-5 pt?s anxiety has decreased by 67% since admission. Pt has learned healthy coping skills and does report benefitting from the psychoeducation on distorted thoughts as well as in group sessions. Pt does however report difficulties in applying the grounding skills she is learning outside of the group setting as well due to difficulties with restlessness. Objective 2- in progress. Pt reports she has been gaining more awareness of her triggers and if finding it easier to begin applying healthy coping skills, as well as reduce avoidance behaviors. Team Recommendations:: Treatment team recommends pt continue to work on these tx goals. Therapist also encourages pt to communicate with supports and reduce self-sabotaging behaviors like isolation and self-deprecation.
--- NOTE | 2025-01-25 09:05 | BH.SGPN.GN ---
Behaviors/Verbalizations/Mental Status: [] Eye contact is good. Motor activity is appropriate. Appearance is casual. Speech is Appropriate. Mood is anxious. Affect is congruent. Thoughts are linear and logical. No evidence of psychosis. Reviewed daily check in sheet and no reports of suicidal ideations or intent Client Response/Progress/Benefit: [] Pt participated when prompted. Attentive. Very brief and superficial check-in which is baseline for patient. Reports feels more calm and content. She is practicing self-care and opposite action which has helped with her mental health. Also report working on acceptance on certain things she has limited control over. Progress noted stating that she enjous ? being in the groups?. Benefited from group support, encouragement, and feedback. Will continue in IOP to prevent decompensation, increase healthy coping, and improve functioning. Narrative Note: []
--- NOTE | 2025-01-25 10:15 | BH.SGPN.GN ---
Behaviors/Verbalizations/Mental Status: [] Eye contact is fair. Motor activity is appropriate. Appearance is casual. Speech is Appropriate. Mood is depressed and anxious. Affect is constricted. Thoughts are linear and logical. No evidence of psychosis. Client Response/Progress/Benefit: [] Pt was an active participant during interactive group discussions. Along with peers contributed to interactive discussion on defining what a boundary is in mental health. Pt along with peers identified challenges and benefits to setting boundaries. Attentive during psychoeducation on types of boundaries (rigid, porous, flexible). Pt benefited from increased awareness and insight on the importance/benefit to setting health boundaries. Will continue in IOP to promote use of healthy coping skills, prevent decompensation, and improve functioning. Narrative Note: []
--- NOTE | 2025-01-25 11:15 | BH.SGPN.GN ---
Behaviors/Verbalizations/Mental Status: [] Eye contact is fair. Motor activity is appropriate. Appearance is casual. Speech is Appropriate. Mood is anxious. Affect is constricted. Thoughts are linear and logical. No evidence of psychosis. Client Response/Progress/Benefit: [] Client responded well to session AEB listening attentively to peers, providing input, as well as taking notes throughout. Group discussed different styles of boundary setting. Reports connecting most with porous style of boundary setting. Participated in small group discussion brainstorming various strategies for improving healthy boundary setting. Pt took time to complete reflection on which skills would like to implement to improve boundaries. Seemed to benefit from increased awareness of how different boundary styles can impact mental health. Will continue IOP tx to improve mood stability, challenge negative thoughts, and prevent decompensation.
--- NOTE | 2025-01-25 12:05 | PCM.BH.PN ---
Progress Note Progress Note: History of Present Illness/Interim History: The patient is a 34-year-old single female with a history of depression, anxiety, PTSD and methamphetamine use disorder (sober x 5 months) who is seen in follow-up at the [facility] behavioral health IOP. I last saw the patient 1 week ago and at that time her Risperdal was increased for auditory hallucinations that persisted after using methamphetamine several months ago. Patient states that hallucinations are occurring less often and are less derogatory in nature but they are still present off-and-on each day. She is better able to learn in the IOP as she is better able to ignore the hallucinations now. Mood is a little less depressed as the hallucinations seem to be responding to the increased dose of medication. There are no other delusions or other types of hallucinations present. Energy level remains normal now and she is sleeping about 8 hours a night. She denies passive thoughts of , plan for suicide, suicidal ideation, homicidal ideation, or any other hallucinations or delusions. Current Psychiatric Medications: [] Risperdal 3 mg p.o. nightly (dose increased 1 week ago); Lexapro 10 mg p.o. daily; hydroxyzine as needed up to 3 times daily Mental Status Examination: [] The patient is a 34-year-old female who has nasal and lip piercings and is otherwise normal for stated age and casually dressed and groomed with good hygiene. She is ambulatory with a normal gait and has no psychomotor agitation or retardation. She is cooperative during the interview. Eye contact is good and speech is normal rate and rhythm and fluent with no pressure. Mood is mildly depressed. Affect is mildly constricted. Thought process is goal-directed and organized. Thought content: There is evidence of auditory hallucinations which say derogatory things but are lessening over time. There is no evidence of any other type of hallucination or any delusions. There is no evidence of passive thoughts of , plan for suicide, suicidal ideation, homicidal ideation. Reality testing is intact. Judgment is intact. Insight is fair. Impulsivity is high. Diagnoses: [] 1. Major depressive disorder, recurrent, moderate 2. Generalized anxiety disorder 3. 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 Cannot rule out onset of schizoaffective disorder 5. Primary support and financial issues Plan: [] The patient will continue the IOP and behavioral health at [facility] as the structure, support, education and group therapy will hopefully prevent worsening of the patient's symptoms. She agrees to stay sober from all drug use and understands that she should not use marijuana methamphetamine or any other drug as her brain tends to get psychotic on them and she understands that with the persistence of these hallucinations for several months after methamphetamine use that she could be developing schizoaffective disorder. Her father has a history of schizophrenia so she should avoid all drug use that could cause psychosis or precipitated. She agrees to increase the Risperdal to 4 mg p.o. daily. She has 1 mg and 0.5 mg tablets at home and will use these plus the 3 mg want to make the dose. I will see the patient in follow-up in 2 weeks and she will continue to follow-up with her outpatient providers.
--- NOTE | 2025-01-26 09:00 | BH.SGPN.GN ---
Behaviors/Verbalizations/Mental Status: []Pt alert and oriented, neatly dressed and groomed. Eye contact good. Motor activity appropriate. Speech within normal limits. Affect congruent, mood euthymic. Thoughts linear, logical, no signs of hallucinations or delusions. Reviewed pt?s symptom tracker, no risk for suicidal ideation, plan, or intent 01/16/25. Client Response/Progress/Benefit: []Pt was an active participant in group discussions. Attentive. Able to identify mental health wins including being almost 5 months sober and getting to bake cookies with her daughter yesterday. Pt's stressor today is I still don't know how to fill my time. Pt stated feeling calm and happy this morning. Pt receptive to feedback and emotional support from peers which pt reported was helpful. Progress noted. Benefited from group support, encouragement, and feedback. Will continue in IOP to prevent decompensation, improve distress tolerance skills, and increase self-awareness. Narrative Note: []
--- NOTE | 2025-01-26 10:15 | BH.SGPN.GN ---
Behaviors/Verbalizations/Mental Status: []Pt alert and oriented, casually dressed and groomed. Eye contact good. Motor activity appropriate. Speech within normal limits. Affect congruent, mood anxious. Thoughts linear, logical, no signs of hallucinations or delusions. Client Response/Progress/Benefit: [] Pt receptive to session AEB contributing to group discussion, as well as listening attentively to others, and taking notes. Worked with group to brainstorm the positive and negative aspects of stress on physical and mental health as well as the impact of distress on performance, relationships, and mental health. Pt shared their current personal top stressors to be: maintaining sobriety, interpersonal relationships, boredom, and managing her mental health. Shared when feeling overwhelmed with stress pt tends to shut down or numb. Benefited from increased awareness of positive and negative stress as well as how stress impact individuals. Will continue in IOP to prevent decompensation, increase distress tolerance, and improve dialectical thinking. Narrative Note: []
--- NOTE | 2025-01-26 11:15 | BH.SGPN.GN ---
Behaviors/Verbalizations/Mental Status: [] Pt alert and oriented, casually dressed and groomed. Eye contact good. Motor activity appropriate. Speech within normal limits. Affect congruent, mood depressed. Thoughts linear, logical, no signs of hallucinations or delusions. Client Response/Progress/Benefit: [] Pt receptive to session AEB listening attentively to others, and taking notes. Attentive as group brainstormed the positive and negative aspects of stress on physical and mental health as well as the impact of stress on performance, relationships, and mental health. Pt shared their top stressors to be: her sobriety, her mental health, and auditory hallucinations. Identified the strategy of alter to use towards stressors. Benefited from increased awareness of positive and negative stress as well as how stress impact individuals. Will continue in IOP to prevent decompensation,increase healthy coping, and improve functioning. Narrative Note: []
--- NOTE | 2025-01-27 10:15 | BH.SGPN.GN ---
Behaviors/Verbalizations/Mental Status: []Eye contact is good. Motor activity is appropriate. Appearance is casual. Speech is Appropriate. Mood is euthymic. Affect is congruent. Thoughts are linear and logical. No evidence of psychosis. Client Response/Progress/Benefit: [] Pt receptive to session AEB listening attentively to others and taking notes. Pt attentive and contributed throughout psychoeducation on the cognitive triangle and maintenance cycles. Pt engaged during group discussion reviewing the impact of daily activities and behaviors in either reinforcing unhealthy maintenance cycles and depression or assisting in reducing symptoms (?down? vs ?up? activities). Pt participated during interactive discussion in which pt identified common up activities (being around family, showering, walks, music, meditation, talking to supports) and down activities (isolation, using substances, and not changing out of Pjs.) Appeared to benefit from increased awareness of current behaviors and impact these have on mental health. Will continue IOP to promote use of healthy coping skills, maintain sobriety, and improve daily functioning. ?? Narrative Note: []
--- NOTE | 2025-01-27 11:15 | BH.SGPN.GN ---
Behaviors/Verbalizations/Mental Status: []Pt alert and oriented, casually dressed and groomed. Eye contact fair. Motor activity appropriate. Speech within normal limits. Affect congruent, mood anxious. Thoughts linear, logical, no signs of hallucinations or delusions. Client Response/Progress/Benefit: [] Pt responded well to session, attentive and engaged in group discussions and activity. Actively engaged in continued discussion about up activities and down activities. Client stated up activities would like to practice to include: engaging in hobbies, getting outside, and reading/completing workbook. Active participant as group discussed values and the benefits that knowing one's values can have on one's mental health. Benefited from increased awareness of their up activities and how incorporating their values into behavioral activation goals can positively impact mental health. Will continue in IOP to prevent decompensation, challenge negative thoughts, and improve mood stability.
--- NOTE | 2025-01-27 11:35 | BH.MDN_ITS ---
Multi-Disciplinary Note Note 30-min Individual: Time Started:: 09:39 Date: 01/27/25 Purpose of session/treatment goals addressed:: Purpose of session was to identify additional social support services to encurage continued sobriety and promote self-confidence Eye Contact:: Good Motor Activity:: Appropriate Appearance:: Casual Speech:: Appropriate Mood:: Euthymic and Anxious Affect:: Congruent Thoughts:: Linear, Logical and No evidence of hallucinations/delusions noted Staff Interventions:: motivational interviewing, strengths perspective, goal setting and other (discussed local social support services) Client Response:: Pt responded well to session, actively engaged throughout. Reports meeting with her outpatient therapist went well and they have been continuing to work on acceptance surrounding her hallucinations as well. Reports that continues to remain hopeful however, as she has seen a slight reduction in frequency and intensity since her risperidone was increased a few days ago. Psychiatrist plans to increase again next week if pt continues to see improvements. Pt reports that she is enjoying the group component of treatment more than originally expected and is interested in finding other ways to continue to get socialization and support outside of IOP tx. Noted that her outpatient provider has encouraged substance use recovery support groups; however, pt does not feel she would enjoy these. Discussed being employed full- time in various positions prior to drug use and is interested in returning to the workforce but does not feel ready to do so at this time. Receptive of referral information to the [employer] programs and pt reported plans to look further into these. 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 Connected with information on a local [facility] group at [facility]. Pt additionally open to giving reading another try as she is less restless than when trying to after first becoming sober. Risks/Concerns:: Daily symptom tracker notes no suicidal ideations, plan, or intent. Progress Toward Goals/Plan:: Progress noted AEB pt self-report of improved mood, hopefulness, and reduced anxiety. Reports auditory hallucinations are decreasing in severity as well which is a significant source of stress for pt. Continues to work on improving distress tolerance and exploring new hobbies and interests. Continues to struggle with low confidence and negative self-talk. Recommended continued IOP tx to improve mood stability and reduce anxiety, as well as prevent decompensation. Time Stopped:: 10:00
== END 2025-01-30 23:59 ==
LOC: BHIOP 07:38
PROVIDERS: Referring Provider Psychiatry & Neurology Psychiatry; Visit Provider Psychiatry & Neurology Psychiatry
DX: F33.1 Major depressive disorder, recurrent, moderate (principal); F41.1 Generalized anxiety disorder; F15.951 Other stimulant use, unspecified with stimulant-induced psychotic disorder with hallucinations; Z79.899 Other long term (current) drug therapy
CPT/HCPCS: H2012; H2020; S9480; 90832

== ENCOUNTER 2025-01-31 07:08 | Outpatient (RCR) | payer MEDICAID, SELFPAY ==
[2025-01-31 00:30] VITALS: BP 150/100; PULSE 89
== END 2025-02-15 12:10 | disposition home or self-care (01) ==
LOC: BHIOP 07:08
PROVIDERS: Referring Provider Psychiatry & Neurology Psychiatry; Visit Provider Psychiatry & Neurology Psychiatry
DX: F33.1 Major depressive disorder, recurrent, moderate (principal); F41.1 Generalized anxiety disorder; F15.951 Other stimulant use, unspecified with stimulant-induced psychotic disorder with hallucinations
CPT/HCPCS: H2012; H2020; S9480; 90832

== ENCOUNTER 2025-02-23 08:00 | Outpatient (RCR) | payer MEDICAID, SELFPAY ==
--- NOTE | 2025-02-23 14:00 | BH.COMM ---
Communication Note Communication with Client Communication Note: Patient completed IOP and presents today to start relapse prevention group which meets once weekly (1.5 hours) for 8 weeks. Case discussed with Dr. Payne with plan to admit with dx of F33.1, f41.1
--- NOTE | 2025-02-23 15:47 | BH.MTP ---
Master Treatment Plan Patient Information Program Physician:: Dr. 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 Objectives Objective #1: Stated Objective: Client will continue to consistently apply healthy coping skills to maintain progress made in IOP tx. Interventions: Through group therapy, client will review warning signs and triggers as well as healthy coping skills learned in IOP tx to successfully maintain gains while transitioning into outpatient therapy. Discharge Criteria: Client will have accomplished this goal when client's score on the DSM-5 cross-cutting measure has maintained or reduced over a 8 week period. Target Date: 04/20/25 Review Date: 03/23/25 Status: open Objective #2: Stated Objective: Client will learn and utilize 2-3 maintenance strategies to prevent decompensation from original IOP DSM-5 scores. Interventions: Through group therapy, client will be provided with education on healthy maintenance behaviors, relapse prevention techniques, and healthy coping strategies. Discharge Criteria: Client will have accomplished this goal when can report using at least 2 maintenance skills to prevent decompensation compared to original IOP DSM-5 scores Target Date: 04/20/25 Review Date: 03/23/25 Status: open
== END 2025-03-01 23:59 ==
LOC: BHOG 08:00
PROVIDERS: Referring Provider Psychiatry & Neurology Psychiatry; Visit Provider Psychiatry & Neurology Psychiatry
DX: F33.1 Major depressive disorder, recurrent, moderate (principal); F41.1 Generalized anxiety disorder; F15.951 Other stimulant use, unspecified with stimulant-induced psychotic disorder with hallucinations
CPT/HCPCS: 90853

== ENCOUNTER 2025-03-02 07:39 | Outpatient (RCR) | payer MEDICAID, SELFPAY ==
--- NOTE | 2025-03-16 12:38 | BH.TPR ---
Treatment Plan Review Demographics Date of Admission:: 02/23/25 Date of Treatment Plan Review:: 03/16/25 Admitting Diagnoses:: 1. Major depressive disorder, recurrent, moderate 2. Generalized anxiety disorder 3. 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 Primary support and financial issues Current Diagnoses:: 1. Major depressive disorder, recurrent, moderate 2. Generalized anxiety disorder 3. 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 Primary support and financial issues Patient Status Patient's Response to Treatment:: Pt continues to respond well to treatment AEB pt's consistent attendance, ongoing attentiveness and engagement in group discussions, and continued reporting use of skills outside treatment environment. Pt's symptoms are still 44% lower than they were at IOP admission. Status of Current Problems and Symptoms: Pt reports ongoing anxiety, auditory hallucinations, and depressive symptoms that have decreased in intensity, but are still present. Pt has been experiencing increased stress with her boyfriend?s mental health and this worsened pt's mental health symptoms, leading to irritability and anxiety. Pt reports she is beginning to feel better, but she still has days she struggles. Progress Problem #1: Problem Name:: Pt will maintain or see a reduction in sx Status of Goals:: Obj 1 - Complete with maintenance encouraged. Pt's depression decreased by 60% compared to IOP admission and anxiety has maintained without increase despite new stressors compared to IOP admission. Obj 2 - complete with ongoing work encouraged. Pt has been reporting using opposite action, self-compassion, walking, advocating for her needs, and dialectical thinking. Pt is also working on being more social and is planning to begin career seeking. Team Recommendations:: Recommended client continue IOP aftercare group in addition to attending regular outpatient counseling in order to maintain gains. Pt also recommended to continue working on self-compassion, practice self-care, and setting realistic goals.
== END 2025-04-01 23:59 ==
LOC: BHOG 07:39
PROVIDERS: Referring Provider Psychiatry & Neurology Psychiatry; Visit Provider Psychiatry & Neurology Psychiatry
DX: F33.1 Major depressive disorder, recurrent, moderate (principal); F41.1 Generalized anxiety disorder; F15.951 Other stimulant use, unspecified with stimulant-induced psychotic disorder with hallucinations
CPT/HCPCS: 90853

== ENCOUNTER 2025-04-03 07:26 | Outpatient (RCR) | payer MEDICAID, SELFPAY ==
--- NOTE | 2025-03-30 15:35 | BH.SGPN.GN ---
Behaviors/Verbalizations/Mental Status: []Client alert and oriented, casually dressed and groomed. Eye contact good. Motor activity appropriate. Speech within normal limits. Affect congruent, mood euthymic. Thoughts linear, logical, no signs of hallucinations or delusions. Client Response/Progress/Benefit: []Pt responded well to session AEB sharing and listening attentively to others. Pt reports following up with therapy and pt reports she is taking her medications consistently. Pt stated using socializing, asking for help, exercise, radical acceptance, and reframing as primary coping skills used this past week. Pt participated in group discussion defining vulnerability, how and why we avoid it, and the benefits. Pt was an active participant and provided personal examples of being vulnerable and the positive things that came with this. Pt stated that pt would like to work on being vulnerable this week by reducing her negative self-talk when she wants to "dress rehearse tragedy." Will continue aftercare treatment to reinforce healthy coping skills and promote gains. Narrative Note: []
--- NOTE | 2025-05-22 13:46 | BH.DS ---
Discharge Summary Demographics Date of Admission:: 02/23/25 Discharge Date: 04/13/25 Presenting Problems at Admission:: At aftercare admission pt reporting significant improvement in daily functioning and decrease in anxiety and depression. Client could benefit from aftercare program to help with maintenance of skills and progress. Pt continues to report that the relationship with her boyfriend is a stressors, as well as navigating co-parenting with her mother, managing her auditory hallucinations, and gaining skills for employment. Discharge Diagnoses:: 1. Major depressive disorder, recurrent, moderate 2. Generalized anxiety disorder 3. 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 Primary support and financial issues Reason for Discharge:: Pt has accomplished tx goals AEB ability to maintain mood stability and gains made in IOP. Pt's DSM-5 scores remain 40% lower than her IOP admission scores. Pt will transition to traditional outpatient counseling. Treatment Progress During Treatment & Response: Pt responded well and made progress in IOP aftercare as evidenced by pt's participation in group discussions and self-report of consistently applying coping skills. Pt's overall DSM-5 scores decreased by 40% from IOP admission. Pt’s depression decreased by 40% since original IOP admission and pt's scores for anxiety decreased by 33% compared to original IOP scores. Issues Still to be Addressed:: Client could benefit from continued reinforcement of healthy coping skills, reinforcement of maintenance plan, and continued work on boundary setting and advocating for her needs Discharge Recommendations/Instructions:: Client is established with an outpatient counselor, Mindi, at [facility] and psychiatric technician assistant, Alyssa Maicas, from [facility]. Discharge Handout
== END 2025-04-14 07:09 | disposition home or self-care (01) ==
LOC: BHOG 07:26
PROVIDERS: Referring Provider Psychiatry & Neurology Psychiatry; Visit Provider Psychiatry & Neurology Psychiatry
DX: F33.1 Major depressive disorder, recurrent, moderate (principal); F15.151 Other stimulant abuse with stimulant-induced psychotic disorder with hallucinations; F41.1 Generalized anxiety disorder
CPT/HCPCS: 90853

== ENCOUNTER → 2025-08-03 | Outpatient (CLI) | payer MEDICAID, SELFPAY ==
[2025-08-03 13:55] LABS: AST(SGOT) 16 U/L (<=31); Alanine Aminotransfer ALT/SGPT 8 U/L (<=34); Albumin, Serum 4.2 g/dL (3.5-5.0); Alkaline Phosphatase 76 U/L (35-104); Anion Gap 14 (5-15); BUN 11 mg/dL (4-19); BUN/Creat Ratio 12.3 RATIO (10-20); Calcium,Total 9.5 mg/dL (7.6-11.0); Carbon Dioxide 22.0 mmol/L (21.0-32.0); Chloride 103 mmol/L (98-108); Cholesterol 166 mg/dL (<=200); Globulin 2.8 g/dL (2.2-4.2); Glucose 81 mg/dL (70-99); Low Density Lipoprotein Calc. 86 mg/dL; Potassium 4.1 mmol/L (3.3-5.1); Triglycerides 127 mg/dL; Very Low Density Lipoprotein 25 mg/dL (5-40); cholesterol:hdl ratio screen 3.02
== END | disposition home or self-care (01) ==
LOC: LAB 12:26
PROVIDERS: Referring Provider Nurse Practitioner Psychiatric/Mental Health; Visit Provider Nurse Practitioner Psychiatric/Mental Health
DX: Z79.899 Other long term (current) drug therapy (principal)
CPT/HCPCS: 36415; 80053; 80061; 83036

== ENCOUNTER 2025-09-18 11:54 | Emergency (ER) | payer MEDICAID, SELFPAY ==
[2025-09-18 11:55] VITALS: BP 149/90; PULSE 90; RESP 18; TEMP 35.7; O2SAT 99; BMI 34.0
--- NOTE | 2025-09-18 12:39 | RAD_ITS ---
PROCEDURE: HAND MIN 3 VIEWS 09/18/2025 REASON FOR EXAM: RO, FOREIGN BODY TECHNIQUE: Procedure Code: ABEL Modality: DX Procedure: HAND MIN 3 VIEWS Right hand COMPARISON: None FINDINGS: There are multiple radiopaque densities in the soft tissues in the palmar aspect in the thenar region with the longest measuring 1.1 cm with at least 6 fragments visible. There is no fracture or dislocation. Joint spaces are maintained. RAD/Hand Min 3 Views IMPRESSION: There are multiple radiopaque densities in the soft tissues in the palmar aspec t in the thenar region with the longest measuring 1.1 cm with at least 6 fragments visible. Reading Location: [facility]
--- NOTE | 2025-09-18 12:40 | EDS_ITS ---
HPI History of Present Illness Chief Complaint: Wound Check Detail of Chief Complaint: Concern for foreign body to right hand Informant: patient Narrative Narrative: Patient presents to the emergency department with concern for foreign body to the right hand. She states that she cut her hand in the bathroom about a month ago when she broke a mirror. She recalls removing some glass from the wound but did not seek medical attention at the time. Now complaining of some discomfort with certain movements and things there might still be glass in the hand. Denies fevers chills or sweats. She denies any drainage from the wound. PFSH PFS Medical History Auditory hallucinations VALERIA (generalized anxiety disorder) Major depressive disorder, recurrent, moderate HELLP syndrome Wears glasses Wears contact lenses Pyelonephritis Kidney stones Asthma Chronic hypertension Home Medications ?Medication ?Instructions ?Recorded ?Last Taken ?Type hydroxyzine HCl 25 mg tablet 25 mg PO TID PRN anxiety #90 tabs 03/14/25 Unknown Rx escitalopram oxalate 10 mg tablet 10 mg PO QDAY #90 ta bs 09/05/25 Unknown Rx risperidone 1 mg tablet See Rx Instructions PO .COMP CECY 09/05/25 Unknown Rx #75 tabs Allergy/AdvReac Type Severity Reaction Status Date / Time nitrofurantoin (From Allergy Severe Hives Verified 09/18/25 11:54 Macrobid) aspirin Allergy Swelling Verified 09/18/25 11:54 sulfamethoxazole (From Allergy Swelling Verified 09/18/25 11:54 Bactrim) trimethoprim (From Bactrim) Allergy Swelling Verified 09/18/25 11:54 Family History Grandmother Breast cancer Paternal Cancer Brain Mother Breast cancer Surgical History History of tonsillectomy and adenoidectomy Hx of cystoscopy H/O adenoidectomy Social History household members: significant other current occupational status: unemployed Smoking Status: Current every day smoker tobacco type: cigarettes alcohol intake: current alcohol intake frequency: 0-2 drinks per day substance use type: former substance user and methamphetamine seatbelt use: always do you feel safe at home: Yes additional social history: Significant other-[place] ROS ROS ED Review of Systems ROS Unobtainable: other Constitutional Constitutional ED: Reports lethargy; Denies chills, fever(s), sweats or weight loss Eyes Eyes: Denies blurry vision, change in vision or diplopia ENT ENT ED: Denies rhinorrhea or sore throat Cardiovascular Cardiovascular: Denies chest pain, orthopnea or racing heartbeat Respiratory/Chest Respiratory/Chest: Denies cough, dyspnea, dyspnea on exertion, orthopnea or sputum Gastrointestinal Gastrointestinal: Denies abdominal pain, diarrhea, nausea or vomiting Genitourinary Genitourinary ED: Denies dysuria, hematuria or urinary frequency Musculoskeletal Musculoskeletal: Reports other Details: Right hand wound with concern for foreign body ; Denies arthralgias, back pain, myalgias or neck pain Integumentary Denies abscess, Abrasions or rash Neurologic Neurologic: Denies headache(s) or weakness Psychiatric Psychiatric: Denies anxiety, depression or suicidal thoughts Endocrine Endocrinology: Denies polydipsia, polyphagia or polyuria Hematologic/Lymphatic Hematologic/Lymphatic: Denies easy bleeding, easy bruising or lymphadenopathy Allergic/Immunologic Allergic/Immunologic ED: Denies mouth swelling, tongue swelling or urticaria EXAM Physical Exam Const Vital Signs: 09/18/25 11:55 Temperature 96.2 F L Temperature Source Temporal Pulse Rate 90 Respiratory Rate 18 Blood Pressure 149/90 H Blood Pressure Mean 109 Pulse Ox 99 Oxygen Delivery Method Room Air Positive well nourished and well developed General Appearance ED: well developed and NAD HEENT Reports TM's clear and moist mucous membranes normocephalic and atraumatic; Negative for trauma or tenderness Tympanic Membrane ED: Yes TM's clear Eyes PERRL and EOMs intact bilaterally General Eye ED: Negative for pale conjunctiva or scleral icterus Neck no lymphadenopathy, supple and no JVD General: Negative for tenderness Chest Wall inspection of chest normal and palpation of chest normal Chest: Negative for tenderness Resp normal respiratory effort and clear to auscultation bilaterally Effort and Inspection: Negative for respiratory distress or pain with movement Auscultation: Negative for rhonchi, wheezes or diminished lung sounds Cardio regular rate, regular rhythm, S1 normal heart sound, S2 normal heart sound and no murmurs Peripheral Pulses: pulses 2+ throughout GI normal to inspection, nondistended, normoactive bowel sounds, soft to palpation, non-tender, non-distended and no masses Back/Spine no CVA tenderness and no thoracic nor lumbar tenderness Extremity Extremity Narrative: Right hand-patient has healing wound to the thenar eminence of the right hand. There is palpable scar tissue there. There is no erythema or warmth. Do not appreciate obvious foreign body on palpation of the wound. She is neurovascularly intact and has normal range of motion flexion extension of the thumb and all digits. General Extremety ED: Negative for edema General Extremity: Negative for edema Neuro oriented x3, CN's II-XII intact bilaterally, no sensory deficits noted and gait normal Sensorium / Orientation: awake, alert, oriented to person, oriented to place and oriented to time Motor Exam: strength 5/5 throughout and strength abnormal Psych mental status grossly normal Skin no rashes or lesions noted and no wounds MDM MDM MDM Narrative Medical decision making narrative: Will obtain x-rays of the right hand to rule out any radiopaque foreign bodies. Will discuss treatment options after but given that there is no signs of infection I feel she will likely have to follow-up with either hand or Ortho. Discussed case with [facility] orthopedics Dr. Stover who would be able to see patient as outpatient in consultation for definitive care. At this time there is no signs of infection. I do not think she needs antibiotics. Will refer for outpatient follow-up. Radiography Diagnostic Testing: Three-view x-rays of the right hand obtained interpreted by myself as foreign body noted within the thenar eminence of the right hand likely glass per patient history. Radiology in agreement feels there may be up to [address]. Discharge Plan Triage Chief Complaint: Wound Check ED Provider: Jodie Queen Dx/Rx/DC Orders Clinical Impression: Acute foreign body of right hand Instructions: ED Foreign Body Soft Tissue Prescriptions: No Action hydroxyzine HCl 25 mg tablet 25 mg PO TID PRN (Reason: anxiety) Qty: 90 2RF risperidone 1 mg tablet See Rx Instructions PO .COMPLEX Qty: 75 0RF Rx Instructions: Take 1 tablet daily QAM & QHS, Take 0.5 Tablet daily in the afternoon escitalopram oxalate 10 mg tablet 10 mg PO QDAY Qty: 90 1RF Primary Care Provider: Care Physician,No Primary Referrals: Care Physician,No Primary [Primary Care Provider, Medical] Activity Restrictions/Additional Instructions: Call Dr. Garcia at [facility] orthopedics for follow-up for definitive care. Print Language: Chilean Disposition Disposition: Home, Self Care
[2025-09-18 13:48] VITALS: BP 143/97; PULSE 75; TEMP 36.6; O2SAT 98
[2025-09-18 13:54] VITALS: BP 143/97; PULSE 75; RESP 18; TEMP 36.6; O2SAT 98
--- NOTE | 2025-09-18 15:07 | ED.RN ---
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 )
--- NOTE | 2025-09-18 15:08 | ED.RN ---
Andrew PERALTA'den pt. not Alejandro Rbo.
== END 2025-09-18 14:48 | disposition home or self-care (01) ==
PROVIDERS: Emergency Provider Emergency Medicine; Visit Provider Emergency Medicine
DX: S60.551A Superficial foreign body of right hand, initial encounter (principal); F17.210 Nicotine dependence, cigarettes, uncomplicated; J45.909 Unspecified asthma, uncomplicated; I10 Essential (primary) hypertension; W44.C0XA Glass unspecified, entering into or through a natural orifice, initial encounter
CPT/HCPCS: 73130; 99282